=== PATIENT | male | born 1995 | race Caucasian/White ===

== ENCOUNTER 2018-02-26 12:46 | Emergency (ER) | payer OTHER, MEDICAID, SELFPAY ==
[2018-02-26 12:47] VITALS: BP 118/77; PULSE 64; RESP 17; TEMP 36.5; O2SAT 98; BMI 17.6
[2018-02-26] MEDS: LORazepam 2 MG/ML Syringe 0.5 MG IV (13:19)
[2018-02-26] MEDS: Ondansetron 4 MG/2 ML Vial IV (13:19)
[2018-02-26] MEDS: 0.9% Normal Saline 1,000 ML 1000 ML IV (13:19)
--- NOTE | 2018-02-26 13:23 | ED.RN ---
Lights out, pt with pillow and blanket, resting with eyes closed when rn entered room. No vomit in emesis bag. FM asleep in chair.
[2018-02-26 13:33] LABS: Absolute Neutrophil Count 7.9 X10^3/uL (2.0-7.7); Basophil# 0.02 X10^3/uL; Basophil% 0.2 % (0-1); Eosinophil# 0.02 X10^3/uL; Eosinophils% 0.2 % (0-5); Hematocrit 46.3 % (40-54); Hemoglobin 16.6 g/dl (13.0-16.5); Lymphocyte % 12.3 % (19-41); Mean Corp Hgb Conc 35.9 g/gl (32-36); Mean Corpuscular Hgb 32.5 pg (27.0-32.0); Mean Corpuscular Volume 90.8 fL (80-94); Mean Platelet Vol. 11.5 fl (6.2-12.0); Monocyte# 0.58 X10^3/uL; Neutrophil # 7.89 X10^3/uL (2.7-7.7); Neutrophil % 81.1 % (47-70); POSITIVE COUNT NO; POSITIVE DIFFERENTIAL NO; POSITIVE MORPHOLOGY NO; Platelet Count 285 K/mm3 (150-450); RBC Distribution Width CV 11.7 % (11.6-14.6); RBC Distribution Width SD 39.3 fl (35.1-43.9); White Blood Count 9.7 K/mm3 (4.4-11.0)
[2018-02-26 13:39] LABS: Anion Gap 14 (5-15); BUN 11 mg/dL (7-18); Calcium,Total 9.3 mg/dL (8.5-10.1); Chloride 108 mmol/L (98-107); Creatinine, Serum 1.22 mg/dL (0.70-1.30); EST Glomerular Filtration Rate 80 mL/min (>60); Est Glom Filt Rate - Afr Amer 97 mL/min (>60); Estimated Creatinine Clearance 80.56 ml/min; Glucose 122 mg/dL (74-106); Potassium 3.3 mmol/L (3.5-5.1); Sodium Level 142 mmol/L (136-145)
[2018-02-26] MEDS: 0.9% Normal Saline 1,000 ML 150 ML IV (14:33)
[2018-02-26] MEDS: proMETHazine 25 MG/ML Syringe 12.5 MG IV (14:34)
[2018-02-26] MEDS: Ziprasidone IM 20 MG/ML VIAL 10 MG IM (15:39)
[2018-02-26 15:42] VITALS: BP 104/67; PULSE 83; RESP 16; O2SAT 100
--- NOTE | 2018-02-26 16:53 | ED.VISSUMM ---
- ER Visit Summary Date of Service: 02/26/18 Chief Complaint: Nausea and vomiting History of Present Illness: The patient is a 22 M reports nausea and vomiting that started last evening. Complains of pain to the left mid abdomen. He denies fever. Review of records patient has had prior visits for recurrent vomiting. He has had multiple admissions [facility] with extensive workups in no known cause of his vomiting. He does not have any antiemetics at home currently. Physical Examination: Vital signs are unremarkable. Patient is lying in bed. He is nontoxic appearing. Heart is regular rate and rhythm. Lung sounds are clear. Abdomen is soft with mild diffuse tenderness to palpation. Hypoactive bowel sounds are noted. Test Results: CBC reveals hemoglobin concentrated at 16.6. White count is normal. Chemistry studies reveal glucose of 122 bicarb of 20. Emergency Department Course and Treatment: Patient is given IV fluids along with Zofran and Ativan. On repeat evaluation is resting comfortably. He states his symptoms are somewhat improved but he still feels quite nauseated. He is given IV Phenergan. I was notified by nursing that he was having some dry heaves after Phenergan. They have not seen him actually vomit up any fluid. On review of most recent ER visit for same, patient was given IM Geodon due to concern for cyclic vomiting. Patient was given 10 mg of IM Geodon with no reported improvement. Nursing staff advises me they have not seen him vomit at all while here. When I go to reevaluate the patient he states that he has vomited. At this time patient has had extensive workup for the same. I see no sign of acute infection or need for imaging. He will be discharged with Zofran, Phenergan, Bentyl. He will be referred to GI for follow-up. Treatment Plan: [] Disposition: Discharge Impression: Recurrent vomiting This note was generated with [employer] dictation software. It may contain incorrect words, spelling, and punctuation that were not noted in review of the chart prior to signing ED Disposition - Plan for ED Patient: Chief Complaint: Nausea/Vomiting Referrals: Binu Jose MD [Primary Care Provider] -
--- NOTE | 2018-02-26 16:56 | ED.DCSUM_ITS ---
- ER Visit Summary Date of Service: 02/26/18 Chief Complaint: Nausea and vomiting History of Present Illness: The patient is a 22 M reports nausea and vomiting that started last evening. Complains of pain to the left mid abdomen. He denies fever. Review of records patient has had prior visits for recurrent vomiting. He has had multiple admissions at [facility] with extensive workups in no known cause of his vomiting. He does not have any antiemetics at home currently. Physical Examination: Vital signs are unremarkable. Patient is lying in bed. He is nontoxic appearing. Heart is regular rate and rhythm. Lung sounds are clear. Abdomen is soft with mild diffuse tenderness to palpation. Hypoactive bowel sounds are noted. Test Results: CBC reveals hemoglobin concentrated at 16.6. White count is normal. Chemistry studies reveal glucose of 122 bicarb of 20. Emergency Department Course and Treatment: Patient is given IV fluids along with Zofran and Ativan. On repeat evaluation is resting comfortably. He states his symptoms are somewhat improved but he still feels quite nauseated. He is given IV Phenergan. I was notified by nursing that he was having some dry heaves after Phenergan. They have not seen him actually vomit up any fluid. On review of most recent ER visit for same, patient was given IM Geodon due to concern for cyclic vomiting. Patient was given 10 mg of IM Geodon with no reported improvement. Nursing staff advises me they have not seen him vomit at all while here. When I go to reevaluate the patient he states that he has vomited. At this time patient has had extensive workup for the same. I see no sign of acute infection or need for imaging. He will be discharged with Zofran , Phenergan, Bentyl. He will be referred to GI for follow-up. Treatment Plan: [] Disposition: Discharge Impression: Recurrent vomiting This note was generated with [employer] dictation software. It may contain incorrect words, spelling, and punctuation that were not noted in review of the chart prior to signing ED Disposition - Plan for ED Patient: Chief Complaint: Nausea/Vomiting Referrals: Binu Jose MD [Primary Care Provider] -
--- NOTE | 2018-02-26 16:56 | ED.DEP ---
ED Disposition - Plan for ED Patient: Disposition: Home or Assisted Living Chief Complaint: Nausea/Vomiting Instructions: ED Nausea Vomiting Prescriptions: proMETHazine tablet [Phenergan] 25 mg PO Q6H PRN PRN #10 tablet PRN Reason: Nausea Ondansetron [Zofran Odt] 4 mg PO Q8H PRN PRN #20 tablet PRN Reason: Nausea Dicyclomine HCl [Bentyl] 20 mg PO TIDAC #20 capsule Referrals: Timothy Whitten MD [STAFF PHYSICIAN] - As Needed Binu Jose MD [Primary Care Provider] - 1 Week
[2018-02-26 17:40] VITALS: BP 109/82; PULSE 100; RESP 16; O2SAT 98
== END 2018-02-26 17:41 | disposition home or self-care (01) ==
PROVIDERS: Emergency Provider Emergency Medicine; Family Provider Family Medicine; PCP Family Medicine
DX: R11.2 Nausea with vomiting, unspecified (principal); R10.84 Generalized abdominal pain; Z72.0 Tobacco use
CPT/HCPCS: 80048; 85025; 96361; 96372; 96374; 96375; 99283; J2405; J3486

== ENCOUNTER 2018-05-13 17:53 | Emergency (ER) | payer OTHER, MEDICAID, SELFPAY ==
[2018-05-13 17:55] VITALS: BP 121/81; PULSE 103; RESP 20; TEMP 35.7; O2SAT 98; BMI 16.9
[2018-05-13] MEDS: Ondansetron 4 MG/2 ML Vial IV (18:19)
[2018-05-13] MEDS: LORazepam 2 MG/ML Syringe 0.5 MG IV (18:19)
[2018-05-13] MEDS: 0.9% Normal Saline 1,000 ML 999 ML IV (18:19)
[2018-05-13 19:51] VITALS: BP 111/58; PULSE 80; RESP 16; O2SAT 98
--- NOTE | 2018-05-13 20:19 | ED.VISSUMM ---
- ER Visit Summary Date of Service: 05/13/18 Chief Complaint: Cyclic vomiting History of Present Illness: The patient is a 22 M presenting for evaluation secondary to cyclic vomiting. Patient states it drank alcohol last night, approximately 6 shots of liquor, and today woke up and was having an exacerbation of cyclic vomiting. He states that he has had a multitude of episodes of nonbloody nonbilious emesis. Patient reports that he has some epigastric abdominal pain. Denies any fevers denies any diarrhea. Review of systems otherwise negative. Physical Examination: Vital signs are within normal limits except for mild tachycardia, patient is afebrile. General: Patient is well-nourished well-developed and in no acute distress. Head: Normocephalic, atraumatic Eyes: Pupils equal round and reactive bilaterally, extra occular motion intact bialterally ENT: Moist mucous membranes Neck: Supple, no lymphadenopathy, no JVD, no meningismus CVS: Heart regular with tachycardia, no murmurs, rubs or gallops, radial pulses 2+ bilaterally Resp: Respirations nondistressed, lung sounds clear bilaterally Abdomen: Soft, under the epigastrium no guarding or rebound, nondistended, no palpable masses, normal bowel sounds Back: Nontender Extremities: Nontender, atraumatic, active full range of motion, no peripheral edema Skin: warm, no rashes, no petechia Neuro: Alert and oriented x 4, CN 2-12 intact, no lateralizing neurological defecits Psyc: Normal affect Test Results: None indicated Emergency Department Course and Treatment: Patient presented secondary to an exacerbation of cyclic vomiting syndrome. IV was established patient was given 2 L normal saline. He was treated with Ativan, Zofran initially. Patient did not have improvement so he was treated with Thorazine and Benadryl. Repeat evaluation at 2029 showed the patient's to be tolerating ice chips. I believe he can safely be discharged. He has Phenergan at home he was instructed to use it. Disposition: Discharge Impression: 1. Cyclic vomiting This note was generated with [employer] dictation software. It may contain incorrect words, spelling, and punctuation that were not noted in review of the chart prior to signing ED Disposition - Plan for ED Patient: Disposition: Home or Assisted Living Chief Complaint: Nausea/Vomiting Diagnosis: Cyclical vomiting Instructions: When Your Child Has Cyclic Vomiting Syndrome ([facility]) Referrals: Binu Jose MD [Primary Care Provider] - 1-2 Days if not improving
[2018-05-13 20:32] VITALS: BP 110/54; PULSE 112; RESP 14; O2SAT 98
--- NOTE | 2018-05-13 20:33 | ED.RN ---
pt given written and verbal discharge instructions and verbalizes understanding. pt denies any further questions. calls dad for a ride home and is awaiting rides arrival. iv d/c and covered with 2x2 gauze dressing and paper tape. minimal bleeding noted.
== END 2018-05-13 20:47 | disposition home or self-care (01) ==
PROVIDERS: Emergency Provider Emergency Medicine; Family Provider Family Medicine; PCP Family Medicine
DX: G43.A0 Cyclical vomiting, in migraine, not intractable (principal)
CPT/HCPCS: 96365; 96367; 96375; 99283; J7030; A4216; J2405; J3490

== ENCOUNTER 2018-05-15 10:08 | Inpatient (IN) | payer OTHER, MEDICAID, SELFPAY ==
[2018-05-15 10:10] VITALS: BP 126/98; PULSE 72; PULSE 79; RESP 18; TEMP 36.6; O2SAT 100; O2SAT 98; BMI 16.9
[2018-05-15 10:42] LABS: Absolute Lymphocyte Count 1.54 X10^3/ul (0.83-4.51); Absolute Neutrophil Count 4.2 X10^3/uL (2.0-7.7); Basophil# 0.03 X10^3/uL; Basophil% 0.5 % (0-1); Eosinophil# 0.02 X10^3/uL; Eosinophils% 0.3 % (0-5); Hematocrit 44.4 % (40-54); Hemoglobin 15.3 g/dl (13.0-16.5); Lymphocyte # 1.54 X10^3/ul (4.0); Lymphocyte % 23.8 % (19-41); Mean Corp Hgb Conc 34.5 g/gl (32-36); Mean Corpuscular Hgb 32.2 pg (27.0-32.0); Mean Corpuscular Volume 93.5 fL (80-94); Mean Platelet Vol. 10.9 fl (6.2-12.0); Monocyte# 0.66 X10^3/uL; Monocyte% 10.2 % (0-10); Platelet Count 278 K/mm3 (150-450); RBC Distribution Width CV 12.5 % (11.6-14.6); RBC Distribution Width SD 42.8 fl (35.1-43.9); Red Blood Count 4.75 M/mm3 (4.6-6.2); White Blood Count 6.5 K/mm3 (4.4-11.0)
--- NOTE | 2018-05-15 10:45 | ED.DCSUM_ITS ---
- ER Visit Summary Date of Service: 05/15/18 Chief Complaint: Nausea, vomiting History of Present Illness: The patient is a 22 M presents to the emergency department with nausea and vomiting. Patient has a history of cyclic vomiting syndrome. He was actually seen here 2 days ago for the same. The patient states that he vomits when he gets stressed. Mother in the room gives most of the history. The patient has no history of abdominal surgery. He has had endoscopy which was normal. He has been vomiting for the past 2 days. He was able to eat yesterday, but then the symptoms returned. He denies any fevers or chills. He has had some abdominal cramping. He denies any diarrhea. Physical Examination: Vital signs reviewed General: Well-nourished, well-developed Head: Normocephalic, atraumatic Eyes: Pupils equal and reactive, extraocular muscles intact Neck, supple, no lymphadenopathy Heart: Regular rate and rhythm Respiratory: No distress, clear bilaterally Abdomen: Soft, nontender, nondistended, no peritoneal signs Back: Nontender Extremities: Nontender, no edema, no cords Skin: Normal color no rash Neuro: Alert and oriented, no focal or lateralizing deficits Test Results: [] Emergency Department Course and Treatment: The patient presents with cyclic vomiting syndrome. IV was established. The patient was initially given fluids , Ativan, and Zofran. He had persistent emesis. He was then given Benadryl and Thorazine. Screening labs are obtained. Labs are unremarkable. Tox is positive for cannabis which I feel is likely the cause of his symptoms. Patient continued to have protracted dry heaves with vomiting. He was given Phenergan and more Benadryl. His symptoms did not jyothi. At this time given his persistent symptoms he will be admitted to observation for continued symptom control. Treatment Plan: [] Disposition: [place] Impression: 1. Intractable vomiting This note was generated with [email or web address] dictation software. It may contain incorrect words, spelling, and punctuation that were not noted in review of the chart prior to signing ED Disposition - Plan for ED Patient: Chief Complaint: Nausea/Vomiting Referrals: Binu Jose MD [Primary Care Provider] -
[2018-05-15 10:53] LABS: POSITIVE COUNT NO; POSITIVE DIFFERENTIAL NO; POSITIVE MORPHOLOGY NO
[2018-05-15] MEDS: Lactated Ringers 1,000 ML 999 ML IV (10:53)
[2018-05-15] MEDS: LORazepam 2 MG/ML Syringe 0.5 MG IV (10:54)
[2018-05-15 10:55] LABS: Anion Gap 5 (5-15); BUN 11 mg/dL (7-18); BUN/Creat Ratio 10.9 RATIO (10-20); Calcium,Total 9.4 mg/dL (8.5-10.1); Chloride 105 mmol/L (98-107); Creatinine, Serum 1.01 mg/dL (0.70-1.30); EST Glomerular Filtration Rate 99 mL/min (>60); Est Glom Filt Rate - Afr Amer 120 mL/min (>60); Estimated Creatinine Clearance 93.56 ml/min; Glucose 114 mg/dL (74-106); Potassium 3.5 mmol/L (3.5-5.1); Sodium Level 138 mmol/L (136-145)
[2018-05-15] MEDS: Ondansetron 4 MG/2 ML Vial IV ×3 (10:55→21:52)
[2018-05-15 12:10] VITALS: BP 112/51; PULSE 99; RESP 16; O2SAT 98
[2018-05-15] MEDS: DiphenhydrAMINE 50 MG/ML Syringe 25 MG IV (12:12)
[2018-05-15] MEDS: proMETHazine 25 MG/ML Syringe 12.5 MG IV (12:12)
[2018-05-15 12:51] LABS: Amphetamine Urine VISTA NEGATIVE (<1000 ng/mL); Barbiturate Urine VISTA NEGATIVE (< 200 ng/mL); Benzodiazepine Urine VISTA NEGATIVE (< 200 ng/mL); Cocaine Urine VISTA NEGATIVE (< 300 ng/mL); Ecstacy Urine VISTA NEGATIVE (< 500 ng/mL); Methadone Urine VISTA NEGATIVE (< 300 ng/mL); PCP Urine VISTA NEGATIVE (< 25 ng/mL); THC Urine VISTA POSITIVE (< 50 ng/mL); Vista UDS pH Range 8
--- NOTE | 2018-05-15 13:36 | HP.PCM_ITS ---
Problem List (1) Intractable vomiting with nausea Status: Acute (2) Marijuana use, continuous Status: Chronic History of Present Illness Date of Admission: 05/15/18 Chief Complaint: Intractable vomiting and abdominal cramps The patient is a 22 year old M with history of chronic marijuana use came to ER with intractable nausea and vomiting for past 2 days. Patient has also complained of abdominal cramps, twisting and piercing, predominantly on the left side of her abdomen. Patient was in ER on last Tuesday and came back because of vomiting. As per ER note he had EGD which was normal. Denies subjective fever but has chills. No change in bowel movement. In the ED, he got Benadryl and Thorazine. Labs are unremarkable except U tox positive off cannabinoids. Previous CT abdomen and pelvis in September 2017 shows punctate calcification in the calyces of both kidneys but no hydronephrosis bilaterally. Past Medical History Past Medical History (Chronic Problems): Chronic Problems Marijuana use, continuous (Chronic) Allergies risperidone [From Risperdal] Adverse Reaction (Verified 05/15/18 10:10) Other RAPID HEARTBEAT Home Medications: Ambulatory Orders Medication Instructions Recorded NK [NK] 05/13/18 Smoking Status: Former smoker - *Family History Paternal History Items: No pertinent history Review of Systems Constitutional: Reports: Chills, Malaise, Weakness, Fatigue. Denies: Fever, Weight Change HEENT: Denies: Head Aches, Sinus Congestion, Sinus Drainage Cardiovascular: Denies: Chest Pain, Palpitations Respiratory: Denies: Cough, Shortness of breath at rest, Sputum production Gastrointestinal: Reports: Abdominal Pain, Nausea, Vomiting - Bilious in nature Genitourinary: Denies: Dysuria Musculoskeletal: Denies: Joint Pain, Joint Tenderness Skin: Denies: Rash, Wounds Neurological: Denies: Numbness, Tingling, Focal weakness Psychiatric: Denies: Anxiety, Depression, Homicidal Ideations, Suicidal Ideations Hematologic/ Lymphatic: Denies: Easy Bruising, Easy Bleeding VTE Information - Inpt Only VTE Present on Admission: No VTE Mechan Device Prophylaxis: None Reason prophylaxis not ordered:: Procedure Not Indicated Patient Problems: Active and Suspected Problems Intractable vomiting with nausea (Acute) - Physical Exam General: Oriented x3, Cooperative, Lethargic HEENT: Atraumatic, PERRLA, EOMI, Normocephalic Oral: Dry Mucosa Neck: Supple, No JVD, Negative Carotid Bruits Lungs: Clear to auscultation, Normal air movement Cardiovascular: Regular rate, Normal S1, Normal S2, No murmurs Abdomen: Bowel Sounds Present, Soft, Non-Distended, No Hepato-splenomegaly, Tender - Mild tenderness on left upper quadrant Extremities: No edema, Capillary Refill Less than 3 Seconds Skin: No rashes, No breakdown Musculoskeletal: No Tenderness to Palpation of Joints or Extremities Neurological: Cranial nerves II-XII grossly intact Psych/Mental Status: Normal Affect, Appropriate Vital Signs Temp Pulse Resp BP Pulse Ox 97.8 F 99 16 112/51 L 98 05/15/18 10:10 05/15/18 12:10 05/15/18 12:10 05/15/18 12:10 05/15/18 12:10 Oxygen Delivery Method Room Air Weight: 125 lb Body Mass Index (BMI) 16.9 Laboratory Tests Past 24 Hrs 05/15/18 05/15/18 05/15/18 10:30 10:30 12:30 WBC 6.5 RBC 4.75 Hgb 15.3 Hct 44.4 MCV 93.5 MCH 32.2 H MCHC 34.5 RDW 12.5 RDW Differential 42.8 Plt Count 278 MPV 10.9 Immature Gran % (Auto) 0.200 Neut % (Auto) 65.0 Lymph % (Auto) 23.8 [place] % (Auto) 10.2 H Eos % (Auto) 0.3 Baso % (Auto) 0.5 Absolute Neuts (auto) 4.2 Absolute Lymphs (auto) 1.54 Total Counted Not Reportable Sodium 138 Potassium 3.5 Chloride 105 Carbon Dioxide 28.0 Anion Gap 5 BUN 11 Creatinine 1.01 Estim Creat Clear Calc 93.56 Est GFR (MDRD) Af Amer 120 Est GFR (MDRD) Non-Af 99 BUN/Creatinine Ratio 10.9 Glucose 114 H Calcium 9.4 Urine Opiates Screen NEGATIVE Urine Methadone Screen NEGATIVE Ur Barbiturates Screen NEGATIVE Ur Phencyclidine Scrn NEGATIVE Ur Amphetamines Screen NEGATIVE U Methamphetamin-MDMA NEGATIVE U Benzodiazepines Scrn NEGATIVE Urine Cocaine Screen NEGATIVE U Cannabinoids Screen POSITIVE H Ur Drug Screen Comment Assessment/Plan All Active Problems Intractable vomiting with nausea (Acute) The patient is a 22 year old M with history of chronic marijuana use came to ER with intractable nausea and vomiting for past 2 days. Patient has also complained of abdominal cramps, twisting and piercing, predominantly on the left side of her abdomen. Vomiting is mainly bilious in nature. Patient was in ER on last Tuesday and came back because of vomiting. As per ER note he had EGD which was normal. Denies subjective fever but has chills. No change in bowel movement. In the ED, he got Benadryl and Thorazine. Labs are unremarkable except U tox positive off cannabinoids. Previous CT abdomen and pelvis in September 2017 shows punctate calcification in the calyces of both kidneys but no hydronephrosis bilaterally. 1. Intractable nausea and vomiting along with abdominal cramps most probably from marijuana use: In view of history of bilateral punctate calcifications the calyces of both kidneys as mentioned above, acute abdomen series ordered. Symptomatic management for nausea vomiting and pain. IV fluid normal saline at 120 5L per hour. 2. Chronic marijuana use: Counseling done to quit marijuana. Laboratory Results 05/15/18 10:30: WBC 6.5, RBC 4.75, Hgb 15.3, Hct 44.4, MCV 93.5, MCH 32.2 H, MCHC 34.5, RDW 12.5, RDW Differential 42.8, Plt Count 278, MPV 10.9, Immature Gran % (Auto) 0.200, Neut % (Auto) 65.0, Lymph % (Auto) 23.8, [place] % (Auto) 10.2 H, Eos % (Auto) 0.3, Baso % (Auto) 0.5, Absolute Neuts (auto) 4.2, Absolute Lymphs (auto) 1.54, Total Counted Not Reportable 05/15/18 10:30: Sodium 138, Potassium 3.5, Chloride 105, Carbon Dioxide 28.0, Anion Gap 5, BUN 11, Creatinine 1.01, Estim Creat Clear Calc 93.56, Est GFR ( MDRD) Af Amer 120, Est GFR (MDRD) Non-Af 99, BUN/Creatinine Ratio 10.9, Glucose 114 H, Calcium 9.4 05/15/18 12:30: Urine Opiates Screen NEGATIVE, Urine Methadone Screen NEGATIVE, Ur Barbiturates Screen NEGATIVE, Ur Phencyclidine Scrn NEGATIVE, Ur Amphetamines Screen NEGATIVE, U Methamphetamin-MDMA NEGATIVE, U Benzodiazepines Scrn NEGATIVE, Urine Cocaine Screen NEGATIVE, U Cannabinoids Screen POSITIVE H, Ur Drug Screen Comment * Code Visit Inpatient E&M: 60820 Init Hosp L2
[2018-05-15 13:38] VITALS: BP 110/50; PULSE 96; RESP 18; O2SAT 97
[2018-05-15 14:46] VITALS: BMI 17.5; BMI 17.6
[2018-05-15 14:54] VITALS: BP 122/75; PULSE 80; RESP 16; TEMP 37.3; O2SAT 100
--- NOTE | 2018-05-15 15:40 | RAD_ITS ---
STUDY: X-RAY - ACUTE ABDOMINAL SERIES REASON FOR EXAM: Male, 22 years old. Nausea vomiting left-sided abdominal pain TECHNIQUE: Single view of the chest. Supine, and erect view(s) of the abdomen were obtained. COMPARISON: Previous study of 11/12/2017 FINDINGS: The lungs are clear and expanded. Normal size heart. Normal mediastinum and sandra. Normal visualized pulmonary arteries. Normal visualized aortic arch and descending thoracic aorta. There is a non-specific bowel gas pattern. The soft tissue structures of the abdomen and pelvis are unremarkable. Normal visualized osseous structures. RAD/Acute Abdomen Inc Chest IMPRESSION: Normal x-ray examination of the chest, abdomen, and pelvis. Electronically Signed: Ash Berg MD at 20:17 EDT , Service support ,
[2018-05-15] MEDS: 0.9% NaCl Peripheral Flush Adult/Peds IV (16:41)
[2018-05-15] MEDS: 0.9% Normal Saline 1,000 ML 125 ML IV (17:46)
[2018-05-15 21:00] VITALS: BP 137/73; PULSE 75; RESP 18; TEMP 37.1; O2SAT 100
[2018-05-15] MEDS: Famotidine 20 MG Tablet PO (21:52)
[2018-05-16] MEDS: 0.9% Normal Saline 1,000 ML 125 ML IV ×3 (02:12→18:09)
[2018-05-16 02:13] VITALS: BP 111/53; PULSE 77; RESP 16; TEMP 37.3; O2SAT 98
[2018-05-16] MEDS: proMETHazine 25 MG/ML Syringe 12.5 MG IV ×3 (02:19→18:10)
[2018-05-16] MEDS: Ketorolac 15 MG/ML Vial IV ×3 (03:59→18:11)
--- NOTE | 2018-05-16 07:35 | PCM.PN.HOSP ---
Patient Problems: Active and Suspected Problems Intractable vomiting with nausea (Acute) Subjective: Patient notes that his abdominal discomfort has lessened but he still does have intermittent sharp cramping pain as well as nausea but no further emesis since admission secondary to frequent dosing of antiemetics. Discussed at length cannabis association with cyclic vomiting and patient denied any usage however his urine drug screen is positive and despite this discussion states that this is not the reason. He denied any associated diarrhea. Patient denies fevers, chills, chest pain or dyspnea. Objective: Physical Examination: General: awake, alert, oriented x 3 and cooperative, seated upright in bed in no apparent distress. Skin: normal color, turgor, no icterus, cyanosis. HEENT: AT/NC, EOMI, PERRLA, MMM. Lungs: CTA bilaterally, moderate effort, mild decrease BL bases, no rales, ronchi or wheezing. Heart: Regular rate and rhythm; no gallop, rub audible. Abdomen: soft, very thin habitus, no market tenderness with palpation, nondistended, mildly hypoactive bowel sounds. Neurological: patient awake, alert, oriented x 3; cognitive function intact; pupils equally reactive to light and accomodation; cranial nerves II-XII grossly normal, moving all 4 extremities, no focal deficits, strength mildly globally decreased secondary to acute presentation. Psychiatric: affect appears normal, no acute evidence of depressive or anxiety feelings. Vitals/I&O's: Vital Signs Temp Pulse Resp BP Pulse Ox 99.2 F H 77 16 111/53 L 98 05/16/18 02:13 05/16/18 02:13 05/16/18 02:13 05/16/18 02:13 05/16/18 02:13 Oxygen Delivery Method Room Air Weight: 129 lb 10.109 oz Body Mass Index (BMI) 17.5 Intake and Output for Last 24 Hours 05/14/18 05/15/18 05/16/18 23:59 23:59 23:59 Intake Total 117 / 117 1609 / 1609 Output Total 705 / 705 Balance 117 / 117 904 / 904 Current Medications Al Hydroxide/Mg Hydroxide (Mylanta Ii) 30 ml PO Q6H PRN PRN PRN Reason: Gastric burning Famotidine (Pepcid) 20 mg PO BID [place] Last Admin: 05/15/18 21:52 Dose: 20 mg Diphenhydramine HCl 25 mg/Chlorpromazine HCl 25 mg/Sodium Chloride 51.5 mls @ 202 mls/hr IV X1 PRN PRN Reason: IF UNRESOLVED AFTER STEP #1 Last Admin: 05/15/18 10:55 Dose: 202 mls/hr Sodium Chloride () 1,000 mls @ 125 mls/hr IV .Q8H [place] Last Admin: 05/16/18 02:12 Dose: 125 mls/hr Ketorolac Tromethamine (Toradol) 15 mg IV Q6H PRN PRN PRN Reason: PAIN Stop: 05/21/18 03:29 Last Admin: 05/16/18 03:59 Dose: 15 mg Magnesium Hydroxide (Milk Of Magnesia) 30 ml PO DAILY PRN PRN PRN Reason: Constipation Nutritional Formula (Lactose Free) (Ensure Clear) 120 ml PO 4X/DAY [place] Last Admin: 05/15/18 21:52 Dose: 120 ml Ondansetron HCl (Zofran) 4 mg IV Q4H PRN PRN PRN Reason: NAUSEA Last Admin: 05/15/18 21:52 Dose: 4 mg Promethazine HCl (Phenergan) 12.5 mg IV Q6H PRN PRN PRN Reason: NAUSEA/VOMITING Last Admin: 05/16/18 02:19 Dose: 12.5 mg Simethicone (Mylicon) 80 mg PO TIDPC [facility] Sodium Chloride () 5 - 30 ml IV UD PRN PRN Reason: SALINE FLUSH Last Admin: 05/15/18 16:41 Dose: 10 ml Medical Necessity - Tobacco Use Smoking Status: Former smoker Assessment/Plan All Active Problems Intractable vomiting with nausea (Acute) The patient is a 22 y/o M w/ PMHx: Chronic Cannabis Usage with history of intractable nausea and emesis with prior normal EGD who presents to the [facility] ED on 05/15[facility]18 with ongoing cramping abdominal pain, nausea and emesis x 2 days. (1) Cramping Abdominal Pain, N/V, Suspected secondary to Possible Viral Gastroenteritis versus Cyclic Vomiting Syndrome secondary to Cannabis usage: Admitted to [place], will continue aggressive hydration, add bentyl and simethicone, anti-emetics, pain regimen PRN, famotidine, transition to diet once assure tolerating clears. Hepatic profile pending. (2) Cannabis usage: Chronic usage, notes has not recently used despite + UDS, became mildly defensive and noted this was not the reason for his presentation or prior issues. (3) GERD: PPI. (4) DVT Prophylaxis: Low risk, ambulation. Code Visit OBSV E&M: 42903 Subsequent observation care L2
--- NOTE | 2018-05-16 07:43 | PN_ITS ---
Patient Problems: Active and Suspected Problems Intractable vomiting with nausea (Acute) Subjective: Patient notes that his abdominal discomfort has lessened but he still does have intermittent sharp cramping pain as well as nausea but no further emesis since admission secondary to frequent dosing of antiemetics. Discussed at length cannabis association with cyclic vomiting and patient denied any usage however his urine drug screen is positive and despite this discussion states that this is not the reason. He denied any associated diarrhea. Patient denies fevers, chills, chest pain or dyspnea. Objective: Physical Examination: General: awake, alert, oriented x 3 and cooperative, seated upright in bed in no apparent distress. Skin: normal color, turgor, no icterus, cyanosis. HEENT: AT/NC, EOMI, PERRLA, MMM. Lungs: CTA bilaterally, moderate effort, mild decrease BL bases, no rales, ronchi or wheezing. Heart: Regular rate and rhythm; no gallop, rub audible. Abdomen: soft, very thin habitus, no market tenderness with palpation, nondistended, mildly hypoactive bowel sounds. Neurological: patient awake, alert, oriented x 3; cognitive function intact; pupils equally reactive to light and accomodation; cranial nerves II-XII grossly normal, moving all 4 extremities, no focal deficits, strength mildly globally decreased secondary to acute presentation. Psychiatric: affect appears normal, no acute evidence of depressive or anxiety feelings. Vitals/I&O's: Vital Signs Temp Pulse Resp BP Pulse Ox 99.2 F H 77 16 111/53 L 98 05/16/18 02:13 05/16/18 02:13 05/16/18 02:13 05/16/18 02:13 05/16/18 02:13 Oxygen Delivery Method Room Air Weight: 129 lb 10.109 oz Body Mass Index (BMI) 17.5 Intake and Output for Last 24 Hours 05/14/18 05/15/18 05/16/18 23:59 23:59 23:59 Intake Total 117 / 117 1609 / 1609 Output Total 705 / 705 Balance 117 / 117 904 / 904 Current Medications Al Hydroxide/Mg Hydroxide (Mylanta Ii) 30 ml PO Q6H PRN PRN PRN Reason: Gastric burning Famotidine (Pepcid) 20 mg PO BID [place] Last Admin: 05/15/18 21:52 Dose: 20 mg Diphenhydramine HCl 25 mg/Chlorpromazine HCl 25 mg/Sodium Chloride 51.5 mls @ 202 mls/hr IV X1 PRN PRN Reason: IF UNRESOLVED AFTER STEP #1 Last Admin: 05/15/18 10:55 Dose: 202 mls/hr Sodium Chloride () 1,000 mls @ 125 mls/hr IV .Q8H [place] Last Admin: 05/16/18 02:12 Dose: 125 mls/hr Ketorolac Tromethamine (Toradol) 15 mg IV Q6H PRN PRN PRN Reason: PAIN Stop: 05/21/18 03:29 Last Admin: 05/16/18 03:59 Dose: 15 mg Magnesium Hydroxide (Milk Of Magnesia) 30 ml PO DAILY PRN PRN PRN Reason: Constipation Nutritional Formula (Lactose Free) (Ensure Clear) 120 ml PO 4X/DAY [facility] Last Admin: 05/15/18 21:52 Dose: 120 ml Ondansetron HCl (Zofran) 4 mg IV Q4H PRN PRN PRN Reason: NAUSEA Last Admin: 05/15/18 21:52 Dose: 4 mg Promethazine HCl (Phenergan) 12.5 mg IV Q6H PRN PRN PRN Reason: NAUSEA/VOMITING Last Admin: 05/16/18 02:19 Dose: 12.5 mg Simethicone (Mylicon) 80 mg PO TIDPC [facility] Sodium Chloride () 5 - 30 ml IV UD PRN PRN Reason: SALINE FLUSH Last Admin: 05/15/18 16:41 Dose: 10 ml Medical Necessity - Tobacco Use Smoking Status: Former smoker Assessment/Plan All Active Problems Intractable vomiting with nausea (Acute) The patient is a 22 y/o M w/ PMHx: Chronic Cannabis Usage with history of intractable nausea and emesis with prior normal EGD who presents to the [facility] ED on 05/15/18 with ongoing cramping abdominal pain, nausea and emesis x 2 days. (1) Cramping Abdominal Pain, N/V, Suspected secondary to Possible Viral Gastroenteritis versus Cyclic Vomiting Syndrome secondary to Cannabis usage: Admitted to [place], will continue aggressive hydration, add bentyl and simethicone, anti-emetics, pain regimen PRN, famotidine, transition to diet once assure tolerating clears. Hepatic profile pending. (2) Cannabis usage: Chronic usage, notes has not recently used despite + UDS, became mildly defensive and noted this was not the reason for his presentation or prior issues. (3) GERD: PPI. (4) DVT Prophylaxis: Low risk, ambulation. Code Visit OBSV E&M: 12489 Subsequent observation care L2
[2018-05-16 08:22] VITALS: BP 105/49; PULSE 77; RESP 16; TEMP 36.8; O2SAT 99
[2018-05-16] MEDS: Famotidine 20 MG Tablet PO ×2 (08:35→21:33)
[2018-05-16] MEDS: Ondansetron 4 MG/2 ML Vial IV ×3 (08:38→21:33)
[2018-05-16 08:41] LABS: AST(SGOT) 9 U/L (15-37); Alanine Aminotransfer ALT/SGPT 12 U/L (16-61); Albumin, Serum 3.9 g/dL (3.2-5.0); Alkaline Phosphatase 48 U/L (45-117); Globulin 2.8 g/dL (2.2-4.2); Protein, Total 6.7 g/dL (6.4-8.2)
[2018-05-16 08:42] LABS: Bilirubin, Direct 0.27 mg/dL (0.00-0.30); Magnesium 1.9 mg/dL (1.6-2.6)
[2018-05-16] MEDS: Dicyclomine 10 MG Capsule 20 MG PO ×3 (09:44→21:33)
--- NOTE | 2018-05-16 10:45 | CASEMGMT ---
Social Work Note Referral Date: 05/16/2018 Date of Assessment: 05/16/2018 Reason for consult: Marijuana use Informant: IRENE Personal Status: SW met with pt as pt is active marijuana user. SW introduced self and role at [facility]. Pt is alert and orientated x4. Pt states that he lives with his whole family and independent with ADLs. Pt states that his family try to be good support for him. SW asked pt what he meant by saying his family try to be good support. Pt states that his mom and dad work a lot so he is often home by himself. Pt states that he has one good friend and says that his girlfriend are also support for him. Pt states that his girlfriend doesn't act like a girlfriend. SW asked pt what he meant by this. Pt states that he texted his girlfriend yesterday to let her know that he was in the hospital and his girlfriend hasn't responded to his messages or visited him in the hospital. SW asked pt if his girlfriend works as she could be busy and pt states that his girlfriend doesn't currently work. SW offered support to pt. Pt confirms that he has insurance. Pt states that he is currently on his dad's insurance and that he had previously filled out Medicaid Application and he is in the process of receiving Medicaid. Substance Abuse Hx: Pt confirms that he smokes pot everyday. Pt states that he started smoking marijuana around the age of 14. Pt states that he doesn't plan on quitting anytime soon. Pt states that everyone keeps telling him that the marijuana is making him sick. Pt states that he proved this wrong. Pt states that he will smoke marijuana seven months at a time and that he just now got sick from it. SW encouraged pt that quitting marijuana could have health benefits to it. Pt still denied quitting marijuana. Mental Health Hx: Pt states that at one time he was told he had Bipolar. SW explained Bipolar symptoms and pt denied symptoms. Pt states I just feel sad all the time. SW explained depression symptoms. Pt denied any feelings of hopelessness, worthlessness, or uselessness. Pt denied current suicidal/homicidal thoughts/plans/ideations. Pt states that when he was younger he saw a counselor but couldn't remember the agency where he received counseling services from. Pt states that he and his counselor at the time got into an argument and got into a fight and he never went back to see that counselor again. Pt denied receiving current counseling services. SW educated pt on counseling services around area. Pt denied counseling referral/references. Pt denied additional needs or concerns. Plan: Pt to return home living with his family Yoli Cannon [employer], [employer]CH[employer]IAN
[2018-05-16 14:16] VITALS: BP 110/46; PULSE 80; RESP 16; TEMP 36.8; O2SAT 97
[2018-05-16] MEDS: 0.9% NaCl Peripheral Flush Adult/Peds IV (18:11)
[2018-05-16 21:14] VITALS: BP 122/71; PULSE 69; RESP 18; TEMP 37; O2SAT 100
--- NOTE | 2018-05-16 21:32 | NURSING ---
Talking with patient about his home life and he states he has nothing to be happy about and that he leads a sad life. States he doesn't think it's the marijuana that made him this sick, believes it is stress. Emotional support provided.
[2018-05-17] MEDS: proMETHazine 25 MG/ML Syringe 12.5 MG IV (00:30)
[2018-05-17] MEDS: 0.9% Normal Saline 1,000 ML 125 ML IV ×3 (01:50→17:40)
[2018-05-17 03:02] VITALS: BP 128/66; PULSE 68; RESP 16; TEMP 36.6; O2SAT 100
[2018-05-17] MEDS: Dicyclomine 10 MG Capsule 20 MG PO (07:21)
[2018-05-17 08:05] VITALS: BP 130/84; PULSE 75; RESP 18; TEMP 36.6; O2SAT 100
[2018-05-17] MEDS: Ketorolac 15 MG/ML Vial IV ×3 (08:20→20:32)
--- NOTE | 2018-05-17 08:33 | CT_ITS ---
STUDY: CT ABDOMEN AND PELVIS WITH CONTRAST REASON FOR EXAM: Male, 22 years old. Left abdominal pain RADIATION DOSAGE (If Supplied By Facility): CTDIvol = ( 8.03 ) mGy, DLP = ( 319.56 ) mGycm TECHNIQUE: Transaxial images were obtained from the dome of the diaphragm to the symphysis pubis without oral contrast. 100CC ml of Isovue 300 contrast was administered. Sagittal and coronal images were reconstructed. Individualized dose optimization techniques were used for this CT. COMPARISON: October 19, 2017 FINDINGS: The visualized lung bases are unremarkable. The visualized portions of the heart are within normal limits. Normal liver. Normal gallbladder and extrahepatic biliary system. Normal spleen. Normal pancreas. Normal bilateral adrenal glands. Multiple stones are noted of the kidneys bilaterally, less than 2 mm. No hydronephrosis. Normal visualized stomach. Normal small intestine. Normal colon. The appendix is visualized and appears normal. Normal abdominal aorta. Normal inferior vena cava. Normal retroperitoneum. Normal urinary bladder. Mild pelvic fluid. Normal abdominal wall. Normal osseous structures. CT/Abdomen/Pelvis WITH Contrast IMPRESSION: Nonobstructing renal calculi bilaterally. Mild pelvic free fluid, of questionable etiology. Electronically Signed: Jose Ellison DO at 18:55 EDT Tel [phone], Service support ,
[2018-05-17] MEDS: 0.9% NaCl Peripheral Flush Adult/Peds IV ×8 (08:55→21:49)
[2018-05-17] MEDS: Ondansetron 4 MG/2 ML Vial IV ×2 (08:55→21:49)
--- NOTE | 2018-05-17 09:19 | PCM.PN.HOSP ---
Patient Problems: Active and Suspected Problems Intractable vomiting with nausea (Acute) Subjective: Patient overnight with occasional usage of IV antiemetics but per nursing staff did not have any retching and tolerated some clear liquids with encouragement. This morning attempts to transition patient off of IV antiemetics and advance diet unsuccessful with onset retching, nausea, recurrent abdominal discomfort. Discussed with patient and pending CT scan of the abdomen as well as general surgery input. Patient denies fevers, chills, chest pain or dyspnea. Objective: Physical Examination: General: awake, alert, oriented x 3 and cooperative, laying in the bed, ongoing described intractable abdominal discomfort and nausea with current dry heaving. Skin: normal color, turgor, no icterus, cyanosis. HEENT: AT/NC, EOMI, PERRLA, dry MM. Lungs: CTA bilaterally, moderate effort, mild decrease BL bases, no rales, ronchi or wheezing. Heart: Regular rate and rhythm; no gallop, rub audible. Abdomen: soft, thin habitus, notes diffuse discomfort w/ palpation, ND, normal BS despite currently presentation. Extremities: no cyanosis, clubbing, or edema. Neurological: patient awake, alert, oriented x 3; cognitive function intact; pupils equally reactive to light and accomodation; cranial nerves II-XII grossly normal, moving all 4 extremities, no focal deficits, strength severely globally decreased secondary to acute presentation. Psychiatric: affect appears teak, strains, does admit to ongoing events in his life and suspect underlying depression, no SI. Vitals/I&O's: Vital Signs Temp Pulse Resp BP Pulse Ox 97.9 F 75 18 130/84 H 100 05/17/18 08:05 05/17/18 08:05 05/17/18 08:05 05/17/18 08:05 05/17/18 08:05 Oxygen Delivery Method Room Air Weight: 129 lb 10.109 oz Body Mass Index (BMI) 17.5 Intake and Output for Last 24 Hours 05/15/18 05/16/18 05/17/18 23:59 23:59 23:59 Intake Total 117 / 117 3658 / 3658 1627 / 1627 Output Total 955 / 955 975 / 975 Balance 117 / 117 2703 / 2703 652 / 652 Current Medications Al Hydroxide/Mg Hydroxide (Mylanta Ii) 30 ml PO Q6H PRN PRN PRN Reason: Gastric burning Dicyclomine HCl (Bentyl) 20 mg PO ACHS [facility] Last Admin: 05/17/18 07:21 Dose: 20 mg Famotidine (Pepcid) 20 mg PO BID [facility] Last Admin: 05/16/18 21:33 Dose: 20 mg Sodium Chloride () 1,000 mls @ 125 mls/hr IV .Q8H [facility] Last Admin: 05/17/18 01:50 Dose: 125 mls/hr Ketorolac Tromethamine (Toradol) 15 mg IV Q6H PRN PRN PRN Reason: PAIN Stop: 05/21/18 03:29 Last Admin: 05/17/18 08:20 Dose: 15 mg Magnesium Hydroxide (Milk Of Magnesia) 30 ml PO DAILY PRN PRN PRN Reason: Constipation Nutritional Formula (Lactose Free) (Ensure Clear) 120 ml PO 4X/DAY [facility] Last Admin: 05/16/18 21:33 Dose: Not Given Ondansetron HCl (Zofran) 4 mg IV Q6H PRN PRN PRN Reason: nausea, emesis Last Admin: 05/17/18 08:55 Dose: 4 mg Promethazine HCl (Phenergan) 6.25 mg IV Q6H PRN PRN PRN Reason: NAUSEA/VOMITING Simethicone (Mylicon) 80 mg PO TIDPC [facility] Last Admin: 05/16/18 18:08 Dose: 80 mg Sodium Chloride () 5 - 30 ml IV UD PRN PRN Reason: SALINE FLUSH Last Admin: 05/17/18 08:55 Dose: 10 ml Medical Necessity - Tobacco Use Smoking Status: Former smoker Assessment/Plan All Active Problems Intractable vomiting with nausea (Acute) The patient is a 22 y/o M w/ PMHx: Chronic Cannabis Usage with history of intractable nausea and emesis with prior normal EGD who presents to the [facility] ED on 05/15/18 with ongoing cramping abdominal pain, nausea and emesis x 2 days. (1) Cramping Abdominal Pain, N/V, Suspected secondary to Possible Viral Gastroenteritis versus Cyclic Vomiting Syndrome secondary to Cannabis usage: Admitted to [place], continued aggressive hydration, added bentyl and simethicone, anti-emetics, pain regimen PRN, famotidine, attempted to transition diet given 05/16-05/17 improvement; however, worsened status, will obtain CT A/P and will consult Dr. Gtz, General Surgery. From reports did have prior EGD recently that was unremarkable but at OSH. (2) Cannabis usage: Chronic usage, notes has not recently used despite + UDS, became mildly defensive and noted this was not the reason for his presentation or prior issues. (3) GERD: PPI. (4) Former Tobacco use: Encourage continued cessation. (5) DVT Prophylaxis: Low risk, ambulation. Code Visit Inpatient E&M: 64854 Subs Hosp L2
--- NOTE | 2018-05-17 09:25 | PN_ITS ---
Patient Problems: Active and Suspected Problems Intractable vomiting with nausea (Acute) Subjective: Patient overnight with occasional usage of IV antiemetics but per nursing staff did not have any retching and tolerated some clear liquids with encouragement. This morning attempts to transition patient off of IV antiemetics and advance diet unsuccessful with onset retching, nausea, recurrent abdominal discomfort. Discussed with patient and pending CT scan of the abdomen as well as general surgery input. Patient denies fevers, chills, chest pain or dyspnea. Objective: Physical Examination: General: awake, alert, oriented x 3 and cooperative, laying in the bed, ongoing described intractable abdominal discomfort and nausea with current dry heaving. Skin: normal color, turgor, no icterus, cyanosis. HEENT: AT/NC, EOMI, PERRLA, dry MM. Lungs: CTA bilaterally, moderate effort, mild decrease BL bases, no rales, ronchi or wheezing. Heart: Regular rate and rhythm; no gallop, rub audible. Abdomen: soft, thin habitus, notes diffuse discomfort w/ palpation, ND, normal BS despite currently presentation. Extremities: no cyanosis, clubbing, or edema. Neurological: patient awake, alert, oriented x 3; cognitive function intact; pupils equally reactive to light and accomodation; cranial nerves II-XII grossly normal, moving all 4 extremities, no focal deficits, strength severely globally decreased secondary to acute presentation. Psychiatric: affect appears teak, strains, does admit to ongoing events in his life and suspect underlying depression, no SI. Vitals/I&O's: Vital Signs Temp Pulse Resp BP Pulse Ox 97.9 F 75 18 130/84 H 100 05/17/18 08:05 05/17/18 08:05 05/17/18 08:05 05/17/18 08:05 05/17/18 08:05 Oxygen Delivery Method Room Air Weight: 129 lb 10.109 oz Body Mass Index (BMI) 17.5 Intake and Output for Last 24 Hours 05/15/18 05/16/18 05/17/18 23:59 23:59 23:59 Intake Total 117 / 117 3658 / 3658 1627 / 1627 Output Total 955 / 955 975 / 975 Balance 117 / 117 2703 / 2703 652 / 652 Current Medications Al Hydroxide/Mg Hydroxide (Mylanta Ii) 30 ml PO Q6H PRN PRN PRN Reason: Gastric burning Dicyclomine HCl (Bentyl) 20 mg PO ACHS [facility] Last Admin: 05/17/18 07:21 Dose: 20 mg Famotidine (Pepcid) 20 mg PO BID [facility] Last Admin: 05/16/18 21:33 Dose: 20 mg Sodium Chloride () 1,000 mls @ 125 mls/hr IV .Q8H [facility] Last Admin: 05/17/18 01:50 Dose: 125 mls/hr Ketorolac Tromethamine (Toradol) 15 mg IV Q6H PRN PRN PRN Reason: PAIN Stop: 05/21/18 03:29 Last Admin: 05/17/18 08:20 Dose: 15 mg Magnesium Hydroxide (Milk Of Magnesia) 30 ml PO DAILY PRN PRN PRN Reason: Constipation Nutritional Formula (Lactose Free) (Ensure Clear) 120 ml PO 4X/DAY [facility] Last Admin: 05/16/18 21:33 Dose: Not Given Ondansetron HCl (Zofran) 4 mg IV Q6H PRN PRN PRN Reason: nausea, emesis Last Admin: 05/17/18 08:55 Dose: 4 mg Promethazine HCl (Phenergan) 6.25 mg IV Q6H PRN PRN PRN Reason: NAUSEA/VOMITING Simethicone (Mylicon) 80 mg PO TIDPC [facility] Last Admin: 05/16/18 18:08 Dose: 80 mg Sodium Chloride () 5 - 30 ml IV UD PRN PRN Reason: SALINE FLUSH Last Admin: 05/17/18 08:55 Dose: 10 ml Medical Necessity - Tobacco Use Smoking Status: Former smoker Assessment/Plan All Active Problems Intractable vomiting with nausea (Acute) The patient is a 22 y/o M w/ PMHx: Chronic Cannabis Usage with history of intractable nausea and emesis with prior normal EGD who presents to the [facility] ED on 05/15/18 with ongoing cramping abdominal pain, nausea and emesis x 2 days. (1) Cramping Abdominal Pain, N/V, Suspected secondary to Possible Viral Gastroenteritis versus Cyclic Vomiting Syndrome secondary to Cannabis usage: Admitted to [place], continued aggressive hydration, added bentyl and simethicone, anti-emetics, pain regimen PRN, famotidine, attempted to transition diet given -05/17 improvement; however, worsened status, will obtain CT A/P and will consult Dr. Gtz, General Surgery. From reports did have prior EGD recently that was unremarkable but at OSH. (2) Cannabis usage: Chronic usage, notes has not recently used despite + UDS, became mildly defensive and noted this was not the reason for his presentation or prior issues. (3) GERD: PPI. (4) Former Tobacco use: Encourage continued cessation. (5) DVT Prophylaxis: Low risk, ambulation. Code Visit Inpatient E&M: 79802 Subs Hosp L2
[2018-05-17] MEDS: proMETHazine 25 MG/ML Syringe 6.25 MG IV (10:20)
[2018-05-17] MEDS: Morphine 2 MG/ML Syringe IV (10:47)
[2018-05-17 11:03] LABS: Absolute Lymphocyte Count 0.73 X10^3/ul (0.83-4.51); Absolute Neutrophil Count 5.9 X10^3/uL (2.0-7.7); Basophil# 0.02 X10^3/uL; Basophil% 0.3 % (0-1); Hematocrit 43.8 % (40-54); Hemoglobin 15.9 g/dl (13.0-16.5); Lymphocyte # 0.73 X10^3/ul (4.0); Lymphocyte % 10.3 % (19-41); Mean Corp Hgb Conc 36.3 g/gl (32-36); Mean Corpuscular Hgb 32.9 pg (27.0-32.0); Mean Corpuscular Volume 90.7 fL (80-94); Mean Platelet Vol. 10.9 fl (6.2-12.0); Monocyte# 0.44 X10^3/uL; Monocyte% 6.2 % (0-10); Neutrophil # 5.87 X10^3/uL (2.7-7.7); Neutrophil % 83.2 % (47-70); Platelet Count 264 K/mm3 (150-450); RBC Distribution Width SD 39.6 fl (35.1-43.9); Red Blood Count 4.83 M/mm3 (4.6-6.2); White Blood Count 7.1 K/mm3 (4.4-11.0)
[2018-05-17 11:04] LABS: POSITIVE COUNT NO; POSITIVE DIFFERENTIAL NO; POSITIVE MORPHOLOGY NO
[2018-05-17 11:18] LABS: ALB/GLOB Ratio 1.4 RATIO (0.9-2.4); AST(SGOT) 12 U/L (15-37); Alanine Aminotransfer ALT/SGPT 14 U/L (16-61); Albumin, Serum 4.7 g/dL (3.2-5.0); Alkaline Phosphatase 57 U/L (45-117); Anion Gap 14 (5-15); BUN 7 mg/dL (7-18); BUN/Creat Ratio 7.9 RATIO (10-20); Calcium,Total 8.9 mg/dL (8.5-10.1); Chloride 102 mmol/L (98-107); Creatinine, Serum 0.88 mg/dL (0.70-1.30); EST Glomerular Filtration Rate 116 mL/min (>60); Est Glom Filt Rate - Afr Amer 140 mL/min (>60); Estimated Creatinine Clearance 111.36 ml/min; Globulin 3.3 g/dL (2.2-4.2); Glucose 85 mg/dL (74-106); Lipase 45 U/L (73-393); Potassium 3.3 mmol/L (3.5-5.1); Sodium Level 136 mmol/L (136-145)
[2018-05-17] MEDS: proCHLORPERazine 10 MG/2 ML Vial 5 MG IV ×2 (12:30→18:21)
--- NOTE | 2018-05-17 14:13 | PCM.CONS.GEN ---
Reason for Consult Date of Consultation: 05/17/18 History of Present Illness: The patient is a 22 year old M with hyperemesis syndrome. the patient returns with a complaint of intractable nausea and vomiting for the past 2 days. He feels that this episode was sent off after drinking alcohol. The patient also notes complaining of left upper quadrant abdominal cramping. This seems to be relatively persistent throughout his episodes.the patient initially presented to the emergency department. Apparently last Tuesday with similar complaints. He was discharged, but now returns with again nausea and vomiting for the past 2 days. The patient has had episodes of intermittent nausea and vomiting. He describes for at least the past 8 months. These episodes of hyperemesis will occur anywhere from 2 days to 2 weeks and usually occurs approximately every month. He states it is not usually set off by food. He will occasionally wake up in the morning with hyperemesis. He notes just vomiting, food stuff and bile. He does not feel food generally sets off the vomiting episodes, or that specific foods seem to make this worse. He denies hematemesis. He notes significant marijuana use. interestingly, he does note that warm showers will often improve the hyperemesis complaints the patient has relatively unremarkable. Laboratory studies on admission. He has a toxicology screen was positive for marijuana. No other substances. He is an abdominal multiview demonstrates no abnormalities. the patient has 12 ER visits in the last 10 months for the same problem. he has been admitted both to [facility] and [facility] for these complaints. He has undergone extensive workup. He has had multiple CT scans and felt to demonstrate any specific abnormalities other than bilateral small nephrolithiasis. he has office-based notes from his primary care physician [facility], noting abdominal pain, nausea and vomiting dating from December 2016. He is on outpatient studies including a right upper quadrant ultrasound which was interpreted as a scant amount of sludge. He is had a normal hiatus scan with ejection fraction. A gastric emptying study was ordered, but this was not able to be completed. he had upper endoscopy performed on July 11, 2017 which demonstrated normal-appearing esophagus with a small erosion at the antral region and otherwise a normal duodenum. Biopsies were apparently unremarkable. Patient states that multiple antiemetic medications including Zofran, Reglan, Phenergan. He notes significant of these medications seemed to work. When specifically asked about stress and anxiety in his life, he states he does have both stress and significant anxiety. When asked if he feels these episodes of stress initiate his hyperemesis episodes, his response was his mother believes so. When I asked if he believes so, he was not certain. he does note that he seen a psychologist in the past but is frustrated that he felt the same 10 questions were asked and a different format and that he had no real help with his anxieties and stressors. Past Medical History Past Medical History (Chronic Problems): Chronic Problems Marijuana use, continuous (Chronic) Allergies risperidone [From Risperdal] Adverse Reaction (Verified 05/15/18 10:10) Other RAPID HEARTBEAT Home Medications: Ambulatory Orders Medication Instructions Recorded Famotidine [Pepcid] 20 mg PO BID #60 tab 05/18/18 proMETHazine tablet [Phenergan 25 mg PO Q4H PRN PRN #20 tab 05/18/18 tablet] Surgical History: - - a knee procedure, no previous abdominal surgery Smoking Status: Former smoker Drugs: Marijuana - *Family History Paternal History Items: No pertinent history Review of Systems Constitutional: Reports: Anorexia, Weight Change HEENT: Denies: Head Aches, Sinus Congestion, Sinus Drainage Cardiovascular: Denies: Chest Pain, Palpitations Respiratory: Denies: Cough, Shortness of breath at rest, Sputum production Gastrointestinal: Reports: Abdominal Pain, Nausea, Vomiting Genitourinary: Denies: Dysuria Musculoskeletal: Denies: Joint Pain, Joint Tenderness Skin: Denies: Rash, Wounds Neurological: Denies: Numbness, Tingling, Focal weakness Psychiatric: Denies: Anxiety, Depression, Homicidal Ideations, Suicidal Ideations Hematologic/ Lymphatic: Denies: Easy Bruising, Easy Bleeding - Physical Exam General: Alert, Oriented x3 Lungs: Clear to auscultation, Normal air movement Cardiovascular: Regular rate, No murmurs Abdomen: Bowel Sounds Present, Soft, Tender - in the left upper quadrant. Vital Signs Temp Pulse Resp BP Pulse Ox 97.9 F 75 18 130/84 H 100 05/17/18 08:05 05/17/18 08:05 05/17/18 08:05 05/17/18 08:05 05/17/18 08:05 Intake and Output for Last 24 Hours 05/15/18 05/16/18 05/17/18 23:59 23:59 23:59 Intake Total 957 / 2584 Output Total 900 / 1875 Balance 57 / 709 Laboratory Tests Past 24 Hrs 05/17/18 05/17/18 10:55 10:55 WBC 7.1 RBC 4.83 Hgb 15.9 Hct 43.8 MCV 90.7 MCH 32.9 H MCHC 36.3 H RDW 12.0 RDW Differential 39.6 Plt Count 264 MPV 10.9 Immature Gran % (Auto) 0.000 Neut % (Auto) 83.2 H Lymph % (Auto) 10.3 L [place] % (Auto) 6.2 Eos % (Auto) 0.0 Baso % (Auto) 0.3 Absolute Neuts (auto) 5.9 Absolute Lymphs (auto) 0.73 L Total Counted Not Reportable Sodium 136 Potassium 3.3 L Chloride 102 Carbon Dioxide 20.0 L Anion Gap 14 BUN 7 Creatinine 0.88 Estim Creat Clear Calc 111.36 Est GFR (MDRD) Af Amer 140 Est GFR (MDRD) Non-Af 116 BUN/Creatinine Ratio 7.9 L Glucose 85 Calcium 8.9 Total Bilirubin 1.80 H AST 12 L ALT 14 L Alkaline Phosphatase 57 Total Protein 8.0 Albumin 4.7 Globulin 3.3 Albumin/Globulin Ratio 1.4 Lipase 45 L Assessment/Plan All Active Problems Intractable vomiting with nausea (Acute) Hyperemesis, unknown etiology-marijuana use. the patient has had an extensive workup at multiple different tertiary care centers for hyperemesis area in talking to him further, he does note that warm showers tend to make his symptoms better. He also states that he smokes marijuana daily. When I asked how many cigarettes a day. He smokes. He basically talked about smoking nearly continuously. His laboratory studies are currently unremarkable, although he does say he has lost some weight. He states he is a very limited success with the current antiemetics he has tried. I recommend trying Haldol as this was listed as one of the possible adhesions, which may have beneficial effects in the phase of hyperemesis due to marijuana use. The patient states the symptoms lasted for 8 hours for 2 weeks. My understanding is this usually last only about 24 to 48 hours. a secondary consideration is psychogenic vomiting. the patient does have anxiety and life stressors. He has not been fully evaluated by psychology/psychiatry, it seems. Dr. Luna Starkey, PhD, is GI psychology at [facility] who may be able to help this patient. If we feel this is more psychiatric/psychogenic vomiting versus hyperemesis of excessive marijuana use. The other option locally would be Dr. shaw at [facility]-addiction medicine specialist. I will review the CT scan and see if the above medications help his symptomatology.
[2018-05-17 14:14] VITALS: BP 155/91; PULSE 72; RESP 18; TEMP 37.2; O2SAT 100
--- NOTE | 2018-05-17 14:25 | CON.PCM_ITS ---
Reason for Consult Date of Consultation: 05/17/18 History of Present Illness: The patient is a 22 year old M with hyperemesis syndrome. the patient returns with a complaint of intractable nausea and vomiting for the past 2 days. He feels that this episode was sent off after drinking alcohol. The patient also notes complaining of left upper quadrant abdominal cramping. This seems to be relatively persistent throughout his episodes.the patient initially presented to the emergency department. Apparently last Tuesday with similar complaints. He was discharged, but now returns with again nausea and vomiting for the past 2 days. The patient has had episodes of intermittent nausea and vomiting. He describes for at least the past 8 months. These episodes of hyperemesis will occur anywhere from 2 days to 2 weeks and usually occurs approximately every month. He states it is not usually set off by food. He will occasionally wake up in the morning with hyperemesis. He notes just vomiting, food stuff and bile. He does not feel food generally sets off the vomiting episodes, or that specific foods seem to make this worse. He denies hematemesis. He notes significant marijuana use. interestingly, he does note that warm showers will often improve the hyperemesis complaints the patient has relatively unremarkable. Laboratory studies on admission. He has a toxicology screen was positive for marijuana. No other substances. He is an abdominal multiview demonstrates no abnormalities. the patient has 12 ER visits in the last 10 months for the same problem. he has been admitted both to [facility] and [facility] for these complaints. He has undergone extensive workup. He has had multiple CT scans and felt to demonstrate any specific abnormalities other than bilateral small nephrolithiasis. he has office-based notes from his primary care physician [facility], noting abdominal pain, nausea and vomiting dating from December 2016. He is on outpatient studies including a right upper quadrant ultrasound which was interpreted as a scant amount of sludge. He is had a normal hiatus scan with ejection fraction. A gastric emptying study was ordered, but this was not able to be completed. he had upper endoscopy performed on July 11, 2017 which demonstrated normal- appearing esophagus with a small erosion at the antral region and otherwise a normal duodenum. Biopsies were apparently unremarkable. Patient states that multiple antiemetic medications including Zofran, Reglan, Phenergan. He notes significant of these medications seemed to work. When specifically asked about stress and anxiety in his life, he states he does have both stress and significant anxiety. When asked if he feels these episodes of stress initiate his hyperemesis episodes, his response was his mother believes so. When I asked if he believes so, he was not certain. he does note that he seen a psychologist in the past but is frustrated that he felt the same 10 questions were asked and a different format and that he had no real help with his anxieties and stressors. Past Medical History Past Medical History (Chronic Problems): Chronic Problems Marijuana use, continuous (Chronic) Allergies risperidone [From Risperdal] Adverse Reaction (Verified 05/15/18 10:10) Other RAPID HEARTBEAT Home Medications: Ambulatory Orders Medication Instructions Recorded Famotidine [Pepcid] 20 mg PO BID #60 tab 05/18/18 proMETHazine tablet [Phenergan 25 mg PO Q4H PRN PRN #20 tab 05/18/18 tablet] Surgical History: - - a knee procedure, no previous abdominal surgery Smoking Status: Former smoker Drugs: Marijuana - *Family History Paternal History Items: No pertinent history Review of Systems Constitutional: Reports: Anorexia, Weight Change HEENT: Denies: Head Aches, Sinus Congestion, Sinus Drainage Cardiovascular: Denies: Chest Pain, Palpitations Respiratory: Denies: Cough, Shortness of breath at rest, Sputum production Gastrointestinal: Reports: Abdominal Pain, Nausea, Vomiting Genitourinary: Denies: Dysuria Musculoskeletal: Denies: Joint Pain, Joint Tenderness Skin: Denies: Rash, Wounds Neurological: Denies: Numbness, Tingling, Focal weakness Psychiatric: Denies: Anxiety, Depression, Homicidal Ideations, Suicidal Ideations Hematologic/ Lymphatic: Denies: Easy Bruising, Easy Bleeding - Physical Exam General: Alert, Oriented x3 Lungs: Clear to auscultation, Normal air movement Cardiovascular: Regular rate, No murmurs Abdomen: Bowel Sounds Present, Soft, Tender - in the left upper quadrant. Vital Signs Temp Pulse Resp BP Pulse Ox 97.9 F 75 18 130/84 H 100 05/17/18 08:05 05/17/18 08:05 05/17/18 08:05 05/17/18 08:05 05/17/18 08:05 Intake and Output for Last 24 Hours 05/15/18 05/16/18 05/17/18 23:59 23:59 23:59 Intake Total 957 / 2584 Output Total 900 / 1875 Balance 57 / 709 Laboratory Tests Past 24 Hrs 05/17/18 05/17/18 10:55 10:55 WBC 7.1 RBC 4.83 Hgb 15.9 Hct 43.8 MCV 90.7 MCH 32.9 H MCHC 36.3 H RDW 12.0 RDW Differential 39.6 Plt Count 264 MPV 10.9 Immature Gran % (Auto) 0.000 Neut % (Auto) 83.2 H Lymph % (Auto) 10.3 L [place] % (Auto) 6.2 Eos % (Auto) 0.0 Baso % (Auto) 0.3 Absolute Neuts (auto) 5.9 Absolute Lymphs (auto) 0.73 L Total Counted Not Reportable Sodium 136 Potassium 3.3 L Chloride 102 Carbon Dioxide 20.0 L Anion Gap 14 BUN 7 Creatinine 0.88 Estim Creat Clear Calc 111.36 Est GFR (MDRD) Af Amer 140 Est GFR (MDRD) Non-Af 116 BUN/Creatinine Ratio 7.9 L Glucose 85 Calcium 8.9 Total Bilirubin 1.80 H AST 12 L ALT 14 L Alkaline Phosphatase 57 Total Protein 8.0 Albumin 4.7 Globulin 3.3 Albumin/Globulin Ratio 1.4 Lipase 45 L Assessment/Plan All Active Problems Intractable vomiting with nausea (Acute) Hyperemesis, unknown etiology-marijuana use. the patient has had an extensive workup at multiple different tertiary care centers for hyperemesis area in talking to him further, he does note that warm showers tend to make his symptoms better. He also states that he smokes marijuana daily. When I asked how many cigarettes a day. He smokes. He basically talked about smoking nearly continuously. His laboratory studies are currently unremarkable, although he does say he has lost some weight. He states he is a very limited success with the current antiemetics he has tried. I recommend trying Haldol as this was listed as one of the possible adhesions, which may have beneficial effects in the phase of hyperemesis due to marijuana use. The patient states the symptoms lasted for 8 hours for 2 weeks. My understanding is this usually last only about 24 to 48 hours. a secondary consideration is psychogenic vomiting. the patient does have anxiety and life stressors. He has not been fully evaluated by psychology/ psychiatry, it seems. Dr. Luna Starkey, PhD, is GI psychology at [facility] who may be able to help this patient. If we feel this is more psychiatric/psychogenic vomiting versus hyperemesis of excessive marijuana use. The other option locally would be Dr. shaw at [facility]-addiction medicine specialist. I will review the CT scan and see if the above medications help his symptomatology.
[2018-05-17] MEDS: 0.9% Normal Saline 1,000 ML 999 ML IV (15:52)
[2018-05-17] MEDS: Haloperidol Lactate 5 MG/ML Vial 1 MG IM (15:53)
[2018-05-17] MEDS: proMETHazine 25 MG Suppos. RECTAL (15:56)
[2018-05-17 20:39] VITALS: BP 122/69; PULSE 84; RESP 18; TEMP 37.2; O2SAT 100
[2018-05-18 03:05] VITALS: BP 113/63; PULSE 75; RESP 18; TEMP 36.6; O2SAT 98
[2018-05-18] MEDS: 0.9% NaCl Peripheral Flush Adult/Peds IV ×2 (03:12→05:14)
[2018-05-18] MEDS: proCHLORPERazine 10 MG/2 ML Vial 5 MG IV (03:12)
[2018-05-18] MEDS: 0.9% Normal Saline 1,000 ML 125 ML IV ×2 (03:13→09:01)
[2018-05-18] MEDS: Ondansetron 4 MG/2 ML Vial IV (05:14)
--- NOTE | 2018-05-18 06:12 | PN.SURG_ITS ---
Subjective: still vomiting/wretching - IM haldol did not help. - Physical Exam General: Alert, Oriented x3, Cooperative Lungs: Clear to auscultation, Normal air movement Cardiovascular: Regular rate, No murmurs Vital Signs Temp Pulse Resp BP Pulse Ox 97.9 F 75 18 113/63 98 05/18/18 03:05 05/18/18 03:05 05/18/18 03:05 05/18/18 03:05 05/18/18 03:05 Oxygen Delivery Method Room Air Intake and Output for Last 24 Hours 05/16/18 05/17/18 05/18/18 23:59 23:59 23:59 Intake Total 2754 / 4381 747 / 747 Output Total 1151 / 2126 Balance 1603 / 2255 747 / 747 Laboratory Tests Past 24 Hrs 05/17/18 05/17/18 10:55 10:55 WBC 7.1 RBC 4.83 Hgb 15.9 Hct 43.8 MCV 90.7 MCH 32.9 H MCHC 36.3 H RDW 12.0 RDW Differential 39.6 Plt Count 264 MPV 10.9 Immature Gran % (Auto) 0.000 Neut % (Auto) 83.2 H Lymph % (Auto) 10.3 L [place] % (Auto) 6.2 Eos % (Auto) 0.0 Baso % (Auto) 0.3 Absolute Neuts (auto) 5.9 Absolute Lymphs (auto) 0.73 L Total Counted Not Reportable Sodium 136 Potassium 3.3 L Chloride 102 Carbon Dioxide 20.0 L Anion Gap 14 BUN 7 Creatinine 0.88 Estim Creat Clear Calc 111.36 Est GFR (MDRD) Af Amer 140 Est GFR (MDRD) Non-Af 116 BUN/Creatinine Ratio 7.9 L Glucose 85 Calcium 8.9 Total Bilirubin 1.80 H AST 12 L ALT 14 L Alkaline Phosphatase 57 Total Protein 8.0 Albumin 4.7 Globulin 3.3 Albumin/Globulin Ratio 1.4 Lipase 45 L Medical Necessity - Tobacco Use Smoking Status: Former smoker Assessment/Plan All Active Problems Intractable vomiting with nausea (Acute) Hyperemesis, unknown etiology-marijuana use. the patient has had an extensive workup at multiple different tertiary care centers for hyperemesis area in talking to him further, he does note that warm showers tend to make his symptoms better. He also states that he smokes marijuana daily. When I asked how many cigarettes a day. He smokes. He basically talked about smoking nearly continuously. His laboratory studies are currently unremarkable, although he does say he has lost some weight. He states he is a very limited success with the current antiemetics he has tried. I recommend trying Haldol as this was listed as one of the possible adhesions, which may have beneficial effects in the phase of hyperemesis due to marijuana use. The patient states the symptoms lasted for 8 hours for 2 weeks. My understanding is this usually last only about 24 to 48 hours. a secondary consideration is psychogenic vomiting. the patient does have anxiety and life stressors. He has not been fully evaluated by psychology/ psychiatry, it seems. Dr. Luna Starkey, PhD, is GI psychology at [facility] who may be able to help this patient. If we feel this is more psychiatric/psychogenic vomiting versus hyperemesis of excessive marijuana use. The other option locally would be Dr. shaw at [facility]-addiction medicine specialist. CT scan was unremarkable, again. IM Haldol did not help his symptomatology. I would recommend Dr. shaw locally for his next step.
[2018-05-18 09:05] VITALS: BP 127/61; PULSE 104; RESP 18; TEMP 36.7; O2SAT 100
[2018-05-18 09:11] VITALS: PULSE 108
--- NOTE | 2018-05-18 10:21 | NURSING ---
dr briggs gave v.o. to nurse that pt may have dry cereal and milk-pt given honey nut cheerios and milk-pt instructed to eat them slowly and to stop if nausea occurs-pt also aware to inform nurse w/ any nausea and he is agreeable
--- NOTE | 2018-05-18 11:00 | PCM.PN.HOSP ---
Patient Problems: Active and Suspected Problems Intractable vomiting with nausea (Acute) Subjective: Patient notes this morning feeling much improved and denies any current nausea or emesis and eager for diet transition. He did tolerate some clears this morning and eager for transition to allowance of cereal. Denies any current nausea, abdominal discomfort. Did discuss ongoing workup outpatient which may include follow-up with Dr. Lorenz, general surgery with consideration for gastric emptying study and colonoscopy, both of which have not been performed per discussion with surgery. Patient denies fevers, chills, chest pain or dyspnea. Objective: Physical Examination: General: awake, alert, oriented x 3 and cooperative, seated upright in bed in no apparent distress. Skin: normal color, turgor, no icterus, cyanosis. HEENT: AT/NC, EOMI, PERRLA, MMM. Lungs: CTA bilaterally, moderate effort, mild decrease BL bases, no rales, ronchi or wheezing. Heart: Regular rate and rhythm; no gallop, rub audible. Abdomen: soft, thin habitus, currently improved, no marked TTP, no distention, mildly hyperactive BS. Extremities: no cyanosis, clubbing, or edema. Neurological: patient awake, alert, oriented x 3; cognitive function intact; pupils equally reactive to light and accomodation; cranial nerves II-XII grossly normal, moving all 4 extremities, no focal deficits, strength improved, mildly globally decreased. Psychiatric: affect appears improved, denies any current discomfort or nausea and more cheerful, no acute evidence of depressive or anxiety feelings. Vitals/I&O's: Vital Signs Temp Pulse Resp BP Pulse Ox 98.0 F 108 H 18 127/61 H 100 05/18/18 09:05 05/18/18 09:11 05/18/18 09:05 05/18/18 09:05 05/18/18 09:05 Oxygen Delivery Method Room Air Intake and Output for Last 24 Hours 05/16/18 05/17/18 05/18/18 23:59 23:59 23:59 Intake Total 2754 / 4381 747 / 747 Output Total 1151 / 2126 Balance 1603 / 2255 747 / 747 Laboratory Results 05/17/18 10:55: Sodium 136, Potassium 3.3 L, Chloride 102, Carbon Dioxide 20.0 L, Anion Gap 14, BUN 7, Creatinine 0.88, Estim Creat Clear Calc 111.36, Est GFR (MDRD) Af Amer 140, Est GFR (MDRD) Non-Af 116, BUN/Creatinine Ratio 7.9 L, Glucose 85, Calcium 8.9, Total Bilirubin 1.80 H, AST 12 L, ALT 14 L, Alkaline Phosphatase 57, Total Protein 8.0, Albumin 4.7, Globulin 3.3, Albumin/Globulin Ratio 1.4, Lipase 45 L 05/17/18 10:55: WBC 7.1, RBC 4.83, Hgb 15.9, Hct 43.8, MCV 90.7, MCH 32.9 H, MCHC 36.3 H, RDW 12.0, RDW Differential 39.6, Plt Count 264, MPV 10.9, Immature Gran % (Auto) 0.000, Neut % (Auto) 83.2 H, Lymph % (Auto) 10.3 L, [place] % (Auto) 6.2, Eos % (Auto) 0.0, Baso % (Auto) 0.3, Absolute Neuts (auto) 5.9, Absolute Lymphs (auto) 0.73 L, Total Counted Not Reportable Current Medications Al Hydroxide/Mg Hydroxide (Mylanta Ii) 30 ml PO Q6H PRN PRN PRN Reason: Gastric burning Sodium Chloride () 1,000 mls @ 125 mls/hr IV .Q8H [facility] Last Admin: 05/18/18 09:01 Dose: 125 mls/hr Famotidine (Pepcid 20mg) 20 mg in 50 mls @ 150 mls/hr IV Q12 [facility] Last Admin: 05/18/18 09:02 Dose: 150 mls/hr Ketorolac Tromethamine (Toradol) 15 mg IV Q6H PRN PRN PRN Reason: PAIN Stop: 05/21/18 03:29 Last Admin: 05/17/18 20:32 Dose: 15 mg Magnesium Hydroxide (Milk Of Magnesia) 30 ml PO DAILY PRN PRN PRN Reason: Constipation Morphine Sulfate () 1 - 2 mg IV Q4H PRN PRN PRN Reason: PAIN Last Admin: 05/17/18 10:47 Dose: 2 mg Nutritional Formula (Lactose Free) (Ensure Clear) 120 ml PO 4X/DAY [facility] Last Admin: 05/18/18 09:01 Dose: Not Given Ondansetron HCl (Zofran) 4 mg IV Q6H PRN PRN PRN Reason: nausea, emesis Last Admin: 05/18/18 05:14 Dose: 4 mg Oxycodone HCl (Oxyir) 5 mg PO Q4H PRN PRN PRN Reason: SEVERE PAIN (6-10/10) Prochlorperazine Edisylate (Compazine Iv) 5 mg IV Q4H PRN PRN PRN Reason: NAUSEA/VOMITING Last Admin: 05/18/18 03:12 Dose: 5 mg Promethazine HCl (Phenergan Suppository) 25 mg RECTAL Q4H PRN PRN PRN Reason: NAUSEA/VOMITING Last Admin: 05/17/18 15:56 Dose: 25 mg Sodium Chloride () 5 - 30 ml IV UD PRN PRN Reason: SALINE FLUSH Last Admin: 05/18/18 05:14 Dose: 5 ml Medical Necessity - Tobacco Use Smoking Status: Former smoker Assessment/Plan All Active Problems Intractable vomiting with nausea (Acute) The patient is a 22 y/o M w/ PMHx: Chronic Cannabis Usage with history of intractable nausea and emesis with prior normal EGD who presents to the [facility] ED on 05/15/18 with ongoing cramping abdominal pain, nausea and emesis x 2 days. (1) Cramping Abdominal Pain, N/V, Suspected secondary to Possible Viral Gastroenteritis versus Cyclic Vomiting Syndrome secondary to Cannabis usage: Admitted to [facility], continued hydration, added bentyl and simethicone but minimal improvement thus discontinued, anti-emetics, pain regimen PRN, famotidine, attempted to transition diet given 05/16-05/17 improvement; however, worsened status, obtained CT A/P which was unremarkable and Dr. Lorenz, general surgery consulted. Patient fortunately now improving, will allow clears as noted and transition diet as able. If able to tolerate diet and no further intractable nausea or vomiting with plan discharge to home with follow-up with Dr. Lorenz in the office with possible consideration for future gastric emptying study and colonoscopy as these have not been performed prior per Dr. Lorenz review of [facility] records. (2) Cannabis usage: Chronic usage, notes has not recently used despite + UDS, became mildly defensive and noted this was not the reason for his presentation or prior issues. Encourage avoidance of cannabis. (3) GERD: PPI. (4) Former Tobacco use: Encourage continued cessation. (5) DVT Prophylaxis: Low risk, ambulation. Code Visit Inpatient E&M: 21375 Subs Hosp L2
--- NOTE | 2018-05-18 11:04 | PN_ITS ---
Patient Problems: Active and Suspected Problems Intractable vomiting with nausea (Acute) Subjective: Patient notes this morning feeling much improved and denies any current nausea or emesis and eager for diet transition. He did tolerate some clears this morning and eager for transition to allowance of cereal. Denies any current nausea, abdominal discomfort. Did discuss ongoing workup outpatient which may include follow-up with Dr. Lorenz, general surgery with consideration for gastric emptying study and colonoscopy, both of which have not been performed per discussion with surgery. Patient denies fevers, chills, chest pain or dyspnea. Objective: Physical Examination: General: awake, alert, oriented x 3 and cooperative, seated upright in bed in no apparent distress. Skin: normal color, turgor, no icterus, cyanosis. HEENT: AT/NC, EOMI, PERRLA, MMM. Lungs: CTA bilaterally, moderate effort, mild decrease BL bases, no rales, ronchi or wheezing. Heart: Regular rate and rhythm; no gallop, rub audible. Abdomen: soft, thin habitus, currently improved, no marked TTP, no distention, mildly hyperactive BS. Extremities: no cyanosis, clubbing, or edema. Neurological: patient awake, alert, oriented x 3; cognitive function intact; pupils equally reactive to light and accomodation; cranial nerves II-XII grossly normal, moving all 4 extremities, no focal deficits, strength improved, mildly globally decreased. Psychiatric: affect appears improved, denies any current discomfort or nausea and more cheerful, no acute evidence of depressive or anxiety feelings. Vitals/I&O's: Vital Signs Temp Pulse Resp BP Pulse Ox 98.0 F 108 H 18 127/61 H 100 05/18/18 09:05 05/18/18 09:11 05/18/18 09:05 05/18/18 09:05 05/18/18 09:05 Oxygen Delivery Method Room Air Intake and Output for Last 24 Hours 05/16/18 05/17/18 05/18/18 23:59 23:59 23:59 Intake Total 2754 / 4381 747 / 747 Output Total 1151 / 2126 Balance 1603 / 2255 747 / 747 Laboratory Results 05/17/18 10:55: Sodium 136, Potassium 3.3 L, Chloride 102, Carbon Dioxide 20.0 L , Anion Gap 14, BUN 7, Creatinine 0.88, Estim Creat Clear Calc 111.36, Est GFR ( MDRD) Af Amer 140, Est GFR (MDRD) Non-Af 116, BUN/Creatinine Ratio 7.9 L, Glucose 85, Calcium 8.9, Total Bilirubin 1.80 H, AST 12 L, ALT 14 L, Alkaline Phosphatase 57, Total Protein 8.0, Albumin 4.7, Globulin 3.3, Albumin/Globulin Ratio 1.4, Lipase 45 L 05/17/18 10:55: WBC 7.1, RBC 4.83, Hgb 15.9, Hct 43.8, MCV 90.7, MCH 32.9 H, MCHC 36.3 H, RDW 12.0, RDW Differential 39.6, Plt Count 264, MPV 10.9, Immature Gran % (Auto) 0.000, Neut % (Auto) 83.2 H, Lymph % (Auto) 10.3 L, [place] % (Auto) 6.2, Eos % (Auto) 0.0, Baso % (Auto) 0.3, Absolute Neuts (auto) 5.9, Absolute Lymphs (auto) 0.73 L, Total Counted Not Reportable Current Medications Al Hydroxide/Mg Hydroxide (Mylanta Ii) 30 ml PO Q6H PRN PRN PRN Reason: Gastric burning Sodium Chloride () 1,000 mls @ 125 mls/hr IV .Q8H [facility] Last Admin: 05/18/18 09:01 Dose: 125 mls/hr Famotidine (Pepcid 20mg) 20 mg in 50 mls @ 150 mls/hr IV Q12 [facility] Last Admin: 05/18/18 09:02 Dose: 150 mls/hr Ketorolac Tromethamine (Toradol) 15 mg IV Q6H PRN PRN PRN Reason: PAIN Stop: 05/21/18 03:29 Last Admin: 05/17/18 20:32 Dose: 15 mg Magnesium Hydroxide (Milk Of Magnesia) 30 ml PO DAILY PRN PRN PRN Reason: Constipation Morphine Sulfate () 1 - 2 mg IV Q4H PRN PRN PRN Reason: PAIN Last Admin: 05/17/18 10:47 Dose: 2 mg Nutritional Formula (Lactose Free) (Ensure Clear) 120 ml PO 4X/DAY [facility] Last Admin: 05/18/18 09:01 Dose: Not Given Ondansetron HCl (Zofran) 4 mg IV Q6H PRN PRN PRN Reason: nausea, emesis Last Admin: 05/18/18 05:14 Dose: 4 mg Oxycodone HCl (Oxyir) 5 mg PO Q4H PRN PRN PRN Reason: SEVERE PAIN (6-10/10) Prochlorperazine Edisylate (Compazine Iv) 5 mg IV Q4H PRN PRN PRN Reason: NAUSEA/VOMITING Last Admin: 05/18/18 03:12 Dose: 5 mg Promethazine HCl (Phenergan Suppository) 25 mg RECTAL Q4H PRN PRN PRN Reason: NAUSEA/VOMITING Last Admin: 05/17/18 15:56 Dose: 25 mg Sodium Chloride () 5 - 30 ml IV UD PRN PRN Reason: SALINE FLUSH Last Admin: 05/18/18 05:14 Dose: 5 ml Medical Necessity - Tobacco Use Smoking Status: Former smoker Assessment/Plan All Active Problems Intractable vomiting with nausea (Acute) The patient is a 22 y/o M w/ PMHx: Chronic Cannabis Usage with history of intractable nausea and emesis with prior normal EGD who presents to the [facility] ED on 05/15/18 with ongoing cramping abdominal pain, nausea and emesis x 2 days. (1) Cramping Abdominal Pain, N/V, Suspected secondary to Possible Viral Gastroenteritis versus Cyclic Vomiting Syndrome secondary to Cannabis usage: Admitted to [place], continued hydration, added bentyl and simethicone but minimal improvement thus discontinued, anti-emetics, pain regimen PRN, famotidine, attempted to transition diet given 05/16-05/17 improvement; however, worsened status, obtained CT A/P which was unremarkable and Dr. Lorenz, general surgery consulted. Patient fortunately now improving, will allow clears as noted and transition diet as able. If able to tolerate diet and no further intractable nausea or vomiting with plan discharge to home with follow-up with Dr. Lorenz in the office with possible consideration for future gastric emptying study and colonoscopy as these have not been performed prior per Dr. Lorenz review of [facility] records. (2) Cannabis usage: Chronic usage, notes has not recently used despite + UDS, became mildly defensive and noted this was not the reason for his presentation or prior issues. Encourage avoidance of cannabis. (3) GERD: PPI. (4) Former Tobacco use: Encourage continued cessation. (5) DVT Prophylaxis: Low risk, ambulation. Code Visit Inpatient E&M: 91030 Subs Hosp L2
--- NOTE | 2018-05-18 11:31 | NURSING ---
pt tolerates cheerios and milk without any n/v-verbalizes that he wishes to go home -dr briggs updated
--- NOTE | 2018-05-18 11:33 | PCM.DC ---
- Discharge Diagnoses Current Active Problems: Current Active and Chronic Problems (1) Cramping Abdominal Pain, N/V, Suspected secondary to Possible Viral Gastroenteritis versus Cyclic Vomiting Syndrome (2) Cannabis usage, Chronic (3) GERD (4) Former Tobacco use You will use the following diet at home:: Other - Slowly advance your diet over the next 2-3 days, avoid fatty meals, eat small portions. If there are any diet questions please contact Dr. Gtz office. Your food should be the consistency of: Regular Your liquids should be the consistency of: Regular/Thin Discharge Activity: - - Avoid aggressive activity until re-evaluation per your primary care physician. Do not drive if you are taking any sedative medications, i.e. phenergan. May resume sexual activity in: 10-14 days Weight Bearing Status: Weight bearing as tolerated Call your doctor if you observe: Fever of 101 or Higher, Inability to urinate, Inability to have a bowel movement, Shortness of breath, Dizziness, Fainting spells, Chest pain, Uncontrolled pain Instructions: ED Gastroenteritis Viral, ED Nausea Vomiting, Understanding Marijuana Abuse, What Is GERD?, Lifestyle Changes for Controlling GERD, Medications for GERD, Tips to Control Acid Reflux Allergies/Adverse Reactions: Allergies risperidone [From Risperdal] Adverse Reaction (Verified 05/15/18 10:10) Other RAPID HEARTBEAT Medications to take at Discharge Famotidine [Pepcid] 20 mg PO BID #60 tab 05/18/18 proMETHazine tablet [Phenergan tablet] 25 mg PO Q4H PRN PRN #20 tab 05/18/18 The following prescriptions were given: proMETHazine tablet [Phenergan tablet] 25 mg PO Q4H PRN PRN #20 tab PRN Reason: nausea, emesis Famotidine [Pepcid] 20 mg PO BID #60 tab Primary Care Physician: Binu Jose MD [Primary Care Provider] - Please follow up with your Primary Care Physician in: Follow-up within 3-5 days to review admission. Please Follow Up With: Jayjay Gtz MD When: Please follow-up within 1-2 weeks, may see QA DEVELOPER/PA. Proposed Discharge Date: 05/18/18
--- NOTE | 2018-05-18 11:36 | DCINST_ITS ---
- Discharge Diagnoses Current Active Problems: Current Active and Chronic Problems (1) Cramping Abdominal Pain, N/V, Suspected secondary to Possible Viral Gastroenteritis versus Cyclic Vomiting Syndrome (2) Cannabis usage, Chronic (3) GERD (4) Former Tobacco use You will use the following diet at home:: Other - Slowly advance your diet over the next 2-3 days, avoid fatty meals, eat small portions. If there are any diet questions please contact Dr. Gtz office. Your food should be the consistency of: Regular Your liquids should be the consistency of: Regular/Thin Discharge Activity: - - Avoid aggressive activity until re-evaluation per your primary care physician. Do not drive if you are taking any sedative medications , i.e. phenergan. May resume sexual activity in: 10-14 days Weight Bearing Status: Weight bearing as tolerated Call your doctor if you observe: Fever of 101 or Higher, Inability to urinate, Inability to have a bowel movement, Shortness of breath, Dizziness, Fainting spells, Chest pain, Uncontrolled pain Instructions: ED Gastroenteritis Viral, ED Nausea Vomiting, Understanding Marijuana Abuse, What Is GERD?, Lifestyle Changes for Controlling GERD, Medications for GERD, Tips to Control Acid Reflux Allergies/Adverse Reactions: Allergies risperidone [From Risperdal] Adverse Reaction (Verified 05/15/18 10:10) Other RAPID HEARTBEAT Medications to take at Discharge Famotidine [Pepcid] 20 mg PO BID #60 tab 05/18/18 proMETHazine tablet [Phenergan tablet] 25 mg PO Q4H PRN PRN #20 tab 05/18/18 The following prescriptions were given: proMETHazine tablet [Phenergan tablet] 25 mg PO Q4H PRN PRN #20 tab PRN Reason: nausea, emesis Famotidine [Pepcid] 20 mg PO BID #60 tab Primary Care Physician: Binu Jose MD [Primary Care Provider] - Please follow up with your Primary Care Physician in: Follow-up within 3-5 days to review admission. Please Follow Up With: Jayjay Gtz MD When: Please follow-up within 1-2 weeks, may see BAND SINGER/PA. Proposed Discharge Date: 05/18/18
--- NOTE | 2018-05-18 11:37 | PCM.DC.SUM ---
Discharge Date and Diagnosis - Problem List Patient Problems: Active and Suspected Problems Intractable vomiting with nausea (Acute) Date of Admission: 05/15/18 Date of Discharge: 05/18/18 - Primary Discharge Diagnosis Active and Suspected Problems (1) Cramping Abdominal Pain, N/V, Suspected secondary to Possible Viral Gastroenteritis versus Cyclic Vomiting Syndrome (2) Cannabis usage, Chronic (3) GERD (4) Former Tobacco use - Secondary Discharge Diagnosis Chronic Problems Marijuana use, continuous (Chronic) Hospital Course and Treatment Dr. Gtz Surgery Operations: None Procedures: None Summary of Care Provided: The patient is a 22 y/o M w/ PMHx: Chronic Cannabis Usage with history of intractable nausea and emesis with prior normal EGD who presented to the [facility] ED on 05/15/18 with ongoing cramping abdominal pain, nausea and emesis x 2 days. Admitted to [place], continued hydration, added bentyl and simethicone but minimal improvement thus discontinued, anti-emetics, pain regimen PRN, famotidine, attempted to transition diet given 05/16-05/17 improvement; however, worsened status, obtained CT A/P which was unremarkable and Dr. Lorenz, general surgery consulted. Patient fortunately improved overnight 05/17-05/18/18, allowed clears and transitioned diet as tolerated successfully with patient noted eagerness for discharge given improvement. Encouraged continued avoidance of cannabis. Patient dischargeed to home with follow-up with his PCP and Dr. Lorenz with possible consideration for future gastric emptying study and colonoscopy as these have not been performed prior per Dr. Lorenz review of [facility] records. Patient discharged w/ famotidine and low amount of phenergan in case recurrent nausea w/ strong recommendation for slow diet advancement. Discharge Activity: - - Avoid aggressive activity until re-evaluation per your primary care physician. Do not drive if you are taking any sedative medications, i.e. phenergan. May resume sexual activity in: 10-14 days Weight Bearing Status: Weight bearing as tolerated Call your doctor if you observe: Fever of 101 or Higher, Inability to urinate, Inability to have a bowel movement, Shortness of breath, Dizziness, Fainting spells, Chest pain, Uncontrolled pain Home Medications: Medications to take at Discharge Famotidine [Pepcid] 20 mg PO BID #60 tab 05/18/18 proMETHazine tablet [Phenergan tablet] 25 mg PO Q4H PRN PRN #20 tab 05/18/18 Following Prescrptions Were Given to Patient: proMETHazine tablet [Phenergan tablet] 25 mg PO Q4H PRN PRN #20 tab PRN Reason: nausea, emesis Famotidine [Pepcid] 20 mg PO BID #60 tab Primary Care Physician: Binu Jose MD [Primary Care Provider] - Please follow up with your Primary Care Physician in: Follow-up within 3-5 days to review admission. Please Follow Up With: Jayjay Gtz MD When: Please follow-up within 1-2 weeks, may see FIRER PORTABLE BOILER/PA. Patient Instructions: What Is GERD?, Lifestyle Changes for Controlling GERD, Medications for GERD, Tips to Control Acid Reflux, Understanding Marijuana Abuse, ED Gastroenteritis Viral, ED Nausea Vomiting Disposition: Home Minutes spent on discharge:: 35 Patient Condition:: Fair Medical Necessity - Tobacco Use Smoking Status: Former smoker Meaningful Use Info Meaningful Use Diagnoses (Choose all that apply): None applicable Code Visit Inpatient E&M: 87528 Disch Hosp
--- NOTE | 2018-05-18 11:40 | DS.PCM_ITS ---
Discharge Date and Diagnosis - Problem List Patient Problems: Active and Suspected Problems Intractable vomiting with nausea (Acute) Date of Admission: 05/15/18 Date of Discharge: 05/18/18 - Primary Discharge Diagnosis Active and Suspected Problems (1) Cramping Abdominal Pain, N/V, Suspected secondary to Possible Viral Gastroenteritis versus Cyclic Vomiting Syndrome (2) Cannabis usage, Chronic (3) GERD (4) Former Tobacco use - Secondary Discharge Diagnosis Chronic Problems Marijuana use, continuous (Chronic) Hospital Course and Treatment Dr. Gtz Surgery Operations: None Procedures: None Summary of Care Provided: The patient is a 22 y/o M w/ PMHx: Chronic Cannabis Usage with history of intractable nausea and emesis with prior normal EGD who presented to the [facility] ED on 05/15/18 with ongoing cramping abdominal pain, nausea and emesis x 2 days. Admitted to [place], continued hydration, added bentyl and simethicone but minimal improvement thus discontinued, anti-emetics, pain regimen PRN, famotidine, attempted to transition diet given 05/16-05/17 improvement; however, worsened status, obtained CT A/P which was unremarkable and Dr. Lorenz, general surgery consulted. Patient fortunately improved overnight 05/17-05/18/18, allowed clears and transitioned diet as tolerated successfully with patient noted eagerness for discharge given improvement. Encouraged continued avoidance of cannabis. Patient dischargeed to home with follow-up with his PCP and Dr. Lorenz with possible consideration for future gastric emptying study and colonoscopy as these have not been performed prior per Dr. Lorenz review of [facility] records. Patient discharged w/ famotidine and low amount of phenergan in case recurrent nausea w/ strong recommendation for slow diet advancement. Discharge Activity: - - Avoid aggressive activity until re-evaluation per your primary care physician. Do not drive if you are taking any sedative medications , i.e. phenergan. May resume sexual activity in: 10-14 days Weight Bearing Status: Weight bearing as tolerated Call your doctor if you observe: Fever of 101 or Higher, Inability to urinate, Inability to have a bowel movement, Shortness of breath, Dizziness, Fainting spells, Chest pain, Uncontrolled pain Home Medications: Medications to take at Discharge Famotidine [Pepcid] 20 mg PO BID #60 tab 05/18/18 proMETHazine tablet [Phenergan tablet] 25 mg PO Q4H PRN PRN #20 tab 05/18/18 Following Prescrptions Were Given to Patient: proMETHazine tablet [Phenergan tablet] 25 mg PO Q4H PRN PRN #20 tab PRN Reason: nausea, emesis Famotidine [Pepcid] 20 mg PO BID #60 tab Primary Care Physician: Binu Jose MD [Primary Care Provider] - Please follow up with your Primary Care Physician in: Follow-up within 3-5 days to review admission. Please Follow Up With: Jayjay Gtz MD When: Please follow-up within 1-2 weeks, may see CORE INSERTER/PA. Patient Instructions: What Is GERD?, Lifestyle Changes for Controlling GERD, Medications for GERD, Tips to Control Acid Reflux, Understanding Marijuana Abuse , ED Gastroenteritis Viral, ED Nausea Vomiting Disposition: Home Minutes spent on discharge:: 35 Patient Condition:: Fair Medical Necessity - Tobacco Use Smoking Status: Former smoker Meaningful Use Info Meaningful Use Diagnoses (Choose all that apply): None applicable Code Visit Inpatient E&M: 38813 Disch Hosp
== END 2018-05-18 12:00 | disposition home or self-care (01) | DRG 392 ==
LOC: ED 10:42 → MS3 13:48
PROVIDERS: Admitting Provider Internal Medicine; Emergency Provider Emergency Medicine; Family Provider Family Medicine; PCP Family Medicine; Visit Provider Family Medicine
DX: A08.4 Viral intestinal infection, unspecified (principal); G43.A1 Cyclical vomiting, in migraine, intractable; Z87.891 Personal history of nicotine dependence; F12.90 Cannabis use, unspecified, uncomplicated; K21.9 Gastro-esophageal reflux disease without esophagitis
CPT/HCPCS: 74022; 74177; 80048; 80053; 80076; 80307; 83690; 83735; 85025; 97802; 99281; J7030; J7040; J7120; Q9967; A4216; J2405; J3490

== ENCOUNTER 2018-05-21 09:53 | Emergency (ER) | payer OTHER, MEDICAID, SELFPAY ==
[2018-05-21 09:54] VITALS: BP 85/55; PULSE 90; RESP 16; TEMP 37.4; O2SAT 100; BMI 13.5
--- NOTE | 2018-05-21 10:12 | ED.VISSUMM ---
- ER Visit Summary Date of Service: 05/21/18 Chief Complaint: [] Cylicylic vomiting syndrome exacerbation History of Present Illness: The patient is a 22 M [] long history of cyclic vomiting syndrome, he has had prior extensive evaluation with ultrasounds CAT scans and MRIs of the abdomen EGDs other studies that were all unremarkable he is diagnosed cyclic vomiting syndrome per the patient and the family he has chronic exacerbations where he is in the emergency department every week he was last admitted a few days ago [facility] mother reports he was discharged and then he basically almost immediately began vomiting again they are unable to see the physician she is referred to because of the refractory nature of her symptoms mother believes he requires a protracted hospital stay of 3 days or more, she also feels that he would benefit from home Ativan but none of the physicians will prescribe that The typical exacerbation and there is been no exposures no fever no cough his bowel habits are are loose minimal no blood no fever no cough nothing staying down now he has a prior history per mother of hypokalemia related to all of the above Physical Examination: [] His vital signs are within normal range temperature is 99 he is a very thin gentleman his HEENT is unremarkable mucous emergency very moist neck is supple the lungs are clear the heart tones unremarkable abdomen soft there is no tenderness rebound guarding organomegaly any area upper lower extremities are generally unremarkable skin is unremarkable neurologic exam he is awake alert moving all 4 Long conversation with the mother she expressed quite a bit of frustration over the fact he continues to have to come back and forth to the emergency department requires admission etc. that he could not be well enough to follow-up with the outpatient physicians, I explained her I understood her frustration we will provide IV fluids morphine Ativan and Zofran which at least help when he is in the emergency department and proceed from there, with regards to admitting him for 3 days home Ativan therapy I have explained her that is beyond the scope of the care from the emergency department she would need to discuss that with his primary care physicians his hospitalist physicians and other providers he has for this condition Studies are all generally unremarkable potassium 3.4, he was given IV potassium 20 mg in supplement he is feeling better I have explained to the patient given the test results given his improvement given the negative laboratory evaluation his prior history there is no signs at this time requiring admission he understands we will keep all of his appointments and all his meds and return for change in symptoms Test Results: [] Emergency Department Course and Treatment: [] Treatment Plan: [] Disposition: [] Home stable Impression: [] History of cyclic vomiting syndrome improved This note was generated with [employer] dictation software. It may contain incorrect words, spelling, and punctuation that were not noted in review of the chart prior to signing ED Disposition - Plan for ED Patient: Chief Complaint: Nausea/Vomiting Referrals: Binu Jose MD [Primary Care Provider] -
--- NOTE | 2018-05-21 10:15 | ED.DCSUM_ITS ---
- ER Visit Summary Date of Service: 05/21/18 Chief Complaint: [] Cylicylic vomiting syndrome exacerbation History of Present Illness: The patient is a 22 M [] long history of cyclic vomiting syndrome, he has had prior extensive evaluation with ultrasounds CAT scans and MRIs of the abdomen EGDs other studies that were all unremarkable he is diagnosed cyclic vomiting syndrome per the patient and the family he has chronic exacerbations where he is in the emergency department every week he was last admitted a few days ago [facility] mother reports he was discharged and then he basically almost immediately began vomiting again they are unable to see the physician she is referred to because of the refractory nature of her symptoms mother believes he requires a protracted hospital stay of 3 days or more, she also feels that he would benefit from home Ativan but none of the physicians will prescribe that The typical exacerbation and there is been no exposures no fever no cough his bowel habits are are loose minimal no blood no fever no cough nothing staying down now he has a prior history per mother of hypokalemia related to all of the above Physical Examination: [] His vital signs are within normal range temperature is 99 he is a very thin gentleman his HEENT is unremarkable mucous emergency very moist neck is supple the lungs are clear the heart tones unremarkable abdomen soft there is no tenderness rebound guarding organomegaly any area upper lower extremities are generally unremarkable skin is unremarkable neurologic exam he is awake alert moving all 4 Long conversation with the mother she expressed quite a bit of frustration over the fact he continues to have to come back and forth to the emergency department requires admission etc. that he could not be well enough to follow- up with the outpatient physicians, I explained her I understood her frustration we will provide IV fluids morphine Ativan and Zofran which at least help when he is in the emergency department and proceed from there, with regards to admitting him for 3 days home Ativan therapy I have explained her that is beyond the scope of the care from the emergency department she would need to discuss that with his primary care physicians his hospitalist physicians and other providers he has for this condition Studies are all generally unremarkable potassium 3.4, he was given IV potassium 20 mg in supplement he is feeling better I have explained to the patient given the test results given his improvement given the negative laboratory evaluation his prior history there is no signs at this time requiring admission he understands we will keep all of his appointments and all his meds and return for change in symptoms Test Results: [] Emergency Department Course and Treatment: [] Treatment Plan: [] Disposition: [] Home stable Impression: [] History of cyclic vomiting syndrome improved This note was generated with [employer] dictation software. It may contain incorrect words, spelling, and punctuation that were not noted in review of the chart prior to signing ED Disposition - Plan for ED Patient: Chief Complaint: Nausea/Vomiting Referrals: Binu Jose MD [Primary Care Provider] -
[2018-05-21] MEDS: 0.9% Normal Saline 1,000 ML 1000 ML IV (10:41)
[2018-05-21] MEDS: LORazepam 2 MG/ML Syringe 1 MG IV (10:41)
[2018-05-21] MEDS: morphine 8 MG/ML Syringe IV (10:42)
[2018-05-21] MEDS: Ondansetron 4 MG/2 ML Vial IV (10:42)
[2018-05-21 10:46] VITALS: BP 149/88; PULSE 70; RESP 16; O2SAT 100
[2018-05-21 11:02] LABS: AST(SGOT) 11 U/L (15-37); Alanine Aminotransfer ALT/SGPT 16 U/L (16-61); Albumin, Serum 5.1 g/dL (3.2-5.0); Alkaline Phosphatase 61 U/L (45-117); Anion Gap 7 (5-15); BUN 11 mg/dL (7-18); Bilirubin, Direct 0.22 mg/dL (0.00-0.30); Calcium,Total 9.9 mg/dL (8.5-10.1); Chloride 101 mmol/L (98-107); EST Glomerular Filtration Rate 101 mL/min (>60); Est Glom Filt Rate - Afr Amer 122 mL/min (>60); Globulin 3.5 g/dL (2.2-4.2); Glucose 97 mg/dL (74-106); Lipase 54 U/L (73-393); Potassium 3.4 mmol/L (3.5-5.1); Protein, Total 8.6 g/dL (6.4-8.2); Sodium Level 138 mmol/L (136-145)
[2018-05-21 11:04] LABS: Absolute Lymphocyte Count 1.11 X10^3/ul (0.83-4.51); Basophil# 0.01 X10^3/uL; Basophil% 0.2 % (0-1); Eosinophil# 0.03 X10^3/uL; Eosinophils% 0.5 % (0-5); Hematocrit 46.3 % (40-54); Hemoglobin 16.7 g/dl (13.0-16.5); Lymphocyte # 1.11 X10^3/ul (4.0); Lymphocyte % 19.7 % (19-41); Mean Corp Hgb Conc 36.1 g/gl (32-36); Mean Corpuscular Hgb 32.9 pg (27.0-32.0); Mean Corpuscular Volume 91.3 fL (80-94); Mean Platelet Vol. 11.3 fl (6.2-12.0); Monocyte% 8.9 % (0-10); Neutrophil # 3.97 X10^3/uL (2.7-7.7); Neutrophil % 70.5 % (47-70); Platelet Count 293 K/mm3 (150-450); RBC Distribution Width CV 12.4 % (11.6-14.6); RBC Distribution Width SD 41.1 fl (35.1-43.9); Red Blood Count 5.07 M/mm3 (4.6-6.2); White Blood Count 5.6 K/mm3 (4.4-11.0)
[2018-05-21 11:06] LABS: POSITIVE COUNT NO; POSITIVE DIFFERENTIAL NO; POSITIVE MORPHOLOGY NO
[2018-05-21 12:12] VITALS: BP 116/48; PULSE 75; O2SAT 96
--- NOTE | 2018-05-21 12:59 | ED.DEP ---
ED Disposition - Plan for ED Patient: Chief Complaint: Nausea/Vomiting Instructions: ED Diet Vomiting Diarrhea Prescriptions: Ondansetron [Zofran Odt] 4 mg PO Q8H PRN PRN #10 tab PRN Reason: Nausea Referrals: Binu Jose MD [Primary Care Provider] -
[2018-05-21 13:29] VITALS: BP 139/84; PULSE 85; RESP 16; O2SAT 100
--- NOTE | 2018-05-21 14:24 | ED.RN ---
PT STATES HE IS NO LONGER FEELING WELL. DR HOUSE IN TO SEE PT, EXPLAINED TO PT REASON HE IS NOT GETTING ADMITTED OR MORE MEDICATION. PT VERBALIZED UNDERSTANDING. MOTHER HAD PREVIOUSLY VOICED CONCERN THAT PT WAS NOT GETTING ADMITTED. ATTEMPTED TO TALK TO MOTHER WITH DR HOUSE AND SHE HAD LEFT THE ROOM.
[2018-05-21 14:58] VITALS: BP 118/66; PULSE 92; RESP 18; O2SAT 98
== END 2018-05-21 14:59 | disposition home or self-care (01) ==
PROVIDERS: Emergency Provider Emergency Medicine; Family Provider Family Medicine; PCP Family Medicine
DX: G43.A0 Cyclical vomiting, in migraine, not intractable (principal); Z79.899 Other long term (current) drug therapy
CPT/HCPCS: 80048; 80076; 83690; 85025; 96361; 96365; 96366; 96375; 99284; J7030; A4216; J2405

== ENCOUNTER 2018-05-23 08:35 | Inpatient (IN) | payer OTHER, MEDICAID, SELFPAY ==
[2018-05-23] VITALS (10 sets, daily range): BP systolic 112–149; BP diastolic 59–90; PULSE 74–115; RESP 12–24; TEMP 36.5–37.2; O2SAT 97–100; BMI 16.2
--- NOTE | 2018-05-23 09:23 | ED.VISSUMM ---
- ER Visit Summary Date of Service: 05/23/18 Chief Complaint: Vomiting History of Present Illness: The patient is a 22 M with a history of cyclic vomiting and chronic cannabis use. Patient reports vomiting over the past 4 or 5 days. He was admitted here to the hospital the to the and was back in the ER the . He presents today with continued vomiting and upper abdominal pain. Physical Examination: Blood pressure is 149/90, temperature 98, heart rate 115, respiratory rate 24, pulse ox 100% on room air. Patient's lying in bed no acute distress. Head neck examination does reveal dry mucous membranes. Heart is tachycardic and regular. Lung sounds are clear. Abdomen is soft with no focal tenderness on exam. Hypoactive bowel sounds are noted throughout. Test Results: CBC is normal. Chemistry studies are significant for potassium of 2.7. When compared to prior labs, this is the lowest his potassium has been. Emergency Department Course and Treatment: Patient is given IV fluids, Zofran, Ativan, and Pepcid. 40 mEq of potassium is ordered to the IV. On repeat evaluation is complaining of continued abdominal pain. Abdomen is soft with hypoactive bowel sounds throughout. There is no guarding or rebound. He is ordered Bentyl and Phenergan. I will speak with hospitalist regarding admission. Treatment Plan: [] Disposition: Admit Impression: 1. Cyclic vomiting 2. Hypokalemia This note was generated with [employer] dictation software. It may contain incorrect words, spelling, and punctuation that were not noted in review of the chart prior to signing ED Disposition - Plan for ED Patient: Chief Complaint: Nausea/Vomiting Referrals: Binu Jose MD [Primary Care Provider] -
[2018-05-23 09:27] LABS: Absolute Lymphocyte Count 1.22 X10^3/ul (0.83-4.51); Absolute Neutrophil Count 4.8 X10^3/uL (2.0-7.7); Basophil# 0.01 X10^3/uL; Basophil% 0.1 % (0-1); Eosinophil# 0.01 X10^3/uL; Eosinophils% 0.1 % (0-5); Hematocrit 45.1 % (40-54); Hemoglobin 16.3 g/dl (13.0-16.5); Lymphocyte # 1.22 X10^3/ul (4.0); Lymphocyte % 18.3 % (19-41); Mean Corp Hgb Conc 36.1 g/gl (32-36); Mean Corpuscular Hgb 32.6 pg (27.0-32.0); Mean Corpuscular Volume 90.2 fL (80-94); Monocyte# 0.64 X10^3/uL; Monocyte% 9.6 % (0-10); Neutrophil # 4.78 X10^3/uL (2.7-7.7); Neutrophil % 71.8 % (47-70); Platelet Count 324 K/mm3 (150-450); RBC Distribution Width CV 12.3 % (11.6-14.6); RBC Distribution Width SD 39.8 fl (35.1-43.9); White Blood Count 6.7 K/mm3 (4.4-11.0)
[2018-05-23 09:30] LABS: POSITIVE COUNT NO; POSITIVE DIFFERENTIAL NO; POSITIVE MORPHOLOGY NO
[2018-05-23 09:43] LABS: Anion Gap 15 (5-15); BUN 7 mg/dL (7-18); BUN/Creat Ratio 7.7 RATIO (10-20); Calcium,Total 9.9 mg/dL (8.5-10.1); Chloride 100 mmol/L (98-107); Creatinine, Serum 0.91 mg/dL (0.70-1.30); EST Glomerular Filtration Rate 112 mL/min (>60); Est Glom Filt Rate - Afr Amer 136 mL/min (>60); Estimated Creatinine Clearance 99.69 ml/min; Glucose 104 mg/dL (74-106); Potassium 2.7 mmol/L (3.5-5.1); Sodium Level 138 mmol/L (136-145)
[2018-05-23] MEDS: LORazepam 2 MG/ML Syringe 0.5 MG IV (09:51)
[2018-05-23] MEDS: 0.9% Normal Saline 1,000 ML 1000 ML IV (09:51)
[2018-05-23] MEDS: Ondansetron 4 MG/2 ML Vial IV ×2 (09:51→15:57)
[2018-05-23] MEDS: 0.9% Normal Saline 1,000 ML 150 ML IV (10:55)
[2018-05-23] MEDS: proMETHazine 25 MG/ML Syringe 12.5 MG IV (11:07)
[2018-05-23] MEDS: Dicyclomine 20 MG/2 ML Vial IM (11:08)
--- NOTE | 2018-05-23 11:17 | EKG12_ITS ---
Test Reason : N/V Blood Pressure : / mmHG Vent. Rate : 081 BPM Atrial Rate : 081 BPM P-R Int : 110 ms QRS Dur : 090 ms QT Int : 390 ms P-R-T Axes : 046 088 078 degrees QTc Int : 453 ms Sinus rhythm with sinus arrhythmia with short LA Otherwise normal ECG Confirmed by KARLA DOMINGO, SURAJ ([id number]), medical transcription editor HERLINDA OROZCO ([id number]) on 05/26/2018 8:42:28 AM Referred By: SHENA Confirmed By:SURAJ ACOSTA MD
--- NOTE | 2018-05-23 13:02 | HP.PCM_ITS ---
Problem List (1) Intractable vomiting with nausea Status: Acute (2) Marijuana use, continuous Status: Chronic History of Present Illness Date of Admission: 05/23/18 Chief Complaint: Intractable nausea and vomiting. The patient is a 22 year old M with past medical history of chronic cannabinoids use and recurrent cyclic vomiting presented to the emergency room because of intractable nausea and vomiting. This patient was discharged from the hospital 5 days ago and he was admitted for the same reason with intractable nausea and vomiting secondary to chronic cannabinoids use. He mentioned that when he was discharged, he felt slightly better but still complained of nausea and vomiting. This nausea and vomiting has been persistent , at least 15-20 times daily, not able to keep any food or liquids down to his stomach, associated with muscle cramps and discomfort upon throwing up and without aggravating or relieving factors. He stated that he did not use marijuana/cannabinoids since he was discharged. He denied use of other recreational drugs. He denied fever or chills. Denied constipation or diarrhea. Denied chest pain or shortness of breath. In the ER, his vital signs were stable. His routine blood work was remarkable for potassium of 2.7, otherwise normal. He received IV fluids, IV Zofran x2, IV Phenergan x2, IV Ativan x1, Bentyl, IV Pepcid in the ER and he reported no significant improvement. His EKG revealed normal sinus rhythm, normal PA interval, normal QRS, QTC is 453 ms, no acute ischemic changes. He is being admitted for severe hypokalemia and intractable nausea and vomiting in context of history of cyclic vomiting due to chronic cannabinoids use. Past Medical History Past Medical History (Chronic Problems): Chronic Problems Marijuana use, continuous (Chronic) Allergies risperidone [From Risperdal] Adverse Reaction (Verified 05/23/18 08:36) Other RAPID HEARTBEAT Home Medications: Ambulatory Orders Medication Instructions Recorded proMETHazine tablet [Phenergan 25 mg PO Q4H PRN PRN #20 tab 05/18/18 tablet] Ondansetron [Zofran Odt] 4 mg PO Q8H PRN PRN #10 tab 05/21/18 Sertraline HCl [Zoloft] See Protocol PO DAILY 05/23/18 hydrOXYzine pamoate capsule 25 mg PO TID 05/23/18 [Vistaril pamoate capsule] Surgical History: no surgical history, - Psychiatric History: No pertinent psych hx Lives: With Family Smoking Status: Never smoker Alcohol: None Drugs: Marijuana - *Family History Paternal History Items: No pertinent history Maternal History Items: No pertinent history Review of Systems Constitutional: Reports: Anorexia. Denies: Chills, Fever, Weakness Eyes: Denies: Blurred vision, Double vision, Drainage, Redness HEENT: Denies: Difficulty Hearing, Ear Pain, Eye Pain, Nasal Congestion, Sore Throat Cardiovascular: Denies: Chest Pain, Chest Pressure, Edema, Heaviness, Light Headedness, Orthopnea, Syncope Respiratory: Denies: Cough, Pleuritic Pain, Shortness of Breath, Sputum production, Wheezing Gastrointestinal: Reports: Abdominal Pain, Nausea, Vomiting. Denies: Constipation, Diarrhea, Hematochezia, Melena Genitourinary: Denies: Dysuria, Frequency, Hematuria Musculoskeletal: Denies: Arm Pain, Back Pain, Foot Pain Skin: Denies: Dryness, Rash Neurological: Denies: Balance problems, Double vision, Change in Speech, Slurred speech, Confusion, Headaches, Incoordination, Numbness Psychiatric: Denies: Anxiety, Depression Endocrine: Denies: Change in Body Habitus, Polydipsia VTE Information - Inpt Only VTE Present on Admission: No VTE Mechan Device Prophylaxis: None VTE Pharm Prophylaxis ordered?: No - Physical Exam General: Alert, Oriented x3, Cooperative, No apparent distress HEENT: Atraumatic, PERRLA, EOMI, Normocephalic Oral: Moist Mucosa, No Gingival or Mucosal Lesions/ Ulcerations Neck: Supple, No JVD, Negative Carotid Bruits, Trachea Midline, Thyroid Normal Size and Texture Lungs: Clear to auscultation, No rhonchi, No wheeze, No rales, Diminished Cardiovascular: Regular rate, Regular Rhythm, Normal S1, Normal S2, No murmurs Abdomen: Bowel Sounds Present, Soft, Non Tender, Non-Distended, No Hepato- splenomegaly Extremities: No clubbing, No cyanosis, No edema Skin: No rashes, No breakdown Lymphatic: No Cervical, Supraclavicular, or Inguinal Adenopathy Neurological: Cranial nerves II-XII grossly intact, Motor Exam 5/5 strength throughout Psych/Mental Status: Normal Affect, Appropriate, Alert and oriented to time, place, person, mood and affect Vital Signs Temp Pulse Resp BP Pulse Ox 98.9 F 86 19 H 112/59 L 99 05/23/18 11:51 05/23/18 11:51 05/23/18 11:51 05/23/18 11:51 05/23/18 11:51 Laboratory Tests 3 05/23/18 05/23/18 Range/Units 09:20 09:20 WBC 6.7 (4.4-11.0) K/mm3 RBC 5.00 (4.6-6.2) M/mm3 Hgb 16.3 (13.0-16.5) g/dl Hct 45.1 (40-54) % MCV 90.2 (80-94) fL MCH 32.6 H (27.0-32.0) pg MCHC 36.1 H (32-36) g/gl RDW 12.3 (11.6-14.6) % RDW Differential 39.8 (35.1-43.9) fl Plt Count 324 (150-450) K/mm3 MPV 11.0 (6.2-12.0) fl Immature Gran % (Auto) 0.100 (0.0-0.9) % Neut % (Auto) 71.8 H (47-70) % Lymph % (Auto) 18.3 L (19-41) % [place] % (Auto) 9.6 (0-10) % Eos % (Auto) 0.1 (0-5) % Baso % (Auto) 0.1 (0-1) % Absolute Neuts (auto) 4.8 (2.0-7.7) X10^3/uL Absolute Lymphs (auto) 1.22 (0.83-4.51) X10^3/ul Total Counted Not Reportable Sodium 138 (136-145) mmol/L Potassium 2.7 L* (3.5-5.1) mmol/L Chloride 100 (98-107) mmol/L Carbon Dioxide 23.0 (21.0-32.0) mmol/L Anion Gap 15 (5-15) BUN 7 (7-18) mg/dL Creatinine 0.91 (0.70-1.30) mg/dL Estim Creat Clear Calc 99.69 ml/min Est GFR (MDRD) Af Amer 136 (>60) mL/min Est GFR (MDRD) Non-Af 112 (>60) mL/min BUN/Creatinine Ratio 7.7 L (10-20) RATIO Glucose 104 (74-106) mg/dL Calcium 9.9 (8.5-10.1) mg/dL Assessment/Plan All Active Problems Intractable vomiting with nausea (Acute) This is a 22 years old male patient presented to the emergency department because of intractable nausea and vomiting in context of history of chronic cannabinoids use and recent admission for intractable nausea and vomiting for the same reason and he was found to have potassium of 2.7 and he is being admitted for severe hypokalemia and intractable nausea and vomiting. #1 severe hypokalemia: Without EKG changes. This is likely because of persistent nausea and vomiting. Potassium is 2.7. Plan: Admit to PCU, cardiac monitoring, aggressive replacement of serum potassium, check serum magnesium, IV fluids, IV antiemetics, repeat CBC and BMP tomorrow morning. #2 intractable nausea and vomiting: Secondary to cyclic vomiting due to chronic cannabinoids use. He was discharged from the hospital 5 days ago. During that admission, he had CT scan abdomen that showed small bilateral kidney stones without obstruction, otherwise CT scan abdomen was unremarkable. He was evaluated by general surgery at that time, no surgical issues were identified. Plan: IV fluids, IV Phenergan and IV Zofran as needed, IV Pepcid, IV fluids, repeat BMP tomorrow morning. #3 chronic cannabinoids use: Patient stated that he quit using marijuana since last admission. Will do urine drug screen. #4 DVT prophylaxis: Low risk patient, no prophylaxis indicated. This note was generated with [employer] dictation software. It may contain incorrect words, spelling, and punctuation that were not noted in checking the note before signing. Code Visit Inpatient E&M: 76356 Init Hosp L3
[2018-05-23] MEDS: proMETHazine 25 MG/ML Syringe 6.25 MG IV ×2 (13:30→19:30)
[2018-05-23 13:33] LABS: Magnesium 2.3 mg/dL (1.6-2.6)
[2018-05-23] MEDS: 0.9% Normal Saline 1,000 ML 100 ML IV (14:52)
[2018-05-23 15:18] LABS: Amphetamine Urine VISTA NEGATIVE (<1000 ng/mL); Barbiturate Urine VISTA NEGATIVE (< 200 ng/mL); Benzodiazepine Urine VISTA POSITIVE (< 200 ng/mL); Cocaine Urine VISTA NEGATIVE (< 300 ng/mL); Ecstacy Urine VISTA NEGATIVE (< 500 ng/mL); Methadone Urine VISTA NEGATIVE (< 300 ng/mL); PCP Urine VISTA NEGATIVE (< 25 ng/mL); THC Urine VISTA POSITIVE (< 50 ng/mL); Vista UDS pH Range 6
[2018-05-23] MEDS: 0.9% NaCl Peripheral Flush Adult/Peds IV (19:33)
[2018-05-24] VITALS (10 sets, daily range): BP systolic 116–142; BP diastolic 60–88; PULSE 68–92; RESP 17–18; TEMP 36.4–37.3; O2SAT 98–100
[2018-05-24] MEDS: 0.9% Normal Saline 1,000 ML 100 ML IV ×2 (02:56→15:38)
[2018-05-24] MEDS: proMETHazine 25 MG/ML Syringe 6.25 MG IV ×3 (02:57→20:34)
[2018-05-24] MEDS: 0.9% NaCl Peripheral Flush Adult/Peds IV ×5 (02:58→21:32)
[2018-05-24 06:03] LABS: Absolute Lymphocyte Count 1.89 X10^3/ul (0.83-4.51); Absolute Neutrophil Count 3.4 X10^3/uL (2.0-7.7); Basophil# 0.02 X10^3/uL; Basophil% 0.3 % (0-1); Eosinophil# 0.03 X10^3/uL; Eosinophils% 0.5 % (0-5); Hematocrit 41.6 % (40-54); Hemoglobin 14.7 g/dl (13.0-16.5); Lymphocyte # 1.89 X10^3/ul (4.0); Mean Corp Hgb Conc 35.3 g/gl (32-36); Mean Corpuscular Hgb 32.5 pg (27.0-32.0); Mean Platelet Vol. 10.8 fl (6.2-12.0); Monocyte# 0.72 X10^3/uL; Monocyte% 11.8 % (0-10); Neutrophil # 3.43 X10^3/uL (2.7-7.7); Neutrophil % 56.2 % (47-70); Platelet Count 281 K/mm3 (150-450); RBC Distribution Width CV 12.3 % (11.6-14.6); RBC Distribution Width SD 41.4 fl (35.1-43.9); Red Blood Count 4.52 M/mm3 (4.6-6.2); White Blood Count 6.1 K/mm3 (4.4-11.0)
[2018-05-24 06:09] LABS: POSITIVE COUNT NO; POSITIVE DIFFERENTIAL NO; POSITIVE MORPHOLOGY NO
[2018-05-24 06:29] LABS: Anion Gap 11 (5-15); BUN 5 mg/dL (7-18); BUN/Creat Ratio 7.1 RATIO (10-20); Calcium,Total 8.8 mg/dL (8.5-10.1); Chloride 106 mmol/L (98-107); EST Glomerular Filtration Rate 152 mL/min (>60); Est Glom Filt Rate - Afr Amer 184 mL/min (>60); Estimated Creatinine Clearance 129.52 ml/min; Glucose 86 mg/dL (74-106); Potassium 3.3 mmol/L (3.5-5.1); Sodium Level 140 mmol/L (136-145)
--- NOTE | 2018-05-24 08:01 | PN_ITS ---
Subjective: Chief complaint: Follow-up after admission for intractable nausea and vomiting with past history of cyclic vomiting due to chronic cannabinoids use. Patient seen and examined. No acute events overnight. He is still symptomatic complaining of intractable nausea and vomiting. He mentioned that current medication is not working. He complains of abdominal pain upon throwing up. His vital signs are stable. - Physical Exam General: Alert, Oriented x3, Cooperative, No apparent distress HEENT: Atraumatic, PERRLA, EOMI, Normocephalic Oral: Moist Mucosa, No Gingival or Mucosal Lesions/ Ulcerations Neck: Supple, No JVD, Negative Carotid Bruits, Trachea Midline, Thyroid Normal Size and Texture Lungs: Clear to auscultation, No rhonchi, No wheeze, No rales, Diminished Cardiovascular: Regular rate, Regular Rhythm, Normal S1, Normal S2, No murmurs Abdomen: Bowel Sounds Present, Soft, Non-Distended, No Hepato-splenomegaly, Tender Extremities: No clubbing, No cyanosis, No edema Skin: No rashes, No breakdown Lymphatic: No Cervical, Supraclavicular, or Inguinal Adenopathy Neurological: Cranial nerves II-XII grossly intact, Motor Exam 5/5 strength throughout Psych/Mental Status: Normal Affect, Appropriate, Alert and oriented to time, place, person, mood and affect Vital Signs Temp Pulse Resp BP Pulse Ox 99.1 F 76 18 116/60 98 05/24/18 02:15 05/24/18 07:21 05/24/18 02:15 05/24/18 02:15 05/24/18 02:15 Oxygen Delivery Method Room Air Weight: 119 lb 14.903 oz Body Mass Index (BMI) 16.2 Intake and Output for Last 24 Hours 05/22/18 05/23/18 05/24/18 23:59 23:59 23:59 Intake Total 657 / 657 1064 / 1064 Output Total 250 / 250 Balance 657 / 657 814 / 814 Laboratory Tests Past 24 Hrs 05/23/18 05/24/18 05/24/18 14:45 05:40 05:40 WBC 6.1 RBC 4.52 L Hgb 14.7 Hct 41.6 MCV 92.0 MCH 32.5 H MCHC 35.3 RDW 12.3 RDW Differential 41.4 Plt Count 281 MPV 10.8 Immature Gran % (Auto) 0.200 Neut % (Auto) 56.2 Lymph % (Auto) 31.0 [place] % (Auto) 11.8 H Eos % (Auto) 0.5 Baso % (Auto) 0.3 Absolute Neuts (auto) 3.4 Absolute Lymphs (auto) 1.89 Total Counted Not Reportable Sodium 140 Potassium 3.3 L Chloride 106 Carbon Dioxide 23.0 Anion Gap 11 BUN 5 L Creatinine 0.70 Estim Creat Clear Calc 129.52 Est GFR (MDRD) Af Amer 184 Est GFR (MDRD) Non-Af 152 BUN/Creatinine Ratio 7.1 L Glucose 86 Calcium 8.8 Urine Opiates Screen POSITIVE H Urine Methadone Screen NEGATIVE Ur Barbiturates Screen NEGATIVE Ur Phencyclidine Scrn NEGATIVE Ur Amphetamines Screen NEGATIVE U Methamphetamin-MDMA NEGATIVE U Benzodiazepines Scrn POSITIVE H Urine Cocaine Screen NEGATIVE U Cannabinoids Screen POSITIVE H Ur Drug Screen Comment Medical Necessity - Tobacco Use Smoking Status: Never smoker Assessment/Plan All Active Problems Intractable vomiting with nausea (Acute) This is a 22 years old male patient presented to the emergency department because of intractable nausea and vomiting in context of history of chronic cannabinoids use and recent admission for intractable nausea and vomiting for the same reason and he was found to have potassium of 2.7 and he is being admitted for severe hypokalemia and intractable nausea and vomiting. #1 severe hypokalemia: Without EKG changes. He has been on aggressive potassium replacement. Today's potassium is 3.3, improved. Serum magnesium is normal. Plan to continue potassium replacement, repeat BMP tomorrow morning. #2 intractable nausea and vomiting: Secondary to cyclic vomiting due to chronic cannabinoids use. Still symptomatic, improvement. He is on IV Zofran and Phenergan as well as IV Pepcid twice daily. During the recent admission, he had CT scan abdomen that showed small bilateral kidney stones without obstruction, otherwise CT scan abdomen was unremarkable. He was evaluated by general surgery at that time, no surgical issues were identified. Plan: Start IV Compazine, IM Bentyl ?1. #3 chronic cannabinoids use: Patient stated that he quit using marijuana since last admission. Urine drug screen is positive for opioids, benzodiazepines and cannabinoids. #4 DVT prophylaxis: Low risk patient, no prophylaxis indicated. This note was generated with [employer] software. It may contain incorrect words, spelling, and punctuation that were not noted in checking the note before signing. Code Visit Inpatient E&M: 25882 Subs Hosp L2
[2018-05-24] MEDS: Dicyclomine 20 MG/2 ML Vial IM (08:41)
[2018-05-24] MEDS: proCHLORPERazine 10 MG/2 ML Vial 5 MG IV ×2 (08:54→17:32)
--- NOTE | 2018-05-24 10:34 | CASEMGMT ---
Readmission chart review-Pt readmitted with cyclic vomiting due to chronic cannabis use which has caused hypokalemia. See SW assessment from 05/16/18 when pt was admitted 05/15-05-18 for same. Pt also visited ED x1 between this visit and previous visit for same. CM to follow for any further discharge planning/needs. Pt does live at home with his parents currently and is currently unemployed. Macario MACKAY CM
[2018-05-24] MEDS: Ondansetron 4 MG/2 ML Vial IV ×2 (14:46→21:33)
[2018-05-25] VITALS (9 sets, daily range): BP systolic 123–138; BP diastolic 69–86; PULSE 84–103; RESP 16–18; TEMP 36.4–37.6; O2SAT 95–98
[2018-05-25] MEDS: proCHLORPERazine 10 MG/2 ML Vial 5 MG IV ×4 (00:24→23:30)
[2018-05-25] MEDS: 0.9% Normal Saline 1,000 ML 100 ML IV (02:12)
[2018-05-25] MEDS: proMETHazine 25 MG/ML Syringe 6.25 MG IV ×3 (02:57→18:05)
[2018-05-25] MEDS: 0.9% NaCl Peripheral Flush Adult/Peds IV ×7 (02:58→21:24)
[2018-05-25] MEDS: Ondansetron 4 MG/2 ML Vial IV ×3 (06:19→21:29)
[2018-05-25 06:58] LABS: Anion Gap 13 (5-15); BUN 7 mg/dL (7-18); Calcium,Total 8.7 mg/dL (8.5-10.1); Chloride 104 mmol/L (98-107); EST Glomerular Filtration Rate 151 mL/min (>60); Est Glom Filt Rate - Afr Amer 183 mL/min (>60); Estimated Creatinine Clearance 129.52 ml/min; Glucose 75 mg/dL (74-106); Potassium 3.3 mmol/L (3.5-5.1); Sodium Level 139 mmol/L (136-145)
--- NOTE | 2018-05-25 08:05 | PN_ITS ---
Subjective: Chief complaint: Follow-up after admission for intractable nausea and vomiting due to cyclic vomiting due to chronic cannabinoids use. Patient seen and examined. No acute events overnight. He is still complaining of nausea and vomiting, no improvement. Mother was at the bedside and she requested neurology consult. Patient is frustrated because he is not improving although he mentioned that IV Compazine is not helping. His vital signs are stable. - Physical Exam General: Alert, Oriented x3, Cooperative, No apparent distress HEENT: Atraumatic, PERRLA, EOMI Oral: Moist Mucosa, No Gingival or Mucosal Lesions/ Ulcerations Neck: Supple, No JVD, Negative Carotid Bruits, Trachea Midline, Thyroid Normal Size and Texture Lungs: Clear to auscultation, Normal air movement, No rhonchi, No wheeze, No rales Cardiovascular: Regular rate, Regular Rhythm, Normal S1, Normal S2, No murmurs Abdomen: Bowel Sounds Present, Soft, Non Tender, Non-Distended, No Hepato- splenomegaly Extremities: No clubbing, No cyanosis, No edema Skin: No rashes, No breakdown Lymphatic: No Cervical, Supraclavicular, or Inguinal Adenopathy Neurological: Cranial nerves II-XII grossly intact, Neuro grossly intact Psych/Mental Status: Flat Affect, Alert and oriented to time, place, person, mood and affect Vital Signs Temp Pulse Resp BP Pulse Ox 97.6 F L 84 18 124/86 H 97 05/25/18 03:00 05/25/18 03:00 05/25/18 03:00 05/25/18 03:00 05/25/18 03:00 Oxygen Flow Rate (L/min) 4 Oxygen Delivery Method Nasal Cannula Weight: 119 lb 14.903 oz Body Mass Index (BMI) 16.2 Intake and Output for Last 24 Hours 05/23/18 05/24/18 05/25/18 23:59 23:59 23:59 Intake Total 657 / 657 4087 / 4087 619 / 619 Output Total 700 / 700 Balance 657 / 657 3387 / 3387 619 / 619 Laboratory Tests Past 24 Hrs 05/25/18 05:45 Sodium 139 Potassium 3.3 L Chloride 104 Carbon Dioxide 22.0 Anion Gap 13 BUN 7 Creatinine 0.70 Estim Creat Clear Calc 129.52 Est GFR (MDRD) Af Amer 183 Est GFR (MDRD) Non-Af 151 BUN/Creatinine Ratio 10.0 Glucose 75 Calcium 8.7 Medical Necessity - Tobacco Use Smoking Status: Never smoker Assessment/Plan All Active Problems Intractable vomiting with nausea (Acute) This is a 22 years old male patient presented to the emergency department because of intractable nausea and vomiting in context of history of chronic cannabinoids use and recent admission for intractable nausea and vomiting for the same reason and he was found to have potassium of 2.7 and he is being admitted for severe hypokalemia and intractable nausea and vomiting. #1 severe hypokalemia: Without EKG changes. He has been on aggressive potassium replacement. Today's potassium remained at 3.3, improved. Serum magnesium is normal. Plan to continue potassium replacement, repeat serum potassium tomorrow morning. #2 intractable nausea and vomiting: Secondary to cyclic vomiting due to chronic cannabinoids use. Still symptomatic, no improvement. He is on IV Zofran and Phenergan as well as IV Pepcid twice daily, started on IV Compazine yesterday. During the recent admission, he had CT scan abdomen that showed small bilateral kidney stones without obstruction, otherwise CT scan abdomen was unremarkable. He was evaluated by general surgery at that time, no surgical issues were identified. Mother was at the bedside and she thinks that he should have neurology, psychiatry and GI consult. I informed the mother that I am not sure what neurology can offer the patient overdue for him but she is adamant and requesting the consult. Plan: Neurology consult. #3 chronic cannabinoids use: Patient stated that he quit using marijuana since last admission. Urine drug screen is positive for opioids, benzodiazepines and cannabinoids. #4 DVT prophylaxis: Low risk patient, no prophylaxis indicated. This note was generated with [employer] dictation software. It may contain incorrect words, spelling, and punctuation that were not noted in checking the note before signing. Code Visit Inpatient E&M: 86544 Subs Hosp L2
--- NOTE | 2018-05-25 10:32 | CON.PCM_ITS ---
Reason for Consult Date of Consultation: 05/25/18 Reason for Consultation: cyclic vomiting History of Present Illness: The patient is a 22 year old right handed white male presents admitted again for severe nausea and vomiting attributed to chronic cannabis use, but hasnt used for 2 weeks. no other substance use. reports cyclic vomiting for over one year. saw GI at [facility], negative scope, diagnosed cyclic vomiting. reports spells last one month, followed by 3-4 days of relative decreased nausea but never completely normal. phenergan and zofran incomplete benefit. ativan iv helps. no family history of cyclic vomiting. reports stopped smoking for one month which helped. reports benefit of nonsmoking helped for 4 months. reports severe stress. saw a physician who recommended an anti stress medicine which he hasnt started yet.reports mild depression but no suicidal ideation. reports two dogs dying, sister going into army, parents fight, s.o. is heroin addict. discussed with mom by phone, who believes this is cyclic vomiting. reports he has anxiety and history of migraines and panic attacks and hi stress environment. mom agrees ativan helps.pt agrees to dc cannabis per admit h&p:The patient is a 22 year old M with past medical history of chronic cannabinoids use and recurrent cyclic vomiting presented to the emergency room because of intractable nausea and vomiting. This patient was discharged from the hospital 5 days ago and he was admitted for the same reason with intractable nausea and vomiting secondary to chronic cannabinoids use. He mentioned that when he was discharged, he felt slightly better but still complained of nausea and vomiting. This nausea and vomiting has been persistent , at least 15-20 times daily, not able to keep any food or liquids down to his stomach, associated with muscle cramps and discomfort upon throwing up and without aggravating or relieving factors. He stated that he did not use marijuana/cannabinoids since he was discharged. He denied use of other recreational drugs. He denied fever or chills. Denied constipation or diarrhea. Denied chest pain or shortness of breath. In the ER, his vital signs were stable. His routine blood work was remarkable for potassium of 2.7, otherwise normal. He received IV fluids, IV Zofran x2, IV Phenergan x2, IV Ativan x1, Bentyl, IV Pepcid in the ER and he reported no significant improvement. His EKG revealed normal sinus rhythm, normal OH interval, normal QRS, QTC is 453 ms, no acute ischemic changes. He is being admitted for severe hypokalemia and intractable nausea and vomiting in context of history of cyclic vomiting due to chronic cannabinoids use. Past Medical History Past Medical History (Chronic Problems): Chronic Problems Marijuana use, continuous (Chronic) Allergies risperidone [From Risperdal] Adverse Reaction (Verified 05/23/18 08:36) Other RAPID HEARTBEAT Home Medications: Ambulatory Orders Medication Instructions Recorded proMETHazine tablet [Phenergan 25 mg PO Q4H PRN PRN #20 tab 05/18/18 tablet] Ondansetron [Zofran Odt] 4 mg PO Q8H PRN PRN #10 tab 05/21/18 Sertraline HCl [Zoloft] See Protocol PO DAILY 05/23/18 hydrOXYzine pamoate capsule 25 mg PO TID 05/23/18 [Vistaril pamoate capsule] Surgical History: no surgical history, - Psychiatric History: No pertinent psych hx Lives: With Family Smoking Status: Never smoker Alcohol: None Drugs: Marijuana - *Family History Paternal History Items: No pertinent history Maternal History Items: No pertinent history Review of Systems Constitutional: Reports: Anorexia. Denies: Chills, Fever, Weight Change HEENT: Denies: Head Aches, Sinus Congestion, Sinus Drainage Cardiovascular: Denies: Chest Pain, Palpitations Respiratory: Denies: Cough, Shortness of breath at rest, Sputum production Gastrointestinal: Reports: Abdominal Pain, Nausea, Vomiting Genitourinary: Denies: Dysuria Musculoskeletal: Reports: Back Pain. Denies: Joint Pain, Joint Tenderness Skin: Denies: Rash, Wounds Neurological: Reports: Headaches. Denies: Focal weakness, Numbness, Tingling Psychiatric: Denies: Anxiety, Depression, Homicidal Ideations, Suicidal Ideations Hematologic/ Lymphatic: Denies: Easy Bruising, Easy Bleeding - Physical Exam General: Alert, Oriented x3, Cooperative HEENT: Atraumatic, PERRLA, EOMI, Normocephalic Neck: Supple, No JVD, Negative Carotid Bruits Lungs: Clear to auscultation, Normal air movement Cardiovascular: Regular rate, No murmurs Abdomen: Bowel Sounds Present, Soft, Non Tender Extremities: No edema, Capillary Refill Less than 3 Seconds Skin: No rashes, No breakdown Musculoskeletal: No Tenderness to Palpation of Joints or Extremities Neurological: Cranial nerves II-XII grossly intact Psych/Mental Status: Normal Affect, Appropriate Vital Signs Temp Pulse Resp BP Pulse Ox 37.6 C H 93 17 123/70 H 97 05/25/18 09:07 05/25/18 09:07 05/25/18 09:07 05/25/18 09:07 05/25/18 09:07 Oxygen Flow Rate (L/min) 4 Oxygen Delivery Method Room Air Weight: 54.4 kg Body Mass Index (BMI) 16.2 Intake and Output for Last 24 Hours 05/23/18 05/24/18 05/25/18 23:59 23:59 23:59 Intake Total 657 / 657 4087 / 4087 619 / 619 Output Total 700 / 700 Balance 657 / 657 3387 / 3387 619 / 619 Laboratory Tests Past 24 Hrs 05/25/18 05:45 Sodium 139 Potassium 3.3 L Chloride 104 Carbon Dioxide 22.0 Anion Gap 13 BUN 7 Creatinine 0.70 Estim Creat Clear Calc 129.52 Est GFR (MDRD) Af Amer 183 Est GFR (MDRD) Non-Af 151 BUN/Creatinine Ratio 10.0 Glucose 75 Calcium 8.7 Current Home Med List Medication Instructions Recorded Confirmed Type proMETHazine tablet [Phenergan 25 mg PO Q4H PRN PRN #20 tab 05/18/18 05/23/18 Rx tablet] Ondansetron [Zofran Odt] 4 mg PO Q8H PRN PRN #10 tab 05/21/18 05/23/18 Rx Sertraline HCl [Zoloft] See Protocol PO DAILY 05/23/18 05/23/18 History hydrOXYzine pamoate capsule 25 mg PO TID 05/23/18 05/23/18 History [Vistaril pamoate capsule] hasnt taken vistaril or zoloft yet at home Current Medications Generic Name Dose Route Start Last Admin Trade Name Freq PRN Reason Stop Dose Admin Famotidine 20 mg/ Sodium 10 mls @ 300 mls/hr 05/23/18 22:00 05/25/18 08:42 Chloride IV 300 mls/hr Q12 [place] Administration Potassium Chloride/Sodium Chloride 1,000 mls @ 75 mls/hr 05/25/18 08:05 06/28 /18 08:46 IV 75 mls/hr .[id number] [place] Administration Magnesium Hydroxide 30 ml 05/23/18 12:49 Milk Of Magnesia PO DAILY PRN Constipation Nutritional Formula (Lactose Free) 120 ml 05/24/18 18:00 05/25/18 10:23 Ensure Clear PO Not Given 4X/DAY [place] Ondansetron HCl 4 mg 05/23/18 12:49 05/25/18 06:19 Zofran IV 4 mg Q6H PRN PRN Administration NAUSEA/VOMITING Prochlorperazine Edisylate 5 mg 05/24/18 07:56 05/25/18 08:36 Compazine Iv IV 5 mg Q6H PRN PRN Administration NAUSEA/VOMITING Promethazine HCl 6.25 mg 05/23/18 12:49 05/25/18 02:57 Phenergan IV 6.25 mg Q6H PRN PRN Administration NAUSEA/VOMITING Sodium Chloride 5 - 30 ml 05/23/18 16:47 05/25/18 08:42 IV 20 ml UD PRN Administration SALINE FLUSH Assessment/Plan All Active Problems Intractable vomiting with nausea (Acute) vomiting, hx of migraine, cannabis use, severe anxiety/stress zoloft when able to take po short term use iv ativan iv depakote needs outpatient psych followup dc cannabis 50min face-face counselling, discussion with pt and family
[2018-05-25] MEDS: LORazepam 2 MG/ML Syringe 0.5 MG IV (12:49)
--- NOTE | 2018-05-25 16:20 | CASEMGMT ---
Social Work: Met with patient and mother in patient's room. Introduced self and the role of the social research assistant. Patient admitted with cyclical vomiting which patient states he has been dealing with for months. Patient lives with parents and a sister and a brother. Patient states that he is currently unemployed due to always being sick. Patient states he has a very limited support system specifically I only have one friend. Patient indicates that this friend tries to be supportive. Patient states that he also has a girlfriend who he is currently taking a break from because she causes me more stress and she has drug problems. Patients admits to using marijuana since he was 14 years old. Patient states that he uses marijuana to help him eat, sleep, deal with pain and to cope with life in general. Patient states that he has not used marijuana in over 2 weeks. Patient states I stopped using to prove to everyone that marijuana is not what is causing my cyclical vomiting. Patient admits to feeling anxious, angry and depressed. Patient has not had any counseling in the past nor has he ever been on an antidepressant according to patient. Patient denies suicidal ideations/ thoughts or plan. This SW discussed [facility] with patient and patient is open to talking with GERRY Nance from the behavioral health department. Patient's mother also states that patient has an appointment with Dr. Luna who is a neuro/psychiatrist specializing in cyclical vomiting syndrome in [place] on June 07. Emotional support and active listening provided. Will continue to follow as needed for support and D/C planning. PLAN: Patient to be seen by Matthieu Ty in [facility]. EVGENY Roche
[2018-05-26] VITALS (10 sets, daily range): BP systolic 101–161; BP diastolic 67–96; PULSE 85–117; RESP 14–16; TEMP 36.7–37.1; O2SAT 96–100
[2018-05-26] MEDS: proMETHazine 25 MG/ML Syringe 6.25 MG IV ×2 (00:29→19:06)
[2018-05-26] MEDS: Ondansetron 4 MG/2 ML Vial IV ×2 (03:50→15:20)
[2018-05-26] MEDS: 0.9% NaCl Peripheral Flush Adult/Peds IV ×3 (04:23→15:20)
[2018-05-26 06:25] LABS: Potassium 3.4 mmol/L (3.5-5.1)
[2018-05-26] MEDS: proCHLORPERazine 10 MG/2 ML Vial 5 MG IV ×3 (06:37→21:34)
[2018-05-26] MEDS: LORazepam 2 MG/ML Syringe 0.5 MG IV ×2 (06:37→13:11)
--- NOTE | 2018-05-26 08:04 | PCM.PROGNOTE ---
Subjective: Chief complaint: Follow-up after admission for hypokalemia, intractable nausea and vomiting due to cyclic vomiting in context of history of chronic cannabinoids she was. Patient seen and examined. No acute events overnight. Again, he is symptomatic with nausea and vomiting but he mentioned that things are slightly improved after started on IV Ativan and valproic acid. His vital signs are stable. - Physical Exam General: Alert, Oriented x3, Cooperative, No apparent distress HEENT: Atraumatic, PERRLA, EOMI, Normocephalic Oral: Moist Mucosa, No Gingival or Mucosal Lesions/ Ulcerations Neck: Supple, No JVD, Negative Carotid Bruits, Trachea Midline, Thyroid Normal Size and Texture Lungs: Clear to auscultation, No rhonchi, No wheeze, No rales, Diminished Cardiovascular: Regular rate, Regular Rhythm, Normal S1, Normal S2, PMI Normal Abdomen: Bowel Sounds Present, Soft, Non Tender, Non-Distended, No Hepato-splenomegaly Extremities: No clubbing, No cyanosis, No edema Skin: No rashes, No breakdown Lymphatic: No Cervical, Supraclavicular, or Inguinal Adenopathy Neurological: Cranial nerves II-XII grossly intact, Motor Exam 5/5 strength throughout Psych/Mental Status: Flat Affect Vital Signs Temp Pulse Resp BP Pulse Ox 98.3 F 94 16 161/96 H 100 05/26/18 03:45 05/26/18 07:00 05/26/18 03:45 05/26/18 03:45 05/26/18 03:45 Oxygen Flow Rate (L/min) 4 Oxygen Delivery Method Room Air Weight: 119 lb 14.903 oz Body Mass Index (BMI) 16.2 Intake and Output for Last 24 Hours 05/24/18 05/25/18 05/26/18 23:59 23:59 23:59 Intake Total 4087 / 4087 1695 / 1695 697 / 697 Output Total 700 / 700 600 / 600 Balance 3387 / 3387 1095 / 1095 697 / 697 Laboratory Tests Past 24 Hrs 05/26/18 05:05 Potassium 3.4 L Medical Necessity - Tobacco Use Smoking Status: Never smoker Assessment/Plan All Active Problems Intractable vomiting with nausea (Acute) This is a 22 years old male patient presented to the emergency department because of intractable nausea and vomiting in context of history of chronic cannabinoids use and recent admission for intractable nausea and vomiting for the same reason and he was found to have potassium of 2.7 and he is being admitted for severe hypokalemia and intractable nausea and vomiting. #1 severe hypokalemia: Without EKG changes. He has been on aggressive potassium replacement. Today's potassium remained at 3.4. Serum magnesium is normal. Plan to continue potassium replacement, repeat serum potassium tomorrow morning. #2 intractable nausea and vomiting: Secondary to cyclic vomiting due to chronic cannabinoids use. Still symptomatic, no improvement. He is on IV Zofran, IV Phenergan, IV Compazine, IV Pepcid, IV Ativan and IV valproic acid. Neurology consulted and started him on Ativan and valproic acid. During the recent admission, he had CT scan abdomen that showed small bilateral kidney stones without obstruction, otherwise CT scan abdomen was unremarkable. He was evaluated by general surgery at that time, no surgical issues were identified. Plan to continue same treatment. #3 chronic cannabinoids use: Patient stated that he quit using marijuana since last admission. Urine drug screen is positive for opioids, benzodiazepines and cannabinoids. #4 DVT prophylaxis: Low risk patient, no prophylaxis indicated. This note was generated with [employer] dictation software. It may contain incorrect words, spelling, and punctuation that were not noted in checking the note before signing. Code Visit Inpatient E&M: 25440 Subs Hosp L2
--- NOTE | 2018-05-26 15:33 | BH.NOTE ---
: Inpatient Note - Notes Behavioral Health Inpatient Note: 05/26/18 15:33 Referral to [facility] due to depression and anxiety possibly exacerbating medical issues. Met with pt in his room. Parents were present and pt was agreeable with parents being in the room. Pt minimally cooperative with the assessment. Denies any suicidal ideations, plan, or intent. Reports anxiety, anger, and depression on a daily basis mainly related to medical symptoms (vomiting/nausea).Pt has poor insight into mental health symptoms or ways to cope. Mother answered majority of questions at pt's request. Currently pt has appointment with psychiatrist Dr. Prieto in [place] next week. Per mother this psychiatrist is familiar with Cyclic Vomiting Syndrome and ways to treat. Pt is not currently linked with counseling. He does not wish to enter into [facility] due to group counseling. He was able to admit that anxiety and stress exacerbate medical symptoms. Please refer to notes for further information. Attempted to give list of MH resources in the area, however mother reports that she is familiar and does not require list. Gave information on [facility].
[2018-05-27 03:19] VITALS: PULSE 78
[2018-05-27 03:24] VITALS: BP 145/76; PULSE 90; RESP 16; TEMP 37; O2SAT 97
[2018-05-27] MEDS: Ondansetron 4 MG/2 ML Vial IV (03:40)
[2018-05-27] MEDS: proCHLORPERazine 10 MG/2 ML Vial 5 MG IV (06:19)
[2018-05-27 06:45] LABS: Potassium 3.4 mmol/L (3.5-5.1)
[2018-05-27 06:57] VITALS: PULSE 103
[2018-05-27 09:15] VITALS: BP 116/59; PULSE 97; RESP 16; TEMP 36.5; O2SAT 95
[2018-05-27] MEDS: 0.9% NaCl Peripheral Flush Adult/Peds IV (09:17)
[2018-05-27] MEDS: proMETHazine 25 MG/ML Syringe 6.25 MG IV (09:19)
--- NOTE | 2018-05-27 10:26 | PCM.DC ---
You will use the following diet at home:: Regular Your food should be the consistency of: Regular Discharge Activity: Return to Normal Activity Weight Bearing Status: Full weight bearing Call your doctor if you observe: Fever of 101 or Higher, Shortness of breath, Dizziness, Fainting spells, Chest pain, Increased palpitations (irregular heartbeat), Uncontrolled pain Allergies/Adverse Reactions: Allergies risperidone [From Risperdal] Adverse Reaction (Verified 05/23/18 08:36) Other RAPID HEARTBEAT Medications to take at Discharge Sertraline HCl [Zoloft] See Protocol PO DAILY 05/23/18 Famotidine [Pepcid] 20 mg PO BID #30 tab 05/27/18 Potassium Chloride [K-Dur] 20 meq PO DAILY #7 tab 05/27/18 proCHLORPERazine tablet [Compazine tablet] 5 mg PO TID PRN PRN #20 tab 05/27/18 proMETHazine tablet [Phenergan tablet] 25 mg PO Q6H PRN PRN #20 tab 05/27/18 The following prescriptions were given: proMETHazine tablet [Phenergan tablet] 25 mg PO Q6H PRN PRN #20 tab PRN Reason: nausea, emesis Potassium Chloride [K-Dur] 20 meq PO DAILY #7 tab proCHLORPERazine tablet [Compazine tablet] 5 mg PO TID PRN PRN #20 tab PRN Reason: Nausea/Vomiting Famotidine [Pepcid] 20 mg PO BID #30 tab Primary Care Physician: Binu Jose MD [Primary Care Provider] - Please follow up with your Primary Care Physician in: 1 week.
--- NOTE | 2018-05-27 16:10 | DS.PCM_ITS ---
Discharge Date and Diagnosis Date of Admission: 05/23/18 Date of Discharge: 05/27/18 - Primary Discharge Diagnosis #1 severe hypokalemia. #2 intractable nausea and vomiting. #3 Chronic cannabinoids use. - Secondary Discharge Diagnosis Chronic Problems Marijuana use, continuous (Chronic) Hospital Course and Treatment Operations: None Procedures: None Summary of Care Provided: Patient seen and examined on the day of discharge and appeared to be stable to be discharged home. Reported improvement of his nausea and vomiting and he was able to tolerate light diet. His vital signs are stable. - Physical Exam General: Alert, Oriented x3, Cooperative, No apparent distress. HEENT: Atraumatic, PERRLA, EOMI. Neck: Supple, No JVD, Negative Carotid Bruits, Trachea Midline, Thyroid Normal. Lungs: Clear to auscultation, Normal air movement, No rhonchi, No wheeze, No rales. Cardiovascular: Regular rate, Regular Rhythm, Normal S1, Normal S2, PMI Normal. Abdomen: Bowel Sounds Present, Soft, Non Tender, Non-Distended, No Hepato- splenomegaly. Extremities: No clubbing, No cyanosis, No edema Skin: No rashes, No breakdown Neurological: Neuro grossly intact Vital Signs are stable. Hospital course: The patient is a 22 year old M admitted because of intractable nausea and vomiting with history of recent admission for the same problem and this is attributed to cyclic vomiting due to chronic cannabinoids use. He was found to have severe hypokalemia and his potassium on admission was 2.7 mmol/L. His other routine blood work was unremarkable. His urine drug screen was positive for opioids, benzodiazepines and cannabinoids. He was treated with IV fluids, IV Zofran, IV Phenergan and IV Pepcid and he reported no improvement in the first 3 days of admission. IV Compazine was added and that closed minimal improvement. Neurology consulted and patient was started on IV valproic acid and IV Ativan as needed. His potassium was aggressively replaced and went up to 3.4 mmol/L. His EKG revealed no acute changes related to hyperkalemia. Patient stated that IV Compazine is working and helping his nausea. After he was started on IV valproic acid and IV Ativan by neurology, his symptoms started to improve. Today, patient was able to tolerate light diet and he has normal symptoms. Patient discharged home in a stable medical condition, discharged on Phenergan as needed, IV Compazine as needed, continued on Zoloft, discharged on potassium supplement and Pepcid, recommended follow-up with PCP in 1 week, counseled and highly recommended to quit using marijuana. Discharge Activity: Return to Normal Activity Weight Bearing Status: Full weight bearing Call your doctor if you observe: Fever of 101 or Higher, Shortness of breath, Dizziness, Fainting spells, Chest pain, Increased palpitations (irregular heartbeat), Uncontrolled pain Home Medications: Medications to take at Discharge Sertraline HCl [Zoloft] See Protocol PO DAILY 05/23/18 Famotidine [Pepcid] 20 mg PO BID #30 tab 05/27/18 Potassium Chloride [K-Dur] 20 meq PO DAILY #7 tab 05/27/18 proCHLORPERazine tablet [Compazine tablet] 5 mg PO TID PRN PRN #20 tab 05/27/18 proMETHazine tablet [Phenergan tablet] 25 mg PO Q6H PRN PRN #20 tab 05/27/18 Following Prescrptions Were Given to Patient: proMETHazine tablet [Phenergan tablet] 25 mg PO Q6H PRN PRN #20 tab PRN Reason: nausea, emesis Potassium Chloride [K-Dur] 20 meq PO DAILY #7 tab proCHLORPERazine tablet [Compazine tablet] 5 mg PO TID PRN PRN #20 tab PRN Reason: Nausea/Vomiting Famotidine [Pepcid] 20 mg PO BID #30 tab Primary Care Physician: Binu Jose MD [Primary Care Provider] - Please follow up with your Primary Care Physician in: 1 week. Please Follow Up With: Binu Jose MD Disposition: Home Minutes spent on discharge:: 31 Patient Condition:: Stable Medical Necessity - Tobacco Use Smoking Status: Never smoker Meaningful Use Info Meaningful Use Diagnoses (Choose all that apply): None applicable Code Visit Inpatient E&M: 61223 Disch Hosp
== END 2018-05-27 10:49 | disposition home or self-care (01) | DRG 392 ==
LOC: ED 09:22 → PCU 12:17
PROVIDERS: Admitting Provider Hospitalist; Emergency Provider Emergency Medicine; Family Provider Family Medicine; PCP Family Medicine; Visit Provider Hospitalist
DX: R11.2 Nausea with vomiting, unspecified (principal); F12.90 Cannabis use, unspecified, uncomplicated; E87.6 Hypokalemia
CPT/HCPCS: 36415; 80048; 80307; 83735; 84132; 85025; 93005; 99285; J7030; A4216; J2405; J3490

== ENCOUNTER 2018-05-29 05:54 | Observation (INO) | payer OTHER, MEDICAID, SELFPAY ==
[2018-05-29] VITALS (12 sets, daily range): BP systolic 122–146; BP diastolic 68–96; PULSE 70–139; RESP 16–20; TEMP 36.8–37.3; O2SAT 98–100; BMI 15.7; BMI 16.0
--- NOTE | 2018-05-29 06:13 | ED.VISSUMM ---
- ER Visit Summary Date of Service: 05/29/18 Chief Complaint: Nausea and vomiting History of Present Illness: The patient is a 22 M history of cyclic vomiting. Was just hospitalized and discharged about 3 days ago. He is on nausea medication at home but has been consistently vomiting the last 3 days. Denies fever or dysuria. No hematemesis or melena. Physical Examination: Vital signs are stable afebrile. H EENT exam unremarkable. Neck nontender no lymphadenopathy. Lungs clear to auscultation bilaterally. Heart regular rhythm no murmur rate about 80. Abdomen is soft. Scaphoid. Nondistended. Normal bowel sounds. No peritoneal signs. No hernias or masses. No signs of obstruction. Moving all 4 extremities. He is a thin male. Back exam nontender. Neurologically is awake alert with no focal motor deficits. Test Results: BMP shows a potassium of 2.8. Normal BUN and creatinine 12 and 1. Glucose of 166. Emergency Department Course and Treatment: Patient treated with IV fluids, IV Phenergan and Ativan. Treatment Plan: Patient currently receiving IV fluids and IV Phenergan and Ativan. He will receive IV potassium. And turned over to the morning physician. Mom is insistent that the patient will need admitted. Disposition: Admission Impression: Acute nausea and vomiting with a history of cyclic vomiting syndrome Mild dehydration Hypokalemia This note was generated with [employer] dictation software. It may contain incorrect words, spelling, and punctuation that were not noted in review of the chart prior to signing ED Disposition - Plan for ED Patient: Chief Complaint: Nausea/Vomiting Referrals: Binu Jose MD [Primary Care Provider] -
[2018-05-29] MEDS: proMETHazine 25 MG/ML Syringe 12.5 MG IV ×3 (06:22→20:40)
[2018-05-29] MEDS: 0.9% Normal Saline 1,000 ML 1000 ML IV (06:22)
[2018-05-29] MEDS: LORazepam 2 MG/ML Syringe 1 MG IV (06:22)
[2018-05-29 06:31] LABS: Anion Gap 15 (5-15); BUN 12 mg/dL (7-18); BUN/Creat Ratio 11.8 RATIO (10-20); Calcium,Total 10.6 mg/dL (8.5-10.1); Chloride 91 mmol/L (98-107); Creatinine, Serum 1.02 mg/dL (0.70-1.30); EST Glomerular Filtration Rate 98 mL/min (>60); Est Glom Filt Rate - Afr Amer 119 mL/min (>60); Estimated Creatinine Clearance 85.95 ml/min; Glucose 166 mg/dL (74-106); Potassium 2.8 mmol/L (3.5-5.1); Sodium Level 136 mmol/L (136-145)
--- NOTE | 2018-05-29 07:45 | ED.VISSUMM ---
- ER Visit Summary Date of Service: 05/29/18 Chief Complaint: [Vomiting] History of Present Illness: The patient is a 22 M [who presented with vomiting over the course of the last 3 weeks. Patient had recent admission for same. Care of patient turned over to me awaiting repeat evaluation after treatment with meds by Dr. Binu Gudino. Patient continues to feel nauseated after initial treatment I did order 10 mg of Reglan IV. Patient was found to be hypokalemic with a potassium of 2.8. Patient came in with a heart rate of 140. Mother is concerned about taking patient home given frequent episodes like this apparently typically does not do well when sent home early and ends up returning to the emergency department. Patient has a scheduled appointment on the of the month with a neuropsychiatrist. Patient does have diagnosis of cyclic vomiting syndrome.] Physical Examination: [] Test Results: [] Emergency Department Course and Treatment: [] Treatment Plan: [Patient case discussed with hospitalist Dr. Raymon Britt who will evaluate patient for admission.] Disposition: [Admit] Impression: [Intractable nausea vomiting Hypokalemia Tachycardia Cyclic vomiting syndrome] This note was generated with [employer] dictation software. It may contain incorrect words, spelling, and punctuation that were not noted in review of the chart prior to signing ED Disposition - Plan for ED Patient: Chief Complaint: Nausea/Vomiting Referrals: Binu Jose MD [Primary Care Provider] -
[2018-05-29] MEDS: 0.9% Normal Saline 1,000 ML 999 ML IV (08:16)
[2018-05-29] MEDS: Metoclopramide 10 MG/2 ML Vial IV (08:16)
--- NOTE | 2018-05-29 08:20 | PCM.HP.STD ---
Problem List (1) Hypokalemia Status: Acute (2) Intractable vomiting with nausea Status: Acute History of Present Illness Date of Admission: 05/29/18 Chief Complaint: intractable nausea and vomiting. The patient is a 22 year old M who has been diagnosed with cyclic vomiting syndrome. Patient was discharged on for that. Tom also associated with hypokalemia. Patient was doing well when he was discharged but since being discharged, however, patient has continued to just have persistent nausea and vomiting. Previously, had been attributed to his marijuana use but the patient's mother states that she has been with him 20/06 and states that he is not consuming marijuana at this time. There was stated that he was not using his admission on the but his urine drug screen did come back positive for cannabinoids. Patient is listless does not wish to engage in verbal basis with me so much of the history is obtained through the emergency room physician as well as the patient's mother at bedside. Patient's mother states that he is going to be following up with a neuropsychologist who specializes cyclic vomiting syndrome in [place], [place] on the of this month. When asked if there are certain foods that seem to bring this on patient's mother states that he occasionally has some cravings for schedules but really does not consume many of those. [] Past Medical History Past Medical History (Chronic Problems): Chronic Problems Marijuana use, continuous (Chronic) Medical History: Medical History (Last Updated 05/29/18 @ 08:22 by Raymon Britt DO) Cyclic vomiting syndrome G43.A0 Allergies risperidone [From Risperdal] Adverse Reaction (Verified 05/29/18 05:58) Other RAPID HEARTBEAT Home Medications: Ambulatory Orders Medication Instructions Recorded Sertraline HCl [Zoloft] See Protocol PO DAILY 05/23/18 Famotidine [Pepcid] 20 mg PO BID #30 tab 05/27/18 Potassium Chloride [K-Dur] 20 meq PO DAILY #7 tab 05/27/18 proCHLORPERazine tablet [Compazine 5 mg PO TID PRN PRN #20 tab 05/27/18 tablet] proMETHazine tablet [Phenergan 25 mg PO Q6H PRN PRN #20 tab 05/27/18 tablet] Surgical History: no surgical history, - Psychiatric History: No pertinent psych hx Smoking Status: Never smoker Drugs: Marijuana - Denies current use - *Family History Paternal History Items: No pertinent history Maternal History Items: - - Migraines Review of Systems Gastrointestinal: Reports: Nausea, Vomiting Comment: Patient does not wish to engage me on a verbal basis at this time. VTE Information - Inpt Only VTE Present on Admission: No VTE Mechan Device Prophylaxis: None Reason prophylaxis not ordered:: Procedure Not Indicated Patient Problems: Active and Suspected Problems Hypokalemia (Acute) - Physical Exam General: - - Listless. Lying on his right side in a position in bed. Afebrile. HEENT: Atraumatic, Normocephalic Neck: No Nodes, Thyroid Normal Size and Texture Lungs: Clear to auscultation, Normal air movement, No rhonchi, No wheeze Cardiovascular: Regular rate, Regular Rhythm, Normal S1, Normal S2, No murmurs Abdomen: Bowel Sounds Present, Soft, Non Tender, Non-Distended, No Hepato-splenomegaly Extremities: No edema, No Calf Tenderness Skin: No rashes, No breakdown Musculoskeletal: No Tenderness to Palpation of Joints or Extremities, No Muscle Wasting Vital Signs Temp Pulse Resp BP Pulse Ox 36.8 C 98 16 146/96 H 98 05/29/18 05:55 05/29/18 07:46 05/29/18 07:46 05/29/18 07:46 05/29/18 07:46 Oxygen Delivery Method Room Air Weight: 52.6 kg Body Mass Index (BMI) 15.7 Laboratory Tests Past 24 Hrs 05/29/18 06:00 Sodium 136 Potassium 2.8 L Chloride 91 L Carbon Dioxide 30.0 Anion Gap 15 BUN 12 Creatinine 1.02 Estim Creat Clear Calc 85.95 Est GFR (MDRD) Af Amer 119 Est GFR (MDRD) Non-Af 98 BUN/Creatinine Ratio 11.8 Glucose 166 H Calcium 10.6 H Assessment/Plan All Active Problems Intractable vomiting with nausea (Acute) Hypokalemia (Acute) 1. Hypokalemia Is likely due to his intractable nausea and vomiting Was only 3.4 when he was discharged on the His magnesium at that time was normal at 2.3 on the Patient received only 20 milligrams once a potassium and diet. Plan is for my standpoint, the put him on half-normal saline with potassium plus give him another 40 IV of potassium Check magnesium level as well 2. Cyclic vomiting syndrome Previously attributed to his marijuana use. Mother states that he cannot be using marijuana she is solid no evidence she is with him 20/06 We will check another urine drug screen as it was positive on the Patient will be on scheduled Phenergan as well as Zofran with alternating times Plan, as I discussed with patient's mother, is to ensure that the patient is no longer vomiting and able to keep food and drink down, and then correction of his electrolytes before discharge. I did discuss with her about potential food intolerance including high fructose corn syrup. I advised keeping a food diarrhea but also perhaps avoiding certain foods to see if those seem to be bringing on. Patient does not really consume much milk but perhaps that could be avoided as well as high fructose corn syrup. Encouraged patient continue to follow-up with the neuropsychiatrist on the psychiatric issues can facilitate the symptoms. Code Visit Inpatient E&M: 91052 Init Hosp L2
--- NOTE | 2018-05-29 08:28 | HP.PCM_ITS ---
Problem List (1) Hypokalemia Status: Acute (2) Intractable vomiting with nausea Status: Acute History of Present Illness Date of Admission: 05/29/18 Chief Complaint: intractable nausea and vomiting. The patient is a 22 year old M who has been diagnosed with cyclic vomiting syndrome. Patient was discharged on for that. Tom also associated with hypokalemia. Patient was doing well when he was discharged but since being discharged, however, patient has continued to just have persistent nausea and vomiting. Previously, had been attributed to his marijuana use but the patient' s mother states that she has been with him 20/06 and states that he is not consuming marijuana at this time. There was stated that he was not using his admission on the but his urine drug screen did come back positive for cannabinoids. Patient is listless does not wish to engage in verbal basis with me so much of the history is obtained through the emergency room physician as well as the patient's mother at bedside. Patient's mother states that he is going to be following up with a neuropsychologist who specializes cyclic vomiting syndrome in [place], [place] on the of this month. When asked if there are certain foods that seem to bring this on patient's mother states that he occasionally has some cravings for schedules but really does not consume many of those. [] Past Medical History Past Medical History (Chronic Problems): Chronic Problems Marijuana use, continuous (Chronic) Medical History: Medical History (Last Updated 05/29/18 @ 08:22 by Raymon Britt DO) Cyclic vomiting syndrome G43.A0 Allergies risperidone [From Risperdal] Adverse Reaction (Verified 05/29/18 05:58) Other RAPID HEARTBEAT Home Medications: Ambulatory Orders Medication Instructions Recorded Sertraline HCl [Zoloft] See Protocol PO DAILY 05/23/18 Famotidine [Pepcid] 20 mg PO BID #30 tab 05/27/18 Potassium Chloride [K-Dur] 20 meq PO DAILY #7 tab 05/27/18 proCHLORPERazine tablet [Compazine 5 mg PO TID PRN PRN #20 tab 05/27/18 tablet] proMETHazine tablet [Phenergan 25 mg PO Q6H PRN PRN #20 tab 05/27/18 tablet] Surgical History: no surgical history, - Psychiatric History: No pertinent psych hx Smoking Status: Never smoker Drugs: Marijuana - Denies current use - *Family History Paternal History Items: No pertinent history Maternal History Items: - - Migraines Review of Systems Gastrointestinal: Reports: Nausea, Vomiting Comment: Patient does not wish to engage me on a verbal basis at this time. VTE Information - Inpt Only VTE Present on Admission: No VTE Mechan Device Prophylaxis: None Reason prophylaxis not ordered:: Procedure Not Indicated Patient Problems: Active and Suspected Problems Hypokalemia (Acute) - Physical Exam General: - - Listless. Lying on his right side in a position in bed. Afebrile. HEENT: Atraumatic, Normocephalic Neck: No Nodes, Thyroid Normal Size and Texture Lungs: Clear to auscultation, Normal air movement, No rhonchi, No wheeze Cardiovascular: Regular rate, Regular Rhythm, Normal S1, Normal S2, No murmurs Abdomen: Bowel Sounds Present, Soft, Non Tender, Non-Distended, No Hepato- splenomegaly Extremities: No edema, No Calf Tenderness Skin: No rashes, No breakdown Musculoskeletal: No Tenderness to Palpation of Joints or Extremities, No Muscle Wasting Vital Signs Temp Pulse Resp BP Pulse Ox 36.8 C 98 16 146/96 H 98 05/29/18 05:55 05/29/18 07:46 05/29/18 07:46 05/29/18 07:46 05/29/18 07:46 Oxygen Delivery Method Room Air Weight: 52.6 kg Body Mass Index (BMI) 15.7 Laboratory Tests Past 24 Hrs 05/29/18 06:00 Sodium 136 Potassium 2.8 L Chloride 91 L Carbon Dioxide 30.0 Anion Gap 15 BUN 12 Creatinine 1.02 Estim Creat Clear Calc 85.95 Est GFR (MDRD) Af Amer 119 Est GFR (MDRD) Non-Af 98 BUN/Creatinine Ratio 11.8 Glucose 166 H Calcium 10.6 H Assessment/Plan All Active Problems Intractable vomiting with nausea (Acute) Hypokalemia (Acute) 1. Hypokalemia * Is likely due to his intractable nausea and vomiting * Was only 3.4 when he was discharged on the * His magnesium at that time was normal at 2.3 on the * Patient received only 20 milligrams once a potassium and diet. Plan is for my standpoint, the put him on half-normal saline with potassium plus give him another 40 IV of potassium * Check magnesium level as well 2. Cyclic vomiting syndrome * Previously attributed to his marijuana use. * Mother states that he cannot be using marijuana she is solid no evidence she is with him 20/06 * We will check another urine drug screen as it was positive on the * Patient will be on scheduled Phenergan as well as Zofran with alternating times * Plan, as I discussed with patient's mother, is to ensure that the patient is no longer vomiting and able to keep food and drink down, and then correction of his electrolytes before discharge. * I did discuss with her about potential food intolerance including high fructose corn syrup. I advised keeping a food diarrhea but also perhaps avoiding certain foods to see if those seem to be bringing on. Patient does not really consume much milk but perhaps that could be avoided as well as high fructose corn syrup. * Encouraged patient continue to follow-up with the neuropsychiatrist on the psychiatric issues can facilitate the symptoms. Code Visit Inpatient E&M: 29600 Init Hosp L2
[2018-05-29 09:26] LABS: Magnesium 2.2 mg/dL (1.6-2.6)
[2018-05-29 09:37] LABS: AST(SGOT) 16 U/L (15-37); Alanine Aminotransfer ALT/SGPT 22 U/L (16-61); Albumin, Serum 5.4 g/dL (3.2-5.0); Alkaline Phosphatase 60 U/L (45-117); Globulin 3.8 g/dL (2.2-4.2); Protein, Total 9.2 g/dL (6.4-8.2)
[2018-05-29] MEDS: 0.9% NaCl Peripheral Flush Adult/Peds IV ×6 (12:01→23:28)
[2018-05-29] MEDS: Ondansetron 4 MG/2 ML Vial IV ×2 (12:01→18:06)
[2018-05-29] MEDS: Sertraline 50 MG Tablet 25 MG PO (12:01)
[2018-05-29 19:23] LABS: Amphetamine Urine VISTA NEGATIVE (<1000 ng/mL); Barbiturate Urine VISTA NEGATIVE (< 200 ng/mL); Benzodiazepine Urine VISTA NEGATIVE (< 200 ng/mL); Cocaine Urine VISTA NEGATIVE (< 300 ng/mL); Ecstacy Urine VISTA NEGATIVE (< 500 ng/mL); Methadone Urine VISTA NEGATIVE (< 300 ng/mL); PCP Urine VISTA NEGATIVE (< 25 ng/mL); THC Urine VISTA POSITIVE (< 50 ng/mL); Vista UDS pH Range 6
[2018-05-29] MEDS: proCHLORPERazine 10 MG/2 ML Vial IV (23:28)
[2018-05-30] MEDS: 0.9% NaCl Peripheral Flush Adult/Peds IV ×2 (02:29→06:08)
[2018-05-30] MEDS: proMETHazine 25 MG/ML Syringe 12.5 MG IV (02:29)
[2018-05-30 02:34] VITALS: BP 151/87; PULSE 81; RESP 16; TEMP 37.1; O2SAT 100
[2018-05-30 03:55] VITALS: PULSE 87
[2018-05-30] MEDS: proCHLORPERazine 10 MG/2 ML Vial IV (06:08)
[2018-05-30 06:59] LABS: ALB/GLOB Ratio 1.4 RATIO (0.9-2.4); AST(SGOT) 15 U/L (15-37); Alanine Aminotransfer ALT/SGPT 19 U/L (16-61); Albumin, Serum 3.9 g/dL (3.2-5.0); Alkaline Phosphatase 43 U/L (45-117); Anion Gap 8 (5-15); BUN 5 mg/dL (7-18); BUN/Creat Ratio 7.3 RATIO (10-20); Calcium,Total 8.7 mg/dL (8.5-10.1); Chloride 106 mmol/L (98-107); Creatinine, Serum 0.68 mg/dL (0.70-1.30); EST Glomerular Filtration Rate 156 mL/min (>60); Est Glom Filt Rate - Afr Amer 189 mL/min (>60); Estimated Creatinine Clearance 131.13 ml/min; Globulin 2.8 g/dL (2.2-4.2); Glucose 85 mg/dL (74-106); Magnesium 2.3 mg/dL (1.6-2.6); Potassium 3.8 mmol/L (3.5-5.1); Protein, Total 6.7 g/dL (6.4-8.2); Sodium Level 140 mmol/L (136-145)
[2018-05-30 07:15] VITALS: PULSE 92
[2018-05-30 07:32] VITALS: BP 144/103; PULSE 96; RESP 18; TEMP 36.9; O2SAT 100
--- NOTE | 2018-05-30 09:00 | NURSING ---
This nurse into room to speak to patient and parents. Parents were requesting to speak to MD, however MD was pulled away to another floor and is unable to see them at this time. Mother states they cannot wait, as they have somewhere to be at 0945. Parents voiced concerns about treatment, aware of am labs and that MD is going to continue current plan of care at this time. Patient stated that he wants to leave hospital. Mother encouraged patient to stay, but patient states he is going to leave. Mother informed pt that they could not give him a ride, pt states I'll call my grandma or a taxi. Pt aware that he is an adult and that he may leave AMA if he wishes. AMA form signed, IV removed and pt amb to exit. Pt states that he was an appointment with A neuro- something in [place] on the . Pt encouraged to go to this appt.
--- NOTE | 2018-05-30 09:47 | PCM.PN.HOSP ---
Patient Problems: Active and Suspected Problems (Last Updated 05/29/18 @ 08:22 by Raymon Britt DO) Intractable vomiting with nausea (Acute) Hypokalemia (Acute) Subjective: still with nausea and vomiting up some (though not noted by staff). States that he has some stressful issues at home with his dog dying and his sister going into the . Denies any threat of harm to himself. Vitals/I&O's: Vital Signs Temp Pulse Resp BP Pulse Ox 36.9 C 96 18 144/103 H 100 05/30/18 07:32 05/30/18 07:32 05/30/18 07:32 05/30/18 07:32 05/30/18 07:32 Oxygen Delivery Method Room Air Weight: 53.5 kg Body Mass Index (BMI) 16.0 Intake and Output for Last 24 Hours 05/28/18 05/29/18 05/30/18 23:59 23:59 23:59 Intake Total 2483 / 2483 724 / 724 Balance 2483 / 2483 724 / 724 General: - - in position on left. flat affect. initially was minimally conversant, but then started to speak more. established some eye-contact. HEENT: Atraumatic, Normocephalic Oral: Moist Mucosa Neck: No Nodes, Thyroid Normal Size and Texture Lungs: Clear to auscultation, Normal air movement, No rhonchi, No wheeze Cardiovascular: Regular rate, Regular Rhythm, Normal S1, Normal S2, No murmurs Abdomen: Bowel Sounds Present, Soft, Non Tender, Non-Distended, No Hepato-splenomegaly Extremities: No edema, No Calf Tenderness Psych/Mental Status: Flat Affect Laboratory Results 05/29/18 18:59: Urine Opiates Screen NEGATIVE, Urine Methadone Screen NEGATIVE, Ur Barbiturates Screen NEGATIVE, Ur Phencyclidine Scrn NEGATIVE, Ur Amphetamines Screen NEGATIVE, U Methamphetamin-MDMA NEGATIVE, U Benzodiazepines Scrn NEGATIVE, Urine Cocaine Screen NEGATIVE, U Cannabinoids Screen POSITIVE H, Ur Drug Screen Comment 05/30/18 05:40: Sodium 140, Potassium 3.8, Chloride 106, Carbon Dioxide 26.0, Anion Gap 8, BUN 5 L, Creatinine 0.68 L, Estim Creat Clear Calc 131.13, Est GFR (MDRD) Af Amer 189, Est GFR (MDRD) Non-Af 156, BUN/Creatinine Ratio 7.3 L, Glucose 85, Calcium 8.7, Magnesium 2.3, Total Bilirubin 1.20 H, AST 15, ALT 19, Alkaline Phosphatase 43 L, Total Protein 6.7, Albumin 3.9, Globulin 2.8, Albumin/Globulin Ratio 1.4 Medical Necessity - Tobacco Use Smoking Status: Former smoker Tobacco Use: - Assessment/Plan All Active Problems (Last Updated 05/29/18 @ 08:22 by Raymon Britt DO) Intractable vomiting with nausea (Acute) Hypokalemia (Acute) 1. Hypokalemia Resolved, now 3.8 Is likely due to his intractable nausea and vomiting Was only 3.4 when he was discharged on the 2. Cyclic vomiting syndrome Previously attributed to his marijuana use. States last use was 05/15. UDS still +, however. Mother states that he cannot be using marijuana she is solid no evidence she is with him 20/06 Patient will be on scheduled Phenergan as well as Zofran with alternating times Self-reported vomiting, not witnessed by staff. I saw emesis bag in trash and did not see any emesis After I saw the patient, the patient's parents arrived and patient left AMA.
--- NOTE | 2018-05-30 09:53 | PN_ITS ---
Patient Problems: Active and Suspected Problems (Last Updated 05/29/18 @ 08:22 by Raymon Britt DO ) Intractable vomiting with nausea (Acute) Hypokalemia (Acute) Subjective: still with nausea and vomiting up some (though not noted by staff). States that he has some stressful issues at home with his dog dying and his sister going into the . Denies any threat of harm to himself. Vitals/I&O's: Vital Signs Temp Pulse Resp BP Pulse Ox 36.9 C 96 18 144/103 H 100 05/30/18 07:32 05/30/18 07:32 05/30/18 07:32 05/30/18 07:32 05/30/18 07:32 Oxygen Delivery Method Room Air Weight: 53.5 kg Body Mass Index (BMI) 16.0 Intake and Output for Last 24 Hours 05/28/18 05/29/18 05/30/18 23:59 23:59 23:59 Intake Total 2483 / 2483 724 / 724 Balance 2483 / 2483 724 / 724 General: - - in position on left. flat affect. initially was minimally conversant, but then started to speak more. established some eye-contact. HEENT: Atraumatic, Normocephalic Oral: Moist Mucosa Neck: No Nodes, Thyroid Normal Size and Texture Lungs: Clear to auscultation, Normal air movement, No rhonchi, No wheeze Cardiovascular: Regular rate, Regular Rhythm, Normal S1, Normal S2, No murmurs Abdomen: Bowel Sounds Present, Soft, Non Tender, Non-Distended, No Hepato- splenomegaly Extremities: No edema, No Calf Tenderness Psych/Mental Status: Flat Affect Laboratory Results 05/29/18 18:59: Urine Opiates Screen NEGATIVE, Urine Methadone Screen NEGATIVE, Ur Barbiturates Screen NEGATIVE, Ur Phencyclidine Scrn NEGATIVE, Ur Amphetamines Screen NEGATIVE, U Methamphetamin-MDMA NEGATIVE, U Benzodiazepines Scrn NEGATIVE, Urine Cocaine Screen NEGATIVE, U Cannabinoids Screen POSITIVE H, Ur Drug Screen Comment 05/30/18 05:40: Sodium 140, Potassium 3.8, Chloride 106, Carbon Dioxide 26.0, Anion Gap 8, BUN 5 L, Creatinine 0.68 L, Estim Creat Clear Calc 131.13, Est GFR (MDRD) Af Amer 189, Est GFR (MDRD) Non-Af 156, BUN/Creatinine Ratio 7.3 L, Glucose 85, Calcium 8.7, Magnesium 2.3, Total Bilirubin 1.20 H, AST 15, ALT 19, Alkaline Phosphatase 43 L, Total Protein 6.7, Albumin 3.9, Globulin 2.8, Albumin /Globulin Ratio 1.4 Medical Necessity - Tobacco Use Smoking Status: Former smoker Tobacco Use: - Assessment/Plan All Active Problems (Last Updated 05/29/18 @ 08:22 by Raymon Britt DO) Intractable vomiting with nausea (Acute) Hypokalemia (Acute) 1. Hypokalemia * Resolved, now 3.8 * Is likely due to his intractable nausea and vomiting * Was only 3.4 when he was discharged on the 2. Cyclic vomiting syndrome * Previously attributed to his marijuana use. States last use was 05/15. UDS still +, however. * Mother states that he cannot be using marijuana she is solid no evidence she is with him 20/06 * Patient will be on scheduled Phenergan as well as Zofran with alternating times * Self-reported vomiting, not witnessed by staff. I saw emesis bag in trash and did not see any emesis After I saw the patient, the patient's parents arrived and patient left AMA.
--- NOTE | 2018-05-30 09:56 | DS.PCM_ITS ---
Discharge Date and Diagnosis - Problem List Patient Problems: Active and Suspected Problems (Last Updated 05/29/18 @ 08:22 by Raymon Britt DO ) Intractable vomiting with nausea (Acute) Hypokalemia (Acute) Date of Admission: 05/29/18 Date of Discharge: 05/30/18 - Primary Discharge Diagnosis Active and Suspected Problems (Last Updated 05/29/18 @ 08:22 by Raymon Britt DO ) Intractable vomiting with nausea (Acute) Hypokalemia (Acute) - Secondary Discharge Diagnosis Chronic Problems (Last Updated 05/29/18 @ 08:22 by Raymon Britt DO) Marijuana use, continuous (Chronic) Hospital Course and Treatment Operations: None Procedures: None Summary of Care Provided: The patient is a 22 year old M presents with intractable nausea and vomiting. Recently the patient had been diagnosed with cyclic vomiting syndrome and was initially attributable to use. Patient denies any marijuana use of April. Urine drug screen, however, is still positive. Patient earlier was hospitalized from 23 May to the with similar symptoms. Patient was sent home as he is tolerating diet but since being home patient was just having intractable nausea and vomiting in again presented to the emergency room with potassium of 2.8. Patient received potassium supplementation as well as IV fluids. He was started on scheduled Phenergan and Zofran that were staggered. Patient continued to complain of intractable vomiting though not witnessed by staff. Patient's parents came in today and patient left AGAINST MEDICAL ADVICE. Patient was to follow-up with a neuropsychologist in [facility] who specializes cyclic vomiting syndrome. Unclear if there can be following up with him or not directly after this hospitalization. [] Home Medications: Medications to take at Discharge Sertraline HCl [Zoloft] 25 mg PO DAILY 05/23/18 Famotidine [Pepcid] 20 mg PO BID #30 tab 05/27/18 Potassium Chloride [K-Dur] 20 meq PO DAILY #7 tab 05/27/18 proCHLORPERazine tablet [Compazine tablet] 5 mg PO TID PRN PRN #20 tab 05/27/18 proMETHazine tablet [Phenergan tablet] 25 mg PO Q6H PRN PRN #20 tab 05/27/18 Primary Care Physician: Binu Jose MD [Primary Care Provider] - Minutes spent on discharge:: 28 Medical Necessity - Tobacco Use Smoking Status: Former smoker Tobacco Use: - Meaningful Use Info Meaningful Use Diagnoses (Choose all that apply): None applicable Code Visit Inpatient E&M: 50303 Disch Hosp
== END 2018-05-30 09:01 | disposition left against medical advice (07) ==
LOC: ED 06:30 → MS3 08:47
PROVIDERS: Emergency Provider Emergency Medicine; Family Provider Family Medicine; PCP Family Medicine
DX: G43.A1 Cyclical vomiting, in migraine, intractable (principal); E87.6 Hypokalemia; E86.0 Dehydration; Z79.899 Other long term (current) drug therapy
CPT/HCPCS: 36415; 80048; 80053; 80076; 80307; 83735; 96361; 96374; 96375; 96376; 97802; 99218; 99283; J7030; A4216; G0378; J2405; J3490

== ENCOUNTER 2019-01-27 05:55 | Observation (INO) | payer OTHER, MEDICAID, SELFPAY ==
[2019-01-27] VITALS (7 sets, daily range): BP systolic 115–126; BP diastolic 50–90; PULSE 96–103; RESP 16–18; TEMP 36.7–37.3; O2SAT 93–99; BMI 18.0; BMI 17.6
--- NOTE | 2019-01-27 06:00 | ED.RN ---
information for medical contacts mother kiki [phone] and father [phone]
--- NOTE | 2019-01-27 06:25 | ED.VISSUMM ---
- ER Visit Summary Date of Service: 01/27/19 Chief Complaint: Nausea and vomiting History of Present Illness: The patient is a 23 M who presents with nausea and vomiting. He does have a history of cyclic vomiting syndrome. He does continue to smoke marijuana. He states symptoms began yesterday. He complains of diffuse abdominal cramping. He reports severe nausea and vomiting. No diarrhea. He otherwise denies recent illness. No fever chest pain shortness of breath. He does also have a history of intussusception and underwent laparoscopic surgery for this. He notes that his pain with that however was much more severe than his current symptoms. His symptoms began yesterday after eating lunch. He ate a cheeseburger. Physical Examination: Afebrile vitals normal Patient actively retching/vomiting well is in the room Heart is regular rate and rhythm Lungs are clear to auscultation The abdomen soft nontender nondistended Alert Test Results: Labs notable for potassium of 2.6. EKG shows normal sinus rhythm at a rate of 94 with normal intervals. Emergency Department Course and Treatment: Patient was treated here with IV fluids Zofran and Ativan. He has had no further vomiting and is sleeping on reevaluation. I have ordered IV potassium chloride. Given the severity of his hypokalemia I do feel he will need observation/admission. Discussed with hospitalist and admitted. Treatment Plan: [] Disposition: Admit Impression: Cyclic vomiting syndrome Hypokalemia This note was generated with [employer] dictation software. It may contain incorrect words, spelling, and punctuation that were not noted in review of the chart prior to signing ED Disposition - Plan for ED Patient: Referrals: Binu Jose MD [NON-STAFF] -
[2019-01-27] MEDS: 0.9% Normal Saline 1,000 ML 999 ML IV (06:31)
[2019-01-27] MEDS: Ondansetron 4 MG/2 ML Vial IV ×2 (06:31→21:37)
[2019-01-27] MEDS: LORazepam 2 MG/ML Syringe 1 MG IV (06:31)
--- NOTE | 2019-01-27 06:32 | ED.RN ---
[facility] – [place]: #[phone] kerline: [phone]
[2019-01-27 06:35] LABS: Absolute Lymphocyte Count 0.77 X10^3/ul (0.83-4.51); Absolute Neutrophil Count 8.6 X10^3/uL (2.0-7.7); Basophil# 0.01 X10^3/uL; Basophil% 0.1 % (0-1); Hematocrit 47.4 % (40-54); Hemoglobin 16.4 g/dl (13.0-16.5); Lymphocyte # 0.77 X10^3/ul (4.0); Lymphocyte % 7.6 % (19-41); Mean Corp Hgb Conc 34.6 g/gl (32-36); Mean Corpuscular Hgb 31.4 pg (27.0-32.0); Mean Corpuscular Volume 90.8 fL (80-94); Mean Platelet Vol. 10.7 fl (6.2-12.0); Monocyte# 0.69 X10^3/uL; Monocyte% 6.8 % (0-10); Neutrophil % 85.4 % (47-70); Platelet Count 430 K/mm3 (150-450); RBC Distribution Width CV 12.5 % (11.6-14.6); RBC Distribution Width SD 41.2 fl (35.1-43.9); Red Blood Count 5.22 M/mm3 (4.6-6.2); White Blood Count 10.1 K/mm3 (4.4-11.0)
[2019-01-27 06:44] LABS: POSITIVE COUNT NO; POSITIVE DIFFERENTIAL NO; POSITIVE MORPHOLOGY NO
[2019-01-27 06:58] LABS: ALB/GLOB Ratio 1.4 RATIO (0.9-2.4); AST(SGOT) 13 U/L (15-37); Alanine Aminotransfer ALT/SGPT 20 U/L (16-61); Albumin, Serum 5.4 g/dL (3.2-5.0); Alkaline Phosphatase 79 U/L (45-117); Anion Gap 15 (5-15); BUN 17 mg/dL (7-18); BUN/Creat Ratio 13.9 RATIO (10-20); Chloride 94 mmol/L (98-107); Creatinine, Serum 1.22 mg/dL (0.70-1.30); EST Glomerular Filtration Rate 79 mL/min (>60); Est Glom Filt Rate - Afr Amer 96 mL/min (>60); Estimated Creatinine Clearance 81.83 ml/min; Globulin 3.9 g/dL (2.2-4.2); Glucose 181 mg/dL (74-106); Lipase 44 U/L (73-393); Potassium 2.6 mmol/L (3.5-5.1); Protein, Total 9.3 g/dL (6.4-8.2); Sodium Level 140 mmol/L (136-145)
--- NOTE | 2019-01-27 06:58 | ED.RN ---
DR AMEZQUITA MADE AWARE THAT K+ 2.6.
--- NOTE | 2019-01-27 07:05 | EKG12_ITS ---
Test Reason : HYPOKALEMIA Blood Pressure : / mmHG Vent. Rate : 094 BPM Atrial Rate : 094 BPM P-R Int : 118 ms QRS Dur : 086 ms QT Int : 372 ms P-R-T Axes : 060 087 068 degrees QTc Int : 465 ms Normal sinus rhythm with sinus arrhythmia Normal ECG Confirmed by KARLA DOMINGO, SURAJ ([id number]), editor at large CLOTILDE CASTILLO ([id number] on 01/29/2019 2:10:04 PM Referred By: ARIELLE Confirmed By:SURAJ ACOSTA MD
--- NOTE | 2019-01-27 07:27 | HP.PCM_ITS ---
Problem List (1) Intractable vomiting with nausea Status: Acute (2) Marijuana use, continuous Status: Chronic (3) Hypokalemia Status: Acute History of Present Illness Date of Admission: 01/27/19 Chief Complaint: Intractable nausea and vomiting The patient is a 23 year old M past medical history significant for intussusception for which he underwent bowel resection 7-month ago, history of marijuana use who presents with intractable nausea and vomiting. Patient's symptoms started a day prior to his admission. In view of worsening symptoms he elected to present to the emergency department. Patient was found to be severely hypokalemic on admission correction initiated and patient admitted to regular nursing floor for further management Past Medical History Past Medical History (Chronic Problems): Chronic Problems (Last Reviewed 01/27/19 @ 07:26 by Nj Daily MD) Marijuana use, continuous (Chronic) Medical History: Medical History (Last Reviewed 01/27/19 @ 07:26 by Nj Daily MD) Cyclic vomiting syndrome G43.A0 Allergies risperidone [From Risperdal] Adverse Reaction (Verified 05/29/18 05:58) Other RAPID HEARTBEAT Home Medications: Ambulatory Orders Medication Instructions Recorded proMETHazine tablet [Phenergan 25 mg PO Q6H PRN PRN #20 tab 05/27/18 tablet] Surgical History: no surgical history, - Psychiatric History: No pertinent psych hx Smoking Status: Never smoker - *Family History Paternal History Items: No pertinent history Maternal History Items: - - Migraines Review of Systems Constitutional: Denies: Anorexia, Chills, Fever, Night Sweats, Weight Change HEENT: Denies: Head Aches, Sinus Congestion, Sinus Drainage Cardiovascular: Denies: Chest Pain, Orthopnea, Palpitations, Paroxysmal Noc. Dyspnea Respiratory: Denies: Cough, Shortness of breath at rest, Shortness of breath upon exertion, Sputum production Gastrointestinal: Reports: Abdominal Pain, Nausea, Vomiting. Denies: Hematemesis, Hematochezia Genitourinary: Denies: Dysuria, Frequency, Hematuria, Urgency Musculoskeletal: Denies: Joint Pain, Joint Tenderness Skin: Denies: Rash Neurological: Denies: Focal weakness, Numbness, Tingling Psychiatric: Denies: Homicidal Ideations, Suicidal Ideations Hematologic/ Lymphatic: Denies: Easy Bruising, Easy Bleeding VTE Information - Inpt Only VTE Present on Admission: No VTE Mechan Device Prophylaxis: None VTE Pharm Prophylaxis ordered?: Yes Reason prophylaxis not ordered:: Treatment Not Indicated Objective: GENERAL: cooperative HEENT: Atraumatic; moist oral mucosa EYES; Anicteric, Normal Conjunctiva NECK; supple, normal thyroid, no distended JVD. RESPIRATORY: Diminished to auscultation bilaterally, CARDIOVASCULAR: Regular S1 S2, no audible murmurs GI: soft, non-tender, normoactive bowel sounds, : No Renal angle tenderness; EXTREMITIES: No edema, no clubbing, no cyanosis. MUSCULOSKELETAL: No Joint Tenderness; no muscle waisting NEURO: Awake; no lateralizing signs. SKIN: No Rash PSYCH; flat affect - Physical Exam Vital Signs Temp Pulse Resp BP Pulse Ox 98.1 F 96 16 126/90 H 99 01/27/19 05:56 01/27/19 05:56 01/27/19 05:56 01/27/19 05:56 01/27/19 05:56 Oxygen Delivery Method Room Air Weight: 60.4 kg Body Mass Index (BMI) 18.0 Laboratory Tests Past 24 Hrs 01/27/19 01/27/19 06:25 06:25 WBC 10.1 RBC 5.22 Hgb 16.4 Hct 47.4 MCV 90.8 MCH 31.4 MCHC 34.6 RDW 12.5 RDW Differential 41.2 Plt Count 430 MPV 10.7 Immature Gran % (Auto) 0.100 Neut % (Auto) 85.4 H Lymph % (Auto) 7.6 L [place] % (Auto) 6.8 Eos % (Auto) 0.0 Baso % (Auto) 0.1 Absolute Neuts (auto) 8.6 H Absolute Lymphs (auto) 0.77 L Total Counted Not Reportable Sodium 140 Potassium 2.6 L* Chloride 94 L Carbon Dioxide 31.0 Anion Gap 15 BUN 17 Creatinine 1.22 Estim Creat Clear Calc 81.83 Est GFR (MDRD) Af Amer 96 Est GFR (MDRD) Non-Af 79 BUN/Creatinine Ratio 13.9 Glucose 181 H Calcium 10.0 Total Bilirubin 1.10 H AST 13 L ALT 20 Alkaline Phosphatase 79 Total Protein 9.3 H Albumin 5.4 H Globulin 3.9 Albumin/Globulin Ratio 1.4 Lipase 44 L Assessment/Plan All Active Problems (Last Reviewed 01/27/19 @ 07:26 by Nj Daily MD) Intractable vomiting with nausea (Acute) Hypokalemia (Acute) 23-year-old male with history of marijuana use presented with intractable nausea and vomiting 1. Intractable nausea vomiting suspected to be sick secondary to cannabinoid induced hyperemesis: Patient has been admitted to regular nursing floor for symptomatic management. Given patient history of previous intussusception and bowel surgery CT of the abdomen was ordered to rule out other etiologies 2. History of intussusception patient underwent bowel resection April 2018 3. Severe hypokalemia secondary to patient intractable nausea vomiting admitted to a monitored bed repletion initiated 4. Marijuana use counseled on cessation 5. DVT prophylaxis low risk did encourage early ambulation Code Visit OBSV E&M: 99978 Initial observation care L3
[2019-01-27] MEDS: Potassium Chloride 10mEq/100mL 10 MEQ/100 ML IV.SOLN. 100 MEQ IV BOLUS ×4 (07:40→12:13)
--- NOTE | 2019-01-27 08:55 | CT_ITS ---
STUDY: CT ABDOMEN AND PELVIS WITH CONTRAST REASON FOR EXAM: Male, 23 years old. Intractable vomiting, bowel resection several months ago for intussusception. RADIATION DOSAGE (If Supplied By Facility): CTDIvol = ( 9.41 ) mGy, DLP = ( 478.54 ) mGycm TECHNIQUE: Transaxial images were obtained from the dome of the diaphragm to the symphysis pubis with oral contrast. 100 mL Isovue 300 was administered. Sagittal and coronal images were reconstructed. Individualized dose optimization techniques were used for this CT. COMPARISON: 05/17/2018 FINDINGS: The visualized lung bases are unremarkable. The visualized portions of the heart are within normal limits. Normal liver. Normal gallbladder and extrahepatic biliary system. Normal spleen. Normal pancreas. Normal bilateral adrenal glands. Nonobstructing calculi in the right kidney measure up to 4 mm. Small calculi of the inferior left kidney are also stable. Normal visualized stomach. Small bowel surgical anastomosis in the left abdomen demonstrated. The bowel adjacent to/proximal to the anastomosis is mildly dilated measuring up to 3.2 cm but there is passage of oral contrast beyond the anastomosis. No additional bowel dilation. No bowel wall thickening is demonstrated. Normal colon. There is non-visualization of the appendix. Normal abdominal aorta. Normal inferior vena cava. Normal retroperitoneum. Normal urinary bladder. Normal abdominal wall. Normal osseous structures. CT/Abdomen/Pelvis WITH Contrast IMPRESSION: 1. Interval small bowel resection. Mild/partial small bowel obstruction versus ileus. 2. Nonobstructing bilateral nephrolithiasis. Electronically Signed: Aron Phillips MD at 11:48 EST , Service support ,
[2019-01-27 09:43] LABS: Magnesium 2.1 mg/dL (1.6-2.6)
[2019-01-27 12:00] LABS: Anion Gap 11 (5-15); BUN 12 mg/dL (7-18); BUN/Creat Ratio 11.8 RATIO (10-20); Calcium,Total 8.6 mg/dL (8.5-10.1); Chloride 101 mmol/L (98-107); Creatinine, Serum 1.02 mg/dL (0.70-1.30); EST Glomerular Filtration Rate 98 mL/min (>60); Est Glom Filt Rate - Afr Amer 118 mL/min (>60); Estimated Creatinine Clearance 95.55 ml/min; Glucose 118 mg/dL (74-106); Potassium 3.2 mmol/L (3.5-5.1); Sodium Level 140 mmol/L (136-145)
[2019-01-27 15:54] LABS: Amphetamine Urine VISTA NEGATIVE (<1000 ng/mL); Barbiturate Urine VISTA NEGATIVE (< 200 ng/mL); Benzodiazepine Urine VISTA POSITIVE (< 200 ng/mL); Cocaine Urine VISTA NEGATIVE (< 300 ng/mL); Ecstacy Urine VISTA NEGATIVE (< 500 ng/mL); Methadone Urine VISTA NEGATIVE (< 300 ng/mL); PCP Urine VISTA NEGATIVE (< 25 ng/mL); THC Urine VISTA POSITIVE (< 50 ng/mL); Vista UDS pH Range 7
[2019-01-28] VITALS (7 sets, daily range): BP systolic 125–149; BP diastolic 69–88; PULSE 86–96; RESP 16–18; TEMP 36.8–37.8; O2SAT 100
[2019-01-28] MEDS: proMETHazine 25 MG Tablet PO (03:52)
--- NOTE | 2019-01-28 06:28 | RAD_ITS ---
STUDY: X-RAY - ABDOMEN/PELVIS REASON FOR EXAM: Male, 23 years old. Pain small bowel obstruction TECHNIQUE: AP supine and upright views of the abdomen and pelvis. COMPARISON: January 27, 2019 FINDINGS: Normal visualized lung bases. Contrast appears to be flowing through to the large bowel. There are a few minimally distended loops of small bowel in the left midline abdomen. There is no demonstrated free abdominal air. There are punctate calcifications in the right upper quadrant consistent with known renal stones. The left kidney is not well-visualized on this study.. Normal soft tissue structures. Normal visualized osseous structures. RAD/Abd Decub and/or Erect(Portabl IMPRESSION: Resolving ileus. Electronically Signed: Kindra Cobb MD at 10:38 EST Tel , Service support ,
[2019-01-28 06:35] LABS: Absolute Neutrophil Count 4.1 X10^3/uL (2.0-7.7); Basophil# 0.01 X10^3/uL; Basophil% 0.2 % (0-1); Hematocrit 38.1 % (40-54); Hemoglobin 12.9 g/dl (13.0-16.5); Lymphocyte % 22.4 % (19-41); Mean Corp Hgb Conc 33.9 g/gl (32-36); Mean Corpuscular Hgb 31.9 pg (27.0-32.0); Mean Corpuscular Volume 94.3 fL (80-94); Mean Platelet Vol. 10.5 fl (6.2-12.0); Monocyte# 0.69 X10^3/uL; Neutrophil # 4.14 X10^3/uL (2.7-7.7); Neutrophil % 66.2 % (47-70); Platelet Count 315 K/mm3 (150-450); RBC Distribution Width CV 12.6 % (11.6-14.6); RBC Distribution Width SD 43.6 fl (35.1-43.9); Red Blood Count 4.04 M/mm3 (4.6-6.2); White Blood Count 6.3 K/mm3 (4.4-11.0)
[2019-01-28 06:36] LABS: POSITIVE COUNT NO; POSITIVE DIFFERENTIAL NO; POSITIVE MORPHOLOGY NO
[2019-01-28 06:52] LABS: Anion Gap 11 (5-15); BUN 9 mg/dL (7-18); BUN/Creat Ratio 13.6 RATIO (10-20); Calcium,Total 8.4 mg/dL (8.5-10.1); Chloride 112 mmol/L (98-107); Creatinine, Serum 0.66 mg/dL (0.70-1.30); EST Glomerular Filtration Rate 161 mL/min (>60); Est Glom Filt Rate - Afr Amer 195 mL/min (>60); Estimated Creatinine Clearance 147.67 ml/min; Glucose 93 mg/dL (74-106); Magnesium 2.1 mg/dL (1.6-2.6); Potassium 3.6 mmol/L (3.5-5.1); Sodium Level 144 mmol/L (136-145)
[2019-01-28] MEDS: Morphine 2 MG/ML Syringe 1 MG IV ×4 (06:56→21:04)
[2019-01-28] MEDS: Ondansetron 4 MG/2 ML Vial IV ×2 (11:59→18:43)
[2019-01-28] MEDS: 0.9% NaCl Peripheral Flush Adult/Peds IV ×2 (11:59→18:43)
[2019-01-28] MEDS: Metoclopramide 10 MG/2 ML Vial 5 MG IV ×2 (15:26→23:42)
--- NOTE | 2019-01-28 16:46 | PN_ITS ---
Subjective: Patient was seen and examined today, he apparently trying to vomit in the room, he states he does not bring anything up. I decided to place patient on IV Reglan today, potassium was normal today - Physical Exam General: Alert, Oriented x3, Cooperative, No apparent distress, Well developed, Well nourished HEENT: Atraumatic, PERRLA, EOMI, Normocephalic Oral: Moist Mucosa Neck: Supple, No Nuchal Rigidity, Trachea Midline, Thyroid Normal Size and Texture Lungs: Clear to auscultation, Normal air movement, No rhonchi, No wheeze, No rales Cardiovascular: Regular rate, Regular Rhythm, Normal S1, Normal S2, No murmurs, No Ectopic Activity Abdomen: Bowel Sounds Present, Soft, Non Tender, Non-Distended, No hernias noted Extremities: No clubbing, No cyanosis, No edema, Capillary Refill Less than 3 Seconds Skin: No rashes, No breakdown Musculoskeletal: No Tenderness to Palpation of Joints or Extremities Neurological: Cranial nerves II-XII grossly intact, Neuro grossly intact, Sensory exam intact to light touch and pain, Coordination normal Psych/Mental Status: Normal Affect, Appropriate, Alert and oriented to time, place, person, mood and affect Vital Signs Temp Pulse Resp BP Pulse Ox 100.0 F H 90 16 146/88 H 100 01/28/19 15:20 01/28/19 15:20 01/28/19 15:20 01/28/19 15:20 01/28/19 15:20 Oxygen Delivery Method Room Air Weight: 58.967 kg Body Mass Index (BMI) 17.6 Intake and Output for Last 24 Hours 01/26/19 01/27/19 01/28/19 23:59 23:59 23:59 Intake Total 1394 / 1394 2005 Output Total 1400 / 1400 Balance 1394 / 1394 606 / 606 Laboratory Tests Past 24 Hrs 01/28/19 01/28/19 06:00 06:00 WBC 6.3 RBC 4.04 L Hgb 12.9 L Hct 38.1 L MCV 94.3 H MCH 31.9 MCHC 33.9 RDW 12.6 RDW Differential 43.6 Plt Count 315 MPV 10.5 Immature Gran % (Auto) 0.200 Neut % (Auto) 66.2 Lymph % (Auto) 22.4 [place] % (Auto) 11.0 H Eos % (Auto) 0.0 Baso % (Auto) 0.2 Absolute Neuts (auto) 4.1 Absolute Lymphs (auto) 1.40 Total Counted Not Reportable Sodium 144 Potassium 3.6 Chloride 112 H Carbon Dioxide 21.0 Anion Gap 11 BUN 9 Creatinine 0.66 L Estim Creat Clear Calc 147.67 Est GFR (MDRD) Af Amer 195 Est GFR (MDRD) Non-Af 161 BUN/Creatinine Ratio 13.6 Glucose 93 Calcium 8.4 L Magnesium 2.1 Medical Necessity - Tobacco Use Smoking Status: Never smoker Assessment/Plan All Active Problems (Last Reviewed 01/27/19 @ 07:26 by Nj Daily MD) Intractable vomiting with nausea (Acute) Hypokalemia (Acute) #1 hypokalemia-corrected at this time #2 intractable cyclic vomiting -again I placed the patient on Reglan today, continue IV fluids Code Visit OBSV E&M: 62634 Subsequent observation care L2
[2019-01-28] MEDS: 0.9% Normal Saline 1,000 ML 150 ML IV (18:31)
[2019-01-28] MEDS: Zolpidem Tartrate 5 MG Tablet PO (23:47)
[2019-01-29] MEDS: 0.9% Normal Saline 1,000 ML 150 ML IV ×2 (01:20→08:47)
[2019-01-29 03:12] VITALS: BP 119/69; PULSE 72; RESP 16; TEMP 36.8; O2SAT 99
[2019-01-29] MEDS: Morphine 2 MG/ML Syringe 1 MG IV (03:28)
[2019-01-29 10:28] VITALS: BP 129/74; PULSE 86; RESP 16; TEMP 37.2; O2SAT 100
--- NOTE | 2019-01-29 11:49 | DCINST_ITS ---
You will use the following diet at home:: No restrictions Your food should be the consistency of: Regular Your liquids should be the consistency of: Regular/Thin Discharge Activity: Return to Normal Activity Weight Bearing Status: Full weight bearing Allergies/Adverse Reactions: Allergies risperidone [From Risperdal] Adverse Reaction (Verified 05/29/18 05:58) Other RAPID HEARTBEAT Medications to take at Discharge proMETHazine tablet [Phenergan tablet] 25 mg PO Q6H PRN PRN #20 tab 05/27/18 Metoclopramide HCl [Reglan] 5 mg PO 4X/DAY PRN #20 tablet 01/29/19 The following prescriptions were given: Metoclopramide HCl [Reglan] 5 mg PO 4X/DAY PRN #20 tablet PRN Reason: Nausea/Vomiting Primary Care Physician: Binu Jose MD [NON-STAFF] - Please follow up with your Primary Care Physician in: in 1-2 weeks Test Results: Test results from this visit will be discussed in further detail at your follow- up appointment, if applicable.
[2019-01-29 13:16] VITALS: BP 141/74; PULSE 92; RESP 16; TEMP 37.2; O2SAT 100
--- NOTE | 2019-01-29 19:00 | PCM.DC.SUM ---
Discharge Date and Diagnosis Date of Admission: 01/27/19 Date of Discharge: 01/29/19 - Primary Discharge Diagnosis 1 hypokalemia-secondary to cyclic vomiting #2 intractable cyclic vomiting syndrome - Secondary Discharge Diagnosis Chronic Problems (Last Reviewed 01/27/19 @ 07:26 by Nj Daily MD) Marijuana use, continuous (Chronic) Hospital Course and Treatment Operations: None Procedures: None Summary of Care Provided: The patient is a 23 year old M was seen in the emergency room at [facility] with chief complaint of nausea and vomiting, patient had a history of cyclic vomiting syndrome and had been evaluated in [facility] for same. Labs obtained on the patient in the ER revealed a potassium of 2.6, EKG was unremarkable. Patient was given IV fluids Zofran and Ativan in the emergency room, he was placed into observation status on MedSurg 3 and he continued the next day to have episodes of dry heaving. Patient was placed on IV Reglan which seemed to help. On 01/29/19, patient was seen and examined: On examination he appeared in good health and spirits. Vital signs as documented. Skin warm and dry and without overt rashes. Neck without JVD. Lungs clear. Heart exam notable for regular rhythm, normal sounds and absence of murmurs, rubs or gallops. Abdomen unremarkable and without evidence of organomegaly, masses, or abdominal aortic enlargement. Extremities nonedematous. Neuro: Cranial nerves II through XII are grossly intact, no focal motor deficits were noted, sensation to light touch and pinprick intact. Psych: Patient is alert and oriented x3, he does not appear anxious or depressed On 01/29/19, patient was seen and examined felt to be in stable condition for discharge home, he was cautioned against using any marijuana as it might trigger his cyclic vomiting syndrome. - Physical Exam Vital Signs Temp Pulse Resp BP Pulse Ox 99.0 F 92 16 141/74 H 100 01/29/19 13:16 01/29/19 13:16 01/29/19 13:16 01/29/19 13:16 01/29/19 13:16 Oxygen Delivery Method Room Air Weight: 58.967 kg Body Mass Index (BMI) 17.6 Intake and Output for Last 24 Hours 01/27/19 01/28/19 01/29/19 23:59 23:59 23:59 Intake Total 1394 / 1394 2106 / 2106 1850 / 1850 Output Total 1400 / 1400 600 / 600 Balance 1394 / 1394 706 / 706 1250 / 1250 Discharge Activity: Return to Normal Activity Weight Bearing Status: Full weight bearing Home Medications: Medications to take at Discharge proMETHazine tablet [Phenergan tablet] 25 mg PO Q6H PRN PRN #20 tab 05/27/18 Metoclopramide HCl [Reglan] 5 mg PO 4X/DAY PRN #20 tablet 01/29/19 Following Prescrptions Were Given to Patient: Metoclopramide HCl [Reglan] 5 mg PO 4X/DAY PRN #20 tablet PRN Reason: Nausea/Vomiting Primary Care Physician: Binu Jose MD [NON-STAFF] - Please follow up with your Primary Care Physician in: in 1-2 weeks Disposition: Home Minutes spent on discharge:: 32 Patient Condition:: Stable Medical Necessity - Tobacco Use Smoking Status: Never smoker Meaningful Use Info Meaningful Use Diagnoses (Choose all that apply): None applicable Code Visit OBSV E&M: 93137 Observation care discharge
== END 2019-01-29 13:05 | disposition home or self-care (01) ==
LOC: ED 06:39 → MS3 08:12
PROVIDERS: Admitting Provider Internal Medicine; Emergency Provider Emergency Medicine; Visit Provider Internal Medicine
DX: G43.A0 Cyclical vomiting, in migraine, not intractable (principal); E87.6 Hypokalemia
CPT/HCPCS: 36415; 74019; 74177; 80048; 80053; 80307; 83690; 83735; 85025; 93005; 96361; 96365; 96366; 96375; 96376; 97802; 99218; 99284; J7030; Q9967; A4216; G0378; J2405

== ENCOUNTER 2019-02-02 05:12 | Inpatient (IN) | payer OTHER, MEDICAID, SELFPAY ==
[2019-01-27 09:09] VITALS: BMI 17.6
[2019-02-02] VITALS (13 sets, daily range): BP systolic 112–155; BP diastolic 55–98; PULSE 72–112; RESP 12–16; TEMP 36.8–37.2; O2SAT 94–100; BMI 15.0; BMI 16.7; BMI 16.8
[2019-02-02] MEDS: Ondansetron 4 MG/2 ML Vial IV ×3 (05:34→17:30)
[2019-02-02] MEDS: 0.9% Normal Saline 1,000 ML 1000 ML IV (05:35)
[2019-02-02] MEDS: LORazepam 2 MG/ML Syringe 0.5 MG IV (05:35)
[2019-02-02 05:51] LABS: BUN 12 mg/dL (7-18); Creatinine, Serum 0.99 mg/dL (0.70-1.30); Estimated Creatinine Clearance 83.68 ml/min; Glucose 118 mg/dL (74-106)
[2019-02-02 05:52] LABS: Anion Gap 12 (5-15); BUN/Creat Ratio 12.2 RATIO (10-20); Calcium,Total 9.3 mg/dL (8.5-10.1); Chloride 98 mmol/L (98-107); EST Glomerular Filtration Rate 101 mL/min (>60); Est Glom Filt Rate - Afr Amer 123 mL/min (>60); Potassium 2.8 mmol/L (3.5-5.1); Sodium Level 138 mmol/L (136-145)
[2019-02-02 06:10] LABS: Absolute Lymphocyte Count 2.53 X10^3/ul (0.83-4.51); Absolute Neutrophil Count 6.1 X10^3/uL (2.0-7.7); Basophil# 0.03 X10^3/uL; Basophil% 0.3 % (0-1); Eosinophil# 0.02 X10^3/uL; Eosinophils% 0.2 % (0-5); Hematocrit 47.1 % (40-54); Hemoglobin 17.2 g/dl (13.0-16.5); Lymphocyte # 2.53 X10^3/ul (4.0); Lymphocyte % 26.9 % (19-41); Mean Corp Hgb Conc 36.5 g/gl (32-36); Mean Corpuscular Hgb 32.6 pg (27.0-32.0); Mean Corpuscular Volume 89.2 fL (80-94); Mean Platelet Vol. 10.9 fl (6.2-12.0); Monocyte# 0.76 X10^3/uL; Monocyte% 8.1 % (0-10); Neutrophil # 6.06 X10^3/uL (2.7-7.7); Neutrophil % 64.3 % (47-70); Platelet Count 475 K/mm3 (150-450); RBC Distribution Width CV 12.8 % (11.6-14.6); RBC Distribution Width SD 40.7 fl (35.1-43.9); Red Blood Count 5.28 M/mm3 (4.6-6.2); White Blood Count 9.4 K/mm3 (4.4-11.0)
[2019-02-02 06:11] LABS: POSITIVE COUNT NO; POSITIVE DIFFERENTIAL NO; POSITIVE MORPHOLOGY NO
--- NOTE | 2019-02-02 06:27 | ED.DCSUM_ITS ---
- ER Visit Summary Date of Service: 02/02/19 Chief Complaint: Nausea and vomiting History of Present Illness: The patient is a 23 M with nausea and vomiting over the past week. He was discharged from the hospital earlier this week for the same symptoms. He was found to be hypokalemic and required hospitalization. He was discharged with a potassium of 3.6. He has been taking his nausea meds at home but has not been taking Ativan as prescribed because of vomiting. He cannot keep anything down. He denies any other associated symptoms or complaints. He does smoke marijuana daily. This helps with his symptoms. He also reports that hot showers help with his symptoms. Physical Examination: Tachycardic but otherwise vitals unremarkable. Afebrile. Patient appears uncomfortable. Actively retching. Abdomen soft and nontender. Heart tachycardic but regular. Lungs clear. Skin appears unremarkable. Mucous membranes dry. Test Results: Hemoglobin 17 and platelets 475. Potassium 2.8. Emergency Department Course and Treatment: Patient received fluids, Ativan, and Zofran. His symptoms improved. I was concerned about his potassium. I ordered replacement. Contacted the hospitalist for further care for his hypokalemia and symptom control. I advised the patient multiple times that he will have continued symptoms if he continues to smoke marijuana. Patient voiced understanding. Treatment Plan: As above Disposition: Admission Impression: 1. Nausea and vomiting 2. Hypokalemia This note was generated with [employer] software. It may contain incorrect words, spelling, and punctuation that were not noted in review of the chart prior to signing ED Disposition - Plan for ED Patient: Referrals: Care Physician,No Primary [Primary Care Provider] -
[2019-02-02] MEDS: Potassium Chloride 10mEq/100mL 10 MEQ/100 ML IV.SOLN. 100 MEQ IV BOLUS ×4 (06:40→10:23)
--- NOTE | 2019-02-02 07:05 | HP.PCM_ITS ---
Problem List (1) Intractable vomiting with nausea Status: Acute (2) Marijuana use, continuous Status: Chronic (3) Hypokalemia Status: Acute History of Present Illness Date of Admission: 02/02/19 Chief Complaint: nausea and vomiting The patient is a 23 year old M with a significant history of marijuana use and marijuana hyperemesis syndrome who was recently admitted on 01/27/2019 and discharged on 01/29/2019 presenting with continuous nausea and vomiting. Patient reports that he is unable to keep anything down. He reported that his vomiting improves after he takes a hot shower. He reported that his last marijuana use was a day before his presentation. He reported that he smokes marijuana 1-2 times every day. At the emergency department his potassium was found to be 2.8 and 4 runs of 10 mEq of IV potassium was ordered at the ED. Past Medical History Past Medical History (Chronic Problems): Chronic Problems (Last Reviewed 01/27/19 @ 07:26 by Nj Daily MD) Marijuana use, continuous (Chronic) Medical History: Medical History (Last Reviewed 01/27/19 @ 07:26 by Nj Daily MD) Cyclic vomiting syndrome G43.A0 Allergies risperidone [From Risperdal] Adverse Reaction (Verified 02/02/19 05:17) Other RAPID HEARTBEAT Home Medications: Ambulatory Orders Medication Instructions Recorded Metoclopramide HCl [Reglan] 5 mg PO 4X/DAY PRN #20 tablet 01/29/19 Surgical History: - - Patient reports stomach valve surgery; and left knee reconstruction surgery. Psychiatric History: No pertinent psych hx Lives: With Family Smoking Status: Never smoker Drugs: Marijuana - *Family History Paternal History Items: - - Patient does not know his paternal medical history. Maternal History Items: - - Migraines Review of Systems Constitutional: Denies: Chills, Fever, Weight Change HEENT: Denies: Head Aches, Sinus Congestion, Sinus Drainage Cardiovascular: Denies: Chest Pain, Palpitations Respiratory: Denies: Cough, Shortness of breath at rest, Sputum production Gastrointestinal: Reports: Nausea, Vomiting Genitourinary: Denies: Dysuria Musculoskeletal: Denies: Joint Pain, Joint Tenderness Skin: Denies: Rash, Wounds Neurological: Denies: Numbness, Tingling, Focal weakness Psychiatric: Reports: Depression. Denies: Anxiety, Homicidal Ideations, Suicidal Ideations Hematologic/ Lymphatic: Denies: Easy Bruising, Easy Bleeding VTE Information - Inpt Only VTE Present on Admission: No VTE Mechan Device Prophylaxis: None VTE Pharm Prophylaxis ordered?: No Reason prophylaxis not ordered:: Treatment Not Indicated - Low risk. Ambulate. - Physical Exam General: Alert, Oriented x3, Cooperative HEENT: Atraumatic, PERRLA, EOMI, Normocephalic Neck: Supple, No JVD, Negative Carotid Bruits Lungs: Clear to auscultation, Normal air movement Cardiovascular: Regular rate, No murmurs Abdomen: Bowel Sounds Present, Soft, Non Tender Extremities: No edema, Capillary Refill Less than 3 Seconds Skin: No rashes, No breakdown Musculoskeletal: No Tenderness to Palpation of Joints or Extremities Neurological: Neuro grossly intact Psych/Mental Status: Normal Affect, Appropriate Vital Signs Temp Pulse Resp BP Pulse Ox 98.4 F 73 16 123/75 H 100 02/02/19 06:40 02/02/19 06:40 02/02/19 06:40 02/02/19 06:40 02/02/19 06:40 Oxygen Delivery Method Room Air Weight: 50.126 kg Body Mass Index (BMI) 15.0 Laboratory Tests Past 24 Hrs 02/02/19 02/02/19 05:30 05:30 WBC 9.4 RBC 5.28 Hgb 17.2 H Hct 47.1 MCV 89.2 MCH 32.6 H MCHC 36.5 H RDW 12.8 RDW Differential 40.7 Plt Count 475 H MPV 10.9 Immature Gran % (Auto) 0.200 Neut % (Auto) 64.3 Lymph % (Auto) 26.9 [place] % (Auto) 8.1 Eos % (Auto) 0.2 Baso % (Auto) 0.3 Absolute Neuts (auto) 6.1 Absolute Lymphs (auto) 2.53 Total Counted Not Reportable Sodium 138 Potassium 2.8 L Chloride 98 Carbon Dioxide 28.0 Anion Gap 12 BUN 12 Creatinine 0.99 Estim Creat Clear Calc 83.68 Est GFR (MDRD) Af Amer 123 Est GFR (MDRD) Non-Af 101 BUN/Creatinine Ratio 12.2 Glucose 118 H Calcium 9.3 Assessment/Plan All Active Problems (Last Reviewed 01/27/19 @ 07:26 by Nj Daily MD) Intractable vomiting with nausea (Acute) Hypokalemia (Acute) The patient is a 23 year old M with a significant history of marijuana use and marijuana hyperemesis syndrome who was recently admitted on 01/27/2019 and discharged on 01/29/2019 presenting with continuous nausea and vomiting and found to have a potassium of 2.8. Hypokalemia Likely due to vomiting from marijuana hyperemesis syndrome Potassium 40 mEq IV was ordered at emergency department; continue. We will start patient on lactated Ringer's with 40 of potassium. Patient reported that he is unable to tolerate p.o. We will try 40 mEq of p.o. potassium twice daily. BMP at 1300 Magnesium level ordered. Marijuana hyperemesis syndrome Management as above Counseled Clear liquid diet Advance to regular as tolerated Phenergan and Zofran ordered. Home p.o. Reglan held because he reported he is unable to tolerate p.o. DVT prophylaxis Low risk Ambulate Code Visit Inpatient E&M: 35810 Init Hosp L3
[2019-02-02 08:23] LABS: Magnesium 2.4 mg/dL (1.6-2.6)
[2019-02-02] MEDS: proMETHazine 25 MG/ML Syringe 6.25 MG IV (14:01)
[2019-02-02] MEDS: 0.9% NaCl Peripheral Flush Adult/Peds IV ×2 (14:02→17:30)
[2019-02-02 14:28] LABS: Anion Gap 11 (5-15); BUN 9 mg/dL (7-18); Calcium,Total 8.6 mg/dL (8.5-10.1); Chloride 102 mmol/L (98-107); Creatinine, Serum 0.82 mg/dL (0.70-1.30); EST Glomerular Filtration Rate 126 mL/min (>60); Est Glom Filt Rate - Afr Amer 153 mL/min (>60); Estimated Creatinine Clearance 113.07 ml/min; Glucose 97 mg/dL (74-106); Potassium 3.4 mmol/L (3.5-5.1); Sodium Level 139 mmol/L (136-145)
--- NOTE | 2019-02-02 18:57 | PCM.HOSP.N ---
Hospitalist Note Patient was seen and examined today, his potassium this afternoon was 3.4. I talked at length with his mother by phone, she states that she is frustrated that he continues to have this cyclic vomiting type of activity, she states he has smoked marijuana since he was 17 and only for the past 3 years as he had the cyclic vomiting so she does not feel that the cyclic vomiting is caused by the marijuana smoking. I told her it was not helping the situation however. Patient's mother states that they have been to many specialists and they have not gotten any answers for his cyclic vomiting. I asked her if she was against me trying Elavil on the patient and she stated no, I have placed the patient on Elavil 50 mg nightly starting tonight, hopefully this will help.
--- NOTE | 2019-02-02 23:36 | NURSING ---
PT REFUSED ELAVIL TONIGHT. EXPLAINED THE PURPOSE OF IT- TO HELP WITH HIS NAUSEA. PT DENIED AT THIS TIME.
[2019-02-03] VITALS (12 sets, daily range): BP systolic 116–156; BP diastolic 59–90; PULSE 75–120; RESP 15–18; TEMP 36.4–37.3; O2SAT 99–100
[2019-02-03] MEDS: 0.9% NaCl Peripheral Flush Adult/Peds IV ×4 (00:47→20:41)
[2019-02-03] MEDS: Ondansetron 4 MG/2 ML Vial IV ×3 (00:47→17:04)
[2019-02-03] MEDS: proMETHazine 25 MG/ML Syringe 6.25 MG IV ×4 (04:45→20:30)
[2019-02-03 07:53] LABS: Anion Gap 10 (5-15); BUN 10 mg/dL (7-18); BUN/Creat Ratio 12.3 RATIO (10-20); Calcium,Total 8.7 mg/dL (8.5-10.1); Chloride 102 mmol/L (98-107); Creatinine, Serum 0.81 mg/dL (0.70-1.30); EST Glomerular Filtration Rate 127 mL/min (>60); Est Glom Filt Rate - Afr Amer 154 mL/min (>60); Estimated Creatinine Clearance 114.47 ml/min; Glucose 90 mg/dL (74-106); Potassium 3.3 mmol/L (3.5-5.1); Sodium Level 136 mmol/L (136-145)
--- NOTE | 2019-02-03 14:11 | PCM.PN.HOSP ---
Subjective: Patient seen and examined. He still complains of nausea and vomiting. Denies any fever chills, palpitations or dizziness or diarrhea. Review of systems is otherwise negative. Labs and vitals reviewed. Vitals/I&O's: Vital Signs Temp Pulse Resp BP Pulse Ox 97.6 F L 80 18 146/88 H 100 02/03/19 08:44 02/03/19 11:03 02/03/19 08:44 02/03/19 08:44 02/03/19 08:44 Oxygen Delivery Method Room Air Weight: 123 lb 10.869 oz Body Mass Index (BMI) 16.7 Intake and Output for Last 24 Hours 02/01/19 02/02/19 02/03/19 23:59 23:59 23:59 Intake Total 2116 / 2116 975 / 975 Output Total 225 / 225 300 / 300 Balance 1891 / 1891 675 / 675 General: Alert, Oriented x3, Cooperative, Non-Cooperative - looks uncomfortable HEENT: Atraumatic, PERRLA, EOMI, Normocephalic Oral: Dry Mucosa Neck: Supple, No JVD, Negative Carotid Bruits Lungs: Clear to auscultation, Normal air movement, No rhonchi, No wheeze, No rales Cardiovascular: Regular rate, Regular Rhythm, Normal S1, Normal S2, No murmurs Abdomen: Bowel Sounds Present, Soft, Non Tender, Non-Distended, No Hepato-splenomegaly Extremities: No clubbing, No cyanosis, No edema, Capillary Refill Less than 3 Seconds Skin: No rashes, No breakdown Musculoskeletal: No Tenderness to Palpation of Joints or Extremities Lymphatic: No Cervical, Supraclavicular, or Inguinal Adenopathy Neurological: Cranial nerves II-XII grossly intact, Neuro grossly intact, Motor Exam 5/5 strength throughout Psych/Mental Status: Normal Affect, Appropriate, Alert and oriented to time, place, person, mood and affect Laboratory Results 02/02/19 14:00: Sodium 139, Potassium 3.4 L, Chloride 102, Carbon Dioxide 26.0, Anion Gap 11, BUN 9, Creatinine 0.82, Estim Creat Clear Calc 113.07, Est GFR (MDRD) Af Amer 153, Est GFR (MDRD) Non-Af 126, BUN/Creatinine Ratio 11.0, Glucose 97, Calcium 8.6 02/03/19 07:15: Sodium 136, Potassium 3.3 L, Chloride 102, Carbon Dioxide 24.0, Anion Gap 10, BUN 10, Creatinine 0.81, Estim Creat Clear Calc 114.47, Est GFR (MDRD) Af Amer 154, Est GFR (MDRD) Non-Af 127, BUN/Creatinine Ratio 12.3, Glucose 90, Calcium 8.7 Current Medications Amitriptyline HCl (Elavil) 50 mg PO QHS [facility] Last Admin: 02/02/19 23:36 Dose: Not Given Bisacodyl (Dulcolax) 5 mg PO DAILY PRN PRN PRN Reason: Constipation Magnesium Hydroxide (Milk Of Magnesia) 30 ml PO DAILY PRN PRN Reason: Constipation Ondansetron HCl (Zofran) 4 mg IV Q6H PRN PRN PRN Reason: NAUSEA/VOMITING Last Admin: 02/03/19 11:02 Dose: 4 mg [facility] Last Admin: 02/03/19 13:29 Dose: 40 meq Promethazine HCl (Phenergan) 6.25 mg IV Q4H PRN PRN PRN Reason: NAUSEA/VOMITING Last Admin: 02/03/19 12:46 Dose: 6.25 mg Sodium Chloride () 5 - 15 ml IV UD PRN PRN Reason: SALINE FLUSH Last Admin: 02/03/19 04:45 Dose: 10 ml Medical Necessity - Tobacco Use Smoking Status: Never smoker Assessment/Plan All Active Problems (Last Reviewed 01/27/19 @ 07:26 by Nj Daily MD) Intractable vomiting with nausea (Acute) Hypokalemia (Acute) 1. Hypokalemia, likely due to cyclical vomiting from marijuana K is 3.3 today. was 2.8 on admission patient still keeps on vomiting. IV zofran and phenergan for nausea and vomiting Patient counseled that he would have to stop using marijuana so vomiting doesnt recur replace potassium magnesium was WNL 2. 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 DVT prophylaxis; encourage ambulation Code Visit Inpatient E&M: 31611 Subs Hosp L3
--- NOTE | 2019-02-03 14:16 | PN_ITS ---
Subjective: Patient seen and examined. He still complains of nausea and vomiting. Denies any fever chills, palpitations or dizziness or diarrhea. Review of systems is otherwise negative. Labs and vitals reviewed. Vitals/I&O's: Vital Signs Temp Pulse Resp BP Pulse Ox 97.6 F L 80 18 146/88 H 100 02/03/19 08:44 02/03/19 11:03 02/03/19 08:44 02/03/19 08:44 02/03/19 08:44 Oxygen Delivery Method Room Air Weight: 123 lb 10.869 oz Body Mass Index (BMI) 16.7 Intake and Output for Last 24 Hours 02/01/19 02/02/19 02/03/19 23:59 23:59 23:59 Intake Total 2116 / 2116 975 / 975 Output Total 225 / 225 300 / 300 Balance 1891 / 1891 675 / 675 General: Alert, Oriented x3, Cooperative, Non-Cooperative - looks uncomfortable HEENT: Atraumatic, PERRLA, EOMI, Normocephalic Oral: Dry Mucosa Neck: Supple, No JVD, Negative Carotid Bruits Lungs: Clear to auscultation, Normal air movement, No rhonchi, No wheeze, No rales Cardiovascular: Regular rate, Regular Rhythm, Normal S1, Normal S2, No murmurs Abdomen: Bowel Sounds Present, Soft, Non Tender, Non-Distended, No Hepato- splenomegaly Extremities: No clubbing, No cyanosis, No edema, Capillary Refill Less than 3 Seconds Skin: No rashes, No breakdown Musculoskeletal: No Tenderness to Palpation of Joints or Extremities Lymphatic: No Cervical, Supraclavicular, or Inguinal Adenopathy Neurological: Cranial nerves II-XII grossly intact, Neuro grossly intact, Motor Exam 5/5 strength throughout Psych/Mental Status: Normal Affect, Appropriate, Alert and oriented to time, place, person, mood and affect Laboratory Results 02/02/19 14:00: Sodium 139, Potassium 3.4 L, Chloride 102, Carbon Dioxide 26.0, Anion Gap 11, BUN 9, Creatinine 0.82, Estim Creat Clear Calc 113.07, Est GFR (MDRD) Af Amer 153, Est GFR (MDRD) Non-Af 126, BUN/Creatinine Ratio 11.0, Glucose 97, Calcium 8.6 02/03/19 07:15: Sodium 136, Potassium 3.3 L, Chloride 102, Carbon Dioxide 24.0, Anion Gap 10, BUN 10, Creatinine 0.81, Estim Creat Clear Calc 114.47, Est GFR (MDRD) Af Amer 154, Est GFR (MDRD) Non-Af 127, BUN/Creatinine Ratio 12.3, Glucose 90, Calcium 8.7 Current Medications Amitriptyline HCl (Elavil) 50 mg PO QHS [facility] Last Admin: 02/02/19 23:36 Dose: Not Given Bisacodyl (Dulcolax) 5 mg PO DAILY PRN PRN PRN Reason: Constipation Magnesium Hydroxide (Milk Of Magnesia) 30 ml PO DAILY PRN PRN Reason: Constipation Ondansetron HCl (Zofran) 4 mg IV Q6H PRN PRN PRN Reason: NAUSEA/VOMITING Last Admin: 02/03/19 11:02 Dose: 4 mg [facility] Last Admin: 02/03/19 13:29 Dose: 40 meq Promethazine HCl (Phenergan) 6.25 mg IV Q4H PRN PRN PRN Reason: NAUSEA/VOMITING Last Admin: 02/03/19 12:46 Dose: 6.25 mg Sodium Chloride () 5 - 15 ml IV UD PRN PRN Reason: SALINE FLUSH Last Admin: 02/03/19 04:45 Dose: 10 ml Medical Necessity - Tobacco Use Smoking Status: Never smoker Assessment/Plan All Active Problems (Last Reviewed 01/27/19 @ 07:26 by Nj Daily MD) Intractable vomiting with nausea (Acute) Hypokalemia (Acute) 1. Hypokalemia, likely due to cyclical vomiting from marijuana * K is 3.3 today. was 2.8 on admission * patient still keeps on vomiting. * IV zofran and phenergan for nausea and vomiting * Patient counseled that he would have to stop using marijuana so vomiting doesnt recur * replace potassium * magnesium was WNL * 2. 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 DVT prophylaxis; encourage ambulation Code Visit Inpatient E&M: 60571 Subs Hosp L3
--- NOTE | 2019-02-03 16:11 | CM.UR ---
Addendum entered by Ling Greer 02/03/19 16:12: Met IP according to Interqual criteria. Maddy Greer RN, CCM. Original Note: Reviewed chart. Patient met for IP at time of admission d/t level of K+. Made iP as of 02/02/19 at 7:02 and alerted Admitting. Maddy Greer RN, CCM.
[2019-02-04] MEDS: 0.9% NaCl Peripheral Flush Adult/Peds IV ×3 (00:17→10:21)
[2019-02-04] MEDS: Ondansetron 4 MG/2 ML Vial IV ×2 (00:17→08:54)
[2019-02-04 03:00] VITALS: PULSE 86
[2019-02-04 03:30] VITALS: BP 138/67; PULSE 93; RESP 18; TEMP 37.1; O2SAT 100
[2019-02-04] MEDS: proMETHazine 25 MG/ML Syringe 6.25 MG IV ×2 (03:45→10:20)
[2019-02-04 07:13] VITALS: PULSE 89
[2019-02-04 08:53] VITALS: BP 136/74; PULSE 93; RESP 16; TEMP 37.1; O2SAT 98
[2019-02-04 09:07] LABS: Anion Gap 12 (5-15); BUN 13 mg/dL (7-18); BUN/Creat Ratio 14.4 RATIO (10-20); Calcium,Total 9.1 mg/dL (8.5-10.1); Chloride 98 mmol/L (98-107); EST Glomerular Filtration Rate 112 mL/min (>60); Est Glom Filt Rate - Afr Amer 136 mL/min (>60); Estimated Creatinine Clearance 103.02 ml/min; Glucose 89 mg/dL (74-106); Magnesium 2.5 mg/dL (1.6-2.6); Potassium 3.4 mmol/L (3.5-5.1); Sodium Level 136 mmol/L (136-145)
--- NOTE | 2019-02-04 10:52 | DCINST_ITS ---
You will use the following diet at home:: No restrictions Your food should be the consistency of: Regular Your liquids should be the consistency of: Regular/Thin Discharge Activity: Return to Normal Activity Weight Bearing Status: Weight bearing as tolerated Call your doctor if you observe: - - persistent vomiting Instructions: Discharge Instructions for Hypokalemia, Understanding Marijuana Abuse Additional Instructions: follow up with your PCP for a BMP to check potassium level in 2 days Allergies/Adverse Reactions: Allergies risperidone [From Risperdal] Adverse Reaction (Verified 02/02/19 05:17) Other RAPID HEARTBEAT Medications to take at Discharge Metoclopramide HCl [Reglan] 5 mg PO 4X/DAY PRN #20 tablet 01/29/19 Potassium Chloride [K-Dur] 20 meq PO BIDCM #20 tablet 02/04/19 The following prescriptions were given: Potassium Chloride [K-Dur] 20 meq PO BIDCM #20 tablet Primary Care Physician: Care Physician,No Primary [Primary Care Provider] - Please follow up with your Primary Care Physician in: one week Test Results: Test results from this visit will be discussed in further detail at your follow- up appointment, if applicable. Please Follow Up With: Laura Gutierrez MD When: one week to establish PCP relationship Proposed Discharge Date: 02/04/19
--- NOTE | 2019-02-04 10:52 | DS.PCM_ITS ---
Discharge Date and Diagnosis Date of Admission: 02/02/19 Date of Discharge: 02/04/19 - Primary Discharge Diagnosis hypokalemia cyclical vomiting due to marijuana - Secondary Discharge Diagnosis Chronic Problems (Last Reviewed 01/27/19 @ 07:26 by Nj Daily MD) Marijuana use, continuous (Chronic) Hospital Course and Treatment Operations: None Procedures: None Summary of Care Provided: The patient is a 23 year old M with a past medical history of marijuana dependence and marijuana hyperemesis syndrome. He was admitted with a complaint of persistent nausea and vomiting. The admit admitted on 01/27/2019 and discharged on 01/29/2019 with exact same symptoms and subsequently presented again. His last use of marijuana was a day before presentation. On admission, potassium was 2.8. He was admitted and managed for hypokalemia and persistent vomiting due to cyclical vomiting from marijuana. Potassium was placed and he was given IV Zofran and Phenergan to help with nausea and vomiting. Nausea and vomiting gradually improved. On 02/04/2019 patient was able to tolerate an oral diet was agreeable to being discharged. He was discharged home on 02/04/2019 and counseled strongly to refrain from using marijuana. He was discharged with a prescription for p.o. potassium supplements and is to follow-up with his primary care doctor in 3 days for repeat BMP to assess his potassium level. Patient seen and examined prior to discharge. He had vomited a couple of times overnight. He denied any nausea, any fever or chills, any abdominal pain, any diarrhea vomiting. Review of systems otherwise negative. Labs and vitals reviewed. Home Medications reviewed and reconciled On examination Vital Signs Height 6 ft Weight: 123 lb 10.869 oz Weight in Pounds 123.7 lbs Pulse Ox 98 Temperature 98.8 F Pulse Rate 103 Respiratory Rate 16 Blood Pressure 136/74 Blood Pressure Position Semi-Fowlers [] General: Alert, Oriented x3, Cooperative, HEENT: Atraumatic, PERRLA, EOMI, Normocephalic Oral: Dry Mucosa Neck: Supple, No JVD, Negative Carotid Bruits Lungs: Clear to auscultation, Normal air movement, No rhonchi, No wheeze, No rales Cardiovascular: Regular rate, Regular Rhythm, Normal S1, Normal S2, No murmurs Abdomen: Bowel Sounds Present, Soft, Non Tender, Non-Distended, No Hepato- splenomegaly Extremities: No clubbing, No cyanosis, No edema, Capillary Refill Less than 3 Seconds Skin: No rashes, No breakdown Musculoskeletal: No Tenderness to Palpation of Joints or Extremities Lymphatic: No Cervical, Supraclavicular, or Inguinal Adenopathy Neurological: Cranial nerves II-XII grossly intact, Neuro grossly intact, Motor Exam 5/5 strength throughout Psych/Mental Status: Normal Affect, Appropriate, Alert and oriented to time, place, person, mood and affect Plan as detailed above. - Physical Exam Vital Signs Temp Pulse Resp BP Pulse Ox 98.8 F 93 16 136/74 H 98 02/04/19 08:53 02/04/19 08:53 02/04/19 08:53 02/04/19 08:53 02/04/19 08:53 Oxygen Delivery Method Room Air Weight: 123 lb 10.869 oz Body Mass Index (BMI) 16.7 Intake and Output for Last 24 Hours 02/02/19 02/03/19 02/05/19 23:59 23:59 00:59 Intake Total 2116 / 2116 2135 / 2135 400 / 400 Output Total 225 / 225 800 / 800 Balance 1891 / 1891 1335 / 1335 400 / 400 Laboratory Tests Past 24 Hrs 02/04/19 08:10 Sodium 136 Potassium 3.4 L Chloride 98 Carbon Dioxide 26.0 Anion Gap 12 BUN 13 Creatinine 0.90 Estim Creat Clear Calc 103.02 Est GFR (MDRD) Af Amer 136 Est GFR (MDRD) Non-Af 112 BUN/Creatinine Ratio 14.4 Glucose 89 Calcium 9.1 Magnesium 2.5 Discharge Diet: No Restrictions Discharge Activity: Return to Normal Activity Weight Bearing Status: Weight bearing as tolerated Call your doctor if you observe: - - persistent vomiting Home Medications: Medications to take at Discharge Metoclopramide HCl [Reglan] 5 mg PO 4X/DAY PRN #20 tablet 01/29/19 Potassium Chloride [K-Dur] 20 meq PO BIDCM #20 tablet 02/04/19 Following Prescrptions Were Given to Patient: Potassium Chloride [K-Dur] 20 meq PO BIDCM #20 tablet Primary Care Physician: Care Physician,No Primary [Primary Care Provider] - Please follow up with your Primary Care Physician in: one week Please Follow Up With: Laura Gutierrez MD When: one week to establish PCP relationship Patient Instructions: Understanding Marijuana Abuse, Discharge Instructions for Hypokalemia Disposition: Home Minutes spent on discharge:: 40 Patient Condition:: Stable Medical Necessity - Tobacco Use Smoking Status: Never smoker Meaningful Use Info Meaningful Use Diagnoses (Choose all that apply): None applicable Code Visit Inpatient E&M: 49078 Disch Hosp
[2019-02-04 11:00] VITALS: O2SAT 98
[2019-02-04 11:03] VITALS: PULSE 103
== END 2019-02-04 11:54 | disposition home or self-care (01) | DRG 641 ==
LOC: ED 05:40 → PCU 08:09
PROVIDERS: Internal Medicine; Admitting Provider Hospitalist; Emergency Provider Emergency Medicine; Visit Provider Student in an Organized Health Care Education/Training Program
DX: E87.6 Hypokalemia (principal); R11.2 Nausea with vomiting, unspecified; F12.20 Cannabis dependence, uncomplicated
CPT/HCPCS: 36415; 80048; 83735; 85025; 99283; J7030; J7040; J7120; A4216; J2405

== ENCOUNTER 2019-04-19 04:59 | Emergency (ER) | payer OTHER, SELFPAY ==
[2019-02-02 07:42] VITALS: BMI 16.7
[2019-04-19 05:00] VITALS: BP 136/79; PULSE 121; RESP 18; TEMP 37.2; O2SAT 98; BMI 17.5
[2019-04-19] MEDS: 0.9% Normal Saline 1,000 ML 999 ML IV ×2 (05:23→06:50)
[2019-04-19] MEDS: Ondansetron 4 MG/2 ML Vial IV (05:23)
[2019-04-19] MEDS: LORazepam 2 MG/ML Syringe 0.5 MG IV (05:23)
[2019-04-19 05:26] LABS: Absolute Neutrophil Count 10.6 X10^3/uL (2.0-7.7); Basophil# 0.01 X10^3/uL; Basophil% 0.1 % (0-1); Hematocrit 49.1 % (40-54); Hemoglobin 17.2 g/dl (13.0-16.5); Lymphocyte % 6.8 % (19-41); Mean Corpuscular Hgb 30.8 pg (27.0-32.0); Mean Platelet Vol. 11.1 fl (6.2-12.0); Monocyte# 0.33 X10^3/uL; Monocyte% 2.8 % (0-10); Neutrophil # 10.57 X10^3/uL (2.7-7.7); Neutrophil % 90.1 % (47-70); POSITIVE COUNT NO; POSITIVE DIFFERENTIAL NO; POSITIVE MORPHOLOGY NO; Platelet Count 391 K/mm3 (150-450); RBC Distribution Width CV 12.5 % (11.6-14.6); RBC Distribution Width SD 40.1 fl (35.1-43.9); Red Blood Count 5.58 M/mm3 (4.6-6.2); White Blood Count 11.7 K/mm3 (4.4-11.0)
[2019-04-19 05:42] LABS: ALB/GLOB Ratio 1.2 RATIO (0.9-2.4); AST(SGOT) 13 U/L (15-37); Alanine Aminotransfer ALT/SGPT 19 U/L (16-61); Albumin, Serum 5.1 g/dL (3.2-5.0); Alkaline Phosphatase 76 U/L (45-117); Anion Gap 11 (5-15); BUN 20 mg/dL (7-18); BUN/Creat Ratio 16.9 RATIO (10-20); Calcium,Total 10.2 mg/dL (8.5-10.1); Chloride 105 mmol/L (98-107); Creatinine, Serum 1.18 mg/dL (0.70-1.30); EST Glomerular Filtration Rate 82 mL/min (>60); Est Glom Filt Rate - Afr Amer 100 mL/min (>60); Estimated Creatinine Clearance 82.22 ml/min; Globulin 4.3 g/dL (2.2-4.2); Glucose 191 mg/dL (74-106); Lipase 143 U/L (73-393); Potassium 3.6 mmol/L (3.5-5.1); Protein, Total 9.4 g/dL (6.4-8.2); Sodium Level 140 mmol/L (136-145)
--- NOTE | 2019-04-19 06:16 | RAD_ITS ---
STUDY: X-RAY - ABDOMEN/PELVIS REASON FOR EXAM: Male, 23 years old. Vomiting TECHNIQUE: AP supine and upright views of the abdomen and pelvis. COMPARISON: None. FINDINGS: Normal visualized lung bases. There is an unremarkable bowel gas pattern. There is no demonstrated free abdominal air. The visualized liver, spleen and kidneys are grossly normal in size and morphology. Normal soft tissue structures. Normal visualized osseous structures. RAD/Abd Inc Decub and/or Erect IMPRESSION: Normal x-ray examination of the abdomen and pelvis. Electronically Signed: Amy Keenan, at 7:17 EDT Tel , Service support ,
--- NOTE | 2019-04-19 06:46 | ED.DCSUM_ITS ---
- ER Visit Summary Date of Service: 04/19/19 Chief Complaint: Abdominal pain, nausea, vomiting History of Present Illness: The patient is a 23 M who presents with 3 days of nausea and vomiting. He reports this as severe. No diarrhea. He also complains of left-sided abdominal pain. He does have a history of prior similar symptoms and has a history of cyclic vomiting syndrome or cannabis hyperemesis syndrome. He continues to smoke marijuana. He denies any fevers chest pain shortness of breath. He does complain of some leg cramps as well. Physical Examination: Initial heart rate 121 vitals otherwise normal Patient dry heaving in the examination room Moist mucous membranes Heart regular tachycardia Lungs are clear The abdomen is soft nondistended he does have diffuse nonfocal abdominal tenderness without guarding without rebound Alert Test Results: CBC CMP lipase unremarkable. Abdominal series is normal. Emergency Department Course and Treatment: Patient was treated with IV fluids, Zofran, Ativan, Thorazine and Benadryl. He has had no further vomiting on reevaluation. Work-up as above is unremarkable. Patient was treated with 2 L of IV fluids and is sleeping on reevaluation after x-ray. Patient will be discharged. Treatment Plan: [] Disposition: Discharge Impression: Cyclic vomiting syndrome This note was generated with [employer] dictation software. It may contain incorrect words, spelling, and punctuation that were not noted in review of the chart prior to signing ED Disposition - Plan for ED Patient: Referrals: Care Physician,No Primary [Primary Care Provider] -
--- NOTE | 2019-04-19 07:22 | ED.DEP ---
ED Disposition - Plan for ED Patient: Instructions: ED Diet Vomiting Diarrhea Referrals: Care Physician,No Primary [Primary Care Provider] - Additional Instructions: I recommend you stop smoking marijuana as it is likely contributing to your symptoms.
[2019-04-19 07:29] VITALS: BP 113/74; PULSE 62; RESP 15; O2SAT 99
== END 2019-04-19 07:30 | disposition home or self-care (01) ==
PROVIDERS: Emergency Provider Emergency Medicine
DX: G43.A0 Cyclical vomiting, in migraine, not intractable (principal)
CPT/HCPCS: 74019; 80053; 83690; 85025; 96361; 96365; 96375; 99284; J7030; A4216; J2405; J3490

== ENCOUNTER 2019-04-20 15:11 | Emergency (ER) | payer OTHER, SELFPAY ==
[2019-04-19 05:00] VITALS: BMI 17.5
[2019-04-20 15:11] VITALS: BP 137/54; PULSE 123; RESP 16; TEMP 36.9; O2SAT 97; BMI 19.0
--- NOTE | 2019-04-20 15:27 | ED.VIS.GI ---
History of Present Illness Chief Complaint: Abd Pain Informant: Patient - Abdominal Pain/Flank Pain Onset: Yesterday - PM Context: Gradual Onset Timing: Continuous Quality: Aching Location: LUQ, LLQ Current Severity: Severe Maximum Severity: Severe Worsened by: Food Relieved by: Nothing - Nausea/Vomiting/Emesis GI Symptom: Nausea, Vomiting Onset: Yesterday Quality: Nonbilious. Negative for: Blood streaks, Coffee ground, Hematemesis Severity: Severe - Diarrhea/Melena/Hematochezia GI Symptom: - - having normal BMs. Negative for: Diarrhea, Melena, Hematochezia Associated Symptoms: Negative for: Dysuria, Frequency, Hematuria, Urgency Narrative: Seen here about 36 hours ago for the same thing, he felt better after being medicated and had a decent rest of the day but last night all symptoms started back up again including left-sided abdominal pain, nausea, vomiting. He has not been able to stop vomiting all day. Trouble keeping any fluids down. Denies any diarrhea yesterday or today, states he has been having normal bowel movements. States these are the typical symptoms he gets during cyclic vomiting flareups, no known trigger. No fevers. No recent travel. No suspicious ingestions. Has also been diagnosed w/ cannabis hyperemesis syndrome. No THC use since last ED visit. Prior similar symptoms: Yes - w/ cyclic vomiting syndrome - Past Medical History (1) Cyclic vomiting syndrome Status: Chronic (2) Marijuana use, continuous Status: Chronic Past Medical History - Allergies and Home Meds Allergies/Adverse Reactions: Allergies risperidone [From Risperdal] Adverse Reaction (Verified 04/20/19 15:14) TACHYCARDIA RAPID HEARTBEAT Primary Care Physician: Care Physician,No Primary [Primary Care Provider] - Surgical History: - - Patient reports stomach valve surgery; and left knee reconstruction surgery. Smoking Status: Never smoker Drugs: Marijuana - Family History Paternal Family History: Reports: - - Patient does not know his paternal medical history. Maternal Family History: Reports: - - Migraines Review of Systems General: Reports: Malaise. Denies: Chills, Fever Eyes: Denies: Visual changes - bilaterally, Diplopia ENT: Denies: Rhinorrhea, Sore throat Cardiovascular: Denies: Chest pain, Palpitations Respiratory: Denies: Dyspnea, Cough, Dyspnea on exertion Gastrointestinal: Reports: Abdominal pain, Nausea, Vomiting. Denies: Diarrhea, Constipation, Melena, Hematochezia Genitourinary: Denies: Dysuria, Hematuria, Frequency Musculoskeletal: Denies: Neck pain, Back pain, Extremity Pain Skin: Denies: Rash, Wounds Neurological: Denies: Headache, Weakness, Numbness Physical Exam Vital Signs/Narrative: Vital Signs Temp Pulse Resp BP Pulse Ox 04/20/19 15:11 98.5 F 123 H 16 137/54 H 97 Inital Vital Signs reviewed: Yes General: Well nourished, Well developed, No Acute Distress Head: Normocephalic, Atraumatic Eyes: Perrl, EOMI ENT: Moist mucous membranes, No rhinorrhea Neck: Supple, Nontender Cardiovascular: Regular rate, Regular rhythm, No murmurs Respiratory: No distress, CTA bilaterally, Chest nontender Abdomen: Soft, Nondistended, Normal bowel sounds, Tender - throughout left side abd. Negative for: Guarding, Rebound tenderness, Pulsatile mass Back: Nontender, Normal Inspection. Negative for: CVA tenderness Extremities: Nontender, No edema Skin: Normal color, No rash, No Trauma Neurological: Alert, Oriented x3, Cranial nerves II-XII grossly intact, Normal Strength, Normal Sensation Psychological: Normal affect, Normal Mood Diagnostic/Tx/Re-eval Laboratory Tests 04/20/19 04/20/19 Range/Units 15:45 15:45 WBC 7.6 (4.4-11.0) K/mm3 RBC 4.95 (4.6-6.2) M/mm3 Hgb 15.8 (13.0-16.5) g/dl Hct 45.1 (40-54) % MCV 91.1 (80-94) fL MCH 31.9 (27.0-32.0) pg MCHC 35.0 (32-36) g/gl RDW 12.4 (11.6-14.6) % RDW Differential 41.0 (35.1-43.9) fl Plt Count 269 (150-450) K/mm3 MPV 10.8 (6.2-12.0) fl Immature Gran % (Auto) 0.100 (0.0-0.9) % Neut % (Auto) 73.5 H (47-70) % Lymph % (Auto) 21.4 (19-41) % [place] % (Auto) 4.9 (0-10) % Eos % (Auto) 0.0 (0-5) % Baso % (Auto) 0.1 (0-1) % Absolute Neuts (auto) 5.6 (2.0-7.7) X10^3/uL Absolute Lymphs (auto) 1.62 (0.83-4.51) X10^3/ul Total Counted Not Reportable Sodium 136 (136-145) mmol/L Potassium 4.1 (3.5-5.1) mmol/L Chloride 105 (98-107) mmol/L Carbon Dioxide 24.0 (21.0-32.0) mmol/L Anion Gap 7 (5-15) BUN 12 (7-18) mg/dL Creatinine 0.97 (0.70-1.30) mg/dL Estim Creat Clear Calc 108.20 ml/min Est GFR (MDRD) Af Amer 125 (>60) mL/min Est GFR (MDRD) Non-Af 103 (>60) mL/min BUN/Creatinine Ratio 12.4 (10-20) RATIO Glucose 112 H (74-106) mg/dL Calcium 9.5 (8.5-10.1) mg/dL - Medical Decision Making After IV fluids, Thorazine, Toradol, patient is feeling much better. He still has some residual pain and nausea. I offered him further medication including Zofran, although he does appear well. He states his ride is coming and he prefers to be discharged and accepts and offer for a prescription for Zofran. He is discharged in stable improved condition. ED Disposition - Plan for ED Patient: Disposition: Home or Assisted Living Diagnosis: Cyclic vomiting syndrome, Nausea & vomiting, Left sided abdominal pain Instructions: ED Nausea Vomiting Prescriptions: Ondansetron HCl [Zofran] 8 mg PO Q8 PRN #15 tablet PRN Reason: Nausea Referrals: Margy Jean [NON-STAFF] - 3-5 Days if not improving
[2019-04-20] MEDS: Ketorolac 30 MG/ML Syringe IV (15:52)
[2019-04-20] MEDS: 0.9% Normal Saline 1,000 ML 999 ML IV (15:52)
[2019-04-20] MEDS: ChlorproMAZINE 50 MG/2 ML Ampul 25 MG IV (15:52)
[2019-04-20 16:17] LABS: Absolute Lymphocyte Count 1.62 X10^3/ul (0.83-4.51); Absolute Neutrophil Count 5.6 X10^3/uL (2.0-7.7); Basophil# 0.01 X10^3/uL; Basophil% 0.1 % (0-1); Hematocrit 45.1 % (40-54); Hemoglobin 15.8 g/dl (13.0-16.5); Lymphocyte # 1.62 X10^3/ul (4.0); Lymphocyte % 21.4 % (19-41); Mean Corpuscular Hgb 31.9 pg (27.0-32.0); Mean Corpuscular Volume 91.1 fL (80-94); Mean Platelet Vol. 10.8 fl (6.2-12.0); Monocyte# 0.37 X10^3/uL; Monocyte% 4.9 % (0-10); Neutrophil # 5.57 X10^3/uL (2.7-7.7); Neutrophil % 73.5 % (47-70); POSITIVE COUNT NO; POSITIVE DIFFERENTIAL NO; POSITIVE MORPHOLOGY NO; Platelet Count 269 K/mm3 (150-450); RBC Distribution Width CV 12.4 % (11.6-14.6); Red Blood Count 4.95 M/mm3 (4.6-6.2); White Blood Count 7.6 K/mm3 (4.4-11.0)
[2019-04-20 16:19] LABS: Anion Gap 7 (5-15); BUN 12 mg/dL (7-18); BUN/Creat Ratio 12.4 RATIO (10-20); Calcium,Total 9.5 mg/dL (8.5-10.1); Chloride 105 mmol/L (98-107); Creatinine, Serum 0.97 mg/dL (0.70-1.30); EST Glomerular Filtration Rate 103 mL/min (>60); Est Glom Filt Rate - Afr Amer 125 mL/min (>60); Glucose 112 mg/dL (74-106); Potassium 4.1 mmol/L (3.5-5.1); Sodium Level 136 mmol/L (136-145)
[2019-04-20 17:15] VITALS: BP 128/61; PULSE 69; RESP 18; O2SAT 99
[2019-04-20 19:13] VITALS: BP 126/70; PULSE 69; RESP 19; O2SAT 99
== END 2019-04-20 19:15 | disposition home or self-care (01) ==
PROVIDERS: Emergency Provider Emergency Medicine
DX: G43.A0 Cyclical vomiting, in migraine, not intractable (principal); R10.9 Unspecified abdominal pain
CPT/HCPCS: 80048; 85025; 96374; 96375; 99283; J7030; A4216

== ENCOUNTER 2019-04-25 05:29 | Emergency (ER) | payer OTHER, SELFPAY ==
[2019-04-25] VITALS (7 sets, daily range): BP systolic 109–125; BP diastolic 72–104; PULSE 91–165; RESP 14–23; TEMP 36.7–36.8; O2SAT 95–99; BMI 17.2
--- NOTE | 2019-04-25 05:50 | ED.VISSUMM ---
- ER Visit Summary Date of Service: 04/25/19 Chief Complaint: Vomiting History of Present Illness: The patient is a 23 M presenting with vomiting. Patient states this has been ongoing for the past week. He states this is his third visit to the ED in the past week. He has had frequent vomiting. He is unable to keep anything down. He denies blood in his emesis. Denies diarrhea. He has tried Zofran at home. He has a history of cyclic vomiting syndrome and cannabis hyperemesis syndrome. He states he has not used marijuana in the past week. He denies fever. Denies other complaints. Physical Examination: Vitals are stable. Patient is afebrile. Alert no acute distress. HEENT exam dry mucous membranes Neck is supple. Lungs are clear and equal bilaterally. Heart is regular rate and tachycardic Abdomen is soft nontender nondistended. No guarding or rebound Extremities are unremarkable. Skin is warm and dry. Remainder of exam is unremarkable. Emergency Department Course and Treatment: Patient was given IV fluids, Ativan, Zofran. CBC, chemistries are unremarkable. He continues to have nausea and was ordered Benadryl and Thorazine IV. He will be checked out to the oncoming physician for reevaluation. Disposition: Pending Impression: Cyclic vomiting syndrome This note was generated with [employer] dictation software. It may contain incorrect words, spelling, and punctuation that were not noted in review of the chart prior to signing ED Disposition - Plan for ED Patient: Instructions: ED Nausea Vomiting Referrals: Care Physician,No Primary [Primary Care Provider] -
[2019-04-25] MEDS: Ondansetron 4 MG/2 ML Vial IV (05:59)
[2019-04-25] MEDS: LORazepam 2 MG/ML Syringe 0.5 MG IV (05:59)
[2019-04-25 06:03] LABS: Anion Gap 13 (5-15); BUN 14 mg/dL (7-18); BUN/Creat Ratio 12.8 RATIO (10-20); Chloride 98 mmol/L (98-107); Creatinine, Serum 1.09 mg/dL (0.70-1.30); EST Glomerular Filtration Rate 90 mL/min (>60); Est Glom Filt Rate - Afr Amer 109 mL/min (>60); Estimated Creatinine Clearance 87.49 ml/min; Glucose 121 mg/dL (74-106); Potassium 3.5 mmol/L (3.5-5.1); Sodium Level 138 mmol/L (136-145)
[2019-04-25 06:05] LABS: Absolute Lymphocyte Count 2.52 X10^3/ul (0.83-4.51); Absolute Neutrophil Count 5.7 X10^3/uL (2.0-7.7); Basophil# 0.01 X10^3/uL; Basophil% 0.1 % (0-1); Eosinophil# 0.02 X10^3/uL; Eosinophils% 0.2 % (0-5); Lymphocyte # 2.52 X10^3/ul (4.0); Lymphocyte % 28.2 % (19-41); Monocyte# 0.67 X10^3/uL; Monocyte% 7.5 % (0-10); Neutrophil % 63.9 % (47-70)
[2019-04-25 06:07] LABS: Hematocrit 49.3 % (40-54); Hemoglobin 17.9 g/dl (13.0-16.5); Mean Corp Hgb Conc 36.3 g/gl (32-36); Mean Corpuscular Hgb 31.9 pg (27.0-32.0); Mean Corpuscular Volume 87.7 fL (80-94); Mean Platelet Vol. 10.9 fl (6.2-12.0); POSITIVE COUNT NO; POSITIVE DIFFERENTIAL NO; POSITIVE MORPHOLOGY NO; Platelet Count 330 K/mm3 (150-450); RBC Distribution Width CV 12.3 % (11.6-14.6); RBC Distribution Width SD 38.9 fl (35.1-43.9); Red Blood Count 5.62 M/mm3 (4.6-6.2); White Blood Count 8.7 K/mm3 (4.4-11.0)
--- NOTE | 2019-04-25 06:28 | ED.DEP ---
ED Disposition - Plan for ED Patient: Instructions: ED Nausea Vomiting Referrals: Care Physician,No Primary [Primary Care Provider] -
[2019-04-25] MEDS: 0.9% Normal Saline 1,000 ML 1000 ML IV ×2 (08:17→09:36)
--- NOTE | 2019-04-25 10:20 | ED.RN ---
DR SRINIVASAN NOTIFIED HR=91 AT REST. HR INCREASES TO 126 BUT SLOWER THAN PREV. PT REPORTS FEELING BETTER.
== END 2019-04-25 10:32 | disposition home or self-care (01) ==
PROVIDERS: Emergency Provider Emergency Medicine
DX: G43.A0 Cyclical vomiting, in migraine, not intractable (principal)
CPT/HCPCS: 80048; 85025; 96361; 96374; 96375; 99283; J7030; J7050; A4216; J2405; J3490

== ENCOUNTER 2019-06-01 12:28 | Emergency (ER) | payer OTHER, SELFPAY ==
[2019-04-25 05:30] VITALS: BMI 17.2
[2019-06-01 12:29] VITALS: PULSE 109; RESP 16; TEMP 36.2; O2SAT 99; BMI 19.0
--- NOTE | 2019-06-01 12:49 | ED.DCSUM_ITS ---
History of Present Illness Chief Complaint: Nausea/Vomiting Informant: Patient Onset: Yesterday Context: Gradual Onset Timing: Continuous Current Severity: Moderate Maximum Severity: Severe Narrative: Patient has a history of cyclic vomiting syndrome. He states that his symptoms began yesterday. He states that he is vomited greater than 20 times. He is been taking antiemetics with little improvement. He does describe some cramping pain. He has had similar symptoms like this in the past multiple times. He has required hospitalization in the past. He denies any fevers or chills. He has no history of abdominal surgery. Prior similar symptoms: Yes Recent Illness/Hospitalization: Yes Past Medical History - Allergies and Home Meds Allergies/Adverse Reactions: Allergies risperidone [From Risperdal] Adverse Reaction (Verified 06/01/19 12:29) TACHYCARDIA RAPID HEARTBEAT Primary Care Physician: Care Physician,No Primary [Primary Care Provider] - Prior records reviewed: Yes Surgical History: - - Patient reports stomach valve surgery; and left knee reconstruction surgery. Lives: With Family Smoking Status: Current some day smoker Drugs: Marijuana - Family History Paternal Family History: Reports: - - Patient does not know his paternal medical history. Maternal Family History: Reports: - - Migraines Review of Systems General: Denies: Chills, Fever, Sweats Eyes: Denies: Visual changes - bilaterally, Diplopia ENT: Denies: Rhinorrhea, Sore throat Cardiovascular: Denies: Chest pain, Palpitations Respiratory: Denies: Dyspnea, Cough, Dyspnea on exertion Gastrointestinal: Reports: Abdominal pain, Nausea, Vomiting Genitourinary: Denies: Dysuria, Hematuria, Frequency Musculoskeletal: Denies: Back pain, Extremity Pain Skin: Denies: Rash, Wounds Neurological: Denies: Headache, Weakness, Numbness Psych: Denies: Anxiety Endocrine: Denies: Polyuria Hematologic: Denies: Easy bruising Physical Exam Vital Signs/Narrative: Vital Signs Temp Pulse Resp Pulse Ox 06/01/19 12:29 97.2 F L 109 H 16 99 General: Well nourished, Well developed, No Acute Distress Head: Normocephalic, Atraumatic Eyes: Perrl, EOMI ENT: Moist mucous membranes, No rhinorrhea Neck: Supple, Nontender Cardiovascular: Regular rate, Regular rhythm, No murmurs Respiratory: No distress, CTA bilaterally, Chest nontender Abdomen: Soft, Nontender, Nondistended, Normal bowel sounds Back: Nontender, Normal Inspection Extremities: Nontender, No edema Skin: Normal color, No rash Neurological: Alert, Oriented x3, Cranial nerves II-XII grossly intact, Normal Strength, Normal Sensation Psychological: Normal affect, Normal Mood Diagnostic/Tx/Re-eval Abnormal Lab Results 06/01/19 06/01/19 13:00 13:00 WBC 11.0 RBC 5.48 Hgb 18.0 H* Hct 49.8 MCV 90.9 MCH 32.8 H MCHC 36.1 H RDW 12.5 RDW Differential 41.7 Plt Count 405 MPV 11.2 Immature Gran % (Auto) 0.300 Neut % (Auto) 75.1 H Lymph % (Auto) 17.7 L [place] % (Auto) 6.2 Eos % (Auto) 0.5 Baso % (Auto) 0.2 Absolute Neuts (auto) 8.3 H Absolute Lymphs (auto) 1.95 Total Counted Not Reportable Sodium 142 Potassium 3.4 L Chloride 105 Carbon Dioxide 23.0 Anion Gap 14 BUN 15 Creatinine 1.16 Estim Creat Clear Calc 90.48 Est GFR (MDRD) Af Amer 102 Est GFR (MDRD) Non-Af 84 BUN/Creatinine Ratio 12.9 Glucose 136 H Calcium 10.8 H Total Bilirubin 1.10 H AST 13 L ALT 15 L Alkaline Phosphatase 78 Total Protein 9.1 H Albumin 5.3 H Globulin 3.8 Albumin/Globulin Ratio 1.4 - Medical Decision Making The patient presents with nausea, vomiting, abdominal pain. This is consistent with his history of cyclic vomiting syndrome. His abdomen is soft and nontender. IV was established. The patient was given fluids and antiemetics. His vomiting has stopped. On reevaluation, he is resting comfortably. Plan will be to observe him and make sure that he is able to tolerate p.o. As long as he is, the patient will likely be discharged home. ED Disposition - Plan for ED Patient: Disposition: Home or Assisted Living Diagnosis: Cyclic vomiting syndrome, Nausea & vomiting Instructions: VOMITING (8y-Adult) Prescriptions: Ondansetron [Zofran Odt] 4 mg PO Q8H PRN PRN #10 tab PRN Reason: Nausea Prescription Printed Referrals: Care Physician,No Primary [Primary Care Provider] -
[2019-06-01] MEDS: LORazepam 2 MG/ML Syringe 0.5 MG IV (12:54)
[2019-06-01] MEDS: 0.9% Normal Saline 1,000 ML 1000 ML IV ×2 (12:54→14:54)
[2019-06-01] MEDS: Ondansetron 4 MG/2 ML Vial IV (12:54)
[2019-06-01 13:20] LABS: Absolute Lymphocyte Count 1.95 X10^3/ul (0.83-4.51); Absolute Neutrophil Count 8.3 X10^3/uL (2.0-7.7); Basophil# 0.02 X10^3/uL; Basophil% 0.2 % (0-1); Eosinophil# 0.05 X10^3/uL; Eosinophils% 0.5 % (0-5); Hematocrit 49.8 % (40-54); Lymphocyte # 1.95 X10^3/ul (4.0); Lymphocyte % 17.7 % (19-41); Mean Corp Hgb Conc 36.1 g/gl (32-36); Mean Corpuscular Hgb 32.8 pg (27.0-32.0); Mean Corpuscular Volume 90.9 fL (80-94); Mean Platelet Vol. 11.2 fl (6.2-12.0); Monocyte# 0.68 X10^3/uL; Monocyte% 6.2 % (0-10); Neutrophil % 75.1 % (47-70); Platelet Count 405 K/mm3 (150-450); RBC Distribution Width CV 12.5 % (11.6-14.6); RBC Distribution Width SD 41.7 fl (35.1-43.9); Red Blood Count 5.48 M/mm3 (4.6-6.2)
[2019-06-01 13:21] LABS: POSITIVE COUNT NO; POSITIVE DIFFERENTIAL NO; POSITIVE MORPHOLOGY NO
--- NOTE | 2019-06-01 13:23 | ED.RN ---
LAB CALLS WITH CRITICAL RESULT, HEMOGLOBIN 18.0, DR. BREWER MADE AWARE.
[2019-06-01 13:30] LABS: ALB/GLOB Ratio 1.4 RATIO (0.9-2.4); AST(SGOT) 13 U/L (15-37); Alanine Aminotransfer ALT/SGPT 15 U/L (16-61); Albumin, Serum 5.3 g/dL (3.2-5.0); Alkaline Phosphatase 78 U/L (45-117); Anion Gap 14 (5-15); BUN 15 mg/dL (7-18); BUN/Creat Ratio 12.9 RATIO (10-20); Calcium,Total 10.8 mg/dL (8.5-10.1); Chloride 105 mmol/L (98-107); Creatinine, Serum 1.16 mg/dL (0.70-1.30); EST Glomerular Filtration Rate 84 mL/min (>60); Est Glom Filt Rate - Afr Amer 102 mL/min (>60); Estimated Creatinine Clearance 90.48 ml/min; Globulin 3.8 g/dL (2.2-4.2); Glucose 136 mg/dL (74-106); Potassium 3.4 mmol/L (3.5-5.1); Protein, Total 9.1 g/dL (6.4-8.2); Sodium Level 142 mmol/L (136-145)
[2019-06-01 15:47] VITALS: BP 115/80; PULSE 100; RESP 17; O2SAT 97
--- NOTE | 2019-06-01 15:48 | ED.RN ---
IV DC'ED, CATHETER INTACT, SMALL GAUZE DRESSING PLACED. PT DENIES QUESTIONS OR CONCERNS. PT AMBULATES OUT OF ROOM WITHOUT DIFFICULTY.
== END 2019-06-01 15:49 | disposition home or self-care (01) ==
PROVIDERS: Emergency Provider Emergency Medicine
DX: G43.A0 Cyclical vomiting, in migraine, not intractable (principal); F17.200 Nicotine dependence, unspecified, uncomplicated
CPT/HCPCS: 80053; 85025; 96361; 96365; 96375; 99283; J7030; A4216; J2405; J3490

== ENCOUNTER 2019-07-04 05:36 | Emergency (ER) | payer OTHER, SELFPAY ==
[2019-07-04 05:37] VITALS: BP 136/80; PULSE 94; RESP 19; TEMP 36.1; O2SAT 95; BMI 18.4
[2019-07-04 05:47] VITALS: BP 136/80; PULSE 94; RESP 19; TEMP 36.1; O2SAT 95
--- NOTE | 2019-07-04 06:43 | ED.VISSUMM ---
- ER Visit Summary Date of Service: 07/04/19 Chief Complaint: Vomiting History of Present Illness: The patient is a 23 M presenting with vomiting x2 days. Patient has a history of cyclic vomiting syndrome. He has complaints of abdominal pain. He denies diarrhea. He states he ran out of his Zofran and Ativan which occasionally helps his symptoms. He denies any known triggers to his cyclic vomiting but does admit to marijuana use. Denies fever or other complaints. Physical Examination: Vitals are stable. Patient is afebrile. Alert no acute distress. HEENT exam is unremarkable. Neck is supple. Lungs are clear and equal bilaterally. Heart is regular rate and rhythm. Abdomen is soft left lower quadrant tenderness with no rebound or guarding Extremities are unremarkable. Skin is warm and dry. No focal neurologic deficit. Remainder of exam is unremarkable. Emergency Department Course and Treatment: Patient was given IV fluids, Zofran, Ativan. CBC shows white count of 13.1, chemistries unremarkable. Patient will be observed in the ED. He will be checked out to the oncoming physician. He will be discharged with Zofran if he is able to tolerate p.o. fluids. He is given Dr. Hammonds regional transportation manager for no doctor for follow-up. Disposition: Discharge home Impression: Cyclic vomiting syndrome This note was generated with [employer] dictation software. It may contain incorrect words, spelling, and punctuation that were not noted in review of the chart prior to signing ED Disposition - Plan for ED Patient: Instructions: VOMITING AND DIARRHEA, Nonspecific (Adult) Prescriptions: Ondansetron [Zofran Odt] 4 mg PO Q8H PRN PRN #10 tab PRN Reason: Nausea Prescription Printed Referrals: Robin Hammonds MD [NON-STAFF] -
[2019-07-04] MEDS: Ondansetron 4 MG/2 ML Vial IV (07:03)
[2019-07-04] MEDS: 0.9% Normal Saline 1,000 ML 999 ML IV ×2 (07:03→11:25)
[2019-07-04] MEDS: LORazepam 2 MG/ML Syringe 0.5 MG IV (07:03)
[2019-07-04 07:13] LABS: Absolute Lymphocyte Count 1.15 X10^3/uL (0.83-4.51); Basophil# 0.05 X10^3/uL; Basophil% 0.4 % (0-1); Eosinophil# 0.02 X10^3/uL; Eosinophils% 0.2 % (0-5); Hematocrit 45.5 % (40-54); Hemoglobin 16.1 g/dL (13.0-16.5); Lymphocyte # 1.15 X10^3/ul (4.0); Lymphocyte % 8.8 % (19-41); Mean Corp Hgb Conc 35.4 g/dL (32-36); Mean Corpuscular Hgb 32.2 pg (27.0-32.0); Mean Platelet Vol. 10.8 fl (6.2-12.0); Monocyte# 0.85 X10^3/uL; Monocyte% 6.5 % (0-10); NRBC Flagged by Analyzer 0 % (0-5); Neutrophil % 83.8 % (47-70); Platelet Count 407 K/mm3 (150-450); RBC Distribution Width SD 40.3 fl (35.1-43.9); White Blood Count 13.1 K/mm3 (4.4-11.0)
[2019-07-04 07:28] LABS: Anion Gap 8 (5-15); BUN 15 mg/dL (7-18); BUN/Creat Ratio 13.9 RATIO (10-20); Calcium,Total 10.1 mg/dL (8.5-10.1); Chloride 106 mmol/L (98-107); Creatinine, Serum 1.08 mg/dL (0.70-1.30); EST Glomerular Filtration Rate 91 mL/min (>60); Est Glom Filt Rate - Afr Amer 110 mL/min (>60); Estimated Creatinine Clearance 91.82 ml/min; Glucose 128 mg/dL (74-106); Potassium 3.8 mmol/L (3.5-5.1); Sodium Level 141 mmol/L (136-145)
--- NOTE | 2019-07-04 07:38 | ED.DEP ---
ED Disposition - Plan for ED Patient: Instructions: VOMITING AND DIARRHEA, Nonspecific (Adult) Prescriptions: Ondansetron [Zofran Odt] 4 mg PO Q8H PRN PRN #10 tablet PRN Reason: Nausea Referrals: Robin Hammonds MD [NON-STAFF] -
[2019-07-04 07:41] VITALS: BP 141/86; PULSE 78; RESP 16; TEMP 37.2; O2SAT 98
[2019-07-04] MEDS: proMETHazine 25 MG/ML Syringe 12.5 MG IV ×3 (08:25→11:05)
[2019-07-04] MEDS: LORazepam 2 MG/ML Syringe 1 MG IV (09:41)
[2019-07-04 10:00] VITALS: BP 121/68; PULSE 77; RESP 16; TEMP 37.6; O2SAT 98
[2019-07-04] MEDS: DiphenhydrAMINE 50 MG/ML Syringe 25 MG IV ×2 (11:05→12:50)
[2019-07-04 12:00] VITALS: BP 128/69; PULSE 92; RESP 16; TEMP 37.6; O2SAT 99
[2019-07-04] MEDS: Haloperidol Lactate 5 MG/ML Vial 2 MG IV (12:50)
[2019-07-04 14:04] VITALS: BP 120/84; PULSE 87; RESP 16; O2SAT 95
== END 2019-07-04 14:05 | disposition home or self-care (01) ==
LOC: ED 06:54
PROVIDERS: Emergency Provider Emergency Medicine
DX: G43.A1 Cyclical vomiting, in migraine, intractable (principal); F12.90 Cannabis use, unspecified, uncomplicated
CPT/HCPCS: 80048; 85025; 96361; 96374; 96375; 96376; 99285; J7030; A4216; J2405

== ENCOUNTER 2019-08-08 17:35 | Emergency (ER) | payer OTHER, SELFPAY ==
[2019-08-08 17:36] VITALS: BP 139/90; PULSE 105; RESP 16; TEMP 36.7; O2SAT 95; BMI 17.6
[2019-08-08] MEDS: predniSONE 20 MG Tablet 60 MG PO (18:06)
[2019-08-08] MEDS: DiphenhydrAMINE 25 MG Capsule PO (18:07)
[2019-08-08 18:08] VITALS: PULSE 87; O2SAT 98
--- NOTE | 2019-08-08 18:17 | CT_ITS ---
STUDY: CT SOFT TISSUE NECK WITH CONTRAST REASON FOR EXAM: Male, 23 years old. Tongue swelling after eating at half cc. RADIATION DOSAGE (If Supplied By Facility): CTDIvol = ( 11.44 ) mGy, DLP = ( 379.95 ) mGycm TECHNIQUE: The patient was scanned in a multi-detector CT scanner. High resolution transaxial imaging was performed following intravenous administration of 100 IV Isovue 300. Sagittal and coronal images were reconstructed. Individualized dose optimization techniques were used for this CT. COMPARISON: None. FINDINGS: Normal bilateral parotid glands. Normal bilateral tow motor operator spaces. Normal bilateral parapharyngeal spaces. Normal bilateral carotid spaces. Normal bilateral sublingual and submandibular glands and spaces. Normal visualized nasopharynx. Normal retropharyngeal space. Normal perivertebral space. Normal visualized bilateral faucial tonsils. The visualized tongue, tongue base and oropharynx are normal. The visualized cervical lymph nodes (levels I-) are within normal size limits, and maintain normal morphology. There is no demonstrated solid or cystic mass lesion. There is no abnormal contrast enhancement. Normal epiglottis, bilateral vallecula and hypopharynx. The pre-epiglottic and paraglottic adipose spaces are normal. Normal visualized bilateral piriform sinuses, aryepiglottic folds, vocal cords, and arytenoid-cricoid articulations. Normal subglottic trachea. Normal bilateral lobes of the thyroid gland. Normal visualized pulmonary apices. Normal visualized paranasal sinuses. Normal visualized cervical spine. CT/Soft Tissue Neck WITH Contrast IMPRESSION: Normal enhanced CT examination of the soft tissues of the neck. Electronically Signed: Keon Quintero DO at 19:34 EDT Tel [phone], Service support ,
[2019-08-08 18:43] VITALS: PULSE 88; RESP 16; O2SAT 98
[2019-08-08] MEDS: Ketorolac 30 MG/ML Syringe IV (18:55)
[2019-08-08 18:59] LABS: Anion Gap 7 (5-15); BUN 10 mg/dL (7-18); BUN/Creat Ratio 10.5 RATIO (10-20); Calcium,Total 9.4 mg/dL (8.5-10.1); Chloride 101 mmol/L (98-107); Creatinine, Serum 0.96 mg/dL (0.70-1.30); EST Glomerular Filtration Rate 105 mL/min (>60); Est Glom Filt Rate - Afr Amer 127 mL/min (>60); Estimated Creatinine Clearance 101.52 ml/min; Glucose 115 mg/dL (74-106); Sodium Level 137 mmol/L (136-145)
[2019-08-08 19:03] LABS: Absolute Lymphocyte Count 2.03 X10^3/uL (0.83-4.51); Absolute Neutrophil Count 6.7 X10^3/uL (2.0-7.7); Basophil# 0.06 X10^3/uL; Basophil% 0.6 % (0-1); Eosinophil# 0.04 X10^3/uL; Eosinophils% 0.4 % (0-5); Hematocrit 44.2 % (40-54); Hemoglobin 15.3 g/dL (13.0-16.5); Lymphocyte # 2.03 X10^3/ul (4.0); Lymphocyte % 20.8 % (19-41); Mean Corp Hgb Conc 34.6 g/dL (32-36); Mean Corpuscular Hgb 31.5 pg (27.0-32.0); Mean Corpuscular Volume 90.9 fL (80-94); Mean Platelet Vol. 10.6 fl (6.2-12.0); Monocyte# 0.87 X10^3/uL; Monocyte% 8.9 % (0-10); NRBC Flagged by Analyzer 0 % (0-5); Neutrophil # 6.72 X10^3/uL (2.7-7.7); Platelet Count 353 K/mm3 (150-450); RBC Distribution Width CV 12.5 % (11.6-14.6); RBC Distribution Width SD 41.3 fl (35.1-43.9); Red Blood Count 4.86 M/mm3 (4.6-6.2); White Blood Count 9.8 K/mm3 (4.4-11.0)
--- NOTE | 2019-08-08 20:12 | NURSING ---
PAGED NEUROLOGY AT 2011
--- NOTE | 2019-08-08 20:45 | ED.VISSUMM ---
- ER Visit Summary Date of Service: 08/08/19 Chief Complaint: Tongue swelling History of Present Illness: The patient is a 23 M with left-sided tongue swelling. This has happened intermittently throughout the day today. He thinks he might of been exposed to allergen at [employer]. He is also on antibiotics for a dental infection. He initially told me it was amoxicillin or penicillin and then that it was possibly clindamycin. He has been taking these antibiotics for 2 weeks. He also smokes marijuana and has a history of cyclic vomiting syndrome. Physical Examination: Initial exam was completely unremarkable. Vitals were normal. Test Results: See below Emergency Department Course and Treatment: On initial presentation, his exam was normal. Tongue was normal. No swelling noted. Normal voice. Normal airway. Skin normal. He was treated with Benadryl and prednisone for possible allergic reaction. I was notified by nursing that he was complaining of tongue swelling. I went to reevaluate him. He said he felt like his tongue was swelling and he was slurring his words. I examined his tongue and it was unremarkable. He had abnormal speech and it sounded like a lisp or mild dysarthria. He had no other abnormal neurologic findings. Nothing focal. Airway normal. At this point, I ordered blood work. He had hypokalemia. He was sent for CT. This was normal. On further reevaluation, his symptoms have resolved. I was speaking with him and then they recurred. I spoke with neurology. Dr. Isabel advised that this could be some type of atypical seizure. He also advised that with his marijuana use, he could have vasculitis or even a brainstem stroke affecting his 12 cranial nerve. He advised admission for EEG and MRIs. Patient did not want admission. He would like to go home. He will return tomorrow if he has continued symptoms. Patient signed out AGAINST MEDICAL ADVICE. Treatment Plan: As above Disposition: AGAINST MEDICAL ADVICE Impression: 1. Tongue swelling This note was generated with [employer] dictation software. It may contain incorrect words, spelling, and punctuation that were not noted in review of the chart prior to signing ED Disposition - Plan for ED Patient: Disposition: Against Medical Advice Instructions: Blank Diagnosis Form Referrals: Margy Jean [NON-STAFF] -
[2019-08-08 20:55] VITALS: BP 128/80; PULSE 80; O2SAT 90
== END 2019-08-08 20:55 | disposition left against medical advice (07) ==
LOC: ED 18:22
PROVIDERS: Emergency Provider Emergency Medicine
DX: R22.0 Localized swelling, mass and lump, head (principal); E87.6 Hypokalemia; K04.7 Periapical abscess without sinus; Z79.2 Long term (current) use of antibiotics
CPT/HCPCS: 70491; 80048; 85025; 96374; 99284; Q9967; A4216

== ENCOUNTER 2020-01-26 22:51 | Emergency (ER) | payer MEDICAID, SELFPAY ==
[2020-01-26 22:51] VITALS: BP 142/80; PULSE 115; RESP 18; TEMP 37.4; O2SAT 99; BMI 18.3
--- NOTE | 2020-01-26 23:43 | EKG12_ITS ---
Test Reason : HEADACHE Blood Pressure : / mmHG Vent. Rate : 118 BPM Atrial Rate : 118 BPM P-R Int : 120 ms QRS Dur : 080 ms QT Int : 350 ms P-R-T Axes : 078 090 080 degrees QTc Int : 490 ms Sinus tachycardia Rightward axis Borderline ECG Confirmed by KARLA DOMINGO, SURAJ ([id number]), newspaper editor managing TORI DOTSON ([id number]) on 01/28/2020 10:16:55 AM Referred By: ORA Confirmed By:SURAJ ACOSTA MD
--- NOTE | 2020-01-26 23:59 | RAD_ITS ---
STUDY: X-RAY CHEST REASON FOR EXAM: Male, 24 years old. CHEST PAIN TECHNIQUE: Single AP portable view of the chest. COMPARISON: 10/15/14. FINDINGS: The lungs are clear and expanded. There is no demonstrated pleural abnormality. Normal size heart. Normal mediastinum and sandra. Normal visualized pulmonary arteries. Normal visualized aortic arch and descending thoracic aorta. Normal visualized thoracic spine. Normal visualized ribs, clavicles, and shoulders. There is no demonstrated abnormality of the visualized soft tissue structures of the upper abdomen. RAD/Chest 1 View (Portable) IMPRESSION: Normal x-ray examination of the chest. Electronically Signed: Steffanie Jensen MD at 0:55 EST , Service support ,
[2020-01-27] MEDS: LORazepam 2 MG/ML Syringe 0.5 MG IV (00:18)
[2020-01-27] MEDS: Ondansetron 4 MG/2 ML Vial IV (00:19)
[2020-01-27] MEDS: Famotidine 200 MG/20 ML MDV 20 MG in 0.9% Normal Saline (Pres. free 8 ML 300 MG IV (00:19)
[2020-01-27 00:24] LABS: Absolute Lymphocyte Count 1.19 X10^3/uL (0.83-4.51); Absolute Neutrophil Count 14.9 X10^3/uL (2.0-7.7); Basophil# 0.02 X10^3/uL; Basophil% 0.1 % (0-1); Hematocrit 46.6 % (40-54); Hemoglobin 16.3 g/dL (13.0-16.5); Lymphocyte # 1.19 X10^3/ul (4.0); Lymphocyte % 6.9 % (19-41); Mean Corpuscular Volume 88.6 fL (80-94); Mean Platelet Vol. 10.3 fl (6.2-12.0); Monocyte# 0.94 X10^3/uL; Monocyte% 5.5 % (0-10); NRBC Flagged by Analyzer 0 % (0-5); Neutrophil # 14.92 X10^3/uL (2.7-7.7); Platelet Count 475 K/mm3 (150-450); RBC Distribution Width CV 11.9 % (11.6-14.6); RBC Distribution Width SD 38.6 fl (35.1-43.9); Red Blood Count 5.26 M/mm3 (4.6-6.2); White Blood Count 17.2 K/mm3 (4.4-11.0)
[2020-01-27 00:51] VITALS: BP 158/75; PULSE 100; RESP 18; O2SAT 100
[2020-01-27 01:24] LABS: ALB/GLOB Ratio 1.3 RATIO (0.9-2.4); AST(SGOT) 14 U/L (15-37); Alanine Aminotransfer ALT/SGPT 21 U/L (16-61); Alkaline Phosphatase 85 U/L (45-117); Anion Gap 11 (5-15); BUN 19 mg/dL (7-18); BUN/Creat Ratio 13.3 RATIO (10-20); Calcium,Total 10.5 mg/dL (8.5-10.1); Chloride 98 mmol/L (98-107); Creatinine, Serum 1.43 mg/dL (0.70-1.30); EST Glomerular Filtration Rate 66 mL/min (>60); Est Glom Filt Rate - Afr Amer 79 mL/min (>60); Estimated Creatinine Clearance 70.18 ml/min; Globulin 3.8 g/dL (2.2-4.2); Glucose 140 mg/dL (74-106); Lipase 63 U/L (73-393); Potassium 3.5 mmol/L (3.5-5.1); Protein, Total 8.8 g/dL (6.4-8.2); Sodium Level 139 mmol/L (136-145)
--- NOTE | 2020-01-27 01:58 | ED.DCSUM_ITS ---
History of Present Illness Chief Complaint: Nausea/Vomiting Informant: Patient - Abdominal Pain/Flank Pain Onset: Days Context: Gradual Onset Timing: Continuous Quality: Aching Location: Diffuse Worsened by: Nothing Relieved by: Nothing - Nausea/Vomiting/Emesis GI Symptom: Nausea, Vomiting Onset: Days - 3 - Diarrhea/Melena/Hematochezia GI Symptom: Negative for: Diarrhea, Melena, Hematochezia Associated Symptoms: Negative for: Dysuria, Frequency, Hematuria, Urgency Narrative: Patient is a 24-year-old male presenting with 3 days of nausea and vomiting. He has associated hernan pain. He states it feels like his cyclic vomiting. He states he is vomited 20 times to count. He states his vomit is yellow. He has had normal bowel movements and denies any diarrhea. He does elicit some chest pain secondary to his throwing up. Patient does continue to smoke marijuana. He states his GI doctor and can has told him his symptoms are not from smoking marijuana. Patient denies any other complaints at this time. Prior similar symptoms: Yes - Cyclic vomiting syndrome Past Medical History - Allergies and Home Meds Allergies/Adverse Reactions: Allergies risperidone [From Risperdal] Adverse Reaction (Verified 01/26/20 22:54) TACHYCARDIA RAPID HEARTBEAT Primary Care Physician: Binu Jose MD [Primary Care Provider] - Past Medical History: - - Cyclic vomiting syndrome Surgical History: - - Patient reports stomach valve surgery; and left knee reconstruction surgery. Smoking Status: Current every day smoker - Family History Paternal Family History: Reports: - - Patient does not know his paternal medical history. Maternal Family History: Reports: - - Migraines Review of Systems General: Denies: Chills, Fever, Sweats Eyes: Denies: Visual changes - bilaterally, Diplopia ENT: Denies: Rhinorrhea, Sore throat Cardiovascular: Reports: Chest pain. Denies: Palpitations Respiratory: Denies: Dyspnea, Cough, Dyspnea on exertion Gastrointestinal: Reports: Abdominal pain, Nausea, Vomiting. Denies: Diarrhea, Constipation, Melena, Hematochezia Genitourinary: Denies: Dysuria, Hematuria, Frequency Musculoskeletal: Denies: Back pain, Extremity Pain Skin: Denies: Rash, Wounds Neurological: Denies: Headache, Weakness, Numbness Physical Exam Vital Signs/Narrative: Vital Signs Temp Pulse Resp BP Pulse Ox 01/27/20 00:51 100 18 158/75 H 100 01/26/20 22:51 99.4 F H 115 H 18 142/80 H 99 Inital Vital Signs reviewed: Yes General: Well nourished, Well developed, No Acute Distress Head: Normocephalic, Atraumatic Eyes: Perrl, EOMI ENT: No rhinorrhea, Dry mucous membranes Neck: Supple, Nontender Cardiovascular: Regular rhythm, No murmurs, Tachycardia Respiratory: No distress, CTA bilaterally, Chest nontender Abdomen: Soft, Nondistended, Normal bowel sounds, Tender - Diffuse. Negative for: Guarding, Rebound tenderness Back: Nontender, Normal Inspection Extremities: Nontender, No edema Skin: Normal color, No rash Neurological: Alert, Oriented x3, Cranial nerves II-XII grossly intact, Normal Strength, Normal Sensation Psychological: Normal affect, Normal Mood Diagnostic/Tx/Re-eval Chest X-Ray - ED: 1 View, Read by ED Physician, Read by Radiologist, No Acute Disease Clinical Impression(s) from Imaging Studies Chest X-Ray 01/26/20 23:59 IMPRESSION: Normal x-ray examination of the chest. Electronically Signed: Steffanie Jensen MD at 0:55 EST , Service support , Abdomen/Pelvis CT 01/27/20 03:49 IMPRESSION: No acute abdominopelvic abnormality. Nonobstructing right renal calculi. Individualized dose optimization techniques were used for this CT. at 0442 Reported and signed by: Aga Bowling MD Electronically Signed: Aga Bowling MD at 4:42 EST Tel , Service support , Laboratory Data 01/27/20 01/27/20 00:13 00:56 WBC 17.2 H RBC 5.26 Hgb 16.3 Hct 46.6 MCV 88.6 MCH 31.0 MCHC 35.0 RDW Std Deviation 38.6 RDW Coeff of Niki 11.9 Plt Count 475 H MPV 10.3 Immature Gran % (Auto) 0.500 Neut % (Auto) 87.0 H Lymph % (Auto) 6.9 L [place] % (Auto) 5.5 Eos % (Auto) 0.0 Baso % (Auto) 0.1 Absolute Neuts (auto) 14.9 H Absolute Lymphs (auto) 1.19 Nucleated RBC % 0 Sodium 139 Potassium 3.5 Chloride 98 Carbon Dioxide 30.0 Anion Gap 11 BUN 19 H Creatinine 1.43 H Estim Creat Clear Calc 70.18 Est GFR (MDRD) Af Amer 79 Est GFR (MDRD) Non-Af 66 BUN/Creatinine Ratio 13.3 Glucose 140 H Calcium 10.5 H Total Bilirubin 0.50 AST 14 L ALT 21 Alkaline Phosphatase 85 Total Protein 8.8 H Albumin 5.0 Globulin 3.8 Albumin/Globulin Ratio 1.3 Lipase 63 L - Rhythm Strip Rhythm Strip: Sinus Tach Rate: 118 Ectopy: None - EKG Initial EKG Interpretation: Sinus Tachycardia, - - Tachycardia at a rate of 118 Normal intervals Normal axis Normal ST segments - Medical Decision Making Patient evaluated for 3 days of nausea and vomiting as well as abdominal pain. This is consistent with a cyclic vomiting syndrome. Patient is given medication per cyclic vomiting protocol. He started with a liter of IV fluids. Patient do es have a significant leukocytosis but no IV source of infection. I suspect this is reactive from his vomiting and his dehydration. In addition he does have an elevation of his creatinine. Patient is given a second liter of IV fluids. On reevaluation patient states he is not feeling any better however we had to wake him up to ask him how he was feeling. Patient is then given 2 mg of IV Haldol. Patient continues to sleep in the emergency room. He does not have any witnessed retching or vomiting while he is in the emergency room. Because of his leukocytosis and need for re-dosing of medications I did add on a CT of the abdomen pelvis. This does not show any acute pathology to explain his presentation. On final reevaluation patient states he is feeling better and is ready to go home. He will be discharged home with a course of Zofran. He is counseled that he did have signs of dehydration with his creatinine and needs to follow-up with his PCP this week for repeat check of his kidney function. Patient is counseled on signs and symptoms requiring return to the emergency room. Patient verbalizes agreement and understand this plan. Patient discharged home in stable and improved condition. ED Disposition - Plan for ED Patient: Disposition: Home or Assisted Living Diagnosis: Cyclic vomiting syndrome, Dehydration Instructions: VOMITING (8y-Adult) Prescriptions: Ondansetron [Zofran Odt] 4 mg PO Q8H PRN PRN #10 tab PRN Reason: Nausea Prescription Printed Referrals: Binu Jose MD [Primary Care Provider] - Additional Instructions: You did have findings of dehydration. Please follow-up with your primary care doctor to have your kidney function rechecked this week. He did receive 2 L of IV fluid while you are here. Please return the emergency room if you have any worsening symptoms.
--- NOTE | 2020-01-27 03:49 | CT_ITS ---
HISTORY: N/V X 3 DAYS, CYCLIC VOMITING SYNDROME, ELEVATED WBC, HX BOWEL RESECTION DUE TO INSUSSUSCEPTION ADDITIONAL HISTORY: None provided. TECHNIQUE: CT images were obtained of the abdomen and pelvis with 100mL Isovue-370 IV contrast. Enteric contrast was not given. A radiation dose optimization technique was used for this scan. Number of images including paperwork: [id number] COMPARISON: 01/27/2019 FINDINGS: LOWER THORAX: No consolidation or pleural effusion. LIVER: No concerning focal lesion. GALLBLADDER: No radiopaque calculi. BILE DUCTS: No significant biliary dilatation. SPLEEN: Unremarkable. PANCREAS: Unremarkable. ADRENAL GLANDS: Unremarkable. KIDNEYS/URETERS: 3 mm nonobstructing right upper pole renal calculus and punctate nonobstructing right lower pole renal calculus. BOWEL: No bowel obstruction. No significant bowel wall thickening. No localized inflammation. Postoperative changes in the left upper quadrant. APPENDIX: No evidence of appendicitis. FREE FLUID: No significant free fluid. FREE AIR: None. LYMPH NODES: No pathologic appearing adenopathy. PERITONEUM, RETROPERITONEUM AND MESENTERY: Otherwise unremarkable. VASCULATURE: Unremarkable as imaged. PELVIS: Unremarkable bladder. ABDOMINAL WALL: Unremarkable. OSSEOUS AND SOFT TISSUE STRUCTURES: No acute skeletal findings. CT/Abdomen/Pelvis W IV Cont ONLY IMPRESSION: No acute abdominopelvic abnormality. Nonobstructing right renal calculi. Individualized dose optimization techniques were used for this CT. at 0442 Reported and signed by: Aga Bowling MD Electronically Signed: Aga Bowling MD at 4:42 EST Tel , Service support ,
[2020-01-27] MEDS: Haloperidol Lactate 5 MG/ML Vial 2 MG IV (03:54)
[2020-01-27] MEDS: 0.9% Normal Saline 1,000 ML 999 ML IV ×2 (03:54→05:58)
[2020-01-27 03:58] VITALS: BP 120/47; PULSE 122; RESP 16; O2SAT 98
[2020-01-27 06:11] VITALS: BP 127/40; PULSE 96; RESP 14; O2SAT 97
[2020-01-27 07:33] VITALS: BP 143/56; PULSE 102; RESP 16; O2SAT 97
== END 2020-01-27 07:54 | disposition home or self-care (01) ==
PROVIDERS: Emergency Provider Emergency Medicine; PCP Family Medicine
DX: R11.15 Cyclical vomiting syndrome unrelated to migraine (principal); E86.0 Dehydration; Z72.0 Tobacco use
CPT/HCPCS: 36415; 71045; 74177; 80053; 83690; 85025; 93005; 96361; 96365; 96375; 99285; J7030; Q9967; A4216; J2405; J3490

== ENCOUNTER 2020-01-29 12:48 | Emergency (ER) | payer MEDICAID, SELFPAY ==
[2020-01-29 12:49] VITALS: BP 139/73; PULSE 88; RESP 18; TEMP 36.6; O2SAT 98; BMI 19.5
== END 2020-01-29 15:08 | disposition left against medical advice (07) ==
LOC: ED 14:05
PROVIDERS: Emergency Provider Emergency Medicine; PCP Family Medicine
DX: Z53.21 Procedure and treatment not carried out due to patient leaving prior to being seen by health care provider (principal)

== ENCOUNTER 2020-06-26 00:17 | Emergency (ER) | payer MEDICAID, SELFPAY ==
[2020-06-26 00:18] VITALS: BP 142/99; PULSE 109; RESP 18; TEMP 36.4; O2SAT 95; BMI 19.0
--- NOTE | 2020-06-26 00:38 | ED.VIS.GI ---
History of Present Illness Chief Complaint: Nausea/Vomiting Informant: Patient - Abdominal Pain/Flank Pain Onset: Days - 2 Context: Gradual Onset Timing: Continuous Quality: Aching Location: - - left side of abdomen Current Severity: Severe - vomiting Maximum Severity: Severe Worsened by: Food Relieved by: Nothing - Nausea/Vomiting/Emesis GI Symptom: Nausea, Vomiting Onset: Days - 2 Quality: Nonbilious. Negative for: Blood streaks, Coffee ground, Hematemesis Severity: Severe - more than 10 x/day; countless - Diarrhea/Melena/Hematochezia GI Symptom: Negative for: Diarrhea, Melena, Hematochezia Associated Symptoms: - - pt states he is urinating. Negative for: Dysuria, Frequency, Hematuria, Urgency Narrative: History of cyclic vomiting syndrome, states this feels similar to prior episodes, the vomiting started before the pain, he thinks that the trigger was eating red sauce. No syncope. No thoracic symptoms. No fevers or chills or other recent illnesses. No suspicious food ingestions otherwise, such as uncooked or undercooked meats. No known sick contacts with similar symptoms. No diarrhea. No blood in his stool or melena. - Past Medical History (1) Cyclic vomiting syndrome Status: Chronic Past Medical History - Allergies and Home Meds Allergies/Adverse Reactions: Allergies risperidone [From Risperdal] Adverse Reaction (Verified 06/26/20 00:20) TACHYCARDIA RAPID HEARTBEAT Primary Care Physician: Binu Jose MD [Primary Care Provider] - 1-2 Days if not improving Surgical History: - - resection of part of small intestine due to intussusception at 20 years of age; and left knee reconstruction surgery. Smoking Status: Never smoker - Family History Paternal Family History: Reports: - - Patient does not know his paternal medical history. Maternal Family History: Reports: - - Migraines Review of Systems General: Reports: Malaise. Denies: Chills, Fever, Sweats Eyes: Denies: Visual changes - bilaterally, Diplopia ENT: Denies: Rhinorrhea, Sore throat Cardiovascular: Denies: Chest pain, Palpitations Respiratory: Denies: Dyspnea, Cough, Dyspnea on exertion Gastrointestinal: Reports: Abdominal pain, Nausea, Vomiting. Denies: Diarrhea, Melena, Hematochezia Genitourinary: Denies: Dysuria, Hematuria, Frequency Musculoskeletal: Denies: Back pain, Extremity Pain Skin: Denies: Rash, Wounds Neurological: Denies: Headache, Weakness, Numbness Physical Exam Vital Signs/Narrative: Vital Signs Temp Pulse Resp BP Pulse Ox 06/26/20 00:18 97.6 F L 109 H 18 142/99 H 95 Inital Vital Signs reviewed: Yes General: Well nourished, Well developed, No Acute Distress Head: Normocephalic, Atraumatic Eyes: Perrl, EOMI ENT: Moist mucous membranes - w/ dry lips, No rhinorrhea Neck: Supple, Nontender Cardiovascular: Regular rate, Regular rhythm, No murmurs Respiratory: No distress, CTA bilaterally, Chest nontender Abdomen: Soft, Nondistended, Normal bowel sounds, Tender - throughout left side abd; makes pt vomit w/ exam. Negative for: Guarding, Rebound tenderness Back: Nontender, Normal Inspection Extremities: Nontender, No edema, Calf Tenderness Skin: Normal color, No rash Neurological: Alert, Oriented x3, Cranial nerves II-XII grossly intact, Normal Strength, Normal Sensation, Normal Gait Psychological: Normal affect, Normal Mood Diagnostic/Tx/Re-eval Laboratory Tests 06/26/20 Range/Units 00:58 Sodium 140 (136-145) mmol/L Potassium 3.8 (3.5-5.1) mmol/L Chloride 106 (98-107) mmol/L Carbon Dioxide 27.0 (21.0-32.0) mmol/L Anion Gap 7 (5-15) BUN 13 (7-18) mg/dL Creatinine 1.03 (0.70-1.30) mg/dL Estim Creat Clear Calc 101.04 ml/min Est GFR (MDRD) Af Amer 115 (>60) mL/min Est GFR (MDRD) Non-Af 95 (>60) mL/min BUN/Creatinine Ratio 12.6 (10-20) RATIO Glucose 145 H (74-106) mg/dL Calcium 9.7 (8.5-10.1) mg/dL - Medical Decision Making Initially ordered 2 L of fluid for this patient, because of how much he said he was vomiting. I sent off his electrolytes, they are all normal as is his renal function and BUN. For that reason, we stopped after 1 L. He was initially given Thorazine since Haldol seemed to work last time, in addition to Toradol. He said it did not help at all although he stopped vomiting, which she was actively doing when he got here. I then gave him Zofran and Ativan. He is wanting something for pain, I do not think giving him narcotics is going to be helpful for him, I will offer him a GI cocktail and Bentyl, which I suspect should help, and he will be discharged with a prescription for Zofran. ED Disposition - Plan for ED Patient: Disposition: Home or Assisted Living Diagnosis: Cyclic vomiting syndrome, Vomiting, Left sided abdominal pain Instructions: ED Vomiting and Diarrhea Nonspecific Adult Prescriptions: Ondansetron [Zofran Odt] 8 mg PO Q8H PRN PRN #12 tab PRN Reason: Nausea Prescription Printed Referrals: Binu Jose MD [Primary Care Provider] - 1-2 Days if not improving
[2020-06-26 01:16] LABS: Anion Gap 7 (5-15); BUN 13 mg/dL (7-18); BUN/Creat Ratio 12.6 RATIO (10-20); Calcium,Total 9.7 mg/dL (8.5-10.1); Chloride 106 mmol/L (98-107); Creatinine, Serum 1.03 mg/dL (0.70-1.30); EST Glomerular Filtration Rate 95 mL/min (>60); Est Glom Filt Rate - Afr Amer 115 mL/min (>60); Estimated Creatinine Clearance 101.04 ml/min; Glucose 145 mg/dL (74-106); Potassium 3.8 mmol/L (3.5-5.1); Sodium Level 140 mmol/L (136-145)
[2020-06-26] MEDS: 0.9% Normal Saline 1,000 ML 999 ML IV ×2 (01:16→02:46)
[2020-06-26] MEDS: Ketorolac 30 MG/ML Syringe IV (01:17)
[2020-06-26] MEDS: LORazepam 2 MG/ML Syringe 1 MG IV (02:50)
[2020-06-26] MEDS: Ondansetron 4 MG/2 ML Vial IV (02:50)
[2020-06-26 03:50] VITALS: BP 107/71; PULSE 90; RESP 18; O2SAT 97
== END 2020-06-26 03:54 | disposition home or self-care (01) ==
PROVIDERS: Emergency Provider Emergency Medicine; PCP Family Medicine
DX: R11.15 Cyclical vomiting syndrome unrelated to migraine (principal); R11.10 Vomiting, unspecified; R10.9 Unspecified abdominal pain
CPT/HCPCS: 80048; 96365; 96375; 99282; J7030; A4216; J2405; J3490

== ENCOUNTER 2020-06-29 16:58 | Emergency (ER) | payer MEDICAID, SELFPAY ==
[2020-06-29 16:59] VITALS: BP 151/97; PULSE 71; RESP 22; TEMP 36.3; BMI 17.9
--- NOTE | 2020-06-29 17:13 | ED.DCSUM_ITS ---
History of Present Illness Chief Complaint: Nausea/Vomiting Informant: Patient - Abdominal Pain/Flank Pain Onset: Days - 5 Context: Gradual Onset Timing: Continuous Quality: Aching Location: LUQ Current Severity: Severe Maximum Severity: Severe Worsened by: Food Relieved by: Nothing - Nausea/Vomiting/Emesis GI Symptom: Nausea, Vomiting Onset: Days - 5 Quality: Nonbilious. Negative for: Blood streaks, Coffee ground, Hematemesis Severity: Severe - Diarrhea/Melena/Hematochezia GI Symptom: Negative for: Diarrhea, Melena, Hematochezia Associated Symptoms: Negative for: Dysuria, Frequency, Hematuria Narrative: Patient returns, he has a history of cyclic vomiting syndrome and was seen here 3 days ago for the same symptoms. He states the vomiting and pain have not resolved, he refused to take some of the medications we offered/gave him before leaving last time as well. He states the pain is more of an issue today than the vomiting. He denies any new symptoms. Prior similar symptoms: Yes - Past Medical History (1) Cyclic vomiting syndrome Status: Chronic Past Medical History - Allergies and Home Meds Allergies/Adverse Reactions: Allergies risperidone [From Risperdal] Adverse Reaction (Verified 06/26/20 00:20) TACHYCARDIA RAPID HEARTBEAT Primary Care Physician: Binu Jose MD [Primary Care Provider] - As soon as possible Surgical History: - - resection of part of small intestine due to intussusception at 20 years of age; and left knee reconstruction surgery. Smoking Status: Never smoker Drugs: Marijuana - Family History Paternal Family History: Reports: - - Patient does not know his paternal medical history. Maternal Family History: Reports: - - Migraines Review of Systems General: Reports: Malaise. Denies: Chills, Fever, Sweats Eyes: Denies: Visual changes - bilaterally, Diplopia ENT: Denies: Rhinorrhea, Sore throat Cardiovascular: Denies: Chest pain, Palpitations Respiratory: Denies: Dyspnea, Cough, Dyspnea on exertion Gastrointestinal: Reports: Abdominal pain, Nausea, Vomiting. Denies: Diarrhea, Melena, Hematochezia Genitourinary: Denies: Dysuria, Hematuria, Frequency Musculoskeletal: Denies: Neck pain, Back pain, Swelling, Extremity Pain Skin: Denies: Rash, Wounds Neurological: Denies: Headache, Weakness, Numbness Physical Exam Vital Signs/Narrative: Vital Signs Temp Pulse Resp BP 06/29/20 16:59 97.4 F L 71 22 H 151/97 H Inital Vital Signs reviewed: Yes General: Well nourished, Well developed, No Acute Distress Head: Normocephalic, Atraumatic Eyes: Perrl, EOMI ENT: Moist mucous membranes, No rhinorrhea Neck: Supple, Nontender Cardiovascular: Regular rate, Regular rhythm, No murmurs. Negative for: Tachycardia Respiratory: No distress, CTA bilaterally, Chest nontender Abdomen: Soft, Nondistended, Normal bowel sounds, Tender - LUQ, Guarding - voluntary. Negative for: Rebound tenderness Back: Nontender, Normal Inspection Extremities: Nontender, No edema Skin: Normal color, No rash, No Trauma Neurological: Alert, Oriented x3, Cranial nerves II-XII grossly intact, Normal Strength, Normal Sensation, Normal Gait Psychological: Normal affect, Normal Mood Diagnostic/Tx/Re-eval Laboratory Tests 06/29/20 Range/Units 17:32 Sodium 139 (136-145) mmol/L Potassium 4.6 (3.5-5.1) mmol/L Chloride 107 (98-107) mmol/L Carbon Dioxide 25.0 (21.0-32.0) mmol/L Anion Gap 7 (5-15) BUN 13 (7-18) mg/dL Creatinine 0.89 (0.70-1.30) mg/dL Estim Creat Clear Calc 110.12 ml/min Est GFR (MDRD) Af Amer 137 (>60) mL/min Est GFR (MDRD) Non-Af 113 (>60) mL/min BUN/Creatinine Ratio 14.7 (10-20) RATIO Glucose 106 (74-106) mg/dL Calcium 9.4 (8.5-10.1) mg/dL - Medical Decision Making Patient was given a liter of IV fluids along with Reglan, morphine, Ativan, fo llowed by a dose of Zofran when he requested more nausea medicine after he refused to comply with a p.o. challenge of water. After all of this, and a set of electrolytes that are normal, he is wanting more medicine for pain and nausea. He still refuses to undergo an oral fluid challenge to see if he can keep some fluids down, however he has not vomited once here in the emergency department. I will give him IV Toradol and doses of IM dicyclomine and Thorazine, and then I feel he is stable to be discharged home with a ride. ED Disposition - Plan for ED Patient: Diagnosis: Cyclic vomiting syndrome, Vomiting Instructions: ED Nausea Vomiting Adult Referrals: Binu Jose MD [Primary Care Provider] - As soon as possible
[2020-06-29] MEDS: Metoclopramide 10 MG/2 ML Vial IV (17:34)
[2020-06-29] MEDS: LORazepam 2 MG/ML Syringe 1 MG IV (17:34)
[2020-06-29] MEDS: Morphine 4 MG/ML Syringe IV (17:35)
[2020-06-29] MEDS: 0.9% Normal Saline 1,000 ML 999 ML IV (17:35)
[2020-06-29 17:56] LABS: Anion Gap 7 (5-15); BUN 13 mg/dL (7-18); BUN/Creat Ratio 14.7 RATIO (10-20); Calcium,Total 9.4 mg/dL (8.5-10.1); Chloride 107 mmol/L (98-107); Creatinine, Serum 0.89 mg/dL (0.70-1.30); EST Glomerular Filtration Rate 113 mL/min (>60); Est Glom Filt Rate - Afr Amer 137 mL/min (>60); Estimated Creatinine Clearance 110.12 ml/min; Glucose 106 mg/dL (74-106); Potassium 4.6 mmol/L (3.5-5.1); Sodium Level 139 mmol/L (136-145)
[2020-06-29 19:20] VITALS: BP 125/67; PULSE 77; RESP 14; O2SAT 98
[2020-06-29] MEDS: Ondansetron 4 MG/2 ML Vial IV (19:38)
[2020-06-29] MEDS: Dicyclomine 20 MG/2 ML Vial IM (20:43)
[2020-06-29] MEDS: Ketorolac 30 MG/ML Syringe IV (20:45)
[2020-06-29] MEDS: ChlorproMAZINE 50 MG/2 ML Ampul 25 MG IM (20:45)
[2020-06-29 20:51] VITALS: BP 122/72; PULSE 84; RESP 18; O2SAT 99
--- NOTE | 2020-06-29 20:51 | ED.RN ---
Pt was told to wait 15 min but pt refused and walked out
--- NOTE | 2020-10-21 18:24 | CM.ED ---
Social Work ED Care Plan approved. Entered in [employer]. ED Care Plan faxed to PCP. ED Care Plan mailed to patient alone with resources. Telephone call to patient. No answer. Voicemail left requesting return phone call. Minh SANDS, EVGENY
== END 2020-06-29 20:52 | disposition home or self-care (01) ==
LOC: ED 17:46
PROVIDERS: Emergency Provider Emergency Medicine; PCP Nurse Practitioner Primary Care
DX: R11.15 Cyclical vomiting syndrome unrelated to migraine (principal); R11.2 Nausea with vomiting, unspecified
CPT/HCPCS: 80048; 96361; 96372; 96374; 96375; 99284; J7030; A4216; J2405

== ENCOUNTER 2021-05-28 05:20 | Inpatient (IN) | payer MEDICAID, SELFPAY ==
[2021-05-28] VITALS (35 sets, daily range): BP systolic 109–185; BP diastolic 65–101; PULSE 79–187; RESP 15–362; TEMP 35.8–38.9; O2SAT 92–100; BMI 24.0; BMI 22.1
[2021-05-28] MEDS: 0.9% Normal Saline 1,000 ML 999 ML IV ×2 (05:20→06:26)
[2021-05-28] MEDS: Adenosine 6 MG/2 ML Syringe IV (05:26)
[2021-05-28] MEDS: Adenosine 6 MG/2 ML Syringe 12 MG IV ×2 (05:28→05:32)
[2021-05-28] MEDS: Propofol 200 MG/20 ML Vial 40 MG IV BOLUS (05:35)
--- NOTE | 2021-05-28 05:39 | RAD_ITS ---
STUDY: X-RAY CHEST REASON FOR EXAM: Male, 25 years old. Dyspnea TECHNIQUE: Single PA view of the chest. COMPARISON: 01/26/2020 chest x-ray FINDINGS: The lungs are clear and expanded. There is no demonstrated pleural abnormality. Normal size heart. Normal mediastinum and sandra. Normal visualized pulmonary arteries. Normal visualized aortic arch and descending thoracic aorta. Normal visualized thoracic spine. Normal visualized ribs, clavicles, and shoulders. There is no demonstrated abnormality of the visualized soft tissue structures of the upper abdomen. RAD/Chest 1 View (Portable) IMPRESSION: Normal x-ray examination of the chest. Electronically Signed: Kindra Cobb MD at 6:33 EDT Tel , Service support ,
--- NOTE | 2021-05-28 05:40 | EKG12_ITS ---
Test Reason : CP Blood Pressure : / mmHG Vent. Rate : 177 BPM Atrial Rate : 182 BPM P-R Int : 000 ms QRS Dur : 084 ms QT Int : 278 ms P-R-T Axes : 000 079 062 degrees QTc Int : 477 ms Supraventricular tachycardia Otherwise normal ECG Confirmed by KARLA DOMINGO, SURAJ ([id number]), supervising editor news reel TORI DOTSON ([id number]) on 05/29/2021 1:10:13 PM Referred By: DC Confirmed By:SURAJ ACOSTA MD
[2021-05-28 05:56] LABS: Absolute Lymphocyte Count 4.11 X10^3/uL (0.83-4.51); Absolute Neutrophil Count 21.6 X10^3/uL (2.0-7.7); Basophil# 0.12 X10^3/uL; Basophil% 0.4 % (0-1); Eosinophil# 0.16 X10^3/uL; Eosinophils% 0.5 % (0-5); Hematocrit 50.8 % (40-54); Hemoglobin 16.2 g/dL (13.0-16.5); Lymphocyte # 4.11 X10^3/ul (0.83-4.51); Lymphocyte % 13.3 % (19-41); Mean Corp Hgb Conc 31.9 g/dL (32-36); Mean Corpuscular Hgb 31.8 pg (27.0-32.0); Mean Corpuscular Volume 99.8 fL (80-94); Mean Platelet Vol. 12.1 fl (6.2-12.0); Monocyte# 3.84 X10^3/uL; Monocyte% 12.4 % (0-10); NRBC Flagged by Analyzer 0 % (0-5); Neutrophil # 21.58 X10^3/uL (2.7-7.7); Neutrophil % 69.7 % (47-70); POSITIVE COUNT YES; POSITIVE DIFFERENTIAL YES; Platelet Count 447 K/mm3 (150-450); RBC Distribution Width CV 11.7 % (11.6-14.6); RBC Distribution Width SD 43.9 fl (35.1-43.9); Red Blood Count 5.09 M/mm3 (4.6-6.2)
[2021-05-28 05:58] LABS: Differential Indicated SCAN CRITERIA MET
[2021-05-28 06:00] LABS: Mucous, Urine 0 SEEN /hpf (<or=2+); Squamous Epithelial Cells - UA 0 SEEN /hpf (0-5)
[2021-05-28 06:01] LABS: Allen Test Positive; Base Excess -18 mmol/L (-2 to +2); Bicarbonate 9.4 mmol/L (22-26); Blood Gas Specimen Type ART; FI02 100; O2 Delivery Device NRB; PO2 220 mmHG (75-100); SITE R Radial; SO2 100 % (95-99); Total Carbon Dioxide 10 mmol/L; pCO2 23.4 mmHg (35-45); pH 7.21 (7.35-7.45)
[2021-05-28 06:05] LABS: Glucose, Dipstick 50 mg/dl (Normal); Ketone-Dipstick 15 mg/dl (Negative); Leukocyte Esterase-Dipstick 25 /ul (Negative); Nitrite-Dipstick Positive (Negative); Occult Blood-Urine 250 /ul (Negative); Protein-Dipstick 100 mg/dl (Negative); Urine Clarity Sl. Cloudy (Clear); Urine Urobilinogen 1 mg/dl (Normal)
--- NOTE | 2021-05-28 06:16 | EDS_ITS ---
HPI History of Present Illness Chief Complaint: Palpitations Informant: parent and EMS Limited: other (In distress) Onset/Context/Timing Onset: Yesterday Context: Gradual Onset Timing: Continuous Quality: Nonbloody vomiting Current Severity: Severe Maximum Severity: Severe Worsened by: Nothing Relieved by: Nothing Associated Symptoms Associated Symptoms: Heart racing, anxious Narrative Narrative: Patient has a history of cyclic vomiting syndrome. He was vomiting throughout the day, and he said things kept getting worse. His symptoms were severe. He started to feel his heart racing. He took a Klonopin but it did not help. History was limited as he was in distress. EMS noted a heart rate in the 180s. They started an IV fluid bolus but did not provide any other cardiac interventions. Recent Illness/Hospitalization: No PFSH PFSH Medical History Cyclic vomiting syndrome Home Medications NK 05/28/21 [History Last Taken Unknown] Allergy/AdvReac Type Severity Reaction Status Date / Time risperidone [From Risperdal] AdvReac TACHYCARDIA Verified 05/28/21 05:23 Social History Smoking Status: Never smoker ROS ROS ED Constitutional Constitutional ED: Denies chills or fever(s) Eyes Eyes: Denies change in vision ENT ENT ED: Denies ear pain Cardiovascular Cardiovascular: Reports palpitations and racing heartbeat; Denies chest pain Respiratory/Chest Respiratory/Chest: Denies cough, dyspnea or sputum Gastrointestinal Gastrointestinal: Reports nausea and vomiting; Denies abdominal pain, constipation or diarrhea Genitourinary Genitourinary ED: Denies dysuria, hematuria or urinary frequency Musculoskeletal Musculoskeletal: Denies arthralgias, back pain, myalgias or neck pain Integumentary Denies rash Neurologic Neurologic: Denies headache(s) Psychiatric Psychiatric: Reports anxiety; Denies depression Endocrine Endocrinology: Denies polyuria Allergic/Immunologic Allergic/Immunologic ED: Reports urticaria EXAM Physical Exam Const Vital Signs: 05/28/21 05:21 05/28/21 05:26 05/28/21 05:30 Temperature 96.4 F L Temperature Source Temporal Pulse Rate 178 H 187 H Respiratory Rate 32 H 48 H Respiratory Effort Short of Breath Blood Pressure 109/81 H 121/99 H Blood Pressure Mean 90 106 Pulse Ox 96 97 Oxygen Delivery Method Room Air Nasal Cannula Oxygen Flow Rate (L/min) 4 05/28/21 05:44 05/28/21 06:10 05/28/21 06:20 Temperature 102.1 F H Temperature Source Core Pulse Rate 152 H 144 H Respiratory Rate 35 H 362 H Respiratory Effort Blood Pressure 137/65 H 137/65 H Blood Pressure Mean 89 89 Pulse Ox 96 98 98 Oxygen Delivery Method Non-Rebreather Non-Rebreather Non-Rebreather Oxygen Flow Rate (L/min) 15 4 4 05/28/21 06:53 Temperature Temperature Source Pulse Rate 129 H Respiratory Rate 23 H Respiratory Effort Blood Pressure 134/75 H Blood Pressure Mean 94 Pulse Ox 98 Oxygen Delivery Method Oxygen Flow Rate (L/min) Positive well developed General Appearance ED: well developed and pallor HEENT Negative for trauma or tenderness Eyes Negative for PERRL or EOMs intact bilaterally Eyes Narrative: Sunken eyes Neck supple Chest Wall inspection of chest normal Resp clear to auscultation bilaterally Resp Narrative: Tachypneic Cardio regular rhythm Rate: tachycardic GI normal to inspection, nondistended, normoactive bowel sounds, non-tender and non-distended Palpation: soft Extremity normal to inspection Neuro oriented x3 and CN's II-XII intact bilaterally Sensorium / Orientation: alert Psych Mood & Affect: depressed Skin no rashes or lesions noted General Skin Exam: pallor MDM MDM MDM Narrative Medical decision making narrative: Patient presents with tachycardia. He had some vomiting earlier in the day. There was a concern for SVT as his heart rate was up into the mid 180s. I attempted vagal maneuvers and then adenosine. These were unsuccessful. Patient was breathing very fast and was pale. I was concerned for his hemodynamic stability. We did emergently give him 40 mg of propofol for procedural sedation. He was subsequently synchronized cardioverted with 100 J and this was unsuccessful. He remained tachycardic. We continued fluid resuscitation and I paged cardiology. He was maintaining normal oxygen sats with a nasal cannula. For EMS he was as low as eighty-nine. He did ask for additional oxygen, so we put him on a nonrebreather for comfort. Two IVs were placed. Buckley catheter was placed. He seemed to be stable for the moment. I checked his history. He had a history of cyclic vomiting syndrome with hypokalemia and hyponatremia. His white count came back thirty-one thousand. I was concerned for a metabolic or infectious cause. I did speak with Dr. Flores when he called back, and we agreed that given the additional information this is unlikely to be SVT. We will continue with fluid resuscitation and evaluation. Potassium came back 2.6. Replacement was started. He did not have any vomiting or abdominal pain on reevaluation. However, he did spike a fever of 102.1. I was concerned for sepsis. He will certainly meet severe sepsis or possibly septic shock criteria. I will start antibiotics now with Zosyn and vancomycin. Hospitalist was contacted for admission to the ICU. On additional reevaluation, heart rate is in the 130s. Respiratory rate is slowing down. Blood pressure is improving. He is hypokalemic and hypochloremic his urine does show signs of infection. He has acute kidney injury. Lactate is 32. Urine cultures and blood cultures were ordered. He was treated with weight-based fluid resuscitation. Hospitalist was also concerned for DKA. Will check ketones and start on insulin drip. Patient was discussed with the studio engineer and will be admitted to the ICU. Lab Data Attestation: I reviewed the patient's lab results. Labs: Laboratory Results - last 24 hr 05/28/21 05/28/21 05/28/21 05:50 05:50 05:50 WBC 31.0 H* RBC 5.09 Hgb 16.2 Hct 50.8 MCV 99.8 H MCH 31.8 MCHC 31.9 L RDW Std Deviation 43.9 RDW Coeff of Niki 11.7 Plt Count 447 MPV 12.1 H Immature Gran % (Auto) 3.700 H Neut % (Auto) 69.7 Lymph % (Auto) 13.3 L [place] % (Auto) 12.4 H Eos % (Auto) 0.5 Baso % (Auto) 0.4 Absolute Neuts (auto) 21.6 H Absolute Lymphs (auto) 4.11 Nucleated RBC % 0 Diff Path Review May foll PT INR APTT Sodium 136 Potassium 2.6 L* Chloride 74 L* Carbon Dioxide 12.0 L Anion Gap 50 H BUN 44 H Creatinine 3.56 H Estim Creat Clear Calc 35.42 Est GFR (MDRD) Af Amer 27 L Est GFR (MDRD) Non-Af 23 L BUN/Creatinine Ratio 12.4 Glucose 230 H Lactic Acid Calcium 7.8 L Magnesium Total Bilirubin 1.20 H AST 16 ALT 15 L Alkaline Phosphatase 80 Troponin I High Sens 61.6 Total Protein 7.6 Albumin 4.5 Globulin 3.1 Albumin/Globulin Ratio 1.5 Lipase 74 Urine Color Urine Clarity Urine pH Ur Specific Lula Urine Protein Urine Glucose (UA) Urine Ketones Urine Occult Blood Urine Nitrite Urine Bilirubin Urine Urobilinogen Ur Leukocyte Esterase Urine RBC Urine WBC Ur Squamous Epith Cells Ur Renal Epithelial Cell Urine Bacteria Hyaline Casts Fine Granular Casts Urine Mucus Urine Opiates Screen Urine Methadone Screen Ur Barbiturates Screen Ur Phencyclidine Scrn Ur Amphetamines Screen U Methamphetamin-MDMA U Benzodiazepines Scrn Urine Cocaine Screen U Cannabinoids Screen Ur Drug Screen Comment Ethyl Alcohol < 3.0 Acetone Level 05/28/21 05/28/21 05/28/21 05:50 05:50 05:50 WBC RBC Hgb Hct MCV MCH MCHC RDW Std Deviation RDW Coeff of Niki Plt Count MPV Immature Gran % (Auto) Neut % (Auto) Lymph % (Auto) [place] % (Auto) Eos % (Auto) Baso % (Auto) Absolute Neuts (auto) Absolute Lymphs (auto) Nucleated RBC % Diff Path Review PT INR APTT Sodium Potassium Chloride Carbon Dioxide Anion Gap BUN Creatinine Estim Creat Clear Calc Est GFR (MDRD) Af Amer Est GFR (MDRD) Non-Af BUN/Creatinine Ratio Glucose Lactic Acid 32.7 H* Calcium Magnesium 3.9 H Total Bilirubin AST ALT Alkaline Phosphatase Troponin I High Sens Total Protein Albumin Globulin Albumin/Globulin Ratio Lipase Urine Color Urine Clarity Urine pH Ur Specific Lula Urine Protein Urine Glucose (UA) Urine Ketones Urine Occult Blood Urine Nitrite Urine Bilirubin Urine Urobilinogen Ur Leukocyte Esterase Urine RBC Urine WBC Ur Squamous Epith Cells Ur Renal Epithelial Cell Urine Bacteria Hyaline Casts Fine Granular Casts Urine Mucus Urine Opiates Screen Urine Methadone Screen Ur Barbiturates Screen Ur Phencyclidine Scrn Ur Amphetamines Screen U Methamphetamin-MDMA U Benzodiazepines Scrn Urine Cocaine Screen U Cannabinoids Screen Ur Drug Screen Comment Ethyl Alcohol Acetone Level NEGATIVE 05/28/21 05/28/21 05/28/21 05:55 05:55 06:06 WBC RBC Hgb Hct MCV MCH MCHC RDW Std Deviation RDW Coeff of Niki Plt Count MPV Immature Gran % (Auto) Neut % (Auto) Lymph % (Auto) [place] % (Auto) Eos % (Auto) Baso % (Auto) Absolute Neuts (auto) Absolute Lymphs (auto) Nucleated RBC % Diff Path Review PT 15.3 H INR 1.3 APTT 25.5 Sodium Potassium Chloride Carbon Dioxide Anion Gap BUN Creatinine Estim Creat Clear Calc Est GFR (MDRD) Af Amer Est GFR (MDRD) Non-Af BUN/Creatinine Ratio Glucose Lactic Acid Calcium Magnesium Total Bilirubin AST ALT Alkaline Phosphatase Troponin I High Sens Total Protein Albumin Globulin Albumin/Globulin Ratio Lipase Urine Color Velma Urine Clarity Sl. Cloudy Urine pH 5.0 Ur Specific Lula 1.030 Urine Protein 100 H Urine Glucose (UA) 50 H Urine Ketones 15 H Urine Occult Blood 250 H Urine Nitrite Positive H Urine Bilirubin 1 H Urine Urobilinogen 1 H Ur Leukocyte Esterase 25 H Urine RBC 10-25 SEEN Urine WBC 5-10 SEEN Ur Squamous Epith Cells 0 SEEN Ur Renal Epithelial Cell 0-5 SEEN Urine Bacteria 4+ Hyaline Casts 10-25 SEEN Fine Granular Casts 0-5 SEEN Urine Mucus 0 SEEN Urine Opiates Screen POSITIVE H Urine Methadone Screen NEGATIVE Ur Barbiturates Screen NEGATIVE Ur Phencyclidine Scrn NEGATIVE Ur Amphetamines Screen NEGATIVE U Methamphetamin-MDMA NEGATIVE U Benzodiazepines Scrn POSITIVE H Urine Cocaine Screen NEGATIVE U Cannabinoids Screen POSITIVE H Ur Drug Screen Comment Ethyl Alcohol Acetone Level ABG Data ABG results: ABG 05/28/21 05:55 Specimen Type ART Sample Site R Radial pH 7.21 L Bicarbonate Actual 9.4 L Total CO2 10 Base Excess -18 L O2 Saturation 100 H O2 % 100 ABG pCO2 23.4 L ABG pO2 220 H Osvaldo Test Positive O2 Delivery Device NRB Radiography Chest X-Ray - ED: 1 View, Read by ED Physician and Normal Diagnostic Testing: Radiology Impression Chest X-Ray 05/28/21 05:39 IMPRESSION: Normal x-ray examination of the chest. Electronically Signed: Kindra Cobb MD at 6:33 EDT Tel , Service support , EKG Initial EKG: Attestation: I personally reviewed and interpreted this EKG as follows: (SVT rate of one seventy-seven) Critical Care Time Critical Care Time: Yes Critical care time (excluding procedures): 30-74 minutes, Discussing w/Patient &/or Family/Test Engineer, Discussing w/Consultants and Performing Direct Patient Care at Bedside Discharge Plan Triage Chief Complaint: Palpitations ED Provider: Cesar Ireland Dx/Rx/DC Orders Clinical Impression: Septic shock, Cyclic vomiting syndrome, DKA (diabetic ketoacidosis), DANIA (acute kidney injury), Acute UTI, Polysubstance abuse, Acute hypokalemia Prescriptions: No Action NK RF: 0 Primary Care Provider: Diana Deleon NP Referrals: Diana Deleon NP, [employer] [Primary Care Provider] -
[2021-05-28 06:19] LABS: ALB/GLOB Ratio 1.5 RATIO (0.9-2.4); AST(SGOT) 16 U/L (15-37); Alanine Aminotransfer ALT/SGPT 15 U/L (16-61); Albumin, Serum 4.5 g/dL (3.2-5.0); Alkaline Phosphatase 80 U/L (45-117); Anion Gap 50 (5-15); BUN 44 mg/dL (7-18); BUN/Creat Ratio 12.4 RATIO (10-20); Calcium,Total 7.8 mg/dL (8.5-10.1); Chloride 74 mmol/L (98-107); Creatinine, Serum 3.56 mg/dL (0.70-1.30); EST Glomerular Filtration Rate 23 mL/min (>60); Est Glom Filt Rate - Afr Amer 27 mL/min (>60); Estimated Creatinine Clearance 35.42 ml/min; Globulin 3.1 g/dL (2.2-4.2); Glucose 230 mg/dL (74-106); Lipase 74 U/L (73-393); Potassium 2.6 mmol/L (3.5-5.1); Protein, Total 7.6 g/dL (6.4-8.2); Sodium Level 136 mmol/L (136-145); Troponin-I HS 61.6 pg/mL (3.0-78.5)
[2021-05-28 06:19] LABS: Amphetamine Urine VISTA NEGATIVE (<1000 ng/mL); Barbiturate Urine VISTA NEGATIVE (< 200 ng/mL); Benzodiazepine Urine VISTA POSITIVE (< 200 ng/mL); Cocaine Urine VISTA NEGATIVE (< 300 ng/mL); Color, Urine Amber (Yellow); Ecstacy Urine VISTA NEGATIVE (< 500 ng/mL); Methadone Urine VISTA NEGATIVE (< 300 ng/mL); PCP Urine VISTA NEGATIVE (< 25 ng/mL); THC Urine VISTA POSITIVE (< 50 ng/mL); Urine Bilirubin Dipstick 1 mg/dL (Negative); Vista UDS pH Range 5
[2021-05-28 06:21] LABS: Bacteria 4+ /hpf (None Seen)
[2021-05-28 06:22] LABS: Red Blood Cells-Urine 10-25 SEEN /hpf (0-5); White Blood Cells 5-10 SEEN /hpf (0-5)
[2021-05-28 06:23] LABS: Hyaline Cast 10-25 SEEN /lpf (0-5)
[2021-05-28 06:24] LABS: International Normalized Ratio 1.3; Partial Thromboplast Time 25.5 Seconds (24.1-36.2); Prothrombin Time (Protime)PT. 15.3 SECONDS (11.7-14.9)
[2021-05-28 06:24] LABS: Fine Granular Cast- Urine 0-5 SEEN /lpf (0-5); Renal Epithelial Cells 0-5 SEEN /hpf (0-5)
[2021-05-28 06:32] LABS: Alcohol, Blood (Medical)-Serum < 3.0 mg/dL
[2021-05-28 06:36] LABS: Magnesium 3.9 mg/dL (1.6-2.6)
[2021-05-28 06:37] LABS: Lactic Acid 32.7 mmol/L (0.4-1.9)
[2021-05-28] MEDS: Potassium Chloride 10mEq/100mL 10 MEQ/100 ML IV.SOLN. 100 MEQ IV BOLUS ×8 (06:38→14:11)
--- NOTE | 2021-05-28 06:54 | ED.RN ---
PER GIRLFRIEND PT HAS BEEN SICK FOR 3 DAYS, VOMITING, NOT FEELING WELL. HE TOOK KLONOPIN AND MARIJUANA TO TRY TO HELP VOMITING AND CONTINUED TO DRINK EXCESSIVE AMOUNTS OF WATER AND NOTHING WAS HELPING.
--- NOTE | 2021-05-28 06:57 | CON.PCM.CC_ITS ---
Assessment & Plan Assessment/Plan (1) Septic shock: (2) DANIA (acute kidney injury): PLAN: RECOMMENDATIONS: 1. Continue supplemental IV fluid hydration, given patient's inability to tolerate p.o. intake. 2. Continue antiemetics as ordered. 3. Continue broad-spectrum antimicrobials, pending infectious work-up. 4. Aggressive electrolyte repletion. 5. Start opiate withdrawal protocol. 6. Discontinue insulin infusion. 7. Continue appropriate DVT prophylaxis. IMPRESSIONS: 1. Septic shock The patient was initially admitted with a myriad of different symptoms but was noted to be febrile in the emergency department and was notably tachycardic and tachypneic. In addition, his lactate was significantly elevated and he did have evidence of end-organ dysfunction. However, he has never been hemodynamically unstable. The patient has received supplemental IV fluid hydration and will be continued on broad-spectrum antimicrobials, pending infectious work-up. Chest x-ray was unremarkable. Nevertheless, urine analysis is concerning for potential infection. 2. Hyponatremia/hypokalemia/hypochloremia Likely secondary to intravascular volume depletion in the setting of chronic cyclical vomiting. Continue aggressive IV fluid resuscitation and electrolyte repletion as needed. 3. Anion gap metabolic acidosis/acute kidney injury Likely prerenal in etiology. Anticipate further improvement with ongoing volume expansion. Continue to monitor urine output for now. No current indication for renal replacement therapy. 4. History of polysubstance dependency The patient does have a history of opiate dependency and does report recent fentanyl use approximately 3 days ago. Recommend starting opiate withdrawal protocol. 5. 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 Recommend cannabis cessation. In the interim, continue antiemetics. This note was generated with [employer] dictation software. It may contain incorrect words, spelling, and punctuation that were not noted in checking the note before signing. HPI Consult Data Date of Consult: 05/28/21 HPI Narrative Reason for Consultation: Septic shock HPI Narrative: The patient is a 25-year-old male, with a history as outlined below, who presented to the emergency department on May 28 with complaints of heart palpitations and vomiting. The patient reported to me that he felt that he was beginning to go through withdrawal. When questioned specifically, the patient reported that he has a fentanyl addiction and last used 3 days ago. The patient also has a history of cyclic vomiting syndrome, which is likely cannabis hyperemesis syndrome due to his chronic THC use. He denies any dysuria or hematuria. On presentation to the emergency department, the patient was noted to be febrile, tachycardic and tachypneic. Initial laboratory evaluation revealed an elevated white blood cell count to 31,000. Coagulation profile revealed an INR of 1.3. Chemistry profile was notable for a potassium of 2.6, chloride of 74, bicarbonate of 12 and creatinine of 3.56. Lactate was elevated to 32.7. Magnesium was elevated at 3.9. Total bilirubin was increased to 1.2. Urine analysis was positive for nitrites and leukocyte esterase, along with 4+ urine bacteria. Toxicology screen was positive for opiates, benzodiazepines and cannabis. Plain film chest x-ray revealed no acute cardiopulmonary process. Rapid coronavirus antigen testing was negative. Blood and urine cultures are pending. The patient received supplemental IV fluid hydration and was started on broad-spectrum antimicrobials. Attempts were made in the emergency department to cardiovert the patient's SVT using both adenosine and synchronized cardioversion, neither of which was successful. The patient was subsequently admitted to the medical intensive care unit for further management. [facility] Medical History Cyclic vomiting syndrome Home Medications NK 05/28/21 [History Last Taken Unknown] Allergy/AdvReac Type Severity Reaction Status Date / Time risperidone [From Risperdal] AdvReac TACHYCARDIA Verified 05/28/21 05:23 Social History Smoking Status: Never smoker ROS Constitutional Constitutional: Reports body ache(s), chills, fatigue and fever(s) Eyes Eyes: Denies blurry vision or change in vision ENT HEENT: Denies dizziness, headache(s) or loss taste/smell Cardiovascular Cardiovascular: Denies chest pain or dyspnea Respiratory/Chest Respiratory/Chest: Denies dyspnea Gastrointestinal Gastrointestinal: Reports abdominal pain, nausea and vomiting Genitourinary Genitourinary: Denies difficulty urinating, dysuria or hematuria Musculoskeletal Musculoskeletal: Reports arthralgias and myalgias Integumentary Integumentary: Denies lesions Neurologic Neurologic: Denies abnormal gait, abnormal speech or confusion Psychiatric Psychiatric: Denies anxiety or depression Endocrine Endocrinology: Reports fatigue Hematologic/Lymphatic Hematologic/Lymphatic: Denies easy bleeding or easy bruising Physical Exam Const alert and no apparent distress General Appearance: cooperative and ill appearing HEENT normocephalic and head/scalp atraumatic Mouth: dry mucous membranes Eyes PERRL, EOMs intact bilaterally and conjunctivae normal Neck supple General: trachea midline Resp no use of accessory muscles Effort and Inspection: able to speak in complete sentences and tachypneic Auscultation: Negative for rales, rhonchi or wheezes Cardio S1 normal heart sound and S2 normal heart sound Rate: tachycardic GI normal to inspection, nondistended, normoactive bowel sounds Extremity no clubbing, cyanosis or edema Skin no rashes or lesions noted Neuro CN's II-XII intact bilaterally, moves all extremities and no focal motor deficits Psych Mood & Affect: flat affect Lab / Micro Data Result Diagrams: 05/28/21 05:50 05/28/21 07:16 Labs: Laboratory Results - last 24 hr 05/28/21 05/28/21 05/28/21 05:50 05:50 05:50 WBC 31.0 H* RBC 5.09 Hgb 16.2 Hct 50.8 MCV 99.8 H MCH 31.8 MCHC 31.9 L RDW Std Deviation 43.9 RDW Coeff of Niki 11.7 Plt Count 447 MPV 12.1 H Immature Gran % (Auto) 3.700 H Neut % (Auto) 69.7 Lymph % (Auto) 13.3 L [place] % (Auto) 12.4 H Eos % (Auto) 0.5 Baso % (Auto) 0.4 Absolute Neuts (auto) 21.6 H Absolute Lymphs (auto) 4.11 Nucleated RBC % 0 Diff Path Review May foll PT INR APTT Sodium 136 Potassium 2.6 L* Chloride 74 L* Carbon Dioxide 12.0 L Anion Gap 50 H BUN 44 H Creatinine 3.56 H Estim Creat Clear Calc 35.42 Est GFR (MDRD) Af Amer 27 L Est GFR (MDRD) Non-Af 23 L BUN/Creatinine Ratio 12.4 Glucose 230 H Lactic Acid Calcium 7.8 L Magnesium Total Bilirubin 1.20 H AST 16 ALT 15 L Alkaline Phosphatase 80 Troponin I High Sens 61.6 Total Protein 7.6 Albumin 4.5 Globulin 3.1 Albumin/Globulin Ratio 1.5 Lipase 74 Urine Color Urine Clarity Urine pH Ur Specific [place] Urine Protein Urine Glucose (UA) Urine Ketones Urine Occult Blood Urine Nitrite Urine Bilirubin Urine Urobilinogen Ur Leukocyte Esterase Urine RBC Urine WBC Ur Squamous Epith Cells Ur Renal Epithelial Cell Urine Bacteria Hyaline Casts Fine Granular Casts Urine Mucus Urine Opiates Screen Urine Methadone Screen Ur Barbiturates Screen Ur Phencyclidine Scrn Ur Amphetamines Screen U Methamphetamin-MDMA U Benzodiazepines Scrn Urine Cocaine Screen U Cannabinoids Screen Ur Drug Screen Comment Ethyl Alcohol < 3.0 Acetone Level 05/28/21 05/28/21 05/28/21 05:50 05:50 05:50 WBC RBC Hgb Hct MCV MCH MCHC RDW Std Deviation RDW Coeff of Niki Plt Count MPV Immature Gran % (Auto) Neut % (Auto) Lymph % (Auto) [place] % (Auto) Eos % (Auto) Baso % (Auto) Absolute Neuts (auto) Absolute Lymphs (auto) Nucleated RBC % Diff Path Review PT INR APTT Sodium Potassium Chloride Carbon Dioxide Anion Gap BUN Creatinine Estim Creat Clear Calc Est GFR (MDRD) Af Amer Est GFR (MDRD) Non-Af BUN/Creatinine Ratio Glucose Lactic Acid 32.7 H* Calcium Magnesium 3.9 H Total Bilirubin AST ALT Alkaline Phosphatase Troponin I High Sens Total Protein Albumin Globulin Albumin/Globulin Ratio Lipase Urine Color Urine Clarity Urine pH Ur Specific [place] Urine Protein Urine Glucose (UA) Urine Ketones Urine Occult Blood Urine Nitrite Urine Bilirubin Urine Urobilinogen Ur Leukocyte Esterase Urine RBC Urine WBC Ur Squamous Epith Cells Ur Renal Epithelial Cell Urine Bacteria Hyaline Casts Fine Granular Casts Urine Mucus Urine Opiates Screen Urine Methadone Screen Ur Barbiturates Screen Ur Phencyclidine Scrn Ur Amphetamines Screen U Methamphetamin-MDMA U Benzodiazepines Scrn Urine Cocaine Screen U Cannabinoids Screen Ur Drug Screen Comment Ethyl Alcohol Acetone Level NEGATIVE 05/28/21 05/28/21 05/28/21 05:55 05:55 06:06 WBC RBC Hgb Hct MCV MCH MCHC RDW Std Deviation RDW Coeff of Niki Plt Count MPV Immature Gran % (Auto) Neut % (Auto) Lymph % (Auto) [place] % (Auto) Eos % (Auto) Baso % (Auto) Absolute Neuts (auto) Absolute Lymphs (auto) Nucleated RBC % Diff Path Review PT 15.3 H INR 1.3 APTT 25.5 Sodium Potassium Chloride Carbon Dioxide Anion Gap BUN Creatinine Estim Creat Clear Calc Est GFR (MDRD) Af Amer Est GFR (MDRD) Non-Af BUN/Creatinine Ratio Glucose Lactic Acid Calcium Magnesium Total Bilirubin AST ALT Alkaline Phosphatase Troponin I High Sens Total Protein Albumin Globulin Albumin/Globulin Ratio Lipase Urine Color Velma Urine Clarity Sl. Cloudy Urine pH 5.0 Ur Specific [place] 1.030 Urine Protein 100 H Urine Glucose (UA) 50 H Urine Ketones 15 H Urine Occult Blood 250 H Urine Nitrite Positive H Urine Bilirubin 1 H Urine Urobilinogen 1 H Ur Leukocyte Esterase 25 H Urine RBC 10-25 SEEN Urine WBC 5-10 SEEN Ur Squamous Epith Cells 0 SEEN Ur Renal Epithelial Cell 0-5 SEEN Urine Bacteria 4+ Hyaline Casts 10-25 SEEN Fine Granular Casts 0-5 SEEN Urine Mucus 0 SEEN Urine Opiates Screen POSITIVE H Urine Methadone Screen NEGATIVE Ur Barbiturates Screen NEGATIVE Ur Phencyclidine Scrn NEGATIVE Ur Amphetamines Screen NEGATIVE U Methamphetamin-MDMA NEGATIVE U Benzodiazepines Scrn POSITIVE H Urine Cocaine Screen NEGATIVE U Cannabinoids Screen POSITIVE H Ur Drug Screen Comment Ethyl Alcohol Acetone Level Micro: Microbiology 05/28/21 05:57 SARS-CoV-2 Antigen (Rapid) - Final Mucosa - Nose ABG Data ABG results: ABG 05/28/21 05:55 Specimen Type ART Sample Site R Radial pH 7.21 L Bicarbonate Actual 9.4 L Total CO2 10 Base Excess -18 L O2 Saturation 100 H O2 % 100 ABG pCO2 23.4 L ABG pO2 220 H Osvaldo Test Positive O2 Delivery Device NRB Radiology Impression Chest X-Ray 05/28/21 05:39 IMPRESSION: Normal x-ray examination of the chest. Electronically Signed: Kindra Cobb MD at 6:33 EDT Tel , Service support , Charges/Coding Visit Charges Inpatient E&M: 71348 Init Hosp L3
[2021-05-28 07:00] LABS: Bedside Glucose 148 mg/dL (70-110)
--- NOTE | 2021-05-28 07:20 | NURSING ---
ICU LUTHER SEPSIS
[2021-05-28] MEDS: Ondansetron 4 MG/2 ML Vial IV ×2 (07:30→15:31)
[2021-05-28] MEDS: 0.9% Normal Saline 1,000 ML 1000 ML IV (07:34)
[2021-05-28 07:37] LABS: Anion Gap 13 (5-15); BUN 42 mg/dL (7-18); BUN/Creat Ratio 15.1 RATIO (10-20); Calcium,Total 7.1 mg/dL (8.5-10.1); Chloride 85 mmol/L (98-107); Creatinine, Serum 2.78 mg/dL (0.70-1.30); EST Glomerular Filtration Rate 30 mL/min (>60); Est Glom Filt Rate - Afr Amer 36 mL/min (>60); Estimated Creatinine Clearance 45.36 ml/min; Glucose 140 mg/dL (74-106); Potassium 2.2 mmol/L (3.5-5.1); Sodium Level 132 mmol/L (136-145)
--- NOTE | 2021-05-28 07:50 | HP.PCM.HOS_ITS ---
HPI - General General Date of Admission: 05/28/21 HPI Narrative ROB CANAS, is a 25 M with history of polysubstance use disorder, chronic marijuana use with marijuana hyperemesis syndrome, last admission, 02/02/2019?02/04/2019 who was brought to ER by EMS in a state of altered mental status, significant distress, persistent vomiting, nausea for 3 to 4 days. Patient admitted that he relapsed few months ago has been using fentanyl and opioids after he had inpatient rehab in [place]. EMS found tachycardic, heart rate in 200s, tachypneic, diaphoretic and restless condition. He smelled marijuana as per EMS note. In ED, he was found to have tachycardia, temperature 102 point Fah renheit, heart rate in the 187, BP 109/81, 134/75, hypokalemic 2.6, hypochloremic 74, lactic acid 32, leukocytosis 31,000 BUN/creatinine 44/3.56, anion gap 50, bicarb 12. Glucose was 230, repeat 140. Patient was given 2 L of normal saline and is more awake. Patient was tried to cardiovert by adenosine and even cardioversion but was unsuccessful. ER physician contacted Dr. Flores and as per note it seems unlikely SVT. Patient had 2 L of normal saline bolus in ED and patient started making urine about 250 mL dark yellow urobag. He was also started on insulin drip but patient does not have diabetes mellitus and glucose coming down therefore insulin drip discontinued. Patient denies history of cardiac disease, chronic lung disease or GI disease. Patient is further going to be admitted in ICU [facility] Medical History Cyclic vomiting syndrome Home Medications NK 05/28/21 [History Last Taken Unknown] Allergy/AdvReac Type Severity Reaction Status Date / Time risperidone [From Risperdal] AdvReac TACHYCARDIA Verified 05/28/21 05:23 Social History Smoking Status: Never smoker ROS ROS Narrative Constitutional: Reports fatigue and weakness, dehydrated. In distress HEENT: Reports systems reviewed and no addt'l complaints, except as documented Respiratory/Chest: Denies chest pain. Denies shortness of breath at rest or with exertion Gastrointestinal: Denies coffee ground emesis, hematemesis or vomiting Genitourinary: Denies burning urination. Urine was concentrated, decreased amount Musculoskeletal: Reports joint pain and limited range of motion Neurologic: Anxious denies seizure-like activity skin: No ulcer. No rash Endocrinology: Reports systems reviewed and no addt'l complaints, except as documented Hematologic/Lymphatic: Reports systems reviewed and no addt'l complaints, except as documented Detail 12 system ROS unobtainable as patient in distress Vital Signs Vital Signs Vital Signs: 05/28/21 05:21 05/28/21 05:26 05/28/21 05:30 Temperature 96.4 F L Temperature Source Temporal Pulse Rate 178 H 187 H Respiratory Rate 32 H 48 H Respiratory Effort Short of Breath Blood Pressure 109/81 H 121/99 H Blood Pressure Mean 90 106 Pulse Ox 96 97 Oxygen Delivery Method Room Air Nasal Cannula Oxygen Flow Rate (L/min) 4 05/28/21 05:44 05/28/21 06:10 05/28/21 06:20 Temperature 102.1 F H Temperature Source Core Pulse Rate 152 H 144 H Respiratory Rate 35 H 362 H Respiratory Effort Blood Pressure 137/65 H 137/65 H Blood Pressure Mean 89 89 Pulse Ox 96 98 98 Oxygen Delivery Method Non-Rebreather Non-Rebreather Non-Rebreather Oxygen Flow Rate (L/min) 15 4 4 05/28/21 06:53 05/28/21 07:12 05/28/21 07:32 Temperature 99.8 F H Temperature Source Core Pulse Rate 129 H 110 H 107 H Respiratory Rate 23 H 21 H 22 H Respiratory Effort Blood Pressure 134/75 H 142/79 H 160/81 H Blood Pressure Mean 94 100 107 Pulse Ox 98 98 99 Oxygen Delivery Method Oxygen Flow Rate (L/min) Weight Weight: 177 lb 11.081 oz Body Mass Index (BMI) 24.0 Physical Exam Narrative General: Awake, oriented x3 although looks lethargic. HEENT: Atraumatic, PERRLA, EOMI, Normocephalic Oral: Tongue is coated black. Oral mucosa dry. Neck: Supple, No JVD, Negative Carotid Bruits Lungs: Air entry equal in bilateral lung bases. No crepitation/rhonchi Cardiovascular: Sinus tachycardia, Normal S1, Normal S2, No murmurs Abdomen: Mild nonspecific diffuse tenderness. Bowel Sounds Present, Soft,Non- Distended : No renal angle tenderness. No suprapubic tenderness. Extremities: No edema, Capillary Refill Less than 3 Seconds Skin: No rashes, No breakdown Musculoskeletal: Mild tenderness of extremity muscles Neurological: Nonfocal exam, cranial nerves II-XII grossly intact, Deep Tendon Reflexes 2+/4. Psych/Mental Status: Lethargic. Flat affect Results Lab / Micro Data Result Diagrams: 05/28/21 05:50 05/28/21 07:16 Labs: Laboratory Results - last 24 hr 05/28/21 05/28/21 05/28/21 05:50 05:50 05:50 WBC 31.0 H* RBC 5.09 Hgb 16.2 Hct 50.8 MCV 99.8 H MCH 31.8 MCHC 31.9 L RDW Std Deviation 43.9 RDW Coeff of Niki 11.7 Plt Count 447 MPV 12.1 H Immature Gran % (Auto) 3.700 H Neut % (Auto) 69.7 Lymph % (Auto) 13.3 L [place] % (Auto) 12.4 H Eos % (Auto) 0.5 Baso % (Auto) 0.4 Absolute Neuts (auto) 21.6 H Absolute Lymphs (auto) 4.11 Nucleated RBC % 0 Diff Path Review May foll PT INR APTT Sodium 136 Potassium 2.6 L* Chloride 74 L* Carbon Dioxide 12.0 L Anion Gap 50 H BUN 44 H Creatinine 3.56 H Estim Creat Clear Calc 35.42 Est GFR (MDRD) Af Amer 27 L Est GFR (MDRD) Non-Af 23 L BUN/Creatinine Ratio 12.4 Glucose 230 H Lactic Acid Calcium 7.8 L Magnesium Total Bilirubin 1.20 H AST 16 ALT 15 L Alkaline Phosphatase 80 Troponin I High Sens 61.6 Total Protein 7.6 Albumin 4.5 Globulin 3.1 Albumin/Globulin Ratio 1.5 Lipase 74 Urine Color Urine Clarity Urine pH Ur Specific [place] Urine Protein Urine Glucose (UA) Urine Ketones Urine Occult Blood Urine Nitrite Urine Bilirubin Urine Urobilinogen Ur Leukocyte Esterase Urine RBC Urine WBC Ur Squamous Epith Cells Ur Renal Epithelial Cell Urine Bacteria Hyaline Casts Fine Granular Casts Urine Mucus Urine Opiates Screen Urine Methadone Screen Ur Barbiturates Screen Ur Phencyclidine Scrn Ur Amphetamines Screen U Methamphetamin-MDMA U Benzodiazepines Scrn Urine Cocaine Screen U Cannabinoids Screen Ur Drug Screen Comment Ethyl Alcohol < 3.0 Acetone Level POC Glucose 05/28/21 05/28/21 05/28/21 05:50 05:50 05:50 WBC RBC Hgb Hct MCV MCH MCHC RDW Std Deviation RDW Coeff of Niki Plt Count MPV Immature Gran % (Auto) Neut % (Auto) Lymph % (Auto) [place] % (Auto) Eos % (Auto) Baso % (Auto) Absolute Neuts (auto) Absolute Lymphs (auto) Nucleated RBC % Diff Path Review PT INR APTT Sodium Potassium Chloride Carbon Dioxide Anion Gap BUN Creatinine Estim Creat Clear Calc Est GFR (MDRD) Af Amer Est GFR (MDRD) Non-Af BUN/Creatinine Ratio Glucose Lactic Acid 32.7 H* Calcium Magnesium 3.9 H Total Bilirubin AST ALT Alkaline Phosphatase Troponin I High Sens Total Protein Albumin Globulin Albumin/Globulin Ratio Lipase Urine Color Urine Clarity Urine pH Ur Specific [place] Urine Protein Urine Glucose (UA) Urine Ketones Urine Occult Blood Urine Nitrite Urine Bilirubin Urine Urobilinogen Ur Leukocyte Esterase Urine RBC Urine WBC Ur Squamous Epith Cells Ur Renal Epithelial Cell Urine Bacteria Hyaline Casts Fine Granular Casts Urine Mucus Urine Opiates Screen Urine Methadone Screen Ur Barbiturates Screen Ur Phencyclidine Scrn Ur Amphetamines Screen U Methamphetamin-MDMA U Benzodiazepines Scrn Urine Cocaine Screen U Cannabinoids Screen Ur Drug Screen Comment Ethyl Alcohol Acetone Level NEGATIVE POC Glucose 05/28/21 05/28/21 05/28/21 05:55 05:55 06:06 WBC RBC Hgb Hct MCV MCH MCHC RDW Std Deviation RDW Coeff of Niki Plt Count MPV Immature Gran % (Auto) Neut % (Auto) Lymph % (Auto) [place] % (Auto) Eos % (Auto) Baso % (Auto) Absolute Neuts (auto) Absolute Lymphs (auto) Nucleated RBC % Diff Path Review PT 15.3 H INR 1.3 APTT 25.5 Sodium Potassium Chloride Carbon Dioxide Anion Gap BUN Creatinine Estim Creat Clear Calc Est GFR (MDRD) Af Amer Est GFR (MDRD) Non-Af BUN/Creatinine Ratio Glucose Lactic Acid Calcium Magnesium Total Bilirubin AST ALT Alkaline Phosphatase Troponin I High Sens Total Protein Albumin Globulin Albumin/Globulin Ratio Lipase Urine Color Velma Urine Clarity Sl. Cloudy Urine pH 5.0 Ur Specific [place] 1.030 Urine Protein 100 H Urine Glucose (UA) 50 H Urine Ketones 15 H Urine Occult Blood 250 H Urine Nitrite Positive H Urine Bilirubin 1 H Urine Urobilinogen 1 H Ur Leukocyte Esterase 25 H Urine RBC 10-25 SEEN Urine WBC 5-10 SEEN Ur Squamous Epith Cells 0 SEEN Ur Renal Epithelial Cell 0-5 SEEN Urine Bacteria 4+ Hyaline Casts 10-25 SEEN Fine Granular Casts 0-5 SEEN Urine Mucus 0 SEEN Urine Opiates Screen POSITIVE H Urine Methadone Screen NEGATIVE Ur Barbiturates Screen NEGATIVE Ur Phencyclidine Scrn NEGATIVE Ur Amphetamines Screen NEGATIVE U Methamphetamin-MDMA NEGATIVE U Benzodiazepines Scrn POSITIVE H Urine Cocaine Screen NEGATIVE U Cannabinoids Screen POSITIVE H Ur Drug Screen Comment Ethyl Alcohol Acetone Level POC Glucose 05/28/21 05/28/21 06:54 07:16 WBC RBC Hgb Hct MCV MCH MCHC RDW Std Deviation RDW Coeff of Niki Plt Count MPV Immature Gran % (Auto) Neut % (Auto) Lymph % (Auto) [place] % (Auto) Eos % (Auto) Baso % (Auto) Absolute Neuts (auto) Absolute Lymphs (auto) Nucleated RBC % Diff Path Review PT INR APTT Sodium 132 L Potassium 2.2 L* Chloride 85 L Carbon Dioxide 34.0 H Anion Gap 13 BUN 42 H Creatinine 2.78 H Estim Creat Clear Calc 45.36 Est GFR (MDRD) Af Amer 36 L Est GFR (MDRD) Non-Af 30 L BUN/Creatinine Ratio 15.1 Glucose 140 H Lactic Acid Calcium 7.1 L Magnesium Total Bilirubin AST ALT Alkaline Phosphatase Troponin I High Sens Total Protein Albumin Globulin Albumin/Globulin Ratio Lipase Urine Color Urine Clarity Urine pH Ur Specific [place] Urine Protein Urine Glucose (UA) Urine Ketones Urine Occult Blood Urine Nitrite Urine Bilirubin Urine Urobilinogen Ur Leukocyte Esterase Urine RBC Urine WBC Ur Squamous Epith Cells Ur Renal Epithelial Cell Urine Bacteria Hyaline Casts Fine Granular Casts Urine Mucus Urine Opiates Screen Urine Methadone Screen Ur Barbiturates Screen Ur Phencyclidine Scrn Ur Amphetamines Screen U Methamphetamin-MDMA U Benzodiazepines Scrn Urine Cocaine Screen U Cannabinoids Screen Ur Drug Screen Comment Ethyl Alcohol Acetone Level POC Glucose 148 H Micro: Microbiology 05/28/21 05:57 SARS-CoV-2 Antigen (Rapid) - Final Mucosa - Nose ABG Data ABG results: ABG 05/28/21 05:55 Specimen Type ART Sample Site R Radial pH 7.21 L Bicarbonate Actual 9.4 L Total CO2 10 Base Excess -18 L O2 Saturation 100 H O2 % 100 ABG pCO2 23.4 L ABG pO2 220 H Osvaldo Test Positive O2 Delivery Device NRB Radiology Impression Chest X-Ray 05/28/21 05:39 IMPRESSION: Normal x-ray examination of the chest. Electronically Signed: Kindra Cobb MD at 6:33 EDT Tel , Service support , Assessment & Plan Assessment/Plan (1) DANIA (acute kidney injury): (2) Polysubstance abuse: (3) Acute hypokalemia: (4) Hypokalemia: (5) Intractable vomiting with nausea: (6) Marijuana use, continuous: PLAN: This 24-year-old gentleman with known history of polysubstance use and dependence, multiple admission, ER visits, relapse after inpatient drug rehab recently came to ED in very dehydrated state, DANIA altered mental status and IV fentanyl use. 1. Acute opioid/fentanyl, benzodiazepine withdrawal syndrome with history of polysubstance use and dependence: Currently inpatient ICU. Heart rate is better controlled and patient is more awake. Supportive treatment with IV fluid, and CINA monitoring Mental status is improving. Patient might need buprenorphine based other supportive medications if his withdrawal symptoms gets worse. Consult 180. U tox positive of benzodiazepine and cannabinoids. Discussed with the pharmacy benefits coordinator 2. DANIA prerenal from persistent vomiting for 3 to 4 days: IV fluid resuscitation. Monitor electrolytes and kidney function every 4 hourly. Adjust electrolytes accordingly. Strict input and output. Patient has Buckley catheter 3. Possible septic shock, electrolyte abnormality with lactic acidosis: Patient had fever to 102.1 Fahrenheit in ED. Patient has severe hypokalemia, hypochloremia, high anion gap metabolic acidosis due to lactic acidosis most probably type a from hypovolemia and decreased perfusion. ABG 7.212/23/220/9. Patient denies focal symptoms of infection including cough, sputum, headache or burning micturition. Blood cultures x2 and urine culture has been sent from ER. Patient got 1 dose of vancomycin in ER. Will empirically treat with IV Zosyn. Rapid SARS-CoV-2 antigen is negative. Respiratory panel is ordered. 4. Cardiac arrhythmia most probably due to metabolic derangement: Twelve-lead EKG shows sinus tachycardia at 179 bpm, tall T waves, LAFB. Repeat EKG shows sinus tachycardia rate 118 bpm, QTC 490 ms. On monitor currently patient is in normal sinus rhythm. VTE prophylaxis: Moderate risk due to metabolic derangement, lactic acidosis: Lovenox 40 mg subcu daily. Microbiology Past 72 Hours 05/28/21 05:57 Mucosa - Nose SARS-CoV-2 Antigen (Rapid) - Final Clinical Impression(s) from Imaging Studies Chest X-Ray 05/28/21 05:39 IMPRESSION: Normal x-ray examination of the chest. Charges/Coding Visit Charges Inpatient E&M: 68549 Init Hosp L3
[2021-05-28 08:40] LABS: Magnesium 4.1 mg/dL (1.6-2.6)
[2021-05-28] MEDS: BENZOCAINE/MENTHOL 1 LOZENGE MUCOUS MEM ×2 (08:51→23:08)
[2021-05-28] MEDS: Lactated Ringers 1,000 ML 150 ML IV ×3 (08:51→22:28)
--- NOTE | 2021-05-28 09:37 | CASEMGMT ---
SW spoke w/Ling from [employer] in regard to this pt, she will pass his information on to the pt navigator from [employer] who will be here tomorrow, to bring pt resources. EVGENY Germain
[2021-05-28 09:53] LABS: Reflex Lactate? Y
[2021-05-28] MEDS: 0.9% Saline Lock 10 ML Syringe IV ×3 (10:36→18:04)
[2021-05-28] MEDS: LORazepam 2 MG/ML Syringe 1 MG IV ×2 (10:36→15:36)
[2021-05-28] MEDS: Enoxaparin 40 MG/0.4 ML Syringe SC (10:37)
[2021-05-28 12:14] LABS: Pathologist Review Reviewed
--- NOTE | 2021-05-28 12:40 | RAD_ITS ---
STUDY: X-RAY CHEST REASON FOR EXAM: Male, 25 years old. central line placement TECHNIQUE: Single AP portable view of the chest. COMPARISON: 05/28/2021 FINDINGS: Interval placement of right internal jugular deep venous line with tip the catheter overlying the superior vena cava and no pneumothorax. The lungs are clear and expanded. There is no demonstrated pleural abnormality. Normal size heart. Normal mediastinum and sandra. Normal visualized pulmonary arteries. Normal visualized aortic arch and descending thoracic aorta. Normal visualized thoracic spine. Normal visualized ribs, clavicles, and shoulders. There is no demonstrated abnormality of the visualized soft tissue structures of the upper abdomen. RAD/Chest 1 View (Portable) IMPRESSION: 1. Interval placement of right internal jugular deep venous line with tip the catheter overlying the spur vena cava and no pneumothorax. 2. No active disease. Electronically Signed: Jayjay Arce MD at 13:05 EDT Tel , Service support ,
--- NOTE | 2021-05-28 12:47 | PCM.OP.BLANK ---
Operative Report Date of Procedure: 05/28/21 Central line placement procedure note Indication: IV access/hemodynamic instability/vasoactive medications Procedure: A time-out was completed to verify correct patient, indication, medication allergies, procedure, coagulation studies, informed consent signed, and equipment needed. The patient was placed in the supine position for a central line placement to the rt IJ vein. The patients rt neck was prepped using chlorhexidine and a full body sterile drape was applied. 1% lidocaine was used to anesthetize the surrounding skin. A 7fr 16 cm blue guard triple lumen catheter introduced into the internal jugular vein using the modified Seldinger technique with the assistance of ultrasound. The catheter was threaded smoothly over the guidewire, the guidewire was removed easily, nonpulsatile blood returned. All ports were aspirated of air and flushed with sterile saline. The catheter was sutured in place and covered with an occlusive dressing impregnated with chlorhexidine. Post-procedure: The patient tolerated the procedure well. Vital signs remained stable. EBL 3 cc. No complications. Chest X Ray ordered to confirm tip placement and the absence of pneumothorax. Procedures Hospitalists Procedures: [id number] Insert Non-tunnel CV Cath
[2021-05-28] MEDS: proCHLORPERazine 10 MG/2 ML Vial 5 MG IV ×2 (12:49→18:14)
[2021-05-28 13:18] LABS: Lactic Acid 1.3 mmol/L (0.4-1.9)
[2021-05-28 16:59] LABS: Anion Gap 10 (5-15); BUN 43 mg/dL (7-18); BUN/Creat Ratio 17.1 RATIO (10-20); Calcium,Total 7.1 mg/dL (8.5-10.1); Chloride 91 mmol/L (98-107); Creatinine, Serum 2.52 mg/dL (0.70-1.30); EST Glomerular Filtration Rate 34 mL/min (>60); Est Glom Filt Rate - Afr Amer 41 mL/min (>60); Estimated Creatinine Clearance 47.91 ml/min; Glucose 105 mg/dL (74-106); Potassium 2.5 mmol/L (3.5-5.1); Sodium Level 137 mmol/L (136-145)
[2021-05-28] MEDS: Dicyclomine 10 MG Capsule 20 MG PO (18:07)
[2021-05-28 22:04] LABS: Potassium 3.1 mmol/L (3.5-5.1)
[2021-05-29] VITALS (15 sets, daily range): BP systolic 140–157; BP diastolic 61–108; PULSE 61–99; RESP 12–29; TEMP 36.4–37.7; O2SAT 94–99; BMI 22.2
[2021-05-29] MEDS: LORazepam 2 MG/ML Syringe 1 MG IV ×2 (00:40→09:14)
[2021-05-29 04:10] LABS: Absolute Lymphocyte Count 0.86 X10^3/uL (0.83-4.51); Basophil# 0.01 X10^3/uL; Basophil% 0.1 % (0-1); Hematocrit 35.3 % (40-54); Lymphocyte # 0.86 X10^3/ul (0.83-4.51); Lymphocyte % 9.4 % (19-41); Mean Corpuscular Hgb 31.6 pg (27.0-32.0); Mean Corpuscular Volume 92.9 fL (80-94); Mean Platelet Vol. 10.9 fl (6.2-12.0); Monocyte# 1.25 X10^3/uL; Monocyte% 13.7 % (0-10); NRBC Flagged by Analyzer 0 % (0-5); Neutrophil # 6.98 X10^3/uL (2.7-7.7); Neutrophil % 76.3 % (47-70); Platelet Count 206 K/mm3 (150-450); RBC Distribution Width CV 11.6 % (11.6-14.6); RBC Distribution Width SD 39.3 fl (35.1-43.9); White Blood Count 9.2 K/mm3 (4.4-11.0)
[2021-05-29 04:25] LABS: Anion Gap 7 (5-15); BUN 43 mg/dL (7-18); BUN/Creat Ratio 13.8 RATIO (10-20); Calcium,Total 7.7 mg/dL (8.5-10.1); Chloride 100 mmol/L (98-107); Creatinine, Serum 3.11 mg/dL (0.70-1.30); EST Glomerular Filtration Rate 26 mL/min (>60); Est Glom Filt Rate - Afr Amer 32 mL/min (>60); Estimated Creatinine Clearance 38.93 ml/min; Glucose 109 mg/dL (74-106); Magnesium 3.2 mg/dL (1.6-2.6); Potassium 3.2 mmol/L (3.5-5.1); Sodium Level 141 mmol/L (136-145)
[2021-05-29 04:30] LABS: Phosphorus 3.1 mg/dL (2.5-4.9)
[2021-05-29] MEDS: Lactated Ringers 1,000 ML 150 ML IV ×2 (05:12→11:40)
--- NOTE | 2021-05-29 06:05 | PCM.PN.INT ---
Assessment & Plan Assessment/Plan (1) Septic shock: (2) DANIA (acute kidney injury): PLAN: RECOMMENDATIONS: 1. Continue supplemental IV fluid hydration, until p.o. intake improves. 2. Continue antiemetics as ordered. 3. Continue broad-spectrum antimicrobials, pending infectious work-up. 4. Aggressive electrolyte repletion. 5. Continue appropriate DVT prophylaxis. 6. Obtain nephrology consultation. 7. Okay to transfer out of the medical intensive care unit. IMPRESSIONS: 1. Septic shock The patient was initially admitted with a myriad of different symptoms but was noted to be febrile in the emergency department and was notably tachycardic and tachypneic. In addition, his lactate was significantly elevated and he did have evidence of end-organ dysfunction. However, he has never been hemodynamically unstable. The patient has received supplemental IV fluid hydration and will be continued on broad-spectrum antimicrobials, pending infectious work-up. Chest x-ray was unremarkable. Nevertheless, urine analysis is concerning for potential infection. 2. Hyponatremia/hypokalemia/hypochloremia Likely secondary to intravascular volume depletion in the setting of chronic cyclical vomiting. Continue aggressive IV fluid resuscitation and electrolyte repletion as needed. 3. Anion gap metabolic acidosis/acute kidney injury Likely prerenal in etiology. Continue to monitor urine output for now. No current indication for renal replacement therapy. Given increasing creatinine noted today, will obtain nephrology consultation. 4. History of polysubstance dependency The patient does have a history of opiate dependency and does report recent fentanyl use approximately 3 days ago. Consider starting opiate withdrawal protocol, if needed. 5. 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 Recommend cannabis cessation. In the interim, continue antiemetics. This note was generated with [employer] dictation software. It may contain incorrect words, spelling, and punctuation that were not noted in checking the note before signing. Subjective Subjective The patient was seen and examined at the bedside this morning. Events from the last 24 hours have been reviewed. The patient currently has a low-grade fever but otherwise remains hemodynamically stable on room air. Buckley catheter was removed overnight by nursing staff. The patient is currently documented to be overall net +6 L for the hospital admission. He does continue to have episodes of vomiting. His white count has normalized. Potassium this morning was noted to be 3.2. Creatinine has increased to 3.1. The patient denies any abdominal pain. He does report that he is interested in advancing his diet to clear liquids. Otherwise, he stated an interest in leaving the hospital AGAINST MEDICAL ADVICE. Objective Data Objective Data The patient's most recent lab work, culture data and imaging studies have all been personally reviewed. Rapid coronavirus antigen testing was negative. Respiratory viral panel was negative. Blood and urine cultures are pending. Vital Signs: Vital Signs Temp Pulse Resp BP Pulse Ox 99.3 F H 82 24 H 150/77 H 96 05/29/21 02:00 05/29/21 05:00 05/29/21 05:00 05/29/21 05:00 05/29/21 05:00 Oxygen Flow Rate (L/min) 2 Oxygen Delivery Method Room Air Weight: 164 lb 3.91 oz Body Mass Index (BMI) 22.1 Intake & Output: Intake and Output for Last 24 Hours 05/27/21 05/28/21 05/29/21 23:59 23:59 23:59 Intake Total 6555.42 / 6555.42 1170 / 1170 Output Total 1365 / 1365 425 / 425 Balance 5190.42 / 5190.42 745 / 745 Lab / Micro Data Attestation: I reviewed the patient's lab results. Result Diagrams: 05/29/21 04:05 05/29/21 04:05 Labs: Laboratory Results - last 24 hr 05/28/21 05/28/21 05/28/21 05:50 05:50 05:50 WBC RBC Hgb Hct MCV MCH MCHC RDW Std Deviation RDW Coeff of Niki Plt Count MPV Immature Gran % (Auto) Neut % (Auto) Lymph % (Auto) Smyth % (Auto) Eos % (Auto) Baso % (Auto) Absolute Neuts (auto) Absolute Lymphs (auto) Nucleated RBC % Diff Path Review Reviewed PT INR APTT Sodium 136 Potassium 2.6 L* Chloride 74 L* Carbon Dioxide 12.0 L Anion Gap 50 H BUN 44 H Creatinine 3.56 H Estim Creat Clear Calc 35.42 Est GFR (MDRD) Af Amer 27 L Est GFR (MDRD) Non-Af 23 L BUN/Creatinine Ratio 12.4 Glucose 230 H Lactic Acid Calcium 7.8 L Phosphorus Magnesium Total Bilirubin 1.20 H AST 16 ALT 15 L Alkaline Phosphatase 80 Troponin I High Sens 61.6 Total Protein 7.6 Albumin 4.5 Globulin 3.1 Albumin/Globulin Ratio 1.5 Lipase 74 Urine Color Urine Clarity Urine pH Ur Specific [place] Urine Protein Urine Glucose (UA) Urine Ketones Urine Occult Blood Urine Nitrite Urine Bilirubin Urine Urobilinogen Ur Leukocyte Esterase Urine RBC Urine WBC Ur Squamous Epith Cells Ur Renal Epithelial Cell Urine Bacteria Hyaline Casts Fine Granular Casts Urine Mucus Urine Opiates Screen Urine Methadone Screen Ur Barbiturates Screen Ur Phencyclidine Scrn Ur Amphetamines Screen U Methamphetamin-MDMA U Benzodiazepines Scrn Urine Cocaine Screen U Cannabinoids Screen Ethyl Alcohol < 3.0 Acetone Level POC Glucose 05/28/21 05/28/21 05/28/21 05:50 05:50 05:50 WBC RBC Hgb Hct MCV MCH MCHC RDW Std Deviation RDW Coeff of Niki Plt Count MPV Immature Gran % (Auto) Neut % (Auto) Lymph % (Auto) Smyth % (Auto) Eos % (Auto) Baso % (Auto) Absolute Neuts (auto) Absolute Lymphs (auto) Nucleated RBC % Diff Path Review PT INR APTT Sodium Potassium Chloride Carbon Dioxide Anion Gap BUN Creatinine Estim Creat Clear Calc Est GFR (MDRD) Af Amer Est GFR (MDRD) Non-Af BUN/Creatinine Ratio Glucose Lactic Acid 32.7 H* Calcium Phosphorus Magnesium 3.9 H Total Bilirubin AST ALT Alkaline Phosphatase Troponin I High Sens Total Protein Albumin Globulin Albumin/Globulin Ratio Lipase Urine Color Urine Clarity Urine pH Ur Specific [place] Urine Protein Urine Glucose (UA) Urine Ketones Urine Occult Blood Urine Nitrite Urine Bilirubin Urine Urobilinogen Ur Leukocyte Esterase Urine RBC Urine WBC Ur Squamous Epith Cells Ur Renal Epithelial Cell Urine Bacteria Hyaline Casts Fine Granular Casts Urine Mucus Urine Opiates Screen Urine Methadone Screen Ur Barbiturates Screen Ur Phencyclidine Scrn Ur Amphetamines Screen U Methamphetamin-MDMA U Benzodiazepines Scrn Urine Cocaine Screen U Cannabinoids Screen Ethyl Alcohol Acetone Level NEGATIVE POC Glucose 05/28/21 05/28/21 05/28/21 05:55 05:55 06:06 WBC RBC Hgb Hct MCV MCH MCHC RDW Std Deviation RDW Coeff of Niki Plt Count MPV Immature Gran % (Auto) Neut % (Auto) Lymph % (Auto) Smyth % (Auto) Eos % (Auto) Baso % (Auto) Absolute Neuts (auto) Absolute Lymphs (auto) Nucleated RBC % Diff Path Review PT 15.3 H INR 1.3 APTT 25.5 Sodium Potassium Chloride Carbon Dioxide Anion Gap BUN Creatinine Estim Creat Clear Calc Est GFR (MDRD) Af Amer Est GFR (MDRD) Non-Af BUN/Creatinine Ratio Glucose Lactic Acid Calcium Phosphorus Magnesium Total Bilirubin AST ALT Alkaline Phosphatase Troponin I High Sens Total Protein Albumin Globulin Albumin/Globulin Ratio Lipase Urine Color Velma Urine Clarity Sl. Cloudy Urine pH 5.0 Ur Specific [place] 1.030 Urine Protein 100 H Urine Glucose (UA) 50 H Urine Ketones 15 H Urine Occult Blood 250 H Urine Nitrite Positive H Urine Bilirubin 1 H Urine Urobilinogen 1 H Ur Leukocyte Esterase 25 H Urine RBC 10-25 SEEN Urine WBC 5-10 SEEN Ur Squamous Epith Cells 0 SEEN Ur Renal Epithelial Cell 0-5 SEEN Urine Bacteria 4+ Hyaline Casts 10-25 SEEN Fine Granular Casts 0-5 SEEN Urine Mucus 0 SEEN Urine Opiates Screen POSITIVE H Urine Methadone Screen NEGATIVE Ur Barbiturates Screen NEGATIVE Ur Phencyclidine Scrn NEGATIVE Ur Amphetamines Screen NEGATIVE U Methamphetamin-MDMA NEGATIVE U Benzodiazepines Scrn POSITIVE H Urine Cocaine Screen NEGATIVE U Cannabinoids Screen POSITIVE H Ethyl Alcohol Acetone Level POC Glucose 05/28/21 05/28/21 05/28/21 06:54 07:16 07:16 WBC RBC Hgb Hct MCV MCH MCHC RDW Std Deviation RDW Coeff of Niki Plt Count MPV Immature Gran % (Auto) Neut % (Auto) Lymph % (Auto) Smyth % (Auto) Eos % (Auto) Baso % (Auto) Absolute Neuts (auto) Absolute Lymphs (auto) Nucleated RBC % Diff Path Review PT INR APTT Sodium 132 L Potassium 2.2 L* Chloride 85 L Carbon Dioxide 34.0 H Anion Gap 13 BUN 42 H Creatinine 2.78 H Estim Creat Clear Calc 45.36 Est GFR (MDRD) Af Amer 36 L Est GFR (MDRD) Non-Af 30 L BUN/Creatinine Ratio 15.1 Glucose 140 H Lactic Acid Calcium 7.1 L Phosphorus 3.0 Magnesium 4.1 H Total Bilirubin AST ALT Alkaline Phosphatase Troponin I High Sens Total Protein Albumin Globulin Albumin/Globulin Ratio Lipase Urine Color Urine Clarity Urine pH Ur Specific [place] Urine Protein Urine Glucose (UA) Urine Ketones Urine Occult Blood Urine Nitrite Urine Bilirubin Urine Urobilinogen Ur Leukocyte Esterase Urine RBC Urine WBC Ur Squamous Epith Cells Ur Renal Epithelial Cell Urine Bacteria Hyaline Casts Fine Granular Casts Urine Mucus Urine Opiates Screen Urine Methadone Screen Ur Barbiturates Screen Ur Phencyclidine Scrn Ur Amphetamines Screen U Methamphetamin-MDMA U Benzodiazepines Scrn Urine Cocaine Screen U Cannabinoids Screen Ethyl Alcohol Acetone Level POC Glucose 148 H 05/28/21 05/28/21 05/28/21 12:35 16:08 21:50 WBC RBC Hgb Hct MCV MCH MCHC RDW Std Deviation RDW Coeff of Niki Plt Count MPV Immature Gran % (Auto) Neut % (Auto) Lymph % (Auto) Smyth % (Auto) Eos % (Auto) Baso % (Auto) Absolute Neuts (auto) Absolute Lymphs (auto) Nucleated RBC % Diff Path Review PT INR APTT Sodium 137 Potassium 2.5 L* 3.1 L Chloride 91 L Carbon Dioxide 36.0 H Anion Gap 10 BUN 43 H Creatinine 2.52 H Estim Creat Clear Calc 47.91 Est GFR (MDRD) Af Amer 41 L Est GFR (MDRD) Non-Af 34 L BUN/Creatinine Ratio 17.1 Glucose 105 Lactic Acid 1.3 Calcium 7.1 L Phosphorus Magnesium Total Bilirubin AST ALT Alkaline Phosphatase Troponin I High Sens Total Protein Albumin Globulin Albumin/Globulin Ratio Lipase Urine Color Urine Clarity Urine pH Ur Specific [place] Urine Protein Urine Glucose (UA) Urine Ketones Urine Occult Blood Urine Nitrite Urine Bilirubin Urine Urobilinogen Ur Leukocyte Esterase Urine RBC Urine WBC Ur Squamous Epith Cells Ur Renal Epithelial Cell Urine Bacteria Hyaline Casts Fine Granular Casts Urine Mucus Urine Opiates Screen Urine Methadone Screen Ur Barbiturates Screen Ur Phencyclidine Scrn Ur Amphetamines Screen U Methamphetamin-MDMA U Benzodiazepines Scrn Urine Cocaine Screen U Cannabinoids Screen Ethyl Alcohol Acetone Level POC Glucose 05/29/21 05/29/21 05/29/21 04:05 04:05 04:05 WBC 9.2 RBC 3.80 L Hgb 12.0 L Hct 35.3 L MCV 92.9 D MCH 31.6 MCHC 34.0 D RDW Std Deviation 39.3 RDW Coeff of Niki 11.6 Plt Count 206 MPV 10.9 Immature Gran % (Auto) 0.500 Neut % (Auto) 76.3 H Lymph % (Auto) 9.4 L Smyth % (Auto) 13.7 H Eos % (Auto) 0.0 Baso % (Auto) 0.1 Absolute Neuts (auto) 7.0 Absolute Lymphs (auto) 0.86 Nucleated RBC % 0 Diff Path Review PT INR APTT Sodium 141 Potassium 3.2 L Chloride 100 Carbon Dioxide 34.0 H Anion Gap 7 BUN 43 H Creatinine 3.11 H Estim Creat Clear Calc 38.93 Est GFR (MDRD) Af Amer 32 L Est GFR (MDRD) Non-Af 26 L BUN/Creatinine Ratio 13.8 Glucose 109 H Lactic Acid Calcium 7.7 L Phosphorus 3.1 Magnesium 3.2 H Total Bilirubin AST ALT Alkaline Phosphatase Troponin I High Sens Total Protein Albumin Globulin Albumin/Globulin Ratio Lipase Urine Color Urine Clarity Urine pH Ur Specific [place] Urine Protein Urine Glucose (UA) Urine Ketones Urine Occult Blood Urine Nitrite Urine Bilirubin Urine Urobilinogen Ur Leukocyte Esterase Urine RBC Urine WBC Ur Squamous Epith Cells Ur Renal Epithelial Cell Urine Bacteria Hyaline Casts Fine Granular Casts Urine Mucus Urine Opiates Screen Urine Methadone Screen Ur Barbiturates Screen Ur Phencyclidine Scrn Ur Amphetamines Screen U Methamphetamin-MDMA U Benzodiazepines Scrn Urine Cocaine Screen U Cannabinoids Screen Ethyl Alcohol Acetone Level POC Glucose Micro: Microbiology 05/28/21 11:08 Mucosa - Nasopharyngeal Respiratory Panel (PCR) - Final 05/28/21 05:57 Mucosa - Nose SARS-CoV-2 Antigen (Rapid) - Final Radiography Diagnostic Testing: Radiology Impression Chest X-Ray 05/28/21 05:39 IMPRESSION: Normal x-ray examination of the chest. Electronically Signed: Kindra Cobb MD at 6:33 EDT Tel , Service support , Chest X-Ray 05/28/21 12:40 IMPRESSION: 1. Interval placement of right internal jugular deep venous line with tip the catheter overlying the spur vena cava and no pneumothorax. 2. No active disease. Electronically Signed: Jayjay Arce MD at 13:05 EDT Tel , Service support , Physical Exam Const alert and no apparent distress General Appearance: cooperative HEENT normocephalic and head/scalp atraumatic Mouth: dry mucous membranes Eyes PERRL, EOMs intact bilaterally and conjunctivae normal Neck supple General: trachea midline Resp normal respiratory effort and no use of accessory muscles Effort and Inspection: able to speak in complete sentences Auscultation: Negative for rales, rhonchi or wheezes Cardio regular rate, regular rhythm, S1 normal heart sound and S2 normal heart sound GI normal to inspection, nondistended, normoactive bowel sounds Extremity no clubbing, cyanosis or edema Skin no rashes or lesions noted Neuro CN's II-XII intact bilaterally, moves all extremities and no focal motor deficits Psych Mood & Affect: flat affect Charges/Coding Visit Charges Inpatient E&M: 70476 Subs Hosp L3
--- NOTE | 2021-05-29 09:35 | CASEMGMT ---
RN CM Face to Face with patient for initial transition planning/care coordination assessment. RN CM introduced self and role at [facility]. Patient lying in bed, alert and oriented. Patient willing to participate in assessment and is able to answer all questions appropriately. Care providers, pharmacy, and demographics verified. Patient wishes to discharge home, denies need for home health at this time. Patient states he has no further needs or concerns at this time. CM to follow for discharge planning needs that may arise. PCP: Pancho HUFF Specialists: CAMI Soria Preferred Pharmacy: [facility] Insurance: [facility] Prescription Benefit: yes Living Will/HPOA: none LNOK: parents Living Arrangements: Patient lives with parents in a 2 story home. Patient is independent and able to ambulate stairs Transportation: parents, grandparents DME/HHC: Patient has wheelchair at home. Denies previous HHC. Patient states he is interested to drug addiction resources but does not want to talk to Nithya-IRENE Bowie updated Disposition Plan: Patient to discharge home with family support and follow-up plans in place. Yoli CAMARENA, RN, CM
--- NOTE | 2021-05-29 09:40 | EX.NTREPO ---
Medical Nutrition Therapy - History Nutrition Services has been consulted to:: Manage nutrient details of diet order Current diet/nutrition support order:: clear liquids - Anthropometric Measurements Height:: 6 ft Weight:: 74.5 kg Body Mass Index (BMI):: 22.2 - Relevant Labs Relevant Labs:: WBC 31.0 K/mm3 (4.4-11.0) H* 05/28/21 05:50 RBC 3.80 M/mm3 (4.6-6.2) L 05/29/21 04:05 Hgb 12.0 g/dL (13.0-16.5) L 05/29/21 04:05 Hct 35.3 % (40-54) L 05/29/21 04:05 MCV 99.8 fL (80-94) H 05/28/21 05:50 MCHC 31.9 g/dL (32-36) L 05/28/21 05:50 MPV 12.1 fl (6.2-12.0) H 05/28/21 05:50 Immature Gran % (Auto) 3.700 % (0.0-0.9) H 05/28/21 05:50 Neut % (Auto) 76.3 % (47-70) H 05/29/21 04:05 Lymph % (Auto) 9.4 % (19-41) L 05/29/21 04:05 [place] % (Auto) 13.7 % (0-10) H 05/29/21 04:05 Absolute Neuts (auto) 21.6 X10^3/uL (2.0-7.7) H 05/28/21 05:50 PT 15.3 SECONDS (11.7-14.9) H 05/28/21 06:06 Sodium 132 mmol/L (136-145) L 05/28/21 07:16 Potassium 3.2 mmol/L (3.5-5.1) L 05/29/21 04:05 Chloride 91 mmol/L (98-107) L 05/28/21 16:08 Carbon Dioxide 34.0 mmol/L (21.0-32.0) H 05/29/21 04:05 Anion Gap 50 (5-15) H 05/28/21 05:50 BUN 43 mg/dL (7-18) H 05/29/21 04:05 Creatinine 3.11 mg/dL (0.70-1.30) H 05/29/21 04:05 Est GFR (MDRD) Af Amer 32 mL/min (>60) L 05/29/21 04:05 Est GFR (MDRD) Non-Af 26 mL/min (>60) L 05/29/21 04:05 Glucose 109 mg/dL (74-106) H 05/29/21 04:05 Lactic Acid 32.7 mmol/L (0.4-1.9) H* 05/28/21 05:50 Calcium 7.7 mg/dL (8.5-10.1) L 05/29/21 04:05 Magnesium 3.2 mg/dL (1.6-2.6) H 05/29/21 04:05 Total Bilirubin 1.20 mg/dL (0.20-1.00) H 05/28/21 05:50 ALT 15 U/L (16-61) L 05/28/21 05:50 - Assessment Food and Nutrient Intake: Pt advanced to clear liquid diet today - tolerated for breakfast before he got seconds and then vomited back up. Advised pt to take small sips and resume po diet slowly to avoid n/v. Pt agreed and then asked what kind of diet he would get for lunch - responded that he would probably not be advanced if continues w/ n/v. Pt then asked for nausea medication - told him that he needs to talk to nurse about that. Reported n/v for 3-4 days D[employer]. UBW 170#/77.2 kg and CBW 164#/ 74.5 kg - increase of .2 kg since last review. (Wt loss of 3.5% in past week d/t n/v) - Nutrition Diagnosis: Intake Problem Inadequate Oral Intake Intake Problem - Etiology: r/t nausea, emesis Intake Problem - Signs/Symptoms: as evidenced by estimated energy intake meeting <50% of nutritional needs x 4 days and 3.5% wt loss x <1 wk Status: Active Problem - Protein Calorie Malnutrition Evidence of Malnutrition Exists: Yes Severe Protein Calorie Malnutrition:: Acute Illness/Injury - Nutrition Intervention Nutrition Prescription: 2416-8983 calories/day (1.3xRMR). 70-80 g protein/day (1.0g/kg). 2600mL fluid/day (35mL/kg) - Food / Nutrient Delivery Interventions Summary of nutrition intervention:: Adjust diet order Nutrition support ordered as / adjusted to:: advance diet as tolerated to regular Coordination of Nutrition Care: Talked to nsg about pt request for additional apple juice (which nsg had just given him which he chugged down and then had emesis), his request for nausea medication and what kind of diet he will get for lunch. - MNT Monitoring Active Nutrition Patient: Yes Nutrition Status: Requires Follow Up 3-5 Days - please call RD/LD if questions/concerns at x [phone]
--- NOTE | 2021-05-29 10:19 | CON.PCM.RE_ITS ---
Assessment & Plan Assessment/Plan (1) DANIA (acute kidney injury): PLAN: The patient has normal baseline kidney function as of June 2020. His serum creatinine was 0.89 mg/dL at that time. I do not suspect chronic kidn ey disease in this young patient. DANIA is likely due to prerenal azotemia from volume depletion versus ischemic ATN from prolonged prerenal state prior to presentation. Another possibility would be nephrotoxic ATN from rhabdomyolysis. His risk factor includes severe hypokalemia and substance abuse prior to admission. At this point, treatment would not change even if he has ATN. The patient still appears to be volume depleted, and he is not yet on regular food. I would recommend continuing IV fluid today. I will recheck renal function again at 1400-hour. I will check CPK at that time as well. I will also send urine for urine indices. If the patient can tolerate lunch and his repeat renal function at 1400 is stable or better, we can consider discharging the patient. Ideally, however, I would like the patient to stay overnight so we can ensure sustained improvement in renal function. However, if he insists on being discharged, I would recommend rechecking renal function panel again on 06/02/2021 as outpatient. (2) Hypokalemia: PLAN: Hypokalemia has resolved with IV potassium chloride repletion. He is not hypomagnesemic. I suspect hypokalemia is due to vomiting and associated metabolic alkalosis on presentation. I agree with volume repletion along with potassium replacement as we are doing. (3) Cyclic vomiting syndrome: (4) Polysubstance abuse: HPI Consult Data Date of Consult: 05/29/21 HPI Narrative Reason for Consultation: DANIA HPI Narrative: The patient is a 25-year-old man with past history of polysubstance abuse and cyclic vomiting possibly due to marijuana hyperemesis syndrome. The patient relapsed and started using opioid again a few months ago after recent inpatient rehabilitation for opioid addiction. The patient presented to the hospital on 05/28/2021 with a 4-day history of persistent nausea and vomiting. He also had altered mental status on chart review on admission. He was also found to have tachycardia, fever and relatively low blood pressure on presentation. Nephrology is asked to see the patient because of DANIA. The patient does not have a past history of chronic kidney disease. His last available serum creatinine in our system was from 06/29/2020 at 0.89 mg/dL. The patient presented to the hospital yesterday with serum creatinine of 3.56 mg/dL. Creatinine did improve with IV fluid down to 2.52 mg/dL by 4 p.m. yesterday. However, repeat serum creatinine today increased back to 3.11 mg/dL despite IV fluid. Since admission to the ICU, he is around 7 L positive in fluid balance. The patient still has intermittent nausea, but the symptom has improved since yesterday. He also complains of some thigh soreness. He denies current chest pain, shortness of breath, or lower extremity edema. The patient denies gross hematuria or lower urinary tract symptoms prior to or during this admission. The patient denies using NSAIDs on a regular basis. There has been no recent exposure to IV contrast. [facility] Medical History Cyclic vomiting syndrome Home Medications NK 05/28/21 [History Last Taken Unknown] Allergy/AdvReac Type Severity Reaction Status Date / Time risperidone [From Risperdal] AdvReac TACHYCARDIA Verified 05/28/21 05:23 Social History Smoking Status: Never smoker ROS Constitutional Constitutional: Reports anorexia, body ache(s), fatigue and malaise; Denies josephine nge in weight, chills, daytime sleepiness, difficulty sleeping, excessive sweating, fever(s), frequent falls, headache(s), increased appetite, lethargy, night sweats, poor appetite, snoring, stops breathing during sleep, weakness, weight gain or weight loss Eyes Eyes: Denies acute decrease in peripheral vision, blindness, blind spots, bloody eye, blurry vision, burning, change in eye color, change in vision, decreased night vision, diplopia, discharge from eye(s), discongugate gaze, double vision, dry eyes, erythema, excessive blinking, exophthalmos, eye pain, floaters, foreign body, halo effect, irritation, itchy eyes, loss of central vision, loss of peripheral vision, loss of vision, miosis, mydriasis, numbness, nystagmus, other visual disturbances, periorbital itching, photophobia, ptosis, puffy eyes, requires corrective lenses, seeing flashes, spots in vision, sunken eyes, tearing, tunnel vision or other ENT HEENT: Reports other; Denies abnormal hearing, bleeding gums, change in voice, dental pain, disequillibrium, dizziness, dry mouth, dysphagia, ear discharge, ear pain, epistaxis, facial pain, foreign body in nose, halitosis, headache(s), hearing loss, hoarseness, lip swelling, loss taste/smell, mouth lesions, mouth pain, mucositis, nasal congestion, nasal discharge, nasal obstruction, nasal trauma, neck mass, neck pain, nose pain, odynophagia, otalgia, post nasal drip, rhinorrhea, sinus pain, sinus pressure, sore throat, throat swelling, tinnitus, tongue swelling or vertigo Cardiovascular Cardiovascular: Denies abdominal bloating, abdominal edema, abdominal pain, arrhythmia on telemetry, bluish discoloration of hand/feet, chest pain, chest pain at rest, chest pain with activity, claudication, clubbing, cold extremities, cyanosis, diaphoresis, dizziness, dyspnea, dyspnea at rest, dyspnea on exertion, easily tiring during activity, edema, erythema on extremities, fatigue, flutter in chest, hypertension, irregular heart rhythm, leg edema, leg ulcers, lightheadedness, nausea, numbness in extremities, orthopnea, orthostatic symptoms, pale richards skin, palpitations, paroxysmal nocturnal dyspnea, pedal edema, periorbital swelling, pounding heartbeat, racing heartbeat, radiating jaw, neck or arm pain, rapid heart rate, slow heart rate, syncope, tachypnea, vomiting, weakness in extremities or weight gain Respiratory/Chest Respiratory/Chest: Reports dyspnea; Denies change in mental status, change in phlegm color, chest congestion, chest tightness, cough, difficulty clearing secretions, dry cough, dusky skin, dyspnea on exertion, excessive phlegm production, hemoptysis, hoarseness, inability to speak, mouth breathing, nail bed cyanosis, non-rest sleep EDS, pain on inspiration, pain with cough, pale skin, chencho-oral cyanosis, portable oxygen @ home, productive cough, red skin, restlessness, shortness of breath at rest, shortness of breath with exertion, snoring, stridor, tachypnea, wheezing, witnessed apneas, breast mass, breast pain, breast skin changes, breast swelling, change in breast shape or nipple discharge Gastrointestinal Gastrointestinal: Reports anorexia, cramping, dry heaves, nausea and vomiting; Denies abdominal pain, belching, bloating, change in bowel habits, change in stool character, chewing difficulty, coffee ground emesis, constipation, diarrhea, dyspepsia, dysphagia, early satiety, excessive flatus, fecal incontinence, heartburn, hematemesis, hematochezia, hemorrhoids, loose stools, melena, odynophagia, rectal bleeding, taste impaired, tenesmus or weight changes Genitourinary Genitourinary: Denies abdominal discomfort, anuria, burning urination, change in libido, change in urinary stream, contractions, difficulty urinating, difficulty with ejaculations, dribbling, dysuria, erectile dysfunction, external genitalia discoloration, movement, flank pain, genital bruising, genital lesions, genital pain, hematospermia, hematuria, itching, low back pain, nocturia, oliguria, painful ejaculations, penile discharge, penile swelling, polyuria, post void dribbling, scrotal pain, scrotal swelling, testicular mass, testicular swelling, undescended testicles, urinary frequency, urinary hesitancy, urinary incontinence or urinary urgency Musculoskeletal Musculoskeletal: Reports muscle cramps; Denies abnormal gait, arthralgias, atrophy, back pain, deformity, difficulty walking, extremity pain, joint pain, joint stiffness, joint swelling, limited range of motion, loss of height, muscle spasms, muscle weakness, myalgias, neck pain, numbness, radiating pain into limb, stiffness, tingling or tremors Integumentary Integumentary: Denies acne, alopecia, bleeding lesions, change in hair, change in pigmentation, changing lesions, dry skin, erythema, furuncle, hirsutism, jaundice, lesions, nail changes, new lesions, non-healing lesions, phot osensitivity, pruritus, rash, skin pain, skin ulcer, skin swelling, sores, striae, unusual bruising or wounds Neurologic Neurologic: Denies abnormal gait, abnormal hearing, abnormal movements, abnormal speech, behavior changes, burning sensations, confusion, convulsions, disequilibrium, dizziness, focal weakness, frequent falls, headache(s), lack of coordination, loss of vision, memory loss, numbness, other visual disturbances, paresthesias, radicular pain, restless legs, seizure-like activity, seizures, sensory deficit, syncope, tingling, tremor(s), vertigo or weakness Psychiatric Psychiatric: Reports abnormal sleep pattern; Denies anhedonia, anxiety, auditory hallucinations, behavioral changes, change in appetite, change in libido, cognitive impairment, confusion, depression, difficulty concentrating, hallucinations, homicidal ideation, hopelessness, irritability, memory loss, mood swings, panic attacks, paranoia, suicidal ideation, suicidal thoughts, tactile hallucinations or visual hallucinations Endocrine Endocrinology: Denies change in body appearance, change in libido, cold intolerance, deepening of the voice, excessive sweating, fatigue, flushing, heat intolerance, increase in ring/shoe/hat size, palpitations, polydipsia, polypha angus or polyuria Hematologic/Lymphatic Hematologic/Lymphatic: Denies anemia, easy bleeding, easy bruising or lymphadenopathy Allergic/Immunologic Allergic/Immunologic: Reports GI upset w/certain foods; Denies itchy eyes, lip swelling, seasonal rhinorrhea, rhinitis, throat swelling, tongue swelling, hives, urticaria, eczemia, wheezing or asthma Physical Exam Narrative General appearance: No apparent distress. HEENT: Normocephalic, atraumatic, mucous membrane dry without erythema, PERRLA, EOMI, hearing intact Neck: Supple no JVD Heart: Normal S1, S2 no rubs or murmurs Lungs: Clear to auscultation bilaterally Abdomen: Normal bowel sound, soft, mild tenderness on palpation without guarding or rebound Extremity: No clubbing, cyanosis or edema Musculoskeletal: Full passive range of motion, no joint swelling Skin: No rash, skin is warm and dry Psychiatric: Affect is somewhat flat Testes: Negative for testicular swelling or testicular mass Lab / Micro Data Result Diagrams: 05/29/21 04:05 05/29/21 04:05 Labs: Laboratory Results - last 24 hr 05/28/21 05/28/21 05/28/21 05:50 12:35 16:08 WBC RBC Hgb Hct MCV MCH MCHC RDW Std Deviation RDW Coeff of Niki Plt Count MPV Immature Gran % (Auto) Neut % (Auto) Lymph % (Auto) Sully % (Auto) Eos % (Auto) Baso % (Auto) Absolute Neuts (auto) Absolute Lymphs (auto) Nucleated RBC % Diff Path Review Reviewed Sodium 137 Potassium 2.5 L* Chloride 91 L Carbon Dioxide 36.0 H Anion Gap 10 BUN 43 H Creatinine 2.52 H Estim Creat Clear Calc 47.91 Est GFR (MDRD) Af Amer 41 L Est GFR (MDRD) Non-Af 34 L BUN/Creatinine Ratio 17.1 Glucose 105 Lactic Acid 1.3 Calcium 7.1 L Phosphorus Magnesium 05/28/21 05/29/21 05/29/21 21:50 04:05 04:05 WBC 9.2 RBC 3.80 L Hgb 12.0 L Hct 35.3 L MCV 92.9 D MCH 31.6 MCHC 34.0 D RDW Std Deviation 39.3 RDW Coeff of Niki 11.6 Plt Count 206 MPV 10.9 Immature Gran % (Auto) 0.500 Neut % (Auto) 76.3 H Lymph % (Auto) 9.4 L Sully % (Auto) 13.7 H Eos % (Auto) 0.0 Baso % (Auto) 0.1 Absolute Neuts (auto) 7.0 Absolute Lymphs (auto) 0.86 Nucleated RBC % 0 Diff Path Review Sodium 141 Potassium 3.1 L 3.2 L Chloride 100 Carbon Dioxide 34.0 H Anion Gap 7 BUN 43 H Creatinine 3.11 H Estim Creat Clear Calc 38.93 Est GFR (MDRD) Af Amer 32 L Est GFR (MDRD) Non-Af 26 L BUN/Creatinine Ratio 13.8 Glucose 109 H Lactic Acid Calcium 7.7 L Phosphorus Magnesium 3.2 H 05/29/21 04:05 WBC RBC Hgb Hct MCV MCH MCHC RDW Std Deviation RDW Coeff of Niki Plt Count MPV Immature Gran % (Auto) Neut % (Auto) Lymph % (Auto) Sully % (Auto) Eos % (Auto) Baso % (Auto) Absolute Neuts (auto) Absolute Lymphs (auto) Nucleated RBC % Diff Path Review Sodium Potassium Chloride Carbon Dioxide Anion Gap BUN Creatinine Estim Creat Clear Calc Est GFR (MDRD) Af Amer Est GFR (MDRD) Non-Af BUN/Creatinine Ratio Glucose Lactic Acid Calcium Phosphorus 3.1 Magnesium Micro: Microbiology 05/28/21 11:08 Respiratory Panel (PCR) - Final Mucosa - Nasopharyngeal 05/28/21 05:57 SARS-CoV-2 Antigen (Rapid) - Final Mucosa - Nose Radiology Impression Chest X-Ray 05/28/21 12:40 IMPRESSION: 1. Interval placement of right internal jugular deep venous line with tip the catheter overlying the spur vena cava and no pneumothorax. 2. No active disease. Electronically Signed: Jayjay Arce MD at 13:05 EDT Tel , Service support ,
[2021-05-29] MEDS: Thiamine Hydrochloride 100 MG Tablet PO (11:04)
[2021-05-29] MEDS: Folic Acid 1 MG Tablet PO (11:04)
--- NOTE | 2021-05-29 11:05 | NURSING ---
report called transferred per chair to room 105
[2021-05-29] MEDS: proCHLORPERazine 10 MG/2 ML Vial 5 MG IV (11:40)
[2021-05-29] MEDS: proMETHazine 25 MG/ML Syringe 12.5 MG IM (13:09)
--- NOTE | 2021-05-29 13:25 | PN.HOSP_ITS ---
Subjective Subjective still with nausea and vomiting. Objective Data Objective Data Vital Signs: Vital Signs Temp Pulse Resp BP Pulse Ox 36.4 C L 92 18 146/85 H 96 05/29/21 11:35 05/29/21 12:44 05/29/21 11:35 05/29/21 11:35 05/29/21 11:35 Oxygen Flow Rate (L/min) 2 Oxygen Delivery Method Room Air Weight: 74.5 kg Body Mass Index (BMI) 22.2 Intake & Output: Intake and Output for Last 24 Hours 05/27/21 05/28/21 05/29/21 23:59 23:59 23:59 Intake Total 6555.42 / 6555.42 3377.50 / 3377.50 Output Total 1365 / 1365 825 / 825 Balance 5190.42 / 5190.42 2552.50 / 2552.50 Lab / Micro Data Result Diagrams: 05/29/21 04:05 05/29/21 04:05 Labs: Laboratory Results - last 24 hr 05/28/21 05/28/21 05/29/21 16:08 21:50 04:05 WBC RBC Hgb Hct MCV MCH MCHC RDW Std Deviation RDW Coeff of Niki Plt Count MPV Immature Gran % (Auto) Neut % (Auto) Lymph % (Auto) Phelps % (Auto) Eos % (Auto) Baso % (Auto) Absolute Neuts (auto) Absolute Lymphs (auto) Nucleated RBC % Sodium 137 141 Potassium 2.5 L* 3.1 L 3.2 L Chloride 91 L 100 Carbon Dioxide 36.0 H 34.0 H Anion Gap 10 7 BUN 43 H 43 H Creatinine 2.52 H 3.11 H Estim Creat Clear Calc 47.91 38.93 Est GFR (MDRD) Af Amer 41 L 32 L Est GFR (MDRD) Non-Af 34 L 26 L BUN/Creatinine Ratio 17.1 13.8 Glucose 105 109 H Calcium 7.1 L 7.7 L Phosphorus Magnesium 3.2 H 05/29/21 05/29/21 04:05 04:05 WBC 9.2 RBC 3.80 L Hgb 12.0 L Hct 35.3 L MCV 92.9 D MCH 31.6 MCHC 34.0 D RDW Std Deviation 39.3 RDW Coeff of Niki 11.6 Plt Count 206 MPV 10.9 Immature Gran % (Auto) 0.500 Neut % (Auto) 76.3 H Lymph % (Auto) 9.4 L Phelps % (Auto) 13.7 H Eos % (Auto) 0.0 Baso % (Auto) 0.1 Absolute Neuts (auto) 7.0 Absolute Lymphs (auto) 0.86 Nucleated RBC % 0 Sodium Potassium Chloride Carbon Dioxide Anion Gap BUN Creatinine Estim Creat Clear Calc Est GFR (MDRD) Af Amer Est GFR (MDRD) Non-Af BUN/Creatinine Ratio Glucose Calcium Phosphorus 3.1 Magnesium Micro: Microbiology 05/28/21 05:55 Urine Catheter - Buckley Urine Culture - Preliminary Culture exhibits no growth. 05/28/21 11:08 Mucosa - Nasopharyngeal Respiratory Panel (PCR) - Final 05/28/21 05:57 Mucosa - Nose SARS-CoV-2 Antigen (Rapid) - Final Physical Exam Narrative drinking soda, then spits it up Const alert Exam Limitations: no limitations HEENT Head and Scalp: normocephalic Eyes PERRL Resp normal respiratory effort, no retractions, no use of accessory muscles and clear to auscultation bilaterally Cardio regular rate, regular rhythm, S1 normal heart sound and S2 normal heart sound GI normal to inspection, nondistended, normoactive bowel sounds, soft to palpation, non-tender and non-distended Extremity normal to inspection Assessment & Plan Assessment/Plan (1) Cyclic vomiting syndrome: PLAN: 1. DANIA * DW nephrology, felt to have prerenal azotemia from dehydration * on IVF 2. Intractable N/V * unclear etiology * suspect CVC from THC and/or opiate withdrawal * supportive mgmt * advised discontinuation of THC 3. Opiate abuse * discussed buprenorphine taper with patient as it may alleviate some symptoms * start buprenorphine taper * he states that he does not want [facility]. He will follow up with another agency 4. VTE prophylaxis: LMWH Charges/Coding Visit Charges Inpatient E&M: 37814 Subs Hosp L2
[2021-05-29 14:50] LABS: Albumin, Serum 3.2 g/dL (3.2-5.0); BUN 40 mg/dL (7-18); BUN/Creat Ratio 11.7 RATIO (10-20); CPK Total, Creatine Kinase 1509 U/L (39-308); Chloride 101 mmol/L (98-107); Creatinine, Serum 3.41 mg/dL (0.70-1.30); EST Glomerular Filtration Rate 24 mL/min (>60); Est Glom Filt Rate - Afr Amer 29 mL/min (>60); Glucose 105 mg/dL (74-106); Phosphorus 2.9 mg/dL (2.5-4.9); Potassium 3.1 mmol/L (3.5-5.1); Sodium Level 142 mmol/L (136-145)
--- NOTE | 2021-05-29 16:25 | PCM.DC.SUM ---
Providers Date of Admission: 05/28/21 Primary Care Physician: Diana Deleon NP Consultations 05/29/21 06:08 Consult: Nephrology Routine Consulting Provider: Simona Mora Reason for Consult: DANIA EMERGENT Consult: No MD Notified: Yes Date Notified: 05/29/21 Time Notified: 09:08 Method of Notification: Answering Service Reason For Visit: METABOLIC ENCAPHALOPATHY / DANIA Diagnosis Discharge Diagnosis (1) Cyclic vomiting syndrome: Status: Chronic Code(s): G43.A0 - Cyclical vomiting, in migraine, not intractable Medications at Discharge Home Medications NK 05/28/21 Hospital Course Summary of Care Provided Minutes Spent on Discharge: 32 Hospital Course: 25-year-old male presents with change in mental status, distress, nausea and vomiting for 3 to 4 days. Patient was found to be in acute kidney injury and concern for septic shock. Patient had acute kidney injury and opiate withdrawal and likely cannabinoid hyperemesis. Patient was seen by nephrology who felt the patient had prerenal azotemia versus ischemic ATN. Patient was still having active vomiting while he was still here. Told him that this could be related with cannabinoid hyperemesis and did advise cessation of marijuana-containing products. But I told him also this could be related with opiate withdrawal and did recommend buprenorphine taper which we did start. Despite that, patient does not leave AGAINST MEDICAL ADVICE and signed the papers. Weight / BMI Weight Weight: 74.5 kg Body Mass Index (BMI) 22.2 ABG / Lab / Microbiology Data Result Diagrams: 05/29/21 04:05 05/29/21 13:10 Laboratory: Laboratory Results - last 24 hr 05/28/21 05/28/21 05/29/21 16:08 21:50 04:05 WBC RBC Hgb Hct MCV MCH MCHC RDW Std Deviation RDW Coeff of Niki Plt Count MPV Immature Gran % (Auto) Neut % (Auto) Lymph % (Auto) Labette % (Auto) Eos % (Auto) Baso % (Auto) Absolute Neuts (auto) Absolute Lymphs (auto) Nucleated RBC % Sodium 137 141 Potassium 2.5 L* 3.1 L 3.2 L Chloride 91 L 100 Carbon Dioxide 36.0 H 34.0 H Anion Gap 10 7 BUN 43 H 43 H Creatinine 2.52 H 3.11 H Estim Creat Clear Calc 47.91 38.93 Est GFR (MDRD) Af Amer 41 L 32 L Est GFR (MDRD) Non-Af 34 L 26 L BUN/Creatinine Ratio 17.1 13.8 Glucose 105 109 H Calcium 7.1 L 7.7 L Phosphorus Magnesium 3.2 H Total Creatine Kinase Albumin 05/29/21 05/29/21 05/29/21 04:05 04:05 13:10 WBC 9.2 RBC 3.80 L Hgb 12.0 L Hct 35.3 L MCV 92.9 D MCH 31.6 MCHC 34.0 D RDW Std Deviation 39.3 RDW Coeff of Niki 11.6 Plt Count 206 MPV 10.9 Immature Gran % (Auto) 0.500 Neut % (Auto) 76.3 H Lymph % (Auto) 9.4 L Labette % (Auto) 13.7 H Eos % (Auto) 0.0 Baso % (Auto) 0.1 Absolute Neuts (auto) 7.0 Absolute Lymphs (auto) 0.86 Nucleated RBC % 0 Sodium 142 Potassium 3.1 L Chloride 101 Carbon Dioxide 32.0 Anion Gap BUN 40 H Creatinine 3.41 H Estim Creat Clear Calc 35.50 Est GFR (MDRD) Af Amer 29 L Est GFR (MDRD) Non-Af 24 L BUN/Creatinine Ratio 11.7 Glucose 105 Calcium 8.0 L Phosphorus 3.1 2.9 Magnesium Total Creatine Kinase 1509 H Albumin 3.2 Microbiology: Microbiology 05/28/21 05:55 Urine Culture - Preliminary Urine Catheter - Buckley Culture exhibits no growth. 05/28/21 11:08 Respiratory Panel (PCR) - Final Mucosa - Nasopharyngeal Microbiology 05/28/21 05:55 Urine Catheter - Buckley Urine Culture - Preliminary Culture exhibits no growth. 05/28/21 11:08 Mucosa - Nasopharyngeal Respiratory Panel (PCR) - Final 05/28/21 05:57 Mucosa - Nose SARS-CoV-2 Antigen (Rapid) - Final Meaningful Use Info Meaningful Use Diagnoses (Choose all that apply): None applicable Discharge Plan Admission Admit Date/Time: 05/28/21 08:14 Attending Provider: Raymon Britt Primary Care Provider: Diana Deleon NP Consulting Providers: Simona Mora Discharge Orders/Prescriptions Prescriptions: No Action NK RF: 0 Referrals / Follow Up: Seffens,Diana CHIEF VENDOR QUALITY, CHIEF VENDOR [employer]-C [Primary Care Provider] - Disposition Disposition (needs filled in before D/C Order can be placed): Against Medical Advice Charges/Coding Visit Charges Inpatient E&M: 28967 Disch Hosp
--- NOTE | 2021-05-29 16:27 | NURSING ---
This RN notified Dr. Britt that pt states he wants to leave AMA. Dr. Britt aware from talking with pt earlier and will not be discharging pt. edge pluggerTHOMPSON Parker notified. edge plugger in and dc'd RIJ line. This RN advised pt that it was in his best interest to stay and get treatment and offered to give pt ativan to make him more comfortable. PT declines. AMA papers signed by pt and copy given to pt.
--- NOTE | 2021-05-29 17:40 | CM.ED ---
SOCIAL WORK Referral Source: CM Reason for Consult: Substance Abuse resources Patient left AMA. SS did not provide resources. Samanta Rojas, PSYCHIATRIC ARNP, RN DOCUMENT IMPROVEMENT
== END 2021-05-29 17:09 | disposition left against medical advice (07) | DRG 720 ==
LOC: ED 06:37 → ICU 07:58 → PCU 05-29 11:58
PROVIDERS: Internal Medicine Critical Care Medicine; Internal Medicine Nephrology; Admitting Provider Internal Medicine; Emergency Provider Emergency Medicine; PCP Nurse Practitioner Primary Care
DX: A41.9 Sepsis, unspecified organism (principal); N17.9 Acute kidney failure, unspecified; F11.23 Opioid dependence with withdrawal; R11.15 Cyclical vomiting syndrome unrelated to migraine; E87.6 Hypokalemia; E87.8 Other disorders of electrolyte and fluid balance, not elsewhere classified; R65.21 Severe sepsis with septic shock; E86.0 Dehydration; E87.1 Hypo-osmolality and hyponatremia; E87.2 Acidosis; F11.20 Opioid dependence, uncomplicated; F12.90 Cannabis use, unspecified, uncomplicated; F13.239 Sedative, hypnotic or anxiolytic dependence with withdrawal, unspecified; I49.9 Cardiac arrhythmia, unspecified
CPT/HCPCS: 36415; 36600; 51702; 71045; 80048; 80053; 80069; 80307; 81001; 82009; 82077; 82550; 82803; 82962; 83605; 83690; 83735; 84100; 84132; 84484; 85025; 85610; 85730; 87040; 87086; 87426; 87633; 92960; 93005; 99285; J7030; J7050; J7120; A4216; C1751; J0153; J2405

== ENCOUNTER 2021-08-02 23:38 | Emergency (ER) | payer MEDICAID, SELFPAY ==
[2021-08-02 23:39] VITALS: BP 141/95; PULSE 104; RESP 16; TEMP 35.7; O2SAT 96; BMI 21.5
[2021-08-03 00:24] LABS: Absolute Lymphocyte Count 0.78 X10^3/uL (0.83-4.51); Absolute Neutrophil Count 19.1 X10^3/uL (2.0-7.7); Basophil# 0.03 X10^3/uL; Basophil% 0.1 % (0-1); Hematocrit 46.8 % (40-54); Hemoglobin 16.5 g/dL (13.0-16.5); Lymphocyte # 0.78 X10^3/ul (0.83-4.51); Lymphocyte % 3.7 % (19-41); Mean Corp Hgb Conc 35.3 g/dL (32-36); Mean Corpuscular Hgb 30.8 pg (27.0-32.0); Mean Corpuscular Volume 87.3 fL (80-94); Mean Platelet Vol. 10.4 fl (6.2-12.0); Monocyte# 0.78 X10^3/uL; Monocyte% 3.7 % (0-10); NRBC Flagged by Analyzer 0 % (0-5); Neutrophil # 19.12 X10^3/uL (2.7-7.7); Platelet Count 571 K/mm3 (150-450); RBC Distribution Width CV 11.9 % (11.6-14.6); RBC Distribution Width SD 38.2 fl (35.1-43.9); Red Blood Count 5.36 M/mm3 (4.6-6.2); White Blood Count 20.8 K/mm3 (4.4-11.0)
[2021-08-03] MEDS: 0.9% Normal Saline 1,000 ML 999 ML IV ×2 (00:28→03:02)
[2021-08-03] MEDS: DiphenhydrAMINE 50 MG/ML Syringe 25 MG IV (00:29)
[2021-08-03] MEDS: Metoclopramide 10 MG/2 ML Vial IV (00:29)
[2021-08-03] MEDS: Dicyclomine 20 MG/2 ML Vial IM (00:29)
[2021-08-03 00:55] LABS: AST(SGOT) 13 U/L (15-37); Alanine Aminotransfer ALT/SGPT 19 U/L (16-61); Albumin, Serum 4.6 g/dL (3.2-5.0); Alkaline Phosphatase 91 U/L (45-117); Anion Gap 13 (5-15); BUN 16 mg/dL (7-18); BUN/Creat Ratio 13.4 RATIO (10-20); Bilirubin, Direct 0.16 mg/dL (0.00-0.30); Calcium,Total 10.1 mg/dL (8.5-10.1); Chloride 99 mmol/L (98-107); Creatinine, Serum 1.19 mg/dL (0.70-1.30); EST Glomerular Filtration Rate 80 mL/min (>60); Est Glom Filt Rate - Afr Amer 97 mL/min (>60); Estimated Creatinine Clearance 98.32 ml/min; Globulin 4.6 g/dL (2.2-4.2); Glucose 213 mg/dL (74-106); Lipase 38 U/L (73-393); Potassium 3.1 mmol/L (3.5-5.1); Protein, Total 9.2 g/dL (6.4-8.2); Sodium Level 138 mmol/L (136-145)
[2021-08-03 01:13] LABS: Mucous, Urine 0 SEEN /hpf (<or=2+); Squamous Epithelial Cells - UA 0 SEEN /hpf (0-5)
[2021-08-03] MEDS: Ketorolac 30 MG/ML Syringe IV (01:35)
[2021-08-03 01:36] LABS: Alcohol, Blood (Medical)-Serum < 3.0 mg/dL
[2021-08-03 01:39] VITALS: PULSE 87; RESP 16; O2SAT 95
[2021-08-03 01:39] LABS: Color, Urine Yellow (Yellow); Glucose, Dipstick Normal (Normal); Ketone-Dipstick 15 mg/dl (Negative); Leukocyte Esterase-Dipstick 25 /ul (Negative); Nitrite-Dipstick Negative (Negative); Occult Blood-Urine 50 /ul (Negative); Protein-Dipstick 30 mg/dl (Negative); Urine Bilirubin Dipstick Negative (Negative); Urine Clarity Clear (Clear); Urine Urobilinogen 4 mg/dl (Normal)
[2021-08-03 01:54] LABS: Amphetamine Urine VISTA NEGATIVE (<1000 ng/mL); Barbiturate Urine VISTA NEGATIVE (< 200 ng/mL); Benzodiazepine Urine VISTA NEGATIVE (< 200 ng/mL); Cocaine Urine VISTA NEGATIVE (< 300 ng/mL); Ecstacy Urine VISTA NEGATIVE (< 500 ng/mL); Methadone Urine VISTA NEGATIVE (< 300 ng/mL); PCP Urine VISTA NEGATIVE (< 25 ng/mL); THC Urine VISTA POSITIVE (< 50 ng/mL); Vista UDS pH Range 7
--- NOTE | 2021-08-03 01:55 | EX.ED.DYSGE1 ---
HPI History of Present Illness Chief Complaint: Nausea/Vomiting Informant: patient Onset/Context/Timing Onset: Yesterday Current Severity: Moderate Maximum Severity: Severe Narrative Narrative: Patient presents secondary to vomiting. He has a history of cyclic vomiting. He is currently in an outpatient rehab center for drug detox and was supposed to start Suboxone yesterday morning at 11 AM. When they went to give him this pill he became very nauseated and vomited. He is in vomiting throughout the day. He is complaining of pain diffusely throughout his stomach. He states his last drug use was about 3 AM the day prior. [facility] Medical History Cyclic vomiting syndrome Home Medications buprenorphine-naloxone 08/02/21 [History Last Taken Unknown] ondansetron 4 mg PO Q8H PRN #20 tab 08/03/21 [Rx Last Taken Unknown] Allergy/AdvReac Type Severity Reaction Status Date / Time risperidone [From Risperdal] AdvReac TACHYCARDIA Verified 05/28/21 05:23 Social History Smoking Status: Never smoker ROS ROS ED Constitutional Constitutional ED: Denies chills or fever(s) Eyes Eyes: Denies change in vision ENT ENT ED: Denies sore throat Cardiovascular Cardiovascular: Denies chest pain Respiratory/Chest Respiratory/Chest: Denies cough or dyspnea Gastrointestinal Gastrointestinal: Reports abdominal pain, nausea and vomiting; Denies diarrhea Genitourinary Genitourinary ED: Denies dysuria Musculoskeletal Musculoskeletal: Denies back pain Integumentary Denies rash Neurologic Neurologic: Denies headache(s) or weakness Allergic/Immunologic Allergic/Immunologic ED: Denies urticaria EXAM Physical Exam Const Vital Signs: 08/02/21 23:39 08/03/21 01:39 08/03/21 05:36 Temperature 96.3 F L Temperature Source Temporal Pulse Rate 104 H 87 112 H Respiratory Rate 16 16 18 Blood Pressure 141/95 H 136/81 H Blood Pressure Mean 110 99 Pulse Ox 96 95 97 Oxygen Delivery Method Room Air Room Air Room Air Positive well nourished and well developed General Appearance ED: well developed Eyes EOMs intact bilaterally Neck supple Chest Wall inspection of chest normal and palpation of chest normal Resp normal respiratory effort and clear to auscultation bilaterally Cardio regular rhythm Rate: tachycardic GI Auscultation: hypoactive bowel sounds Palpation: soft and tender other (Mild diffuse tenderness location. No guarding or rebound.) Extremity normal to inspection Neuro oriented x3 Sensorium / Orientation: alert Psych Mood & Affect: anxious Skin no rashes or lesions noted MDM MDM MDM Narrative Medical decision making narrative: Patient was given Bentyl, Reglan, and Benadryl along with IV fluids. Lab work obtained. Lab Data Attestation: I reviewed the patient's lab results. Labs: Laboratory Results - last 24 hr 08/03/21 08/03/21 08/03/21 00:16 00:16 00:16 WBC 20.8 H RBC 5.36 Hgb 16.5 Hct 46.8 MCV 87.3 MCH 30.8 MCHC 35.3 RDW Std Deviation 38.2 RDW Coeff of Niki 11.9 Plt Count 571 H MPV 10.4 Immature Gran % (Auto) 0.500 Neut % (Auto) 92.0 H Lymph % (Auto) 3.7 L [place] % (Auto) 3.7 Eos % (Auto) 0.0 Baso % (Auto) 0.1 Absolute Neuts (auto) 19.1 H Absolute Lymphs (auto) 0.78 L Nucleated RBC % 0 Sodium 138 Potassium 3.1 L Chloride 99 Carbon Dioxide 26.0 Anion Gap 13 BUN 16 Creatinine 1.19 Estim Creat Clear Calc 98.32 Est GFR (MDRD) Af Amer 97 Est GFR (MDRD) Non-Af 80 BUN/Creatinine Ratio 13.4 Glucose 213 H Calcium 10.1 Total Bilirubin 0.80 Direct Bilirubin 0.16 AST 13 L ALT 19 Alkaline Phosphatase 91 Total Protein 9.2 H Albumin 4.6 Globulin 4.6 H Lipase 38 L Urine Color Urine Clarity Urine pH Ur Specific [place] Urine Protein Urine Glucose (UA) Urine Ketones Urine Occult Blood Urine Nitrite Urine Bilirubin Urine Urobilinogen Ur Leukocyte Esterase Urine RBC Urine WBC Ur Squamous Epith Cells Urine Bacteria Urine Mucus Urine Opiates Screen Urine Methadone Screen Ur Barbiturates Screen Ur Phencyclidine Scrn Ur Amphetamines Screen U Methamphetamin-MDMA U Benzodiazepines Scrn Urine Cocaine Screen U Cannabinoids Screen Ur Drug Screen Comment Ethyl Alcohol < 3.0 08/03/21 08/03/21 00:59 00:59 WBC RBC Hgb Hct MCV MCH MCHC RDW Std Deviation RDW Coeff of Niki Plt Count MPV Immature Gran % (Auto) Neut % (Auto) Lymph % (Auto) [place] % (Auto) Eos % (Auto) Baso % (Auto) Absolute Neuts (auto) Absolute Lymphs (auto) Nucleated RBC % Sodium Potassium Chloride Carbon Dioxide Anion Gap BUN Creatinine Estim Creat Clear Calc Est GFR (MDRD) Af Amer Est GFR (MDRD) Non-Af BUN/Creatinine Ratio Glucose Calcium Total Bilirubin Direct Bilirubin AST ALT Alkaline Phosphatase Total Protein Albumin Globulin Lipase Urine Color Yellow Urine Clarity Clear Urine pH 7.0 Ur Specific [place] 1.010 Urine Protein 30 H Urine Glucose (UA) Normal Urine Ketones 15 H Urine Occult Blood 50 H Urine Nitrite Negative Urine Bilirubin Negative Urine Urobilinogen 4 H Ur Leukocyte Esterase 25 H Urine RBC 0-5 SEEN Urine WBC 0-5 SEEN Ur Squamous Epith Cells 0 SEEN Urine Bacteria RARE Urine Mucus 0 SEEN Urine Opiates Screen NEGATIVE Urine Methadone Screen NEGATIVE Ur Barbiturates Screen NEGATIVE Ur Phencyclidine Scrn NEGATIVE Ur Amphetamines Screen NEGATIVE U Methamphetamin-MDMA NEGATIVE U Benzodiazepines Scrn NEGATIVE Urine Cocaine Screen NEGATIVE U Cannabinoids Screen POSITIVE H Ur Drug Screen Comment Ethyl Alcohol Treatment and Re-Evaluation Comments:: Patient's lab work is reviewed. White count is elevated, likely reactive from vomiting. Potassium is low at 3.1, consistent with the time of discharge with his recent hospital admission. He is given 20 mEq IV. Patient did ask for something further for nausea and pain. He was given a dose of Zofran and Toradol. Patient was able to tolerate his p.o. medication while in the emergency room. He is asking for discharge to home. He is given a prescription for Zofran ODT. Of note, I did offer to admit the patient for inpatient detox. He states that he will lose his job if he is admitted to the hospital and wishes to continue his outpatient program. Discharge Plan Triage Chief Complaint: Nausea/Vomiting ED Provider: Ling Hall Dx/Rx/DC Orders Clinical Impression: Vomiting Instructions: ED Vomiting (Adult) Prescriptions: New ondansetron 4 mg tablet,disintegrating 4 mg PO Q8H PRN (Reason: nausea and vomiting) Qty: 20 RF: 0 No Action buprenorphine-naloxone 8-2 mg film RF: 0 Primary Care Provider: Diana Deleon TRAIL CONSTRUCTION WORKER Referrals: Diana Deleon NP, TRAIL CONSTRUCTION WORKER-C [Primary Care Provider] - 3-5 Days if not improving Disposition Disposition: Home, Self Care Discharge Date/Time: 08/03/21 06:21
[2021-08-03] MEDS: Potassium Chloride 10mEq/100mL 10 MEQ/100 ML IV.SOLN. 100 MEQ IV BOLUS ×2 (02:06→03:05)
[2021-08-03 02:27] LABS: Bacteria RARE /hpf (None Seen); Red Blood Cells-Urine 0-5 SEEN /hpf (0-5); White Blood Cells 0-5 SEEN /hpf (0-5)
[2021-08-03] MEDS: Ondansetron 4 MG/2 ML Vial IV (05:03)
[2021-08-03 05:36] VITALS: BP 136/81; PULSE 112; RESP 18; O2SAT 97
--- NOTE | 2021-08-03 05:36 | ED.RN ---
CALLED MOTHER NUMEROUS TIMES FOR RIDE HOME. PHONE GOES RIGHT TO VOICEMAIL. GOT PERMISSION TO CALL HIS STEP DAD AND S/O, NO ANSWER ON EITHER.
--- NOTE | 2021-08-03 06:20 | ED.RN ---
Mom called back, she is coming to get PT.,
== END 2021-08-03 06:21 | disposition home or self-care (01) ==
PROVIDERS: Emergency Provider Emergency Medicine; PCP Nurse Practitioner Primary Care
DX: R11.2 Nausea with vomiting, unspecified (principal)
CPT/HCPCS: 80048; 80076; 80307; 81001; 82077; 83690; 85025; 96365; 96366; 96372; 96375; 99283; J7030; J7040; A4216; J2405

== ENCOUNTER 2021-08-04 07:16 | Emergency (ER) | payer MEDICAID, SELFPAY ==
[2021-08-04 07:17] VITALS: BP 139/81; PULSE 107; RESP 16; TEMP 37.3; O2SAT 96; BMI 21.5
--- NOTE | 2021-08-04 07:32 | EDS_ITS ---
HPI History of Present Illness Chief Complaint: Nausea/Vomiting Narrative Narrative: Patient presents with nausea vomiting for 3 days. He has a history of cyclical vomiting syndrome, he is also on outpatient detox program for fentanyl addiction. He does have epigastric pain and cramping. No fever chills cough or congestion. No back pain or tearing sensation no chest pain. He has decreased p.o. intake for the past 3 days but is still urinating. [facility] Medical History Cyclic vomiting syndrome Home Medications buprenorphine-naloxone 08/02/21 [History Last Taken Unknown] ondansetron 4 mg PO Q8H PRN #20 tab 08/03/21 [Rx Last Taken Unknown] Allergy/AdvReac Type Severity Reaction Status Date / Time risperidone [From Risperdal] AdvReac TACHYCARDIA Verified 08/04/21 07:19 Social History Smoking Status: Current every day smoker tobacco type: cigarettes ROS ROS ED ROS Narrative Past medical history: Reviewed, includes cyclical vomiting syndrome, diabetes, polysubstance abuse Medications: Reviewed Social history: Noncontributory Review of systems: All systems negative except as indicated General: No fever Cardiovascular: No chest pain Respiratory: No shortness of breath or cough Gastrointestinal: Abdominal pain with nausea and vomiting. Genitourinary: No dysuria Musculoskeletal: Denies myalgias no difficulty with ambulation Skin: No rash Neurological: No memory loss, confusion or any focal weakness Psych: No recent behavioral changes Hematologic: No easy bleeding or easy bruising EXAM Physical Exam Narrative Exam Narrative: Physical exam General: Patient appears relatively comfortable in the bed. Head: Normocephalic, Atraumatic Eyes: Conjunctiva not pale ENT: Dry mucous membranes Neck: Supple, Nontender, No lymphadenopathy Cardiovascular: Regular rate, Regular rhythm Respiratory: No distress, CTA bilaterally Abdomen: Soft, there is diffuse tenderness throughout but mostly in the epigastrium there is no distention. There is no guarding or rebound. Back: Nontender, Normal Inspection. Negative for: CVA tenderness Extremities: Nontender, No edema Skin: Normal color, No rash Neurological: Alert, Normal Strength, Normal Sensation Psychological: Slightly anxious appearing Const Vital Signs: 08/04/21 07:17 Temperature 99.1 F Temperature Source Oral Pulse Rate 107 H Respiratory Rate 16 Blood Pressure 139/81 H Blood Pressure Mean 100 Pulse Ox 96 Oxygen Delivery Method Room Air MDM MDM MDM Narrative Medical decision making narrative: Patient's white count improved from last time he was here, there is no evidence of sepsis. He appears well he was hypokalemic which we treated. There is no evidence of DKA today. He did improve. He is tolerating p.o. and I will discharge him. Lab Data Labs: Laboratory Results - last 24 hr 08/04/21 08/04/21 08/04/21 08:15 08:15 08:15 WBC 14.1 H RBC 5.07 Hgb 15.7 Hct 45.0 MCV 88.8 MCH 31.0 MCHC 34.9 RDW Std Deviation 39.5 RDW Coeff of Niki 12.2 Plt Count 508 H MPV 10.2 Immature Gran % (Auto) 0.400 Neut % (Auto) 79.7 H Lymph % (Auto) 12.4 L [place] % (Auto) 7.4 Eos % (Auto) 0.0 Baso % (Auto) 0.1 Absolute Neuts (auto) 11.3 H Absolute Lymphs (auto) 1.75 Nucleated RBC % 0 Sodium 137 Potassium 2.6 L* Chloride 97 L Carbon Dioxide 32.0 Anion Gap 8 BUN 15 Creatinine 0.82 Estim Creat Clear Calc 142.68 Est GFR (MDRD) Af Amer 149 Est GFR (MDRD) Non-Af 123 BUN/Creatinine Ratio 18.4 Glucose 130 H Lactic Acid 1.3 Calcium 9.9 Total Bilirubin 1.50 H AST 19 ALT 22 Alkaline Phosphatase 78 Total Protein 9.2 H Albumin 4.8 Globulin 4.4 H Albumin/Globulin Ratio 1.1 Lipase 42 L Discharge Plan Triage Chief Complaint: Nausea/Vomiting ED Provider: Haja Castañeda Dx/Rx/DC Orders Clinical Impression: Cyclic vomiting syndrome Instructions: ED Cyclic Vomiting Syndrome Prescriptions: No Action buprenorphine-naloxone 8-2 mg film RF: 0 ondansetron 4 mg tablet,disintegrating 4 mg PO Q8H PRN (Reason: nausea and vomiting) Qty: 20 RF: 0 Primary Care Provider: Diana Deleon NP Referrals: Diana Deleon NP, WET PROCESS OPERATOR-C [Primary Care Provider] - Disposition Disposition: Home, Self Care
[2021-08-04 08:25] LABS: Absolute Lymphocyte Count 1.75 X10^3/uL (0.83-4.51); Absolute Neutrophil Count 11.3 X10^3/uL (2.0-7.7); Basophil# 0.01 X10^3/uL; Basophil% 0.1 % (0-1); Hemoglobin 15.7 g/dL (13.0-16.5); Lymphocyte # 1.75 X10^3/ul (0.83-4.51); Lymphocyte % 12.4 % (19-41); Mean Corp Hgb Conc 34.9 g/dL (32-36); Mean Corpuscular Volume 88.8 fL (80-94); Mean Platelet Vol. 10.2 fl (6.2-12.0); Monocyte# 1.04 X10^3/uL; Monocyte% 7.4 % (0-10); NRBC Flagged by Analyzer 0 % (0-5); Neutrophil # 11.26 X10^3/uL (2.7-7.7); Neutrophil % 79.7 % (47-70); Platelet Count 508 K/mm3 (150-450); RBC Distribution Width CV 12.2 % (11.6-14.6); RBC Distribution Width SD 39.5 fl (35.1-43.9); Red Blood Count 5.07 M/mm3 (4.6-6.2); White Blood Count 14.1 K/mm3 (4.4-11.0)
[2021-08-04] MEDS: 0.9% Normal Saline 1,000 ML 1000 ML IV (08:32)
[2021-08-04] MEDS: Dicyclomine 20 MG/2 ML Vial IM (08:33)
[2021-08-04] MEDS: Haloperidol Lactate 5 MG/ML Vial 2 MG IV (08:33)
--- NOTE | 2021-08-04 08:33 | ED.RN ---
MEDS VERIFIED WITH CECILIA MACKAY COMPUTER WILL NOT SCAN
[2021-08-04 08:49] LABS: ALB/GLOB Ratio 1.1 RATIO (0.9-2.4); AST(SGOT) 19 U/L (15-37); Alanine Aminotransfer ALT/SGPT 22 U/L (16-61); Albumin, Serum 4.8 g/dL (3.2-5.0); Alkaline Phosphatase 78 U/L (45-117); Anion Gap 8 (5-15); BUN 15 mg/dL (7-18); BUN/Creat Ratio 18.4 RATIO (10-20); Calcium,Total 9.9 mg/dL (8.5-10.1); Chloride 97 mmol/L (98-107); Creatinine, Serum 0.82 mg/dL (0.70-1.30); EST Glomerular Filtration Rate 123 mL/min (>60); Est Glom Filt Rate - Afr Amer 149 mL/min (>60); Estimated Creatinine Clearance 142.68 ml/min; Globulin 4.4 g/dL (2.2-4.2); Glucose 130 mg/dL (74-106); Lactic Acid 1.3 mmol/L (0.4-1.9); Lipase 42 U/L (73-393); Potassium 2.6 mmol/L (3.5-5.1); Protein, Total 9.2 g/dL (6.4-8.2); Sodium Level 137 mmol/L (136-145)
--- NOTE | 2021-08-04 08:50 | ED.RN ---
LAB CALLED CRITICAL POTASSIUM OF 2.6. DR MANUEL
[2021-08-04] MEDS: Potassium Chloride Oral Soln 20 MEQ/15 ML UDC 40 MEQ PO (09:31)
[2021-08-04] MEDS: Potassium Chloride Oral Tablet 20 MEQ 40 MEQ PO (11:08)
== END 2021-08-04 12:01 | disposition home or self-care (01) ==
PROVIDERS: Emergency Provider Emergency Medicine; PCP Nurse Practitioner Primary Care
DX: R11.15 Cyclical vomiting syndrome unrelated to migraine (principal); F17.210 Nicotine dependence, cigarettes, uncomplicated
CPT/HCPCS: 80053; 83605; 83690; 85025; 87040; 96361; 96372; 96374; 99285; J7030; A4216

== ENCOUNTER 2022-02-11 16:21 | Emergency (ER) | payer MEDICAID, SELFPAY ==
[2022-02-11 16:21] VITALS: BP 130/83; PULSE 128; RESP 16; TEMP 36.9; O2SAT 96; BMI 24.4
--- NOTE | 2022-02-11 16:38 | CT_ITS ---
STUDY: CT Abdomen And Pelvis W/ Contrast Injection 02/11/2022 5:53 PM REASON FOR EXAM: Male, 26 years old. Left sided abdomen pain, nausea/vomiting x3 days.abd pain TECHNIQUE: Transaxial images were obtained without oral contrast, and with IV 100mL Isovue-300 intravenous contrast. Individualized dose optimization techniques were used for this CT. COMPARISON: 01.27.20. FINDINGS: The visualized lung bases are unremarkable. The visualized portions of the heart are within normal limits. Normal liver. Normal gallbladder and extrahepatic biliary system. Normal spleen. Normal pancreas. Normal bilateral adrenal glands. No acute findings of the right kidney. No acute findings of the left kidney. Normal visualized stomach. Left upper quadrant small bowel anastomosis. Stool throughout the colon. There is non-visualization of the appendix. There are no acute findings of the abdominal aorta. Normal inferior vena cava. Subcentimeter mesenteric lymph nodes. Normal urinary bladder. There are prostatic calcifications. There is an umbilical hernia containing fat. Stable compression deformity of T12 IMPRESSION: (NOT LISTED IN ORDER OF SIGNIFICANCE) There are no acute findings. Other findings as above. Electronically Signed: Jacky Galdamez MD at 17:55 EDT Reading Location ID and State: [facility] / [place] , Service support , CT/Abdomen/Pelvis W IV Cont ONLY
--- NOTE | 2022-02-11 16:39 | ED.VIS.GI ---
HPI HPI - GI History of Present Illness Chief Complaint: Abd Pain Informant: patient Narrative Narrative: Patient presents with nausea vomiting left upper quadrant and left flank area pain. He states he has a history of drug abuse mostly opiates. But he has been completely clean for 30 to 35 days. He states he would get vomiting when he stopped opiates but he feels that this is late for withdrawal. He has been diagnosed with marijuana cyclic vomiting but he states that was probably always opiates when he had that. No blood in the vomitus. Bowel habits have been okay. He states he has been having vomiting and pain for about 3 days. Nothing specifically makes it better or worse. Patient also states he had some surgery in his abdomen somewhere between 2 and 4 years ago somewhere in [place]. He said they had to take out a valve and 6 inches. This was due to recurrent vomiting. He cannot recall any more details about this. [facility] Medical History Cyclic vomiting syndrome Home Medications dicyclomine 40 mg PO TID PRN #14 tab 02/11/22 [Rx Last Taken Unknown] ondansetron 4 mg PO Q8H PRN #10 tab 02/11/22 [Rx Last Taken Unknown] promethazine 25 mg PO TID PRN #10 tab 02/11/22 [Rx Last Taken Unknown] Allergy/AdvReac Type Severity Reaction Status Date / Time risperidone [From Risperdal] AdvReac TACHYCARDIA Verified 02/11/22 16:23 Social History Smoking Status: Current every day smoker tobacco type: cigarettes ROS ROS ED Constitutional Constitutional ED: Denies chills, fever(s) or subjective ENT ENT ED: Denies rhinorrhea or sore throat Cardiovascular Cardiovascular: Denies chest pain, orthopnea or palpitations Respiratory/Chest Respiratory/Chest: Denies cough, dyspnea, dyspnea on exertion, orthopnea or sputum Gastrointestinal Gastrointestinal: Reports abdominal pain, nausea and vomiting; Denies diarrhea Genitourinary Genitourinary ED: Denies dysuria, hematuria or urinary frequency Musculoskeletal Musculoskeletal: Denies arthralgias, myalgias or neck pain Integumentary Denies abscess, Abrasions or rash Neurologic Neurologic: Denies headache(s) Psychiatric Psychiatric: Denies suicidal thoughts Endocrine Endocrinology: Denies polydipsia or polyuria Hematologic/Lymphatic Hematologic/Lymphatic: Denies easy bleeding or easy bruising Allergic/Immunologic Allergic/Immunologic ED: Denies urticaria EXAM Physical Exam Const Vital Signs: 02/11/22 16:21 Temperature 98.4 F Temperature Source Temporal Pulse Rate 128 H Respiratory Rate 16 Blood Pressure 130/83 H Blood Pressure Mean 98 Pulse Ox 96 Oxygen Delivery Method Room Air Positive well nourished and well developed General Appearance ED: well developed and NAD HEENT Reports dry mucous membranes Mouth ED: Yes dry mucous membranes Mouth: dry mucous membranes Eyes General Eye ED: Negative for pale conjunctiva or scleral icterus Neck no JVD Resp normal respiratory effort and clear to auscultation bilaterally Resp Narrative: Lungs are clear. There is no pain with a deep breath. Auscultation: Negative for rales, rhonchi or wheezes Cardio regular rhythm Rate: tachycardic GI GI Narrative: Abdomen soft. Nondistended. He does have some mild left upper quadrant tenderness. He does have well-healed scars. Palpation: soft Back/Spine no CVA tenderness Extremity full ROM General Extremety ED: Negative for edema or tenderness General Extremity: Negative for edema Neuro Sensorium / Orientation: alert and oriented to person Psych mental status grossly normal Skin Rashes: no rashes MDM MDM MDM Narrative Medical decision making narrative: Patient's blood work does show high white count hemoglobin. This is likely due to some mild hemoconcentration. However BUN and creatinine are overall preserved. Potassium is a little bit low. This should self correct. This is chronic problem. Likely related to recurrent vomiting. Liver function tests are overall unremarkable. Lipase is negative. Tox screen is positive for cannabis supporting a prior history of cannabis hyperemesis syndrome. I was not able to find data on what procedure he had done in the past. I was not able to get an operative report or details. I did do a CAT scan because of this unknown prior surgery and pain reportedly in that area. CAT scan did not show any acute process. Patient is much calmer now. Nausea is better but still a little bit present. I will get him more meds here and I think we can get him home. This is been a recurrent problem over years for him. I am not seeing indication for admission at this time. Lab Data Attestation: I reviewed the patient's lab results. Labs: Laboratory Results - last 24 hr 02/11/22 02/11/22 02/11/22 16:50 16:50 17:58 WBC 13.6 H RBC 5.36 Hgb 17.1 H Hct 47.0 MCV 87.7 MCH 31.9 MCHC 36.4 H RDW Std Deviation 40.7 RDW Coeff of Niki 12.8 Plt Count 484 H MPV 10.4 Immature Gran % (Auto) 0.300 Neut % (Auto) 68.4 Lymph % (Auto) 21.2 [place] % (Auto) 9.8 Eos % (Auto) 0.1 Baso % (Auto) 0.2 Absolute Neuts (auto) 9.3 H Absolute Lymphs (auto) 2.89 Nucleated RBC % 0 Sodium 135 L Potassium 3.1 L Chloride 94 L Carbon Dioxide 31.0 Anion Gap 10 BUN 15 Creatinine 1.20 Estim Creat Clear Calc 104.19 Est GFR (MDRD) Af Amer 95 Est GFR (MDRD) Non-Af 79 BUN/Creatinine Ratio 12.5 Glucose 126 H Calcium 10.5 H Total Bilirubin 1.00 AST 7 L ALT 16 Alkaline Phosphatase 83 Total Protein 8.5 H Albumin 4.9 Globulin 3.6 Albumin/Globulin Ratio 1.4 Lipase 45 L Urine Color Urine Clarity Urine pH Ur Specific [place] Urine Protein Urine Glucose (UA) Urine Ketones Urine Occult Blood Urine Nitrite Urine Bilirubin Urine Urobilinogen Ur Leukocyte Esterase Urine RBC Urine WBC Ur Squamous Epith Cells Amorphous Sediment Urine Bacteria Urine Mucus Urine Opiates Screen NEGATIVE Urine Methadone Screen NEGATIVE Ur Barbiturates Screen NEGATIVE Ur Phencyclidine Scrn NEGATIVE Ur Amphetamines Screen NEGATIVE MDMA (Ecstasy) Screen NEGATIVE U Benzodiazepines Scrn NEGATIVE Urine Cocaine Screen NEGATIVE U Cannabinoids Screen POSITIVE H Ur Drug Screen Comment 02/11/22 17:58 WBC RBC Hgb Hct MCV MCH MCHC RDW Std Deviation RDW Coeff of Niki Plt Count MPV Immature Gran % (Auto) Neut % (Auto) Lymph % (Auto) [place] % (Auto) Eos % (Auto) Baso % (Auto) Absolute Neuts (auto) Absolute Lymphs (auto) Nucleated RBC % Sodium Potassium Chloride Carbon Dioxide Anion Gap BUN Creatinine Estim Creat Clear Calc Est GFR (MDRD) Af Amer Est GFR (MDRD) Non-Af BUN/Creatinine Ratio Glucose Calcium Total Bilirubin AST ALT Alkaline Phosphatase Total Protein Albumin Globulin Albumin/Globulin Ratio Lipase Urine Color Yellow Urine Clarity Clear Urine pH 9.0 Ur Specific [place] 1.015 Urine Protein 15 H Urine Glucose (UA) Normal Urine Ketones Negative Urine Occult Blood 10 H Urine Nitrite Negative Urine Bilirubin Negative Urine Urobilinogen Normal Ur Leukocyte Esterase Negative Urine RBC 0 SEEN Urine WBC 0 SEEN Ur Squamous Epith Cells 0 SEEN Amorphous Sediment 2+ Urine Bacteria 0 SEEN Urine Mucus 0 SEEN Urine Opiates Screen Urine Methadone Screen Ur Barbiturates Screen Ur Phencyclidine Scrn Ur Amphetamines Screen MDMA (Ecstasy) Screen U Benzodiazepines Scrn Urine Cocaine Screen U Cannabinoids Screen Ur Drug Screen Comment Radiography Diagnostic Testing: Clinical Impression(s) from Imaging Studies Abdomen/Pelvis CT 02/11/22 16:38 Discharge Plan Triage Chief Complaint: Abd Pain ED Provider: Omid Cardenas Dx/Rx/DC Orders Clinical Impression: Cannabis hyperemesis syndrome concurrent with and due to cannabis abuse, Abdominal pain Instructions: ED Abdominal Pain Unkn Cause Male..., Cannabinoid Hyperemesis Syndrome Prescriptions: New ondansetron 4 mg tablet,disintegrating 4 mg PO Q8H PRN (Reason: nausea and vomiting) Qty: 10 RF: 0 promethazine 25 mg tablet 25 mg PO TID PRN (Reason: nausea and vomiting) Qty: 10 RF: 0 dicyclomine 20 mg tablet 40 mg PO TID PRN (Reason: cramps) Qty: 14 RF: 0 Primary Care Provider: Diana Deleon NP Referrals: Diana Deleon NP, CUT FILE CLERK-C [Primary Care Provider] - 1-2 Days if not improving Disposition Disposition: Home, Self Care Discharge Date/Time: 02/11/22 19:18
[2022-02-11 17:00] LABS: Absolute Lymphocyte Count 2.89 X10^3/uL (0.83-4.51); Absolute Neutrophil Count 9.3 X10^3/uL (2.0-7.7); Basophil# 0.03 X10^3/uL; Basophil% 0.2 % (0-1); Eosinophil# 0.01 X10^3/uL; Eosinophils% 0.1 % (0-5); Hemoglobin 17.1 g/dL (13.0-16.5); Lymphocyte # 2.89 X10^3/ul (0.83-4.51); Lymphocyte % 21.2 % (19-41); Mean Corp Hgb Conc 36.4 g/dL (32-36); Mean Corpuscular Hgb 31.9 pg (27.0-32.0); Mean Corpuscular Volume 87.7 fL (80-94); Mean Platelet Vol. 10.4 fl (6.2-12.0); Monocyte# 1.34 X10^3/uL; Monocyte% 9.8 % (0-10); NRBC Flagged by Analyzer 0 % (0-5); Neutrophil # 9.31 X10^3/uL (2.7-7.7); Neutrophil % 68.4 % (47-70); Platelet Count 484 K/mm3 (150-450); RBC Distribution Width CV 12.8 % (11.6-14.6); RBC Distribution Width SD 40.7 fl (35.1-43.9); Red Blood Count 5.36 M/mm3 (4.6-6.2); White Blood Count 13.6 K/mm3 (4.4-11.0)
[2022-02-11] MEDS: 0.9% Normal Saline 1,000 ML 1000 ML IV (17:11)
[2022-02-11] MEDS: Ondansetron 4 MG/2 ML Vial IV (17:11)
[2022-02-11 17:21] LABS: ALB/GLOB Ratio 1.4 RATIO (0.9-2.4); AST(SGOT) 7 U/L (15-37); Alanine Aminotransfer ALT/SGPT 16 U/L (16-61); Albumin, Serum 4.9 g/dL (3.2-5.0); Alkaline Phosphatase 83 U/L (45-117); Anion Gap 10 (5-15); BUN 15 mg/dL (7-18); BUN/Creat Ratio 12.5 RATIO (10-20); Calcium,Total 10.5 mg/dL (8.5-10.1); Chloride 94 mmol/L (98-107); EST Glomerular Filtration Rate 79 mL/min (>60); Est Glom Filt Rate - Afr Amer 95 mL/min (>60); Estimated Creatinine Clearance 104.19 ml/min; Globulin 3.6 g/dL (2.2-4.2); Glucose 126 mg/dL (74-106); Lipase 45 U/L (73-393); Potassium 3.1 mmol/L (3.5-5.1); Protein, Total 8.5 g/dL (6.4-8.2); Sodium Level 135 mmol/L (136-145)
[2022-02-11 18:05] LABS: Bacteria 0 SEEN /hpf (None Seen); Mucous, Urine 0 SEEN /hpf (<or=2+); Red Blood Cells-Urine 0 SEEN /hpf (0-5); Squamous Epithelial Cells - UA 0 SEEN /hpf (0-5); White Blood Cells 0 SEEN /hpf (0-5)
[2022-02-11 18:12] LABS: Color, Urine Yellow (Yellow); Glucose, Dipstick Normal (Normal); Ketone-Dipstick Negative (Negative); Leukocyte Esterase-Dipstick Negative /ul (Negative); Nitrite-Dipstick Negative (Negative); Occult Blood-Urine 10 /ul (Negative); Protein-Dipstick 15 mg/dl (Negative); Specific Gravity, Urine 1.015 (1.002-1.030); Urine Bilirubin Dipstick Negative (Negative); Urine Clarity Clear (Clear); Urine Urobilinogen Normal (Normal)
[2022-02-11 18:41] LABS: Amphetamine Urine VISTA NEGATIVE (<1000 ng/mL); Barbiturate Urine VISTA NEGATIVE (< 200 ng/mL); Benzodiazepine Urine VISTA NEGATIVE (< 200 ng/mL); Cocaine Urine VISTA NEGATIVE (< 300 ng/mL); Ecstacy Urine VISTA NEGATIVE (< 500 ng/mL); Methadone Urine VISTA NEGATIVE (< 300 ng/mL); PCP Urine VISTA NEGATIVE (< 25 ng/mL); THC Urine VISTA POSITIVE (< 50 ng/mL); Vista UDS pH Range 7
[2022-02-11 18:42] LABS: Amorphous Sediment 2+
[2022-02-11] MEDS: Dicyclomine 20 MG/2 ML Vial IM (19:13)
[2022-02-11] MEDS: proMETHazine 25 MG/ML Syringe 12.5 MG IM (19:13)
== END 2022-02-11 19:18 | disposition home or self-care (01) ==
PROVIDERS: Emergency Provider Emergency Medicine; PCP Nurse Practitioner Primary Care; Visit Provider Emergency Medicine
DX: R11.2 Nausea with vomiting, unspecified (principal); F12.188 Cannabis abuse with other cannabis-induced disorder; R10.9 Unspecified abdominal pain; F17.210 Nicotine dependence, cigarettes, uncomplicated
CPT/HCPCS: 74177; 80053; 80307; 81001; 83690; 85025; 96361; 96372; 96374; 99283; J7030; Q9967; A4216; J2405

== ENCOUNTER 2022-10-31 08:16 | Emergency (ER) | payer MEDICAID, SELFPAY ==
[2022-10-31 08:20] VITALS: BP 141/85; PULSE 128; RESP 20; TEMP 36.1; O2SAT 96; BMI 19.3
--- NOTE | 2022-10-31 08:36 | CT_ITS ---
EXAM: CT ABDOMEN AND PELVIS WITHOUT INTRAVENOUS CONTRAST CLINICAL INDICATION: right flank pain TECHNIQUE: Helically acquired images were obtained of the abdomen and pelvis without intravenous contrast. This CT exam was performed using one or more of the following dose reduction techniques: automated exposure control, adjustment of the mA and/or kV according to patient size, and/or use of iterative reconstruction technique. This report was created using [employer] report generation technology. RADIATION DOSE: CTDIvol = 6.04 mGy, DLP = 323.17 mGy-cm COMPARISON: CT abdomen and pelvis with contrast 02/11/2022. FINDINGS: LOWER THORAX: Unremarkable. Lung bases are clear. No cardiomegaly. No significant pericardial effusion. ABDOMEN: LIVER: Unremarkable. Homogeneous. GALLBLADDER AND BILE DUCTS: Unremarkable. No calcified gallstones. No gallbladder distention or wall edema. No intra- or extrahepatic biliary ductal dilation. PANCREAS: Unremarkable. No focal cystic mass. SPLEEN: Unremarkable. Normal size without focal cystic or solid mass. ADRENALS: Unremarkable. No nodules. KIDNEYS AND URETERS: Unremarkable. Normal renal size and position. No hydronephrosis. STOMACH AND BOWEL: Unremarkable. No stomach or bowel distention. No focal inflammatory change. PELVIS: APPENDIX: Contrast inside the normal-appearing appendix. No inflammatory changes of fat around the appendix. BLADDER: Unremarkable. REPRODUCTIVE: Unremarkable as visualized. No mass. ABDOMEN and PELVIS: INTRAPERITONEAL SPACE: Unremarkable. No ascites or other fluid collection. No free air. BONES/JOINTS: Unremarkable. No suspicious lytic or blastic abnormality. SOFT TISSUES: Unremarkable. No discrete abdominal or pelvic wall hernia. VASCULATURE: Unremarkable. Abdominal aorta is non-dilated. LYMPH NODES: Unremarkable. No enlarged lymph nodes. CT/Abdomen/Pelvis without Cont IMPRESSION: No acute findings in the abdomen or pelvis and no significant interval change when compared to 02/11/2022. Electronically Signed: Lisandro Mahan MD at 9:54 EST ,
--- NOTE | 2022-10-31 08:37 | EDS_ITS ---
HPI History of Present Illness Chief Complaint: Nausea/Vomiting Informant: patient Narrative Narrative: 27-year-old male with a history of cyclic vomiting syndrome as well as a care plan at this hospital presenting to the emergency department with vomiting. He states that it began in the middle the night also notes some right flank pain. He notes a history of kidney stones denies any urinary symptoms. He states that he does not have any Zofran or Phenergan or anything at home. He states he is never followed up through his many emergency department visits with his primary care doctor does not know why. He continues to use cannabis. He states he has no idea why he may be vomiting. I do mention the cyclic vomiting but he keeps his eyes closed does not look at me and does not speak. This is consistent through much of my history as it is very difficult to get any information out of him either he is not telling me the truth her for what ever reason he wants to hide his medical history from his doctor. [facility] Medical History Cyclic vomiting syndrome Home Medications dicyclomine 20 mg tablet 40 mg PO TID PRN cramps #14 tabs 02/11/22 [Rx Last Taken Unknown] ondansetron 4 mg disintegrating tablet 4 mg PO Q8H PRN nausea and vomiting #10 tabs 02/11/22 [Rx Last Taken Unknown] promethazine 25 mg tablet 25 mg PO TID PRN nausea and vomiting #10 tabs 02/11/22 [Rx Last Taken Unknown] Allergy/AdvReac Type Severity Reaction Status Date / Time risperidone [From Risperdal] AdvReac TACHYCARDIA Verified 10/31/22 08:20 Social History (Updated 10/31/22 @ 08:[address] Cesar Rich DO) Smoking Status: Current every day smoker tobacco type: cigarettes substance use type: other details: Cannabis ROS ROS ED Constitutional Constitutional ED: Denies chills or weight loss Eyes Eyes: Denies change in vision or diplopia ENT ENT ED: Denies ear pain, rhinorrhea or sore throat Cardiovascular Cardiovascular: Denies chest pain, orthopnea, palpitations or racing heartbeat Respiratory/Chest Respiratory/Chest: Denies cough, dyspnea or orthopnea Gastrointestinal Gastrointestinal: Reports abdominal pain, nausea and vomiting; Denies diarrhea Genitourinary Genitourinary ED: Denies dysuria, hematuria or urinary frequency Musculoskeletal Musculoskeletal: Reports back pain; Denies arthralgias or myalgias Integumentary Denies abscess or rash Neurologic Neurologic: Denies headache(s) or weakness Psychiatric Psychiatric: Denies anxiety, depression, suicidal ideation or suicidal thoughts Endocrine Endocrinology: Denies polydipsia, polyphagia or polyuria Allergic/Immunologic Allergic/Immunologic ED: Denies mouth swelling, tongue swelling or urticaria EXAM Physical Exam Narrative Exam Narrative: Patient laying in the bed holding his right side. He states that he is in great pain while remaining still with his eyes closed and refusing to talk with a lot of my questions he moans with palpation of his abdomen Const Vital Signs: 10/31/22 08:20 Temperature 96.9 F L Temperature Source Temporal Pulse Rate 128 H Respiratory Rate 20 H Blood Pressure 141/85 H Blood Pressure Mean 103 Pulse Ox 96 Oxygen Delivery Method Room Air Positive well nourished and well developed General Appearance ED: well developed HEENT Reports normocephalic, head/scalp atraumatic and moist mucous membranes Eyes PERRL and EOMs intact bilaterally Neck no lymphadenopathy, supple and no JVD Resp normal respiratory effort and clear to auscultation bilaterally Cardio regular rate, regular rhythm and no murmurs GI Auscultation: normoactive bowel sounds Palpation: soft Back/Spine no CVA tenderness and normal ROM Extremity normal to inspection General Extremety ED: Negative for edema General Extremity: Negative for edema Neuro oriented x3 and CN's II-XII intact bilaterally Sensorium / Orientation: alert Motor Exam: strength 5/5 throughout Psych mental status grossly normal Mood & Affect: Negative for depressed or tearful Skin no rashes or lesions noted and no wounds MDM MDM MDM Narrative Medical decision making narrative: Blood work was obtained and negative except for an elevated glucose. CT of the abdomen pelvis did not demonstrate any ureterolithiasis. Repeat examination after Toradol Zofran and fluids finds the patient laying on his right side with his eyes closed again not speaking. At this point he will be discharged home with Zofran Lab Data Attestation: I reviewed the patient's lab results. Labs: Laboratory Results - last 24 hr 10/31/22 10/31/22 10/31/22 08:58 08:58 09:27 WBC Cancelled 7.2 Corrected WBC Cancelled RBC Cancelled 5.04 Hgb Cancelled 16.1 Hct Cancelled 45.6 MCV Cancelled 90.5 MCH Cancelled 31.9 MCHC Cancelled 35.3 RDW Std Deviation Cancelled 40.9 RDW Coeff of Niki Cancelled 12.5 Plt Count Cancelled 309 MPV Cancelled 10.5 Immature Gran % (Auto) Cancelled 0.300 Neut % (Auto) Cancelled 84.3 H Lymph % (Auto) Cancelled 5.2 L [place] % (Auto) Cancelled 9.9 Eos % (Auto) Cancelled 0.0 Baso % (Auto) Cancelled 0.3 Absolute Neuts (auto) Cancelled 6.1 Absolute Lymphs (auto) Cancelled 0.37 L Total Counted Cancelled Neutrophils % (Manual) Cancelled Band Neutrophils % Cancelled Lymphocytes % (Manual) Cancelled Monocytes % (Manual) Cancelled Eosinophils % (Manual) Cancelled Basophils % (Manual) Cancelled Metamyelocytes % Cancelled Myelocytes % Cancelled Promyelocytes % Cancelled Blast Cells % Cancelled Plasma Cell % (Manual) Cancelled Other Cells % Cancelled Nucleated RBC % Cancelled 0 Nucleated RBCs/100 WBC Cancelled Differential Comment Cancelled Diff Path Review Cancelled Hypersegmented Neuts Cancelled Atypical Lymphocytes Cancelled Reactive Lymphocytes Cancelled Smudge Cells Cancelled Toxic Granulation Cancelled Toxic Vacuolation Cancelled Dohle Bodies Cancelled Pradip Rods Cancelled Platelet Estimate Cancelled ADEQUATE Plt Morphology Comment Cancelled RBC Morphology Cancelled NORM C+C Polychromasia Cancelled Hypochromasia Cancelled Poikilocytosis Cancelled Basophilic Stippling Cancelled Anisocytosis Cancelled Microcytosis Cancelled Macrocytosis Cancelled Spherocytes Cancelled Sickle Cells Cancelled Target Cells Cancelled Tear Drop Cells Cancelled Ovalocytes Cancelled Stomatocytes Cancelled Yanez-Sh[place]acres Bodies Cancelled Brionna Cells Cancelled Bite Cells Cancelled Crenated Cell Cancelled Acanthocytes (Spur) Cancelled Rouleaux Cancelled Schistocytes Cancelled Sodium 137 Potassium 3.5 Chloride 101 Carbon Dioxide 27.0 Anion Gap 9 BUN 12 Creatinine 1.29 Estim Creat Clear Calc 79.98 Est GFR (MDRD) Af Amer 87 Est GFR (MDRD) Non-Af 72 BUN/Creatinine Ratio 9.3 L Glucose 149 H Calcium 10.2 H Radiography Diagnostic Testing: Clinical Impression(s) from Imaging Studies Abdomen/Pelvis CT 12/04/22 08:36 IMPRESSION: No acute findings in the abdomen or pelvis and no significant interval change when compared to 02/11/2022. Electronically Signed: Lisandro Mahan MD at 9:54 EST , Discharge Plan Triage Chief Complaint: Nausea/Vomiting ED Provider: Cesar Rich Dx/Rx/DC Orders Prescriptions: No Action ondansetron 4 mg tablet,disintegrating 4 mg PO Q8H PRN (Reason: nausea and vomiting) Qty: 10 0RF promethazine 25 mg tablet 25 mg PO TID PRN (Reason: nausea and vomiting) Qty: 10 0RF dicyclomine 20 mg tablet 40 mg PO TID PRN (Reason: cramps) Qty: 14 0RF Primary Care Provider: Diana Deleon NP Referrals: Diana Deleon NP, [employer] OPERATOR-C [Primary Care Provider] -
[2022-10-31] MEDS: 0.9% Normal Saline 1,000 ML 1000 ML IV (09:07)
[2022-10-31] MEDS: Ondansetron 4 MG/2 ML Vial IV (09:07)
[2022-10-31] MEDS: Ketorolac 30 MG/ML Syringe IV (09:07)
--- NOTE | 2022-10-31 09:11 | NURSING ---
need a new lavendar tube. it hemolized
[2022-10-31 09:17] LABS: Anion Gap 9 (5-15); BUN 12 mg/dL (7-18); BUN/Creat Ratio 9.3 RATIO (10-20); Calcium,Total 10.2 mg/dL (8.5-10.1); Chloride 101 mmol/L (98-107); Creatinine, Serum 1.29 mg/dL (0.70-1.30); EST Glomerular Filtration Rate 72 mL/min (>60); Est Glom Filt Rate - Afr Amer 87 mL/min (>60); Estimated Creatinine Clearance 79.98 ml/min; Glucose 149 mg/dL (74-106); Potassium 3.5 mmol/L (3.5-5.1); Sodium Level 137 mmol/L (136-145)
[2022-10-31 09:38] LABS: Absolute Lymphocyte Count 0.37 X10^3/uL (0.83-4.51); Absolute Neutrophil Count 6.1 X10^3/uL (2.0-7.7); Basophil# 0.02 X10^3/uL; Basophil% 0.3 % (0-1); Hematocrit 45.6 % (40-54); Hemoglobin 16.1 g/dL (13.0-16.5); Lymphocyte # 0.37 X10^3/ul (0.83-4.51); Lymphocyte % 5.2 % (19-41); Mean Corp Hgb Conc 35.3 g/dL (32-36); Mean Corpuscular Hgb 31.9 pg (27.0-32.0); Mean Corpuscular Volume 90.5 fL (80-94); Mean Platelet Vol. 10.5 fl (6.2-12.0); Monocyte# 0.71 X10^3/uL; Monocyte% 9.9 % (0-10); NRBC Flagged by Analyzer 0 % (0-5); Neutrophil # 6.05 X10^3/uL (2.7-7.7); Neutrophil % 84.3 % (47-70); POSITIVE DIFFERENTIAL YES; Platelet Count 309 K/mm3 (150-450); RBC Distribution Width CV 12.5 % (11.6-14.6); RBC Distribution Width SD 40.9 fl (35.1-43.9); Red Blood Count 5.04 M/mm3 (4.6-6.2); White Blood Count 7.2 K/mm3 (4.4-11.0)
[2022-10-31 09:42] LABS: Differential Indicated SCAN CRITERIA MET
[2022-10-31 10:23] LABS: Mucous, Urine 0 SEEN /hpf (<or=2+)
[2022-10-31 10:24] LABS: Platelet Estimate ADEQUATE (ADEQ); Red Cell Morphology NORM C+C NORMAL (NORM C&C)
[2022-10-31 10:42] LABS: Color, Urine Yellow (Yellow); Glucose, Dipstick Normal (Normal); Leukocyte Esterase-Dipstick 25 /ul (Negative); Nitrite-Dipstick Negative (Negative); Occult Blood-Urine 150 /ul (Negative); Protein-Dipstick 100 mg/dl (Negative); Urine Clarity Sl. Cloudy (Clear); Urine Urobilinogen 1 mg/dl (Normal)
[2022-10-31 10:54] LABS: Urine Bilirubin Dipstick 1 mg/dL (Negative)
[2022-10-31 10:55] LABS: Ketone-Dipstick 150 mg/dl (Negative)
[2022-10-31 10:57] LABS: Bacteria 3+ /hpf (None Seen); Red Blood Cells-Urine 0-5 SEEN /hpf (0-5); Squamous Epithelial Cells - UA 0-5 SEEN /hpf (0-5); White Blood Cells 5-10 SEEN /hpf (0-5)
== END 2022-10-31 11:22 | disposition home or self-care (01) ==
PROVIDERS: Emergency Provider Emergency Medicine; PCP Nurse Practitioner Primary Care; Visit Provider Emergency Medicine
DX: R11.2 Nausea with vomiting, unspecified (principal); F17.210 Nicotine dependence, cigarettes, uncomplicated; R10.9 Unspecified abdominal pain; M54.9 Dorsalgia, unspecified
CPT/HCPCS: 36415; 74176; 80048; 81001; 85025; 96361; 96374; 96375; 99282; J7030; A4216; J2405

== ENCOUNTER 2024-01-06 09:25 | Emergency (ER) | payer OTHER, SELFPAY ==
[2024-01-06 09:26] VITALS: BP 118/85; PULSE 94; RESP 16; TEMP 36.2; O2SAT 99; BMI 19.0
--- NOTE | 2024-01-06 10:03 | EDS_ITS ---
HPI HPI - GI History of Present Illness Chief Complaint: Nausea/Vomiting Informant: patient Abdominal Pain/Flank Pain Onset: Days (3) Context: Gradual Onset Timing: Continuous Quality: Aching Location: Diffuse Current Severity: Moderate Maximum Severity: Moderate Worsened by: Food Relieved by: Nothing Nausea/Vomiting/Emesis GI Symptom: Positive for Nausea and Vomiting Onset: Days (3) Quality: Positive for Nonbilious; Negative for Blood streaks, Coffee ground or Hematemesis Severity: Severe Diarrhea/Melena/Hematochezia GI Symptom: Positive for - (No bowel movement but passing some small amount of flatus); Negative for Diarrhea, Melena or Hematochezia Narrative Narrative: Patient has had abdominal pain and vomiting for the past 3 days no fevers or chills or diarrhea. He has not had any bowel movements and has not eaten anything because he cannot keep anything down. He has a history of cyclic vomiting syndrome but states this for some reason this feels different, although the symptoms are similar. No hematemesis, bilious emesis. Chest discomfort or dyspnea. No obvious etiology. He states he had abdominal surgery in [place] long ago. When asked what he had done he states I had a little ileus cut out. When I told him that that does not really make sense, he states he thinks it was a piece of intestine but then states that he really does not know what was done or why. [facility] Medical History (Updated 01/06/24 @ 13:[address] Alvaor Fuller MD) Cyclic vomiting syndrome Home Medications dicyclomine 20 mg tablet 40 mg (2 x 20 mg) PO TID PRN cramps #14 tabs 02/11/22 [Rx Last Taken Unknown] ondansetron 4 mg disintegrating tablet 4 mg PO Q8H PRN nausea and vomiting #10 t abs 02/11/22 [Rx Last Taken Unknown] promethazine 25 mg tablet 25 mg PO TID PRN nausea and vomiting #10 tabs 02/11/22 [Rx Last Taken Unknown] ondansetron HCl 4 mg tablet 4 mg PO Q6H PRN nausea and vomiting #15 tabs 10/31/22 [Rx Last Taken Unknown] Allergy/AdvReac Type Severity Reaction Status Date / Time risperidone [From Risperdal] AdvReac TACHYCARDIA Verified 01/06/24 09:28 Surgical History Hx of abdominal surgery Social History (Updated 01/06/24 @ 12:02 by Nancie Pérez) household members: family housing: house Smoking Status: Current every day smoker tobacco type: cigarettes substance use type: other details: Cannabis ROS ROS ED Constitutional Constitutional ED: Denies chills or fever(s) Eyes Eyes: Denies change in vision or diplopia ENT ENT ED: Denies rhinorrhea or sore throat Cardiovascular Cardiovascular: Denies chest pain or palpitations Respiratory/Chest Respiratory/Chest: Denies cough or dyspnea Gastrointestinal Gastrointestinal: Reports abdominal pain, nausea and vomiting; Denies diarrhea Genitourinary Genitourinary ED: Denies dysuria or hematuria Musculoskeletal Musculoskeletal: Denies back pain or neck pain Integumentary Denies abscess or rash Neurologic Neurologic: Denies headache(s), paresthesias or weakness Psychiatric Psychiatric: Denies depression or suicidal thoughts EXAM Physical Exam Const Vital Signs: 01/06/24 09:26 Temperature 97.2 F L Temperature Source Temporal Pulse Rate 94 Respiratory Rate 16 Blood Pressure 118/85 H Blood Pressure Mean 96 Pulse Ox 99 Oxygen Delivery Method Room Air Positive well nourished and well developed General Appearance ED: well developed and NAD HEENT Reports moist mucous membranes normocephalic and atraumatic Eyes PERRL and EOMs intact bilaterally Neck full ROM and supple Resp normal respiratory effort and clear to auscultation bilaterally Cardio regular rate, regular rhythm and no murmurs Rate: Negative for tachycardic GI non-distended GI Narrative: Hypoactive bowel sounds but nondistended. Diffusely tender but no guarding, no rebound. Well-healed midline supraumbilical surgical incision that is small. Auscultation: hypoactive bowel sounds Palpation: soft Back/Spine no CVA tenderness General Back: other FROM Extremity normal to inspection General Extremety ED: Negative for edema, pulses abnormal or tenderness General Extremity: Negative for edema or pulses abnormal Neuro oriented x3, CN's II-XII intact bilaterally and no sensory deficits noted Sensorium / Orientation: awake and alert Motor Exam: strength 5/5 throughout Skin no rashes or lesions noted and no wounds MDM MDM MDM Narrative Medical decision making narrative: Given the fact that the patient had surgery and has been vomiting with no bowel movements, initially did an acute abdominal series to screen for an obstructive pattern. 3 views my interpretation shows a nonspecific bowel gas pattern. Radiology in agreement noting that there is a large amount of fecal material in the colon. His labs show a mild leukocytosis, he was initially given IV fluids, Reglan, Benadryl, and dicyclomine. He states his abdominal discomfort is better but he is still feeling nauseated although is no longer vomiting. I additionally ordered Zofran followed by Ciara, he got the Zofran and then needed to have a bowel movement, and had a very large movement in the room. His symptoms resolved after that. Given all of this, more likely due to constipation. I am advising he do a stool softener and follow-up with his doctor. There is no free air to suggest perforation on the acute abdominal series, so I do not think there is an emergent process going on despite his mild leukocytosis. The rest of his labs are normal except for hypokalemia likely due to GI losses which we replaced with a 10 mill equivalent potassium bolus over an hour while he was getting treated with the other medications. Lab Data Attestation: I reviewed the patient's lab results. Labs: Laboratory Results - last 24 hr 01/06/24 10:10 WBC 14.6 H RBC 5.43 Hgb 16.8 H Hct 47.8 MCV 88.0 MCH 30.9 MCHC 35.1 RDW Std Deviation 37.5 RDW Coeff of Niki 11.7 Plt Count 518 H MPV 10.3 Immature Gran % (Auto) 0.300 Neut % (Auto) 84.6 H Lymph % (Auto) 8.8 L [place] % (Auto) 6.2 Eos % (Auto) 0.0 Baso % (Auto) 0.1 Absolute Neuts (auto) 12.3 H Absolute Lymphs (auto) 1.29 Nucleated RBC % 0 Sodium 135 L Potassium 3.0 L Chloride 91 L Carbon Dioxide 33.0 H Anion Gap 11 BUN 23 H Creatinine 0.95 Estim Creat Clear Calc 105.84 Est GFR (MDRD) Af Amer 124 Est GFR (MDRD) Non-Af 102 BUN/Creatinine Ratio 24.3 H Glucose 140 H Calcium 10.4 H Total Bilirubin 1.30 H AST 15 ALT 24 Alkaline Phosphatase 69 Total Protein 9.2 H Albumin 4.8 Globulin 4.4 H Albumin/Globulin Ratio 1.1 Lipase 18 Radiography Diagnostic Testing: Clinical Impression(s) from Imaging Studies Acute Abdomen Series 01/06/24 10:35 IMPRESSION: Moderate amount of fecal material is seen in the colon. Electronically Signed: Torres Russ MD at 10:51 EST , Discharge Plan Triage Chief Complaint: Nausea/Vomiting ED Provider: Alvaro Fuller Dx/Rx/DC Orders Clinical Impression: Hypokalemia due to excessive gastrointestinal loss of potassium, Cyclic vomiting syndrome, Mild dehydration, Acute constipation Instructions: Treating Constipation Prescriptions: No Action ondansetron 4 mg tablet,disintegrating 4 mg PO Q8H PRN (Reason: nausea and vomiting) Qty: 10 0RF promethazine 25 mg tablet 25 mg PO TID PRN (Reason: nausea and vomiting) Qty: 10 0RF dicyclomine 20 mg tablet 40 mg PO TID PRN (Reason: cramps) Qty: 14 0RF ondansetron HCl 4 mg tablet 4 mg PO Q6H PRN (Reason: nausea and vomiting) Qty: 15 0RF Primary Care Provider: Diana Deleon NP Referrals: Diana Deleon NP, MAILROOM CLERK-C [Primary Care Provider] - 3-5 Days if not improving Activity Restrictions/Additional Instructions: Get generic form of MiraLAX and take it daily as prescribed. If you have episodes where you are vomiting, avoid taking the MiraLAX. Disposition Disposition: Home, Self Care
[2024-01-06 10:19] LABS: Absolute Lymphocyte Count 1.29 X10^3/uL (0.83-4.51); Absolute Neutrophil Count 12.3 X10^3/uL (2.0-7.7); Basophil# 0.02 X10^3/uL; Basophil% 0.1 % (0-1); Hematocrit 47.8 % (40-54); Hemoglobin 16.8 g/dL (13.0-16.5); Lymphocyte # 1.29 X10^3/ul (0.83-4.51); Lymphocyte % 8.8 % (19-41); Mean Corp Hgb Conc 35.1 g/dL (32-36); Mean Corpuscular Hgb 30.9 pg (27.0-32.0); Mean Platelet Vol. 10.3 fl (6.2-12.0); Monocyte% 6.2 % (0-10); NRBC Flagged by Analyzer 0 % (0-5); Neutrophil # 12.33 X10^3/uL (2.7-7.7); Neutrophil % 84.6 % (47-70); Platelet Count 518 K/mm3 (150-450); RBC Distribution Width CV 11.7 % (11.6-14.6); RBC Distribution Width SD 37.5 fl (35.1-43.9); Red Blood Count 5.43 M/mm3 (4.6-6.2); White Blood Count 14.6 K/mm3 (4.4-11.0)
[2024-01-06] MEDS: Metoclopramide 10 MG/2 ML Vial IV (10:27)
[2024-01-06] MEDS: Ketorolac 30 MG/ML Syringe IV (10:27)
[2024-01-06] MEDS: 0.9% Normal Saline (1000mL) 1,000 ML 1000 ML IV (10:27)
[2024-01-06] MEDS: Dicyclomine 20 MG/2 ML Vial IM (10:28)
[2024-01-06] MEDS: DiphenhydrAMINE 50 MG/ML Syringe 12.5 MG IV ×2 (10:28→13:27)
[2024-01-06 10:35] LABS: ALB/GLOB Ratio 1.1 RATIO (0.9-2.4); AST(SGOT) 15 U/L (15-37); Alanine Aminotransfer ALT/SGPT 24 U/L (16-61); Albumin, Serum 4.8 g/dL (3.2-5.0); Alkaline Phosphatase 69 U/L (45-117); Anion Gap 11 (5-15); BUN 23 mg/dL (7-18); BUN/Creat Ratio 24.3 RATIO (10-20); Calcium,Total 10.4 mg/dL (8.5-10.1); Chloride 91 mmol/L (98-107); Creatinine, Serum 0.95 mg/dL (0.70-1.30); EST Glomerular Filtration Rate 102 mL/min (>60); Est Glom Filt Rate - Afr Amer 124 mL/min (>60); Estimated Creatinine Clearance 105.84 ml/min; Globulin 4.4 g/dL (2.2-4.2); Glucose 140 mg/dL (74-106); Lipase 18 U/L (13-75); Protein, Total 9.2 g/dL (6.4-8.2); Sodium Level 135 mmol/L (136-145)
--- NOTE | 2024-01-06 10:35 | RAD_ITS ---
STUDY: X-RAY - ACUTE ABDOMINAL SERIES REASON FOR EXAM: Male, 28 years old. Abdominal pain and vomiting. TECHNIQUE: Single view of the chest. Supine, and erect view(s) of the abdomen were obtained. COMPARISON: None. FINDINGS: The lungs are clear and expanded. Normal size heart. Normal mediastinum and sandra. Normal visualized pulmonary arteries. Normal visualized aortic arch and descending thoracic aorta. There is a moderate amount of colonic fecal material. Sutures are seen in the left mid abdomen. The soft tissue structures of the abdomen and pelvis are unremarkable. Normal visualized osseous structures. RAD/Acute Abdomen Inc Chest IMPRESSION: Moderate amount of fecal material is seen in the colon. Electronically Signed: Torres Russ MD at 10:51 EST ,
[2024-01-06] MEDS: Potassium Chloride 10mEq/100mL 10 MEQ/100 ML IV.SOLN. 100 MEQ IV BOLUS (11:56)
[2024-01-06] MEDS: Ondansetron 4 MG/2 ML Vial IV (13:28)
[2024-01-06 14:05] VITALS: BP 134/66; PULSE 72; RESP 15; O2SAT 97
--- NOTE | 2024-01-06 14:05 | ED.RN ---
PT STATES HE PUT HIS CALL LIGHT ON ASKING TO GO TO THE BATHROOM. PT WAS FOUND TO BE STANDING NEXT TO THE BED AND HAD A BM ON THE FLOOR. PT STATES HE DIDN'T KNOW WHAT TO DO BECAUSE HE HAD A IV IN THE IV PUMP GOING.
== END 2024-01-06 14:06 | disposition home or self-care (01) ==
PROVIDERS: Emergency Provider Emergency Medicine; PCP Nurse Practitioner Primary Care; Visit Provider Emergency Medicine
DX: E87.6 Hypokalemia (principal); R11.15 Cyclical vomiting syndrome unrelated to migraine; E86.0 Dehydration; K59.00 Constipation, unspecified; F17.210 Nicotine dependence, cigarettes, uncomplicated
CPT/HCPCS: 74022; 80053; 83690; 85025; 96365; 96372; 96375; 96376; 99283; J7030; A4216; J2405

== ENCOUNTER 2024-08-01 09:23 | Inpatient (IN) | payer SELFPAY ==
[2024-08-01] VITALS (9 sets, daily range): BP systolic 116–168; BP diastolic 70–87; PULSE 76–122; RESP 16–30; TEMP 36.4–37.6; O2SAT 97–100; BMI 20.6; BMI 24.8
--- NOTE | 2024-08-01 09:31 | EX.ED.SAOD ---
HPI History of Present Illness Chief Complaint: Substance Abuse Informant: patient and parent Onset/Context/Timing Onset: Today Context: Gradual Onset Timing: Continuous Worsened by: Nothing Relieved by: Nothing Associated Symptoms Associated Symptoms: Positive for vomiting*, fever*, tremor and palpatations; Negative for diarrhea*, rash*, seizure, change in mental status, suicidal ideation or homicidal ideation Narrative Narrative: Patient presents requesting detox from fentanyl. Patient states the use is every day. Patient states he snorts 5 to 10 tablets/day. Patient states his last use was 4 AM today. Patient has had some nausea and vomiting. Patient denies any diarrhea. Patient admits to some subjective fevers and chills. Patient also admits to some palpitations and tremors. Patient denies any suicidal or homicidal ideations. Patient denies any prior history of detox. Mother states that the patient was seen at [place] emergency department 4 days ago and was diagnosed with hyperglycemia and dehydration. Mother states patient was discharged from the emergency department at that time. [facility] Medical History Cyclic vomiting syndrome Home Medications ?Medication ?Instructions ?Recorded ?Last Taken ?Type dicyclomine 20 mg tablet 40 mg (2 x 20 mg) PO TID PRN 02/11/22 Unknown Rx cramps #14 tabs ondansetron 4 mg disintegrating 4 mg PO Q8H PRN nausea and 02/11/22 Unknown Rx tablet vomiting #10 tabs promethazine 25 mg tablet 25 mg PO TID PRN nausea and 02/11/22 Unknown Rx vomiting #10 tabs ondansetron HCl 4 mg tablet 4 mg PO Q6H PRN nausea and 10/31/22 Unknown Rx vomiting #15 tabs Allergy/AdvReac Type Severity Reaction Status Date / Time risperidone (From Risperdal) AdvReac TACHYCARDIA Verified 08/01/24 09:26 Surgical History Hx of abdominal surgery Social History household members: family housing: house Smoking Status: Current every day smoker tobacco type: cigarettes and e-cigarettes substance use type: other details: Cannabis ROS ROS ED Constitutional Constitutional ED: Reports chills, fever(s) and subjective Eyes Eyes: Denies blurry vision or change in vision ENT ENT ED: Denies rhinorrhea or sore throat Cardiovascular Cardiovascular: Denies chest pain or palpitations Respiratory/Chest Respiratory/Chest: Denies cough or dyspnea Gastrointestinal Gastrointestinal: Reports abdominal pain, nausea and vomiting Genitourinary Genitourinary ED: Denies dysuria or hematuria Musculoskeletal Musculoskeletal: Reports back pain; Denies neck pain Integumentary Denies abscess or rash Neurologic Neurologic: Reports weakness; Denies headache(s) Allergic/Immunologic Allergic/Immunologic ED: Denies mouth swelling or urticaria EXAM Physical Exam Const Vital Signs: 08/01/24 09:26 08/01/24 10:22 08/01/24 11:00 Temperature 97.6 F L Temperature Source Temporal Pulse Rate 122 H 97 87 Respiratory Rate 16 16 30 H Blood Pressure 122/78 H 124/87 H 124/80 H Blood Pressure Mean 92 99 94 Pulse Ox 98 98 98 Oxygen Delivery Method Room Air Room Air Room Air Positive well nourished and well developed General Appearance ED: well developed and NAD HEENT Reports moist mucous membranes Neck supple Resp normal respiratory effort and clear to auscultation bilaterally Cardio regular rhythm Rate: tachycardic GI soft to palpation and non-distended Palpation: tender LLQ and LUQ; Negative for guarding Neuro oriented x3, CN's II-XII intact bilaterally and no sensory deficits noted [place] Coma Scale: document GCS findings Spontaneous Obeys Commands Oriented 15 Sensorium / Orientation: alert Speech: speech normal Motor Exam: strength 5/5 throughout Psych mental status grossly normal MDM MDM MDM Narrative Medical decision making narrative: Medical screening labs will be obtained. CBC will be obtained to assess for leukocytosis and anemia. Comprehensive metabolic profile will be obtained to assess for hepatic function, renal function, and electrolyte abnormality. Lipase will be obtained to assess for pancreatitis. Urinalysis will be obtained to assess for urinary tract infection and hematuria. Urine drug screen will be obtained to assess for substance abuse. Serum alcohol level will be obtained to assess for alcohol intoxication. History & Record Review Additional record(s) reviewed:: Prior labs Lab Data Attestation: I reviewed the patient's lab results. Lab results narrative: CBC was reviewed. There is a mild leukocytosis of 14.4. Hemoglobin was slightly increased at 17.5. Platelets were 592. Comprehensive metabolic profile was reviewed. Sodium was slightly low at 130 and chloride was slightly low at 76. Potassium was low at 2.5. BUN was slightly elevated at 36 and creatinine was 1.43. Total bilirubin was mildly elevated at 1.9. Lipase was reviewed and was normal at 11. Urinalysis was reviewed. There is no evidence of urinary tract infection or hematuria. Urine tox screen was reviewed and was positive for opiates and cannabinoids. Serum alcohol level was reviewed and was negative. Labs: Laboratory Results - last 24 hr 08/01/24 09:56 WBC 14.4 H RBC 5.59 Hgb 17.5 H Hct 48.3 MCV 86.4 MCH 31.3 MCHC 36.2 H RDW Std Deviation 38.3 RDW Coeff of Niki 12.0 Plt Count 592 H MPV 10.7 Immature Gran % (Auto) 0.300 Neut % (Auto) 82.4 H Lymph % (Auto) 9.3 L [place] % (Auto) 7.9 Eos % (Auto) 0.0 Baso % (Auto) 0.1 Absolute Neuts (auto) 11.8 H Absolute Lymphs (auto) 1.34 Nucleated RBC % 0 Sodium 130 L Potassium 2.5 L* Chloride 76 L Carbon Dioxide 40.0 H Anion Gap 14 BUN 36 H Creatinine 1.43 H Estim Creat Clear Calc 76.54 Est GFR (MDRD) Af Amer 76 Est GFR (MDRD) Non-Af 63 BUN/Creatinine Ratio 25.2 H Glucose 151 H Calcium 10.1 Total Bilirubin 1.90 H AST 19 ALT 21 Alkaline Phosphatase 83 Total Protein 9.3 H Albumin 4.9 Globulin 4.4 H Albumin/Globulin Ratio 1.1 Lipase 11 L Urine Color Yellow Urine Clarity Clear Urine pH 7.0 Ur Specific [place] 1.010 Urine Protein 100 H Urine Glucose (UA) Normal Urine Ketones Negative Urine Occult Blood 50 H Urine Nitrite Negative Urine Bilirubin Negative Urine Urobilinogen 1 H Ur Leukocyte Esterase 25 H Urine RBC 0-5 SEEN Urine WBC 0-5 SEEN Ur Squamous Epith Cells 0 SEEN Urine Bacteria 0 SEEN Urine Mucus 0 SEEN Urine Opiates Screen POSITIVE H Urine Methadone Screen NEGATIVE Ur Barbiturates Screen NEGATIVE Ur Phencyclidine Scrn NEGATIVE Ur Amphetamines Screen NEGATIVE MDMA (Ecstasy) Screen NEGATIVE U Benzodiazepines Scrn NEGATIVE Urine Cocaine Screen NEGATIVE U Cannabinoids Screen POSITIVE H Ur Drug Screen Comment Ethyl Alcohol < 3.0 Management Discussion w/another healthcare provider: Hospitalist Treatment and Re-Evaluation Narrative: Patient was given IV fluids. Patient's heart rate improved to 87. Patient was given a dose of potassium orally and a dose of potassium intravenously. Patient was given a dose of Zofran. Case was discussed with the hospitalist. He will admit the patient to his service. Patient understood and was agreeable with the plan. All questions were answered. Discharge Plan Triage Chief Complaint: Substance Abuse ED Provider: Raymon Pierce Dx/Rx/DC Orders Clinical Impression: Opiate withdrawal, DANIA (acute kidney injury), Hypokalemia Prescriptions: No Action ondansetron 4 mg tablet,disintegrating 4 mg PO Q8H PRN (Reason: nausea and vomiting) Qty: 10 0RF promethazine 25 mg tablet 25 mg PO TID PRN (Reason: nausea and vomiting) Qty: 10 0RF dicyclomine 20 mg tablet 40 mg PO TID PRN (Reason: cramps) Qty: 14 0RF ondansetron HCl 4 mg tablet 4 mg PO Q6H PRN (Reason: nausea and vomiting) Qty: 15 0RF Primary Care Provider: Care Physician,No Primary Referrals: Diana Deleon HARNESS WORKER, HARNESS WORKER-C [Non-Staff] - Print Language: Kyrgyz Disposition Disposition: Acute Care [facility]
[2024-08-01] MEDS: 0.9% Normal Saline (1000mL) 1,000 ML 1000 ML IV ×2 (09:52→11:06)
[2024-08-01 10:13] LABS: Bacteria 0 SEEN /hpf (None Seen); Mucous, Urine 0 SEEN /hpf (<or=2+); Squamous Epithelial Cells - UA 0 SEEN /hpf (0-5)
[2024-08-01 10:24] LABS: Absolute Lymphocyte Count 1.34 X10^3/uL (0.83-4.51); Absolute Neutrophil Count 11.8 X10^3/uL (2.0-7.7); Basophil# 0.02 X10^3/uL; Basophil% 0.1 % (0-1); Hematocrit 48.3 % (40-54); Hemoglobin 17.5 g/dL (13.0-16.5); Lymphocyte # 1.34 X10^3/ul (0.83-4.51); Lymphocyte % 9.3 % (19-41); Mean Corp Hgb Conc 36.2 g/dL (32-36); Mean Corpuscular Hgb 31.3 pg (27.0-32.0); Mean Corpuscular Volume 86.4 fL (80-94); Mean Platelet Vol. 10.7 fl (6.2-12.0); Monocyte# 1.14 X10^3/uL; Monocyte% 7.9 % (0-10); NRBC Flagged by Analyzer 0 % (0-5); Neutrophil # 11.83 X10^3/uL (2.7-7.7); Neutrophil % 82.4 % (47-70); Platelet Count 592 K/mm3 (150-450); RBC Distribution Width SD 38.3 fl (35.1-43.9); Red Blood Count 5.59 M/mm3 (4.6-6.2); White Blood Count 14.4 K/mm3 (4.4-11.0)
[2024-08-01 10:30] LABS: Color, Urine Yellow (Yellow); Glucose, Dipstick Normal (Normal); Ketone-Dipstick Negative (Negative); Leukocyte Esterase-Dipstick 25 /ul (Negative); Nitrite-Dipstick Negative (Negative); Occult Blood-Urine 50 /ul (Negative); Protein-Dipstick 100 mg/dl (Negative); Urine Bilirubin Dipstick Negative (Negative); Urine Clarity Clear (Clear); Urine Urobilinogen 1 mg/dl (Normal)
[2024-08-01 10:39] LABS: Alcohol, Blood (Medical)-Serum < 3.0 mg/dL
[2024-08-01 10:47] LABS: Amphetamine Urine VISTA NEGATIVE (<1000 ng/mL); Barbiturate Urine VISTA NEGATIVE (< 200 ng/mL); Benzodiazepine Urine VISTA NEGATIVE (< 200 ng/mL); Cocaine Urine VISTA NEGATIVE (< 300 ng/mL); Ecstacy Urine VISTA NEGATIVE (< 500 ng/mL); Methadone Urine VISTA NEGATIVE (< 300 ng/mL); PCP Urine VISTA NEGATIVE (< 25 ng/mL); THC Urine VISTA POSITIVE (< 50 ng/mL); Vista UDS pH Range 7
[2024-08-01 10:51] LABS: ALB/GLOB Ratio 1.1 RATIO (0.9-2.4); AST(SGOT) 19 U/L (15-37); Alanine Aminotransfer ALT/SGPT 21 U/L (16-61); Albumin, Serum 4.9 g/dL (3.2-5.0); Alkaline Phosphatase 83 U/L (45-117); Anion Gap 14 (5-15); BUN 36 mg/dL (7-18); BUN/Creat Ratio 25.2 RATIO (10-20); Calcium,Total 10.1 mg/dL (8.5-10.1); Chloride 76 mmol/L (98-107); Creatinine, Serum 1.43 mg/dL (0.70-1.30); EST Glomerular Filtration Rate 63 mL/min (>60); Est Glom Filt Rate - Afr Amer 76 mL/min (>60); Estimated Creatinine Clearance 76.54 ml/min; Globulin 4.4 g/dL (2.2-4.2); Glucose 151 mg/dL (74-106); Lipase 11 U/L (13-75); Potassium 2.5 mmol/L (3.5-5.1); Protein, Total 9.3 g/dL (6.4-8.2); Sodium Level 130 mmol/L (136-145)
[2024-08-01 11:04] LABS: Red Blood Cells-Urine 0-5 SEEN /hpf (0-5); White Blood Cells 0-5 SEEN /hpf (0-5)
[2024-08-01] MEDS: Potassium Chloride Oral Tablet 20 MEQ 40 MEQ PO (11:06)
[2024-08-01] MEDS: Ondansetron 4 MG/2 ML Vial IV (11:10)
[2024-08-01] MEDS: Potassium Chloride 10mEq/100mL 10 MEQ/100 ML IV.SOLN. 100 MEQ IV BOLUS (11:20)
--- NOTE | 2024-08-01 11:33 | PCM.HP.STD ---
HPI - General General Date of Admission: 08/01/24 Date of Service: 08/01/24 Chief Complaint: Abdominal cramps intractable nausea and vomiting HPI Narrative ROB CANAS, is a 28 M with past medical history including polysubstance dependence (opioid as well as marijuana) who presented to the emergency department with intractable nausea vomiting as well as abdominal cramps with desire to undergo detoxification. Patient uses fentanyl and Percocet which he snorts. Last use was in the early hours of the morning of his presentation. Patient was seen and assessed in the emergency department noted to have significant electrolyte abnormalities including hyponatremia hypokalemia as well as acute kidney injury. Treatment initiated per protocol admitted to the monitored floor for subsequent manage [facility] Medical History Cyclic vomiting syndrome Home Medications ?Medication ?Instructions ?Recorded ?Last Taken ?Type dicyclomine 20 mg tablet 40 mg (2 x 20 mg) PO TID PRN 02/11/22 Unknown Rx cramps #14 tabs ondansetron 4 mg disintegrating 4 mg PO Q8H PRN nausea and 02/11/22 Unknown Rx tablet vomiting #10 tabs promethazine 25 mg tablet 25 mg PO TID PRN nausea and 02/11/22 Unknown Rx vomiting #10 tabs ondansetron HCl 4 mg tablet 4 mg PO Q6H PRN nausea and 10/31/22 Unknown Rx vomiting #15 tabs Allergy/AdvReac Type Severity Reaction Status Date / Time risperidone (From Risperdal) AdvReac TACHYCARDIA Verified 08/01/24 09:26 Surgical History Hx of abdominal surgery Social History household members: family housing: house Smoking Status: Former smoker substance use type: other details: Cannabis ROS ROS Narrative GENERAL: night sweats, HEENT: denies headache, sinus congestion, or drainage, RESPIRATORY: denies cough, sputum production, CARDIAC: palpitations, orthopnea, GASTROINTESTINAL: abdominal pain, nausea, vomiting, GENITOURINARY: denies dysuria, urgency, frequency, EXTREMITY: denies swelling MUSCULOSKELETAL: denies current joint pain or tenderness NEUROLOGIC: denies focal numbness, weakness, tingling HEMATOLOGIC: denies easy bruising and/or hemorrhage INTEGUMENT: denies rashes PSYCHIATRIC: denies suicidal or homicidal ideation Vital Signs Vital Signs Vital Signs: 08/01/24 09:26 08/01/24 10:22 08/01/24 11:00 Temperature 97.6 F L Temperature Source Temporal Pulse Rate 122 H 97 87 Respiratory Rate 16 16 30 H Blood Pressure 122/78 H 124/87 H 124/80 H Blood Pressure Mean 92 99 94 Pulse Ox 98 98 98 Oxygen Delivery Method Room Air Room Air Room Air 08/01/24 11:30 Temperature 98 F Temperature Source Pulse Rate 91 Respiratory Rate 24 H Blood Pressure 124/74 H Blood Pressure Mean 90 Pulse Ox 97 Oxygen Delivery Method Weight Weight: 69.127 kg Body Mass Index (BMI) 20.6 Physical Exam Narrative GENERAL: Patient appears ill looking HEENT: Atraumatic; normocephalic EYES; Anicteric, Normal Conjunctiva NECK; supple, normal thyroid, RESPIRATORY: Diminished to auscultation CARDIOVASCULAR: Regular S1 S2, GI: soft, normoactive bowel sounds, : No Renal angle tenderness; EXTREMITIES: No edema, no clubbing, MUSCULOSKELETAL: no muscle wasting NEURO: Awake; no lateralizing signs. SKIN: No Rash PSYCH; Flat affect Results Lab / Micro Data 08/01/24 09:56 08/01/24 09:56 Labs: Laboratory Results - last 24 hr 08/01/24 09:56: WBC 14.4 H, RBC 5.59, Hgb 17.5 H, Hct 48.3, MCV 86.4, MCH 31.3, MCHC 36.2 H, RDW Std Deviation 38.3, RDW Coeff of Niki 12.0, Plt Count 592 H, MPV 10.7, Immature Gran % (Auto) 0.300, Neut % (Auto) 82.4 H, Lymph % (Auto) 9.3 L, [place] % (Auto) 7.9, Eos % (Auto) 0.0, Baso % (Auto) 0.1, Absolute Neuts (auto) 11.8 H, Absolute Lymphs (auto) 1.34, Nucleated RBC % 0, Sodium 130 L, Potassium 2.5 L*, Chloride 76 L, Carbon Dioxide 40.0 H, Anion Gap 14, BUN 36 H, Creatinine 1.43 H, Estim Creat Clear Calc 76.54, Est GFR (MDRD) Af Amer 76, Est GFR (MDRD) Non-Af 63, BUN/Creatinine Ratio 25.2 H, Glucose 151 H, Calcium 10.1, Total Bilirubin 1.90 H, AST 19, ALT 21, Alkaline Phosphatase 83, Total Protein 9.3 H, Albumin 4.9, Globulin 4.4 H, Albumin/Globulin Ratio 1.1, Lipase 11 L, Urine Color Yellow, Urine Clarity Clear, Urine pH 7.0, Ur Specific [place] 1.010, Urine Protein 100 H, Urine Glucose (UA) Normal, Urine Ketones Negative, Urine Occult Blood 50 H, Urine Nitrite Negative, Urine Bilirubin Negative, Urine Urobilinogen 1 H, Ur Leukocyte Esterase 25 H, Urine RBC 0-5 SEEN, Urine WBC 0-5 SEEN, Ur Squamous Epith Cells 0 SEEN, Urine Bacteria 0 SEEN, Urine Mucus 0 SEEN, Urine Opiates Screen POSITIVE H, Urine Methadone Screen NEGATIVE, Ur Barbiturates Screen NEGATIVE, Ur Phencyclidine Scrn NEGATIVE, Ur Amphetamines Screen NEGATIVE, MDMA (Ecstasy) Screen NEGATIVE, U Benzodiazepines Scrn NEGATIVE, Urine Cocaine Screen NEGATIVE, U Cannabinoids Screen POSITIVE H, Ur Drug Screen Comment , Ethyl Alcohol < 3.0 Assessment & Plan Assessment/Plan (1) Opiate withdrawal: PLAN: Plan Patient is a 28-year-old gentleman with history of opioid dependence presenting with acute opioid withdrawal 1. 1. Acute opioid withdrawal - Patient has been admitted to regular nursing floor, managed buprenorphine taper along with other adjunctive medications for medical stabilization 2. Polysubstance dependence ? Including opioid and marijuana counseled on cessation 3. Cyclical vomiting syndrome ? Secondary to chronic use of marijuana patient counseled on cessation plan is to treat symptomatically 4. Acute kidney injury ? Secondary to severe dehydration as a result of persistent nausea vomiting. Patient started on IV fluid repeat BMP ordered for a.m. 5. Hypokalemia ? Secondary to GI losses corrected per protocol repeat labs ordered for monitoring 6. Hyponatremia Secondary to hypovolemic hyponatremia patient is on IV fluid with subsequent monitoring of electrolyte 7. Hyperglycemia ? Patient states was recently diagnosed with diabetes ordered hemoglobin A1c for verification 8. DVT prophylaxis ? Low risk to encourage early ambulation Time spent in the patient's overall evaluation,decision-making process, review of diagnostic data, adjustment of management, discussion with other providers, nursing nursing and ancillary staff involved in patient's care documentation, 75 Minutes Charges/Coding Visit Charges Inpatient E&M: 89005 Init Hosp L3
--- NOTE | 2024-08-01 13:57 | NURSING ---
Additional belongings that did not fit on the admission list : blanket and heating pad.
[2024-08-01] MEDS: KCL 20MEQ in 0.9% NS 20 MEQ/1,000 ML IV.SOLN. 200 MEQ IV ×2 (15:15→20:13)
[2024-08-01] MEDS: Buprenorphine HCl 2 MG TAB.SUBL SL ×2 (15:31→21:28)
[2024-08-01] MEDS: Gabapentin 300 MG Capsule PO (17:49)
[2024-08-01] MEDS: Potassium Chloride Oral Tablet 20 MEQ PO (17:49)
[2024-08-01] MEDS: Dicyclomine 10 MG Capsule 20 MG PO (17:49)
[2024-08-01] MEDS: Ondansetron 4 MG/2 ML Vial 8 MG IV (18:39)
[2024-08-01] MEDS: proCHLORPERazine 10 MG/2 ML Vial IV (21:11)
[2024-08-02 01:20] VITALS: BP 136/73; PULSE 67; RESP 18; TEMP 36.7; O2SAT 100
[2024-08-02] MEDS: Ondansetron 4 MG/2 ML Vial 8 MG IV ×2 (04:05→13:45)
[2024-08-02] MEDS: 0.9% Saline Lock 10 ML Syringe IV ×2 (04:06→05:49)
[2024-08-02 05:38] VITALS: BP 135/104; PULSE 82; RESP 18; TEMP 36.7; O2SAT 99
[2024-08-02] MEDS: proCHLORPERazine 10 MG/2 ML Vial IV (05:42)
[2024-08-02] MEDS: Buprenorphine HCl 2 MG TAB.SUBL SL (05:49)
[2024-08-02 06:25] LABS: ALB/GLOB Ratio 1.2 RATIO (0.9-2.4); AST(SGOT) 25 U/L (15-37); Alanine Aminotransfer ALT/SGPT 16 U/L (16-61); Albumin, Serum 4.1 g/dL (3.2-5.0); Alkaline Phosphatase 60 U/L (45-117); Anion Gap 9 (5-15); BUN 21 mg/dL (7-18); Calcium,Total 9.3 mg/dL (8.5-10.1); Chloride 93 mmol/L (98-107); EST Glomerular Filtration Rate 95 mL/min (>60); Est Glom Filt Rate - Afr Amer 115 mL/min (>60); Estimated Creatinine Clearance 122.87 ml/min; Globulin 3.4 g/dL (2.2-4.2); Glucose 111 mg/dL (74-106); Potassium 2.8 mmol/L (3.5-5.1); Protein, Total 7.5 g/dL (6.4-8.2); Sodium Level 130 mmol/L (136-145)
--- NOTE | 2024-08-02 07:39 | PCM.PN.HOSP ---
Reason for Visit Reason for Visit: Diagnoses Opioid use, unspecified with withdrawal (08/01/24) Subjective Subjective Patient seen still has significant electrolyte abnormalities with hypokalemia and hyponatremia. Patient complains of his tongue cramping which he attributes to his low potassium Objective Data Objective Data Vital Signs: Vital Signs Temp Pulse Resp BP Pulse Ox O2 Del Method 98.1 F 82 18 135/104 H 99 Room Air 08/02/24 05:38 08/02/24 05:38 08/02/24 05:38 08/02/24 05:38 08/02/24 05:38 08/02/24 05:38 Oxygen Delivery Method Room Air Weight: 83.007 kg Body Mass Index (BMI) 24.8 Intake & Output: Intake and Output for Last 24 Hours 07/31/24 08/01/24 08/02/24 23:59 23:59 23:59 Intake Total 3333.33 / 3333.33 1000 / 1000 Output Total 600 / 600 400 / 400 Balance 2733.33 / 2733.33 600 / 600 Lab / Micro Data 08/01/24 09:56 08/02/24 05:24 Labs: Laboratory Results - last 24 hr 08/01/24 09:56: WBC 14.4 H, RBC 5.59, Hgb 17.5 H, Hct 48.3, MCV 86.4, MCH 31.3, MCHC 36.2 H, RDW Std Deviation 38.3, RDW Coeff of Niki 12.0, Plt Count 592 H, MPV 10.7, Immature Gran % (Auto) 0.300, Neut % (Auto) 82.4 H, Lymph % (Auto) 9.3 L, [place] % (Auto) 7.9, Eos % (Auto) 0.0, Baso % (Auto) 0.1, Absolute Neuts (auto) 11.8 H, Absolute Lymphs (auto) 1.34, Nucleated RBC % 0, Sodium 130 L, Potassium 2.5 L*, Chloride 76 L, Carbon Dioxide 40.0 H, Anion Gap 14, BUN 36 H, Creatinine 1.43 H, Estim Creat Clear Calc 76.54, Est GFR (MDRD) Af Amer 76, Est GFR (MDRD) Non-Af 63, BUN/Creatinine Ratio 25.2 H, Glucose 151 H, Calcium 10.1, Total Bilirubin 1.90 H, AST 19, ALT 21, Alkaline Phosphatase 83, Total Protein 9.3 H, Albumin 4.9, Globulin 4.4 H, Albumin/Globulin Ratio 1.1, Lipase 11 L, Urine Color Yellow, Urine Clarity Clear, Urine pH 7.0, Ur Specific [place] 1.010, Urine Protein 100 H, Urine Glucose (UA) Normal, Urine Ketones Negative, Urine Occult Blood 50 H, Urine Nitrite Negative, Urine Bilirubin Negative, Urine Urobilinogen 1 H, Ur Leukocyte Esterase 25 H, Urine RBC 0-5 SEEN, Urine WBC 0-5 SEEN, Ur Squamous Epith Cells 0 SEEN, Urine Bacteria 0 SEEN, Urine Mucus 0 SEEN, Urine Opiates Screen POSITIVE H, Urine Methadone Screen NEGATIVE, Ur Barbiturates Screen NEGATIVE, Ur Phencyclidine Scrn NEGATIVE, Ur Amphetamines Screen NEGATIVE, MDMA (Ecstasy) Screen NEGATIVE, U Benzodiazepines Scrn NEGATIVE, Urine Cocaine Screen NEGATIVE, U Cannabinoids Screen POSITIVE H, Ur Drug Screen Comment , Ethyl Alcohol < 3.0 08/02/24 05:24: Sodium 130 L, Potassium 2.8 L, Chloride 93 L, Carbon Dioxide 28.0, Anion Gap 9, BUN 21 H, Creatinine 1.00, Estim Creat Clear Calc 122.87, Est GFR (MDRD) Af Amer 115, Est GFR (MDRD) Non-Af 95, BUN/Creatinine Ratio 21.0 H, Glucose 111 H, Calcium 9.3, Total Bilirubin 2.20 H, AST 25, ALT 16, Alkaline Phosphatase 60, Total Protein 7.5, Albumin 4.1, Globulin 3.4, Albumin/Globulin Ratio 1.2 Physical Exam Narrative GENERAL: Patient appears ill looking HEENT: Atraumatic; normocephalic EYES; Anicteric, Normal Conjunctiva NECK; supple, normal thyroid, RESPIRATORY: Diminished to auscultation CARDIOVASCULAR: Regular S1 S2, GI: soft, normoactive bowel sounds, : No Renal angle tenderness; EXTREMITIES: No edema, no clubbing, MUSCULOSKELETAL: no muscle wasting NEURO: Awake; no lateralizing signs. SKIN: No Rash PSYCH; Flat affect Assessment & Plan Assessment/Plan (1) Opiate withdrawal: PLAN: Plan Patient is a 28-year-old gentleman with history of opioid dependence presenting with acute opioid withdrawal 1. 1. Acute opioid withdrawal - Patient has been ? 08/02/2024; patient remains on Subutex to regular nursing floor, managed buprenorphine taper along with other adjunctive medications for medical stabilization taper 2. Polysubstance dependence ? Including opioid and marijuana counseled on cessation 3. Cyclical vomiting syndrome ? Secondary to chronic use of marijuana patient counseled on cessation plan is to treat symptomatically 4. Acute kidney injury ? Secondary to severe dehydration as a result of persistent nausea vomiting. Patient started on IV fluid repeat BMP ordered for a.m. ? 08/02/2020 creatinine down to 1.0 5. Hypokalemia ? Secondary to GI losses corrected per protocol repeat labs ordered for monitoring ? 08/02/2024; potassium still remains low at 2.8 additional replacement given 6. Hyponatremia Secondary to hypovolemic hyponatremia patient is on IV fluid with subsequent monitoring of electrolyte ?08/02/2024; sodium still remains low at 130 7. Hyperglycemia ? Patient states was recently diagnosed with diabetes ordered hemoglobin A1c for verification 8. DVT prophylaxis ? Low risk to encourage early ambulation Time spent in the patient's overall evaluation,decision-making process, review of diagnostic data, adjustment of management, discussion with other providers, nursing nursing and ancillary staff involved in patient's care documentation, 50 Minutes Charges/Coding Visit Charges Inpatient E&M: 67895 [facility] Hosp L3
[2024-08-02 08:32] LABS: Magnesium 2.6 mg/dL (1.6-2.6)
[2024-08-02] MEDS: Potassium Chloride 10mEq/100mL 10 MEQ/100 ML IV.SOLN. 100 MEQ IV BOLUS ×4 (10:13→15:11)
[2024-08-02 10:15] VITALS: BP 155/77; PULSE 78; RESP 16; TEMP 36.4; O2SAT 100
[2024-08-02] MEDS: hydrOXYzine PAM 25 MG Capsule 50 MG PO (10:40)
[2024-08-02] MEDS: Methocarbamol 750 MG Tablet PO (11:16)
--- NOTE | 2024-08-02 11:22 | ADDICTION ---
Met w/pt to discuss d/c planning. Pt was vomiting and too unwell to make decisions. Will return tomorrow for d/c planning.
[2024-08-02 14:00] VITALS: BP 164/83; PULSE 84; RESP 16; TEMP 37.7; O2SAT 100
--- NOTE | 2024-08-02 14:01 | PCM.OP.PRO ---
Procedure Report Date of Procedure: 08/02/24 Assessment & Plan Assessment/Plan (1) Poor venous access: PLAN: Midline insertion in left basilic vein: Patient identity was verified with two patient identifiers. Hands were sanitized. The patient was positioned supine with left arm at 90 degrees. The patient's upper arm vasculature was assessed using ultrasound, and the left basilic vein was externally marked. An external measurement was obtained of 10 cm. Cap, mask, and prep gloves were donned. The underdrape was placed under the patient's arm. The site was prepped with chlorhexidine, and tourniquet was loosely applied. Prep gloves were discarded, and hands were sanitized. The sterile kit was opened with additional supplies dropped in. Sterile gown and gloves were donned, and the patient was draped. The sterile kit was assembled with all needle, introducer, connector, and catheter flushed with sterile normal saline. The marked site of insertion was anesthetized with 1% lidocaine. Patient tolerated well. The left basilic vein was then accessed using ultrasound guidance and guidewire was inserted to safety thiago. The tourniquet was released. The access needle was removed while securing the guidewire in place. The site was again anesthetized with 1% lidocaine, prior to insertion of introducer sheath and dilator. Patient tolerated well. The catheter was trimmed to a length of 10 cm, and again flushed with sterile normal saline. The catheter was then inserted through the introducer sheath, slowly. There was no resistance on insertion. The introducer sheath was retracted and peeled away, incrementally, while keeping the catheter secured. The catheter was fully inserted leaving 0 cm external. Blood return was verified and flushed needless connector was attached. The midline was flushed with sterile normal saline in a pulsatile fashion and clamped. Total sterile flushes used for the insertion was to 10 ml syringes, one from the kit. Finally, the insertion site was cleaned with chlorhexidine, and the catheter was secured using a StatLock. The site was covered with a Tegaderm CHG Dressing. Baseline arm circumference was obtained at the insertion site and measured 31 cm. The charge nurse is aware that the midline is ready for use. REF: [id number] LOT: [id number] Procedures Radiology Radiology Access Procedures: MIDL
--- NOTE | 2024-08-02 14:06 | EKG12_ITS ---
Test Reason : CP Blood Pressure : / mmHG Vent. Rate : 075 BPM Atrial Rate : 075 BPM P-R Int : 112 ms QRS Dur : 096 ms QT Int : 302 ms P-R-T Axes : 021 080 064 degrees QTc Int : 337 ms Normal sinus rhythm Nonspecific T wave abnormality Abnormal ECG Confirmed by KARLA DOMINGO, SURAJ ([id number]), editor city ALISIA VALENCIA ([id number]) on 08/06/2024 6:51:09 AM Referred By: MILES Confirmed By:SURAJ ACOSTA MD
[2024-08-02] MEDS: Potassium Chloride Oral Tablet 20 MEQ PO ×2 (15:12)
--- NOTE | 2024-08-02 15:47 | NURSING ---
Late entry: Pt states he is havign chest pains stat EKG done. See results charge nurse notifies physician no new orders. Pt states after zofran it is better he denies any radiation of pain and points pain is at mid epigastirc area. Began eating Icee with no distress continue monitor.
--- NOTE | 2024-08-02 15:48 | CHAPLAIN ---
Type of Pastoral Visit _x__ Initial Visit ___ Follow-up Visit ___ On-call Visit ___ General Patient Visit ___ Spiritual Assessment ___ Family Conference ___ Bereavement ___ Rapid Response ___ Code Blue ___ Other (describe below) Pastoral Care Referral From _x__ Patient ___ Family ___ Nurse ___ Physician ___ Predictive Maintenance Specialist ___ Surveyor Helper ___ Other (describe below) Sacrament/Intervention _x__ Active listening ___ Anointing ___ Sabianism ___ Bereavement ___ Communion ___ Leah exploration ___ ___ Life review _x__ Prayer ___ Reconciliation ___ Sacrament of Sick _x__ Supportive presence ___ Wedding ___ Other (describe below) Pastoral Comments patient has been seen by this gettering filament machine operator in another hospital previously on several occasions; pt remembers this gettering filament machine operator and gives updates on his life and status; pt states that he wants to quit the drugs and get better; pt admits that he recently lost his job and that I live with my grandmother and she can't do anything for me; pt complains of his chest hurting and he uses the call button for assistance from RN; sat with the patient for several minutes as RN assessed the patient and then RT came to do an EKG; offered listening and time to be present; offered future support as patient desires
--- NOTE | 2024-08-03 07:12 | PCM.DC.SUM ---
Providers Date of Admission: 08/01/24 Date of Discharge: 08/02/24 Primary Care Physician: Sussy Primary Care Phys Reason For Visit: ACUTE OPOID WITHDRAWAL Diagnosis Discharge Diagnosis (1) Poor venous access: Status: Acute Code(s): I87.8 - Other specified disorders of veins Plan Patient is a 28-year-old gentleman with history of opioid dependence presenting with acute opioid withdrawal 1. 1. Acute opioid withdrawal - Patient has been ? 08/02/2024; patient remains on Subutex to regular nursing floor, managed buprenorphine taper along with other adjunctive medications for medical stabilization taper -patient left AMA, attempt made for patient to rescind his decisions proved futile he was instructed to come back to the emergency department if he changes mind 2. Polysubstance dependence ? Including opioid and marijuana counseled on cessation 3. Cyclical vomiting syndrome ? Secondary to chronic use of marijuana patient counseled on cessation plan is to treat symptomatically 4. Acute kidney injury ? Secondary to severe dehydration as a result of persistent nausea vomiting. Patient started on IV fluid repeat BMP ordered for a.m. ? 08/02/2020 creatinine down to 1.0 5. Hypokalemia ? Secondary to GI losses corrected per protocol repeat labs ordered for monitoring ? 08/02/2024; potassium still remains low at 2.8 additional replacement given 6. Hyponatremia Secondary to hypovolemic hyponatremia patient is on IV fluid with subsequent monitoring of electrolyte ?08/02/2024; sodium still remains low at 130 7. Hyperglycemia ? Patient states was recently diagnosed with diabetes ordered hemoglobin A1c for verification 8. DVT prophylaxis ? Low risk to encourage early ambulation Time spent in the patient's overall evaluation,decision-making process, review of diagnostic data, adjustment of management, discussion with other providers, nursing nursing and ancillary staff involved in patient's care documentation, 50 Minutes Medications at Discharge Home Medications dicyclomine 20 mg tablet 40 mg (2 x 20 mg) PO TID PRN cramps #14 tabs 02/11/22 ondansetron 4 mg disintegrating tablet 4 mg PO Q8H PRN nausea and vomiting #10 tabs 02/11/22 promethazine 25 mg tablet 25 mg PO TID PRN nausea and vomiting #10 tabs 02/11/22 ondansetron HCl 4 mg tablet 4 mg PO Q6H PRN nausea and vomiting #15 tabs 10/31/22 Weight / BMI Weight Weight: 83.007 kg Body Mass Index (BMI) 24.8 ABG / Lab / Microbiology Data 08/01/24 09:56 08/02/24 05:24 Laboratory: Laboratory Results - last 24 hr 08/02/24 05:24: Hemoglobin A1c 5.0, Magnesium 2.6 Meaningful Use Info Meaningful Use Meaningful Use Diagnoses (Choose all that apply): None applicable Ischemic Stroke Statin Dosing Therapy Reference: STATIN DOSE THERAPY REFERENCE: * Patients > 75 years receive moderate or high dose statin therapy. * Patients 75 years or YOUNGER should receive HIGH intensity statin dose unless contraindicated. You will be required to document reason for non-treatment if statin daily dose does not meet guidelines. HIGH DOSE STATIN THERAPY DAILY Atorvastatin > than or = to 40 mg Rosuvastatin > than or = to 20 mg Amlodipine + Atorvastatin > than or = to 2.5/40 mg Ezetimibe + Simvastatin 10/80 mg Simvastatin 80mg Discharge Plan Admission Admit Date/Time: 08/01/24 11:24 Attending Provider: Nj Daily Primary Care Provider: Care Physician,Sussy Primary Discharge Orders/Prescriptions Prescriptions: No Action ondansetron 4 mg tablet,disintegrating 4 mg PO Q8H PRN (Reason: nausea and vomiting) Qty: 10 0RF promethazine 25 mg tablet 25 mg PO TID PRN (Reason: nausea and vomiting) Qty: 10 0RF dicyclomine 20 mg tablet 40 mg PO TID PRN (Reason: cramps) Qty: 14 0RF ondansetron HCl 4 mg tablet 4 mg PO Q6H PRN (Reason: nausea and vomiting) Qty: 15 0RF Referrals / Follow Up: Care Physician,Sussy Primary [Primary Care Provider] - Diana Deleon METAL ALLOY SCIENTIST, METAL ALLOY SCIENTIST-C [Non-Staff] - Disposition Disposition (needs filled in before D/C Order can be placed): Against Medical Advice Charges/Coding Visit Charges Inpatient E&M: 96741 Disch Hosp >30min
== END 2024-08-02 18:30 | disposition left against medical advice (07) | DRG 894 ==
LOC: ED 11:28 → PCU 13:25
PROVIDERS: Admitting Provider Internal Medicine; Emergency Provider Emergency Medicine; Visit Provider Internal Medicine
DX: F11.23 Opioid dependence with withdrawal (principal); E87.1 Hypo-osmolality and hyponatremia; N17.9 Acute kidney failure, unspecified; F12.20 Cannabis dependence, uncomplicated; E87.6 Hypokalemia; F17.210 Nicotine dependence, cigarettes, uncomplicated; R11.15 Cyclical vomiting syndrome unrelated to migraine; E86.0 Dehydration; E86.1 Hypovolemia; F17.290 Nicotine dependence, other tobacco product, uncomplicated; R73.9 Hyperglycemia, unspecified; Z53.29 Procedure and treatment not carried out because of patient's decision for other reasons
CPT/HCPCS: 36415; 80053; 80307; 81001; 82077; 83036; 83690; 83735; 85025; 93005; 97802; 99283; J7030; A4216; J2405

== ENCOUNTER 2025-08-14 09:44 | Inpatient (IN) | payer MEDICAID, SELFPAY ==
[2025-08-14] VITALS (18 sets, daily range): BP systolic 94–165; BP diastolic 65–95; PULSE 86–135; RESP 13–22; TEMP 36.2–36.9; O2SAT 95–100; BMI 29.2; BMI 27.5
--- NOTE | 2025-08-14 09:56 | EX.ED.DYSGE1 ---
HPI History of Present Illness Chief Complaint: Shortness of Breath Narrative Narrative: Patient is a 29-year-old male with a past medical history of cyclic vomiting syndrome, opiate abuse fentanyl snorts this he states no IV drug use he states who presents to the emergency department chief complaint of nausea vomiting. He states that he has been vomiting for the last 10 days but notes that the last 2 to 3 days he notes that he has small streaks of blood in his vomit. He notes that he was recently admitted to [facility] for detox from fentanyl and notes that he is approximately 10 days clean.Denies any sick contacts states that he does not have any abdominal pain associated with this. Denies any black or dark tarry stools. [facility] Medical History (Updated 08/14/25 @ 11:[address] Donny Duong, ) Drug abuse Cyclic vomiting syndrome Home Medications ?Medication ?Instructions ?Recorded ?Last Taken ?Type dicyclomine 20 mg tablet 40 mg (2 x 20 mg) PO TID PRN 02/11/22 Unknown Rx cramps #14 tabs ondansetron 4 mg disintegrating 4 mg PO Q8H PRN nausea and 02/11/22 Unknown Rx tablet vomiting #10 tabs promethazine 25 mg tablet 25 mg PO TID PRN nausea and 02/11/22 Unknown Rx vomiting #10 tabs ondansetron HCl 4 mg tablet 4 mg PO Q6H PRN nausea and 10/31/22 Unknown Rx vomiting #15 tabs Allergy/AdvReac Type Severity Reaction Status Date / Time risperidone (From Risperdal) AdvReac TACHYCARDIA Verified 08/14/25 09:47 Surgical History Hx of abdominal surgery Social History household members: family housing: house Smoking Status: Current some day smoker tobacco type: cigarettes substance use type: other details: Cannabis ROS ROS ED ROS Narrative Constitutional: Denies any fevers, chills, headache Cardiovascular: Denies chest pain Respiratory: Denies shortness of breath Abdomen: Complains of nausea vomiting diarrhea as noted above denies abdominal pain Neurological: Complains of generalized weakness denies any numbness or tingling Musculoskeletal: Denies back pain Skin: Denies any rashes or lesions EXAM Physical Exam Narrative Exam Narrative: General: Patient is lying in bed resting comfortably did not appear to be in acute distress Head: Atraumatic, normocephalic Eyes: PERRL bilaterally, EOMI bilaterally, no conjunctival injection noted Neck: Soft, supple, trachea midline Cardiovascular: Regular rate and rhythm Respiratory: Clear to auscultation bilaterally Abdomen: Soft, nondistended, no tenderness to palpation Extremities: +5/5 strength noted in the bilateral upper and lower extremities, radial pulses +2/4 in the bilateral extremities Neurological: Patient following commands and that he was at [facility] the year is 2024 Skin: Warm, dry, intact no rashes or lesions noted Const Vital Signs: 08/14/25 09:45 08/14/25 10:29 Temperature 97.9 F Temperature Source Oral Pulse Rate 99 Respiratory Rate 19 H Respiratory Effort Normal Non-Labored Respiratory Depth Normal Respiratory Pattern Normal Blood Pressure 115/75 Blood Pressure Mean 88 Pulse Ox 98 Oxygen Delivery Method Room Air Room Air MDM MDM MDM Narrative Medical decision making narrative: Patient is a 29-year-old male who presented to the emergency department chief complaint of nausea vomiting diarrhea as well as vomiting blood. On the differential diagnose includes but not limited to Jannet-Pino tear, Boerhaave syndrome, cyclical vomiting, viral gastroenteritis. Once workup is obtained reviewed he will be reevaluated. Patient be given IV fluids and Reglan. At 10:26 AM nursing notified me that the patient vomited about 200 cc of bright red blood. Patient CBC reviewed and showed a mild leukocytosis of 12,000 he chronically has an elevated white count comparing to previous blood draws, he will be stable 13.8, plate count was 589. Patient's coagulation studies are pending type and screen pending. Patient sodium was 137, potassium was 2.5 who is ordered 40 mill equivalents of IV potassium supplementation as well as magnesium level rechecked. Patient anion gap of 17, AST and ALT were 24 and 61 respectively. Patient's lipase was 17. Discussed case with Dr. Farley who states that he will do a EGD. Discussed case with hospitalist Dr. Daily who accept the patient for admission. Patient was notified as well as female bedside they are agreeable to this plan all course concerns answered. Patient has vomited and another 200 to 300 cc of bright red blood in the emergency department as ordered Zofran. Lab Data Labs: Laboratory Results - last 24 hr 08/14/25 10:14 WBC 12.5 H RBC 4.52 L Hgb 13.8 Hct 38.2 L MCV 84.5 MCH 30.5 MCHC 36.1 H RDW Std Deviation 38.2 RDW Coeff of Niki 12.5 Plt Count 589 H MPV 11.4 Immature Gran % (Auto) 0.600 Neut % (Auto) 70.0 Lymph % (Auto) 20.6 Rankin % (Auto) 8.4 Eos % (Auto) 0.2 Baso % (Auto) 0.2 Absolute Neuts (auto) 8.8 H Absolute Lymphs (auto) 2.58 Nucleated RBC % 0 Sodium 137 Potassium 2.5 L* Chloride 94 L Carbon Dioxide 25.6 Anion Gap 17 H BUN 15 Creatinine 0.93 Estim Creat Clear Calc 144.46 Est GFR (MDRD) Non-Af 116 BUN/Creatinine Ratio 16.1 Glucose 147 H Calcium 9.4 Total Bilirubin 0.86 AST 24 ALT 61 H Alkaline Phosphatase 71 Total Protein 7.1 Albumin 4.5 Globulin 2.6 Albumin/Globulin Ratio 1.7 Lipase 17 Radiography Diagnostic Testing: Clinical Impression(s) from Imaging Studies Chest X-Ray 08/14/25 10:30 IMPRESSION: No Acute Findings. Reading Location: [facility] Discharge Plan Dx/Rx/DC Orders Clinical Impression: Jannet-Pino tear, Upper gastrointestinal bleed, Nausea & vomiting, Cyclical vomiting syndrome Disposition Disposition: Acute Care [facility]
[2025-08-14] MEDS: 0.9% Normal Saline (1000mL) 1,000 ML 999 ML IV (10:13)
--- NOTE | 2025-08-14 10:26 | ED.RN ---
pt just threw up in emesis bag 200cc lacy red blood. dr. connor aware
--- NOTE | 2025-08-14 10:30 | RAD_ITS ---
PROCEDURE: CHEST 1 VIEW (PORTABLE) 08/14/2025 REASON FOR EXAM: N/V TECHNIQUE: Frontal view of the chest. COMPARISON: Prior study dated January 06, 2024. FINDINGS: Hardware: None Heart: The heart size is normal. Lungs: The lungs are clear. Bones: The bones are unremarkable. Other: RAD/Chest 1 View (Portable) IMPRESSION: No Acute Findings. Reading Location: [facility]-
--- NOTE | 2025-08-14 10:37 | PCM.HP.STD ---
HPI - General General Date of Admission: 08/14/25 Date of Service: 08/14/25 Chief Complaint: Vomiting blood HPI Narrative ROB CANAS, is a 29 M who presents who presented to the emergency department with intractable nausea and vomiting of blood. The patient's symptoms started 9 days prior to his admission. He ended up being admitted at [facility] for opioid (fentanyl) withdrawal. Was discharged 4 days prior to presenting to the ED. Per patient symptoms initially did improve however had recurrence following his discharge. On the morning of his admission he did experience significant amount of vomiting p.o. blood ended up in the ED. Hemoglobin on admission was 13.8. Patient was typed and screened started on Protonix the steel erector apprentice on-call Dr. Serrano was notified decision made to admit patient for subsequent eval. On further questioning patient denied any fever no chills no abdominal pain no recent use of fentanyl since being discharged. Denies alcohol use. [facility] Medical History (Updated 08/14/25 @ 11:[address] Donny Duong, ) Drug abuse Cyclic vomiting syndrome Home Medications ?Medication ?Instructions ?Recorded ?Last Taken ?Type ondansetron 4 mg disintegrating 4 mg PO Q8H PRN nausea and 02/11/22 Unknown Rx tablet vomiting #10 tabs ondansetron HCl 4 mg tablet 4 mg PO Q6H PRN nausea and 10/31/22 Unknown Rx vomiting #15 tabs pantoprazole 40 mg tablet,delayed 40 mg PO DAILY 08/14/25 Unknown History release potassium bicarbonate-citric acid 1 ea PO DAILY 08/14/25 Unknown History 20 mEq effervescent tablet (Effer-K) Allergy/AdvReac Type Severity Reaction Status Date / Time risperidone (From Risperdal) AdvReac TACHYCARDIA Verified 08/14/25 09:47 Surgical History Hx of abdominal surgery Social History household members: family housing: house Smoking Status: Current some day smoker tobacco type: cigarettes substance use type: other details: Cannabis ROS ROS Narrative GENERAL: denies fever, chills, night sweats, weight loss, anorexia HEENT: denies headache, sinus congestion, or drainage, dysphagia RESPIRATORY: denies cough, sputum production, shortness of breath, CARDIAC: denies chest pain, palpitations, orthopnea, PND GASTROINTESTINAL: Hematemesis GENITOURINARY: denies dysuria, urgency, frequency, heamaturia EXTREMITY: denies swelling MUSCULOSKELETAL: denies current joint pain or tenderness NEUROLOGIC: denies focal numbness, weakness, tingling HEMATOLOGIC: denies easy bruising and/or hemorrhage INTEGUMENT: denies rashes PSYCHIATRIC: denies suicidal or homicidal ideation Vital Signs Vital Signs Vital Signs: 08/14/25 09:45 08/14/25 10:29 Temperature 97.9 F Temperature Source Oral Pulse Rate 99 Respiratory Rate 19 H Respiratory Effort Normal Non-Labored Respiratory Depth Normal Respiratory Pattern Normal Blood Pressure 115/75 Blood Pressure Mean 88 Pulse Ox 98 Oxygen Delivery Method Room Air Room Air Weight Weight: 97.6 kg Body Mass Index (BMI) 29.2 Physical Exam Narrative GENERAL: cooperative HEENT: Atraumatic; normocephalic EYES; Anicteric, Normal Conjunctiva NECK; supple, normal thyroid, RESPIRATORY: Diminished to auscultation CARDIOVASCULAR: Regular S1 S2, GI: soft, normoactive bowel sounds, : No Renal angle tenderness; EXTREMITIES: No edema, no clubbing, MUSCULOSKELETAL: no muscle wasting NEURO: Awake; no lateralizing signs. SKIN: No Rash PSYCH; appears anxious Results Lab / Micro Data 08/14/25 10:14 08/14/25 10:14 Assessment & Plan Assessment/Plan (1) Jannet-Pino tear: (2) Upper gastrointestinal bleed: (3) Acute hypokalemia: PLAN: Plan Patient is a 29-year-old gentleman with history of polysubstance dependence, cyclical vomiting syndrome who presented to the emergency department with intractable nausea and vomiting with hematemesis 1. Upper GI bleed ? Suspected to be secondary to Jannet-Pino tear from patient persistent retching and vomiting. Patient was typed and screened in the ED started on Protonix consult placed to GI admitted to a monitored bed. Subsequently monitoring H&H 2. History of opioid dependence ? With recent admission for [facility] inpatient has not had any use since being discharged 3. History of cyclical vomiting syndrome ? Secondary to chronic marijuana use patient counseled on cessation 5. Hypokalemia ? Secondary to GI losses corrected per protocol repeat labs ordered for monitoring. Also ordered magnesium and phosphate levels 6. DVT prophylaxis ? Low risk to encourage early ambulation Time spent in the patient's overall evaluation,decision-making process, review of diagnostic data, adjustment of management, discussion with other providers, nursing nursing and ancillary staff involved in patient's care documentation, 75 Minutes Charges/Coding Visit Charges Inpatient E&M: 54217 Init Hosp L3
[2025-08-14 10:41] LABS: Hematocrit 38.2 % (40-54); Hemoglobin 13.8 g/dL (13.0-16.5); Immature Granulocytes Count 0.080 X10^3/uL (0.0-0.0); Mean Corp Hgb Conc 36.1 g/dL (32-36); Mean Corpuscular Volume 84.5 fL (80-94); Mean Platelet Vol. 11.4 fl (6.2-12.0); NRBC Flagged by Analyzer 0 % (0-5); Platelet Count 589 K/mm3 (150-450); RBC Distribution Width CV 12.5 % (11.6-14.6); RBC Distribution Width SD 38.2 fl (35.1-43.9); Red Blood Count 4.52 M/mm3 (4.6-6.2); White Blood Count 12.5 K/mm3 (4.4-11.0)
[2025-08-14 10:58] LABS: AST(SGOT) 24 U/L (<=37); Alanine Aminotransfer ALT/SGPT 61 U/L (<=46); Albumin, Serum 4.5 g/dL (3.5-5.0); Alkaline Phosphatase 71 U/L (40-129); Anion Gap 17 (5-15); BUN 15 mg/dL (4-19); BUN/Creat Ratio 16.1 RATIO (10-20); Calcium,Total 9.4 mg/dL (7.6-11.0); Carbon Dioxide 25.6 mmol/L (21.0-32.0); Chloride 94 mmol/L (98-108); Estimated Creatinine Clearance 144.46 ml/min (50-250); Globulin 2.6 g/dL (2.2-4.2); Glucose 147 mg/dL (70-99); Lipase 17 U/L (13-75); Potassium 2.5 mmol/L (3.3-5.1)
[2025-08-14 11:15] LABS: Partial Thromboplast Time 23.5 Seconds (24.1-36.2); Prothrombin Time (Protime)PT. 15.9 SECONDS (11.7-14.9)
[2025-08-14] MEDS: Potassium Chloride 10mEq/100mL 10 MEQ/100 ML IV.SOLN. 100 MEQ IV BOLUS ×8 (11:23→22:49)
[2025-08-14 11:40] LABS: Magnesium 2.0 mg/dL (1.5-2.2)
[2025-08-14] MEDS: Lactated Ringers 1,000 ML 150 ML IV (11:54)
--- NOTE | 2025-08-14 12:08 | NURSING ---
Report called to KRISTAN MACKAY
--- NOTE | 2025-08-14 12:11 | PCM.PRE.AN2 ---
ASA Classification* ASA Classification ASA Classification: 2 and E Assessment & Plan Anesthesia* Anesthesia Assessment Anesthesia Assessment: Discussed sedation and/or anesthesia options, risks, benefits, and alternatives with patient/parents/legal guardian/POA. Questions invited. The patient/parents/legal guardian/POA seems to understand and agrees to proceed with anesthesia plan. Reviewed the physical assessment, medical history, allergy history and patient home medications list prior to surgery/procedure/anesthetic and documented any changes. Performed airway and anesthesia risk assessments. Anesthesia Type Anesthesia Type: MAC History Source History Obtained from:: Patient and Chart Anesthesia Focused Assessment* Temperature: 98.3 F Pulse Rate: 116 Blood Pressure: 120/95 Respiratory Rate: 17 Pulse Ox: 95 Oxygen Delivery Method: Room Air Airway Assessment Mouth opens: >3 cm Mallampati Score: II Teeth Condition: Dentures (Edentulous upper jaw) and Missing Neck Range of motion (ROM): Full ROM Labs Anesthesia Preop lab: CBC WBC, (4.4-11.0) 12.5 K/mm3 H Today, 10:14 RBC, (4.6-6.2) 4.52 M/mm3 L Today, 10:14 Hgb, (13.0-16.5) 13.8 g/dL Today, 10:14 Hct, (40-54) 38.2 % L Today, 10:14 Plt Count, (150-450) 589 K/mm3 H Today, 10:14 CHEMISTRY Potassium, (3.3-5.1) 2.5 mmol/L L* Today, 10:14 Sodium, (133-145) 137 mmol/L Today, 10:14 Magnesium, (1.5-2.2) 2.0 mg/dL Today, 10:14 Phosphorus, (2.5-4.9) 2.9 mg/dL 05/29/21, 13:10 BUN, (4-19) 15 mg/dL Today, 10:14 Creatinine, (0.70-1.20) 0.93 mg/dL Today, 10:14 Glucose, (70-99) 147 mg/dL H Today, 10:14 POC Glucose, (70-110) 148 mg/dL H 05/28/21, 06:54 COAG PT, (11.7-14.9) 15.9 SECONDS H Today, 10:47 Pre-Assessment Diagnosis/Proposed Procedure Planned Operative Procedure(s): EGD Anesthesia History Anesthesia History - legal transcriber: Anesthesia History - legal transcriber Hx Hospitalization No 06/29/20 17:01 Any Problems With Anesthesia Cholinesterase deficiency You/Your Family Experience fever (hyperthermia) with Relationship Recent Exposure to Contagious Disease Does patient have nerve stimulator Patient instructed to have device shut off --Does patient have Pacemaker or ICD? When Was Last Pacemaker Check QUESTION #4 FULL TEXT: You/Your Family Experience fever (hyperthermia) with Anesthesia Last Oral Intake Last Oral intake: Last Oral Intake NPO since Meds taken in AM with sips of water? Meds patient instructed to take am of surgery PONV PONV - legal transcriber: PONV - legal transcriber Female HX of Motion Sickness HX of N/V After Surgery Non-Smoker Duration of Surgery greater than 60 minutes Number of Risk Factors PONV Score Height & Weight Height & Weight: Anesthesia: Height & Weight Height 6 ft 08/14/25 11:39 Weight: 92.1 kg 08/14/25 11:39 Body Mass Index (BMI) 27.5 08/14/25 11:39 Respiratory Assessment Respiratory Assessment - legal transcriber: Respiratory Tract Infection Hx - legal transcriber Hx Respiratory Tract Infection STOP Sleep Apnea STOP Sleep Apnea - legal transcriber: STOP Sleep Apnea - legal transcriber Hx Hypertension No 08/14/25 11:39 Hx Sleep Apnea No 08/14/25 11:39 CPAP BIPAP Do you snore loudly (louder No 08/14/25 11:39 than talking or can be heard Do you often feel tired/ No 08/14/25 11:39 fatigued/ sleepy during daytime? Has anyone observed you stop No 08/14/25 11:39 breathing during sleep? STOP Results Negative 08/14/25 11:39 QUESTION #5 FULL TEXT : Do you snore loudly (louder than talking or can be heard through closed doors)? Tobacco Use History Tobacco Use History - legal transcriber: Tobacco Use History - legal transcriber Tobacco Use Smoking Status Current some day smoker 08/14/25 11:39 Hx Tobacco Use No 08/14/25 11:39 Years Smoking Packs Smoked per Day Smoking Cessation Date was within the last 15 years Hx Smoking Cessation Date Hx Smoking Cessation No 08/14/25 11:39 Counseling Hematologic Medial History Hematologic Hx - legal transcriber: Hematologic Medical Hx - certified phlebotomist Hx of Blood Transfusion No 08/14/25 11:39 Hx of Transfusion in last 3 No 08/14/25 11:39 Months Date of Last Transfusion (if within last 3 months) Ever experience any problems No 08/14/25 11:39 with transfusion(s)? Specify any problems Hx of Preganancy in last 3 N/A 08/14/25 11:39 Months Nurse Filling Out Transfusion PHILLIP 08/14/25 11:39 & Questions: Date: 08/14/25 08/14/25 11:39 Time: 11:46 08/14/25 11:39 Patient unable to answer at this time (ie. confused, unrespo /Reproduction History /Reproductive History - legal transcriber: /Reproductive Hx- legal transcriber Hx Now Gestational Age (in weeks): EDC: Hx Hx Para Hx Section SAB Active Medications Active Medications: Current Medications Generic Name Dose Route Start Last Admin Trade Name Freq PRN Reason Stop Dose Admin Albuterol Sulfate 2.5 mg 08/14/25 11:34 Albuterol 2.5 Mg/3 Ml Vial.Neb. INHALATION Q2H PRN PRN SOB &/OR WHEEZING Guaifenesin 20 ml 08/14/25 11:34 Guaifenesin 10 Ml Udc (200mg/10ml) PO Q4H PRN PRN COUGH Potassium Chloride 10 meq in 100 mls @ 100 mls/hr 08/14/25 11:15 08/14/25 11:23 IV BOLUS 08/14/25 15:14 100 mls/hr Q1H [place] Administration Lactated Ringer's 1,000 mls @ 150 mls/hr 08/14/25 11:34 08/14/25 11:54 IV 150 mls/hr .Q6H40M [place] Administration Pantoprazole Sodium 80 mg/ 100 mls @ 10 mls/hr 08/14/25 11:34 Sodium Chloride CONT INF 08/17/25 11:35 Q10H [place] Sodium Chloride 250 mls @ 15 mls/hr 08/14/25 11:40 IV .[id number] PRN Saline Flush Sodium Chloride 250 mls @ 15 mls/hr 08/14/25 11:40 IV .[id number] PRN Additional IVPB Infusion Ondansetron HCl 4 mg 08/14/25 11:34 Ondansetron 4 Mg/2 Ml Vial IV Q6H [place] Pantoprazole Sodium 40 mg 08/18/25 10:00 Pantoprazole Sodium 40 Mg Tablet PO BID [place] Sodium Chloride 10 - 40 ml 08/14/25 11:40 0.9% Saline Lock 10 Ml Syringe IV UD PRN SALINE FLUSH PFSH Medical History Drug abuse Cyclic vomiting syndrome Home Medications ?Medication ?Instructions ?Recorded ?Last Taken ?Type ondansetron 4 mg disintegrating 4 mg PO Q8H PRN nausea and 02/11/22 Unknown Rx tablet vomiting #10 tabs ondansetron HCl 4 mg tablet 4 mg PO Q6H PRN nausea and 10/31/22 Unknown Rx vomiting #15 tabs pantoprazole 40 mg tablet,delayed 40 mg PO DAILY 08/14/25 Unknown History release potassium bicarbonate-citric acid 1 ea PO DAILY 08/14/25 Unknown History 20 mEq effervescent tablet (Effer-K) Allergy/AdvReac Type Severity Reaction Status Date / Time risperidone (From Risperdal) AdvReac TACHYCARDIA Verified 08/14/25 09:47 Surgical History Hx of abdominal surgery Social History household members: family housing: house Smoking Status: Current some day smoker tobacco type: cigarettes substance use type: other details: Cannabis Review of Systems (Anesthesia) ROS Narrative System reviewed and no additional complaints, except as documented.
--- NOTE | 2025-08-14 12:33 | CON.PCM.GI_ITS ---
HPI Consult Data Date of Consult: 08/14/25 HPI Narrative Reason for Consultation: Hematemesis HPI Narrative: 29-year-old man with a known history of cyclic vomiting syndrome (CVS) presents to the emergency department (ED) with a chief complaint of hemoptysis. He reports a prolonged, severe episode of cyclic vomiting, consistent with his established pattern, that began 24 hours prior to presentation. Approximately one hour ago, he vomited bright red blood and noticed blood-streaked sputum. He denies any prior episodes of hematemesis or hemoptysis. [facility] Medical History Drug abuse Cyclic vomiting syndrome Home Medications ?Medication ?Instructions ?Recorded ?Last Taken ?Type ondansetron 4 mg disintegrating 4 mg PO Q8H PRN nausea and 02/11/22 Unknown Rx tablet vomiting #10 tabs ondansetron HCl 4 mg tablet 4 mg PO Q6H PRN nausea and 10/31/22 Unknown Rx vomiting #15 tabs pantoprazole 40 mg tablet,delayed 40 mg PO DAILY 08/14 Unknown History release potassium bicarbonate-citric acid 1 ea PO DAILY Unknown History 20 mEq effervescent tablet (Effer-K) Allergy/AdvReac Type Severity Reaction Status Date / Time haloperidol (From Haldol) Allergy Other Verified 08/14/25 12:15 risperidone (From Risperdal) AdvReac TACHYCARDIA Verified 08/14/25 12:15 Surgical History Hx of abdominal surgery Social History household members: family housing: house Smoking Status: Current some day smoker tobacco type: cigarettes substance use type: other details: Cannabis ROS Constitutional Constitutional: Denies fatigue, fever(s), poor appetite, weight gain or weight loss Gastrointestinal Gastrointestinal: Denies belching, bloating, change in bowel habits, change in stool character, chewing difficulty, coffee ground emesis, constipation, cramping, diarrhea, dyspepsia, dysphagia, early satiety, excessive flatus, fecal incontinence, heartburn, hematemesis, hematochezia, hemorrhoids, loose stools, melena, nausea, odynophagia, rectal bleeding, tenesmus, vomiting or weight changes Physical Exam Const alert, oriented x3, no apparent distress and healthy appearing General Appearance: cooperative GI normal to inspection, nondistended, normoactive bowel sounds, soft to palpation, non-tender and non-distended Percussion: normal to percussion Rectal Exam: deferred Lab / Micro Data 08/14/25 10:14 08/14/25 10:14 Labs: Laboratory Results - last 24 hr 08/14/25 10:14: WBC 12.5 H, RBC 4.52 L, Hgb 13.8, Hct 38.2 L, MCV 84.5, MCH 30.5, MCHC 36.1 H, RDW Std Deviation 38.2, RDW Coeff of Niki 12.5, Plt Count 589 H, MPV 11.4, Immature Gran % (Auto) 0.600, Neut % (Auto) 70.0, Lymph % (Auto) 20.6, Whitman % (Auto) 8.4, Eos % (Auto) 0.2, Baso % (Auto) 0.2, Absolute Neuts (auto) 8.8 H, Absolute Lymphs (auto) 2.58, Nucleated RBC % 0, Sodium 137, P otassium 2.5 L*, Chloride 94 L, Carbon Dioxide 25.6, Anion Gap 17 H, BUN 15, Creatinine 0.93, Estim Creat Clear Calc 144.46, Est GFR (MDRD) Non-Af 116, BUN/Creatinine Ratio 16.1, Glucose 147 H, Calcium 9.4, Magnesium 2.0, Total Bilirubin 0.86, AST 24, ALT 61 H, Alkaline Phosphatase 71, Total Protein 7.1, Albumin 4.5, Globulin 2.6, Albumin/Globulin Ratio 1.7, Lipase 17 08/14/25 10:47: PT 15.9 H, INR 1.3, APTT 23.5 L, Blood Type A NEGATIVE, Antibody Screen NEGATIVE, Crossmatch See Detail Imaging Radiology Impression Chest X-Ray 08/14/25 10:30 IMPRESSION: No Acute Findings. Reading Location: [facility] Assessment & Plan Assessment/Plan (1) Cyclical vomiting syndrome: (2) Nausea & vomiting: (3) Upper gastrointestinal bleed: PLAN: 29-year-old male with a history of CVS presents with hemoptysis during an exacerbation of his underlying condition. The primary concern is to differentiate between the likely?Jannet-Pino tear, caused by the forceful vomiting, and other more serious, though less likely, causes. Differential Diagnosis: * Jannet-Pino Tear: * Most likely diagnosis given the history of repeated, forceful vomiting in a patient with CVS. * Symptoms typically include vomiting non-bloody contents, followed by hematemesis/hemoptysis. * Bleeding is often self-limiting, but can be severe. * Boerhaave Syndrome (Esophageal Rupture): * A rare but life-threatening complication of forceful vomiting, resulting in a transmural esophageal tear. * Less likely, but must be ruled out. * Chan symptoms include severe chest pain, subcutaneous emphysema, and fever (Mackler's triad). The patient denies these. * Pulmonary Causes of Hemoptysis: * E.g., Bronchitis, pneumonia, lung abscess, pulmonary embolism. * Less likely given the context of forceful vomiting and lack of other respiratory symptoms (cough, fever). * Other Upper GI Sources: * E.g., Gastric or duodenal ulcer. * Possible, but Jannet-Pino tear is a more direct complication of the precipitating event. Plan Emergency Management: * Stabilization: * He is currently stable at this time * Pharmacologic Intervention: * Administer abortive medications. IV ondansetron and a benzodiazepine like lorazepam for sedation and anxiety. * Proton Pump Inhibitor (PPI) to suppress stomach acid and aid in healing of any mucosal tears. * Diagnostic Workup: * Expedite lab work (CBC, metabolic panel, coagulation studies, type & crossmatch). * He will undergo an upper endoscopy Charges/Coding Visit Charges Inpatient E&M: 75845 Init Hosp L3
--- NOTE | 2025-08-14 13:06 | OP.EGD_ITS ---
Patient Name: Joey Arizmendi Procedure Date: 08/14/2025 12:27 PM Date of : 1995 Age: 29 Procedure: Upper GI endoscopy Indications: Hematemesis Providers: Jamari Farley DO Medicines: Monitored Anesthesia Care Patient Profile: This is a 29 year old male. Refer to note in patient chart for documentation of history and physical. Patient has symptoms of acute vomiting. Complications: No immediate complications. Procedure: Pre-Anesthesia Assessment: - Prior to the procedure, a History and Physical was performed, and patient medications and allergies were reviewed. The patient is competent. The risks and benefits of the procedure and the sedation options and risks were discussed with the patient. All questions were answered and informed consent was obtained. Patient identification and proposed procedure were verified by the physician in the pre-procedure area. Mental Status Examination: alert and oriented. Airway Examination: normal oropharyngeal airway and neck mobility. Respiratory Examination: clear to auscultation. CV Examination: normal. Prophylactic Antibiotics: The patient does not require prophylactic antibiotics. Prior Anticoagulants: The patient has taken no anticoagulant or antiplatelet agents except for NSAID medication. ASA Grade Assessment: III - A patient with severe systemic disease. After reviewing the risks and benefits, the patient was deemed in satisfactory condition to undergo the procedure. The anesthesia plan was to use monitored anesthesia care (MAC). Immediately prior to administration of medications, the patient was re-assessed for adequacy to receive sedatives. The heart rate, respiratory rate, oxygen saturations, blood pressure, adequacy of pulmonary ventilation, and response to care were monitored throughout the procedure. The physical status of the patient was re-assessed after the procedure. After obtaining informed consent, the endoscope was passed under direct vision. Throughout the procedure, the patient's blood pressure, pulse, and oxygen saturations were monitored continuously. The Endoscope was introduced through the mouth, and advanced to the third part of the duodenum. Small bowel enteroscopy was deemed necessary. The upper GI endoscopy was accomplished without difficulty. The patient tolerated the procedure well. Scope In: 12:43:56 PM Scope Out: 12:56:35 PM Total Procedure Duration Time 0 hours 12 minutes 39 seconds Findings: A 30 mm bleeding Jannet-Pino tear with stigmata of recent bleeding was found. To repair the defect, the tissue edges were approximated and four hemostatic clips were successfully placed. Closure of the defect was successful. Clip project finance analyst: [employer]. There was no bleeding at the end of the procedure. Severe esophagitis with no bleeding was found in the entire esophagus. Coagulation for destruction of remaining portion of lesion using argon plasma at 0.3 liters/minute and 20 caldera was successful. Coagulation for bleeding prevention using argon plasma at 0.4 liters/minute and 20 caldera was successful. Estimated blood loss was minimal. Hematin (altered blood/mawato-jaxugp-oufx material) was found in the entire examined stomach. No gross lesions were noted in the entire examined duodenum. Impression: - Jannet-Pino tear. Clips were placed. Clip project finance analyst: [employer]. - Severe erosive esophagitis with no bleeding. Treated with argon plasma coagulation (APC). - Hematin (altered blood/hiktyk-nnkyqs-jppe material) in the entire stomach. - No gross lesions in the entire examined duodenum. - No specimens collected. Recommendation: - [facility] patient to [facility] care. - Full liquid diet. - Give Protonix (pantoprazole): initiate therapy with 80 mg IV bolus, then 8 mg/hr IV by continuous infusion today. - Continue present medications. Procedure Code(s): --- Professional --- 39503, Small intestinal endoscopy, enteroscopy beyond second portion of duodenum, not including ileum; with ablation of tumor(s), polyp(s), or other lesion(s) not amenable to removal by hot biopsy forceps, bipolar cautery or snare technique 77070, 59,51, Small intestinal endoscopy, enteroscopy beyond second portion of duodenum, not including ileum; with control of bleeding (eg, injection, bipolar cautery, unipolar cautery, laser, heater probe, stapler, plasma cottonseed meat presser) CPT copyright 2021 [employer]. All rights reserved. The codes documented in this report are preliminary and upon stitcher feeder review may be revised to meet current compliance requirements. Jamari Farley DO 08/14/2025 1:06:15 PM This report has been signed electronically. Number of Addenda: 0 Note Initiated On: 08/14/2025 12:27 PM
--- NOTE | 2025-08-14 13:16 | PCM.POST.ANE ---
Anesthesia: Postop Eval I Current Vital Signs Temperature: 97.1 F Pulse Rate: 128 Blood Pressure: 97/65 Respiratory Rate: 22 Pulse Ox: 99 Oxygen Delivery Method: Room Air Assessment Airway patent: Yes Spontaneous unlabored respirations: Yes Mental status: Asleep nausea: No Vomiting: No Anesthesia Complication: Yes Anesthesia Complication Comment:: tachycardia Fluid Hydration Crystalloid volume administer (ml): 400 Total IV fluid infused: 400 Progress Note Anesthesia document: Postop Eval 1 completed: Yes
[2025-08-14] MEDS: Pantoprazole Sodium 80 MG in 0.9% Normal Saline (50mL Bag) 15 ML 420 MG IV BOLUS (13:42)
[2025-08-14] MEDS: Pantoprazole Sodium 80 MG in 0.9% Normal Saline (100mL Bag) 80 ML 10 MG CONT INF (14:00)
--- NOTE | 2025-08-14 14:28 | PCM.POSTANE2 ---
Anesthesia Postop Eval I Sum Postop Eval Completion status Anesthesia document: Postop Eval 1 completed: Yes Anesthesia Postop Eval I Summary Anesthesia Postop Eval I Summary: Anesthesia Postop Eval I: Assessment Summary Airway patent Yes 08/14/25 13:17 [email or web address] Spontaneous unlabored Yes 08/14/25 13:17 [email or web address] respirations Mental status Asleep 08/14/25 13:17 [email or web address] nausea No 08/14/25 13:17 [email or web address] Vomiting No 08/14/25 13:17 [email or web address] Anesthesia Postop Eval I: Fluid Summary Crystalloid volume administer 400 08/14/25 13:17 [email or web address] (ml) Colloids volume administered ( ml) Blood Product volume administered (ml) Total IV fluid infused 400 08/14/25 13:17 [email or web address] Anesthesia Postop Eval I: Summary Notes Anesthesia Complication Yes 08/14/25 13:17 [email or web address] Anesthesia Complication tachycardia 08/14/25 13:17 [email or web address] Comment: Post-operative progress note Anesthesia: Postop Eval II Evaluation Mental status: Awake and Calm Pain Level: 1 nausea: No Vomiting: No Complications Anesthesia Complication: No
--- NOTE | 2025-08-14 15:40 | CHAPLAIN ---
Type of Pastoral Visit _x__ Initial Visit ___ Follow-up Visit ___ On-call Visit ___ General Patient Visit ___ Spiritual Assessment ___ Family Conference ___ Bereavement ___ Rapid Response ___ Code Blue ___ Other (describe below) Pastoral Care Referral From _x__ Patient ___ Family ___ Nurse ___ Physician ___ Petroleum Transport Driver ___ Twister Tender ___ Other (describe below) Sacrament/Intervention _x__ Active listening ___ Anointing ___ Samaritan ___ Bereavement ___ Communion ___ Leah exploration ___ _x__ Life review _x__ Prayer ___ Reconciliation ___ Sacrament of Sick _x__ Supportive presence ___ Wedding ___ Other (describe below) Pastoral Comments this patient has been seen in previous admissions here and another hospital; pt says that he was happy to see 'his lapidarist' again and asked several questions of lapidarist; pt reports on his health events of the last couple of weeks and getting assistance today for healing; pt welcomes presence and prayer for support
[2025-08-14] MEDS: KCL 40mEq in 0.9% NS 40 MEQ/1,000 ML IV.SOLN 125 MEQ IV (17:17)
[2025-08-14] MEDS: 0.9% Saline Lock 10 ML Syringe IV ×2 (18:14→22:19)
--- NOTE | 2025-08-14 22:40 | PCM.HOSP.N ---
Hospitalist Note Pt asking for more anti-emetics as Zofran only has limited effects. He states that he really is not interested in stopping his marijuana use. Attempted to relate his hyperemesis symptoms to his marijuana use but he was not accepting of this information. I considered prescribing haloperidol for treatment of cannabinoid hyperemesis syndrome, but noted documentation of an allergy to it. Discussed his haloperidol allergy with him and he reports tongue muscle spasming and generalized muscle spasms. He reports his last attempt at using haloperidol was 2wks ago. When questioned about what works the best to control his nausea he had stated Zofran and Phenergan together seemed to work. I offered promethazine RC but he refused. Noted him having some rigors while talking with him, he reports chills and palpitations. I ordered prochlorperazine and metoclopramide PRN. And despite him reporting his abstinence from fentanyl use since his last detox admission, I also ordered a urine drug tox.
[2025-08-15] VITALS (7 sets, daily range): BP systolic 125–170; BP diastolic 65–97; PULSE 92–170; RESP 16–18; TEMP 36.5–37.3; O2SAT 100
[2025-08-15] MEDS: Pantoprazole Sodium 80 MG in 0.9% Normal Saline (100mL Bag) 80 ML 10 MG CONT INF (00:19)
[2025-08-15 00:48] LABS: Barbiturate Urine NEGATIVE (< 200 ng/mL); Benzodiazepine Urine NEGATIVE (< 200 ng/mL); PCP Urine NEGATIVE (< 25 ng/mL); THC Urine PRESUMPTIVE POSITIVE (< 50 ng/mL)
[2025-08-15] MEDS: KCL 40mEq in 0.9% NS 40 MEQ/1,000 ML IV.SOLN 125 MEQ IV (01:45)
--- NOTE | 2025-08-15 02:06 | PCM.HOSP.N ---
Hospitalist Note UDS requested given patient's symptoms suspect for withdrawal from opiates. UDS does have positive fentanyl and as expected cannabis. Given his clinical appearance of opiate withdrawal will initiate opiate withdrawal protocol.
--- NOTE | 2025-08-15 07:33 | PCM.PN.HOSP ---
Reason for Visit Chief Complaint: Vomiting blood Subjective Subjective Patient seen underwent upper endoscopy the day prior results are as below. Objective Data Objective Data Vital Signs: Vital Signs Temp Pulse Resp BP Pulse Ox O2 Del Method 97.7 F L 93 16 167/97 H 100 Room Air 08/15/25 02:54 08/15/25 02:54 08/15/25 02:54 08/15/25 02:54 08/15/25 02:54 08/15/25 02:54 Oxygen Delivery Method Room Air Weight: 92.1 kg Body Mass Index (BMI) 27.5 Intake & Output: Intake and Output for Last 24 Hours 08/13/25 08/14/25 08/15/25 23:59 23:59 23:59 Intake Total 4635 / 4735 1440 / 1440 Output Total 453 / 453 Balance 4182 / 4282 1440 / 1440 Lab / Micro Data 08/14/25 10:14 08/14/25 10:14 Labs: Laboratory Results - last 24 hr 08/14/25 10:14: WBC 12.5 H, RBC 4.52 L, Hgb 13.8, Hct 38.2 L, MCV 84.5, MCH 30.5, MCHC 36.1 H, RDW Std Deviation 38.2, RDW Coeff of Niki 12.5, Plt Count 589 H, MPV 11.4, Immature Gran % (Auto) 0.600, Neut % (Auto) 70.0, Lymph % (Auto) 20.6, [place] % (Auto) 8.4, Eos % (Auto) 0.2, Baso % (Auto) 0.2, Absolute Neuts (auto) 8.8 H, Absolute Lymphs (auto) 2.58, Nucleated RBC % 0, Sodium 137, Potassium 2.5 L*, Chloride 94 L, Carbon Dioxide 25.6, Anion Gap 17 H, BUN 15, Creatinine 0.93, Estim Creat Clear Calc 144.46, Est GFR (MDRD) Non-Af 116, BUN/Creatinine Ratio 16.1, Glucose 147 H, Calcium 9.4, Magnesium 2.0, Total Bilirubin 0.86, AST 24, ALT 61 H, Alkaline Phosphatase 71, Total Protein 7.1, Albumin 4.5, Globulin 2.6, Albumin/Globulin Ratio 1.7, Lipase 17 08/14/25 10:47: PT 15.9 H, INR 1.3, APTT 23.5 L, Blood Type A NEGATIVE, Antibody Screen NEGATIVE, Crossmatch See Detail 08/15/25 00:00: Urine Opiates Screen NEGATIVE, U Buprenorphine Qual NEGATIVE, Ur Oxycodone Screen NEGATIVE, Urine Methadone Screen NEGATIVE, Urine Fentanyl Screen PRESUMPTIVE POSITIVE, Ur Barbiturates Screen NEGATIVE, Ur Phencyclidine Scrn NEGATIVE, Ur Amphetamines Screen NEGATIVE, U Benzodiazepines Scrn NEGATIVE, Urine Cocaine Screen NEGATIVE, U Cannabinoids Screen PRESUMPTIVE POSITIVE Radiography Diagnostic Testing: Radiology Impression Chest X-Ray 08/14/25 10:30 IMPRESSION: No Acute Findings. Reading Location: [place] [id number] Physical Exam Narrative GENERAL: cooperative HEENT: Atraumatic; normocephalic EYES; Anicteric, Normal Conjunctiva NECK; supple, normal thyroid, RESPIRATORY: Diminished to auscultation CARDIOVASCULAR: Regular S1 S2, GI: soft, normoactive bowel sounds, : No Renal angle tenderness; EXTREMITIES: No edema, no clubbing, MUSCULOSKELETAL: no muscle wasting NEURO: Awake; no lateralizing signs. SKIN: No Rash PSYCH; appears anxious Assessment & Plan Assessment/Plan (1) Jannet-Pino tear: (2) Upper gastrointestinal bleed: (3) Acute hypokalemia: PLAN: Plan Patient is a 29-year-old gentleman with history of polysubstance dependence, cyclical vomiting syndrome who presented to the emergency department with intractable nausea and vomiting with hematemesis 1. Upper GI bleed ? Suspected to be secondary to Jannet-Pino tear from patient persistent retching and vomiting. Patient was typed and screened in the ED started on Protonix consult placed to GI admitted to a monitored bed. Subsequently monitoring H&H ? 08/15/2025; patient underwent EGD by Dr. Farley on 08/14/2025 findings as below -Jannet-Pino tear. Clips were placed. -Severe erosive esophagitis with no bleeding. Treated with argon plasma coagulation (APC). - Hematin (altered blood/boadkk-wkppwh-ttgc material) in the entire stomach. 2. History of opioid dependence ? With recent admission for [facility] [place] has not had any use since being discharged 3. History of cyclical vomiting syndrome ? Secondary to chronic marijuana use patient counseled on cessation 5. Hypokalemia ? Secondary to GI losses corrected per protocol repeat labs ordered for monitoring. Also ordered magnesium and phosphate levels 6. DVT prophylaxis ? Low risk to encourage early ambulation Time spent in the patient's overall evaluation,decision-making process, review of diagnostic data, adjustment of management, discussion with other providers, nursing nursing and ancillary staff involved in patient's care documentation, 35 Minutes Charges/Coding Visit Charges Inpatient E&M: 79698 Subs Hosp L2
[2025-08-15 08:39] LABS: Hematocrit 27.1 % (40-54); Hemoglobin 9.7 g/dL (13.0-16.5); Immature Granulocytes Count 0.100 X10^3/uL (0.0-0.0); Mean Corp Hgb Conc 35.8 g/dL (32-36); Mean Corpuscular Volume 86.0 fL (80-94); Mean Platelet Vol. 11.0 fl (6.2-12.0); NRBC Flagged by Analyzer 0 % (0-5); Platelet Count 389 K/mm3 (150-450); RBC Distribution Width CV 12.8 % (11.6-14.6); RBC Distribution Width SD 38.8 fl (35.1-43.9); Red Blood Count 3.15 M/mm3 (4.6-6.2); White Blood Count 11.4 K/mm3 (4.4-11.0)
[2025-08-15 09:40] LABS: AST(SGOT) 16 U/L (<=37); Alanine Aminotransfer ALT/SGPT 38 U/L (<=46); Albumin, Serum 3.8 g/dL (3.5-5.0); Alkaline Phosphatase 54 U/L (40-129); Anion Gap 12 (5-15); BUN 13 mg/dL (4-19); BUN/Creat Ratio 16.9 RATIO (10-20); Bilirubin, Direct 0.34 mg/dL (0.00-0.30); Calcium,Total 8.7 mg/dL (7.6-11.0); Carbon Dioxide 19.7 mmol/L (21.0-32.0); Chloride 106 mmol/L (98-108); Estimated Creatinine Clearance 154.16 ml/min (50-250); Globulin 2.0 g/dL (2.2-4.2); Glucose 112 mg/dL (70-99); Magnesium 2.1 mg/dL (1.5-2.2); Potassium 3.6 mmol/L (3.3-5.1)
--- NOTE | 2025-08-15 10:02 | DS.PCM_ITS ---
Providers Date of Admission: 08/14/25 Date of Discharge: 08/15/25 Primary Care Physician: No Primary Care Phys Consultations 08/14/25 11:34 Consult: Gastroenterology Routine Consulting Provider: [facility] Reason for Consult: GI bleed EMERGENT Consult: Yes MD Notified: Yes Date Notified: 08/14/25 Time Notified: 11:01 Method of Notification: ED Physician Initiated Reason For Visit: GI BLEED Diagnosis Discharge Diagnosis (1) Jannet-Pino tear: Status: Acute Code(s): K22.6 - Gastro-esophageal laceration-hemorrhage syndrome (2) Upper gastrointestinal bleed: Status: Acute Code(s): K92.2 - Gastrointestinal hemorrhage, unspecified (3) Acute hypokalemia: Status: Acute Code(s): E87.6 - Hypokalemia Plan Patient is a 29-year-old gentleman with history of polysubstance dependence, cyclical vomiting syndrome who presented to the emergency department with intractable nausea and vomiting with hematemesis 1. Upper GI bleed ? Suspected to be secondary to Jannet-Pino tear from patient persistent retching and vomiting. Patient was typed and screened in the ED started on Protonix consult placed to GI admitted to a monitored bed. Subsequently monitoring H&H ? 08/15/2025; patient underwent EGD by Dr. Farley on 08/14/2025 findings as below -Jannet-Pino tear. Clips were placed. -Severe erosive esophagitis with no bleeding. Treated with argon plasma coagulation (APC). - Hematin (altered blood/cvuhvt-afuxoi-wecb material) in the entire stomach. 2. History of opioid dependence ? With recent admission for [facility] has not had any use since being discharged 3. History of cyclical vomiting syndrome ? Secondary to chronic marijuana use patient counseled on cessation 5. Hypokalemia ? Secondary to GI losses corrected per protocol repeat labs ordered for monitoring. Also ordered magnesium and phosphate levels 6. DVT prophylaxis ? Low risk to encourage early ambulation Time spent in the patient's overall evaluation,decision-making process, review of diagnostic data, adjustment of management, discussion with other providers, nursing nursing and ancillary staff involved in patient's care documentation, 35 Minutes Medications at Discharge Home Medications amlodipine 10 mg tablet 10 mg PO DAILY 90 days #60 tabs 08/15/25 pantoprazole 40 mg tablet,delayed release 40 mg PO DAILY #60 tabs 08/15/25 potassium chloride 20 mEq tablet,extended release(part/cryst) 20 meq PO BID #60 tabs 08/15/25 Physical Exam Narrative GENERAL: cooperative HEENT: Atraumatic; normocephalic EYES; Anicteric, Normal Conjunctiva NECK; supple, normal thyroid, RESPIRATORY: Diminished to auscultation CARDIOVASCULAR: Regular S1 S2, GI: soft, normoactive bowel sounds, : No Renal angle tenderness; EXTREMITIES: No edema, no clubbing, MUSCULOSKELETAL: no muscle wasting NEURO: Awake; no lateralizing signs. SKIN: No Rash PSYCH; appears anxious Weight / BMI Weight Weight: 92.1 kg Body Mass Index (BMI) 27.5 ABG / Lab / Microbiology Data 08/15/25 08:33 08/15/25 08:33 Laboratory: Laboratory Results - last 24 hr 08/14/25 10:14: WBC 12.5 H, RBC 4.52 L, Hgb 13.8, Hct 38.2 L, MCV 84.5, MCH 30.5, MCHC 36.1 H, RDW Std Deviation 38.2, RDW Coeff of Niki 12.5, Plt Count 589 H, MPV 11.4, Immature Gran % (Auto) 0.600, Neut % (Auto) 70.0, Lymph % (Auto) 20.6, [place] % (Auto) 8.4, Eos % (Auto) 0.2, Baso % (Auto) 0.2, Absolute Neuts (auto) 8.8 H, Absolute Lymphs (auto) 2.58, Nucleated RBC % 0, Sodium 137, P otassium 2.5 L*, Chloride 94 L, Carbon Dioxide 25.6, Anion Gap 17 H, BUN 15, Creatinine 0.93, Estim Creat Clear Calc 144.46, Est GFR (MDRD) Non-Af 116, BUN/Creatinine Ratio 16.1, Glucose 147 H, Calcium 9.4, Magnesium 2.0, Total Bilirubin 0.86, AST 24, ALT 61 H, Alkaline Phosphatase 71, Total Protein 7.1, Albumin 4.5, Globulin 2.6, Albumin/Globulin Ratio 1.7, Lipase 17 08/14/25 10:47: PT 15.9 H, INR 1.3, APTT 23.5 L, Blood Type A NEGATIVE, Antibody Screen NEGATIVE, Crossmatch See Detail 08/15/25 00:00: Urine Opiates Screen NEGATIVE, U Buprenorphine Qual NEGATIVE, Ur Oxycodone Screen NEGATIVE, Urine Methadone Screen NEGATIVE, Urine Fentanyl Screen PRESUMPTIVE POSITIVE, Ur Barbiturates Screen NEGATIVE, Ur Phencyclidine Scrn NEGATIVE, Ur Amphetamines Screen NEGATIVE, U Benzodiazepines Scrn NEGATIVE, Urine Cocaine Screen NEGATIVE, U Cannabinoids Screen PRESUMPTIVE POSITIVE 08/15/25 08:33: WBC 11.4 H, RBC 3.15 L, Hgb 9.7 L, Hct 27.1 L, MCV 86.0, MCH 30.8, MCHC 35.8, RDW Std Deviation 38.8, RDW Coeff of Niki 12.8, Plt Count 389, MPV 11.0, Immature Gran % (Auto) 0.900, Neut % (Auto) 61.6, Lymph % (Auto) 28.7, [place] % (Auto) 8.4, Eos % (Auto) 0.1, Baso % (Auto) 0.3, Absolute Neuts (auto) 7.1, Absolute Lymphs (auto) 3.28, Nucleated RBC % 0, Sodium 137, Potassium 3.6, Chloride 106, Carbon Dioxide 19.7 L, Anion Gap 12, BUN 13, Creatinine 0.79, Estim Creat Clear Calc 154.16, Est GFR (MDRD) Non-Af 125, BUN/Creatinine Ratio 16.9, Glucose 112 H, Calcium 8.7, Phosphorus 2.3 L, Magnesium 2.1, Total Bilirubin 0.79, Direct Bilirubin 0.34 H, AST 16, ALT 38, Alkaline Phosphatase 54, Total Protein 5.7 L, Albumin 3.8, Globulin 2.0 L Radiography Diagnostic Testing: Radiology Impression Chest X-Ray 08/14/25 10:30 IMPRESSION: No Acute Findings. Reading Location: [place] [address] D/C Instructions Discharge Activity: Return to Normal Activity Call your doctor if you observe: Fever of 101 or Higher, Shortness of breath, Fainting spells and Chest pain DC O2, CPAP, BIPAP Needs Home O2 Discharge instructions: No Meaningful Use Info Meaningful Use Meaningful Use Diagnoses (Choose all that apply): None applicable Discharge Plan Admission Admit Date/Time: 08/14/25 10:57 Attending Provider: Nj Daily Primary Care Provider: Care Physician,No Primary Consulting Providers: Maxx Morris; Jamari Farley; Fanny Osorio; Ling Segura; Nikia Keene Discharge Orders/Prescriptions Prescriptions: New amlodipine 10 mg Tablet 10 mg PO DAILY 90 Days Qty: 60 0RF potassium chloride 20 mEq tablet,ER particles/crystals 20 meq PO BID Qty: 60 0RF Continued pantoprazole 40 mg tablet,delayed release (DR/EC) 40 mg PO DAILY Qty: 60 0RF Discontinued ondansetron 4 mg tablet,disintegrating 4 mg PO Q8H PRN (Reason: nausea and vomiting) Qty: 10 0RF ondansetron HCl 4 mg tablet 4 mg PO Q6H PRN (Reason: nausea and vomiting) Qty: 15 0RF Effer-K 20 mEq tablet, effervescent 1 ea PO DAILY Referrals / Follow Up: Jamari Farley DO [Med Staff - Active Staff, Gastroenterology] - Within 2 Weeks Care Physician,No Primary [Primary Care Provider, Medical] - Within 2 Weeks Disposition Disposition (needs filled in before D/C Order can be placed): Home, Self Care Charges/Coding Visit Charges Inpatient E&M: 67231 Disch Hosp >30min
--- NOTE | 2025-08-15 10:26 | CASEMGMT ---
Dx:GI Bleed LACE:1 6-Clicks: 22 Medical record reviewed and patient evaluated for identification of discharge planning needs. Based on this review, at this time criteria are not present to indicate a need for discharge planning. Will remain available to assist with discharge planning needs as identified or requested. Noted that the pt does not have a PCP on file. Pt states that he has a PCP through [facility] in [place] but does not know the name. Pt denies PCP list and states that he plans to follow up @ [facility] as an OP. Pt denies the need for any additional therapy or resources at this time. Denies any DC needs.
--- NOTE | 2025-08-15 10:54 | EKG12_ITS ---
Test Reason : ARRYTH Blood Pressure : */* mmHG Vent. Rate : 151 BPM Atrial Rate : 151 BPM P-R Int : 96 ms QRS Dur : 82 ms QT Int : 336 ms P-R-T Axes : * 71 51 degrees QTcB Int : 532 ms Critical Test Result: High HR Sinus tachycardia with short PA Nonspecific ST abnormality Abnormal ECG When compared with ECG of 02-Aug-2024 14:12, Vent. rate has increased by [address] now depressed in Lateral leads Nonspecific T wave abnormality no longer evident in Anterolateral leads Confirmed by KARLA DOMINGO, SURAJ ([id number]), video effects editor ALISIA VALENCIA ([id number]) on 08/16/2025 2:19:50 PM Referred By: Confirmed By: SURAJ ACOSTA MD
[2025-08-15] MEDS: 0.9% Saline Lock 10 ML Syringe IV ×2 (11:48→14:56)
[2025-08-15] MEDS: Na Biphos/Potassium Phosphate PACKET 1 PACKET PO (12:17)
== END 2025-08-15 17:37 | disposition home or self-care (01) | DRG 242 ==
LOC: ED 11:05 → PCU 11:18
PROVIDERS: Internal Medicine Gastroenterology; Admitting Provider Internal Medicine; Emergency Provider Emergency Medicine; Visit Provider Internal Medicine
PROC: 0DJ08ZZ Inspection of Upper Intestinal Tract, Via Natural or Artificial Opening Endoscopic (ICD-10-PCS; CPT 43235; principal; 2025-08-14 13:40)
DX: K22.6 Gastro-esophageal laceration-hemorrhage syndrome (principal); K22.10 Ulcer of esophagus without bleeding; F11.23 Opioid dependence with withdrawal; E87.6 Hypokalemia; F17.210 Nicotine dependence, cigarettes, uncomplicated; R11.2 Nausea with vomiting, unspecified; F12.90 Cannabis use, unspecified, uncomplicated; R00.0 Tachycardia, unspecified; R03.0 Elevated blood-pressure reading, without diagnosis of hypertension; Z79.899 Other long term (current) drug therapy
CPT/HCPCS: 71045; 80048; 80053; 80076; 80307; 83690; 83735; 84100; 85025; 85610; 85730; 86850; 86900; 86901; 93005; 99284; C1889; A4216; J2405

== ENCOUNTER 2025-09-11 11:04 | Emergency (ER) | payer MEDICAID, SELFPAY ==
[2025-09-11 11:05] VITALS: BP 125/85; PULSE 105; RESP 16; TEMP 36.4; O2SAT 100; BMI 27.8
--- NOTE | 2025-09-11 12:02 | EDS_ITS ---
HPI History of Present Illness Chief Complaint: Substance Abuse Detail of Chief Complaint: Patient states he needs to be drug screen to allow him to participate in ou Informant: patient Onset/Context/Timing Onset: Weeks (Patient states he has not used fentanyl in 4 weeks. He does use marijuana.) Context: - (Not applicable) Timing: Continuous Quality: Drug screen to rule out opiates Location: Not applicable Current Severity: Gone (Patient states he has not used in 4 weeks) Worsened by: Patient has no symptoms of withdrawal Relieved by: Not applicable Associated Symptoms Associated Symptoms: THC use and counseling center is aware Narrative Narrative: Patient is a 30-year-old male. 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 He states he snorted fentanyl. Is not snorted in a week. He does not inject. He denies headache. He denies visual, ocular auditory symptoms. He denies cardiac respiratory symptoms. He denies GI symptoms. He denies withdrawal symptoms. He states he needs to be tested and he will be allowed to attend outpatient treatment Prior similar symptoms: Yes Recent Illness/Hospitalization: No PFSH [facility] [place] Medical History (Updated 09/11/25 @ 13:[address] José Mckenna MD) Substance abuse Anxiety Kidney stones Former smoker Hypertension Drug abuse Cyclic vomiting syndrome Home Medications ?Medication ?Instructions ?Recorded ?Last Taken ?Type amlodipine 10 mg tablet 10 mg PO DAILY 90 days #60 t abs 08/15/25 Unknown Rx metoprolol tartrate 25 mg tablet 25 mg PO BID 90 days #180 tabs 08/15/25 Unknown Rx pantoprazole 40 mg tablet,delayed 40 mg PO DAILY #60 t abs 08/15/25 Unknown Rx release potassium chloride 20 mEq 20 meq PO BID #60 tabs 08/15 Unknown Rx tablet,extended release(part/cryst) potassium, sodium phosphates 280 1 packet PO BID #100 ea 08/15/25 Unknown Rx mg-160 mg-250 mg oral powder packet Allergy/AdvReac Type Severity Reaction Status Date / Time haloperidol (From Haldol) Allergy Other Verified 09/11/25 11:08 risperidone (From Risperdal) AdvReac TACHYCARDIA Verified 09/11/25 11:08 Surgical History History of meniscectomy of left knee Hx of abdominal surgery Social History household members: family housing: house Smoking Status: Current some day smoker tobacco type: cigarettes substance use type: other details: Cannabis ROS ROS ED Constitutional Constitutional ED: Denies chills, fever(s), subjective, sweats or weight loss Eyes Eyes: Denies blurry vision or change in vision ENT ENT ED: Denies ear pain or rhinorrhea Cardiovascular Cardiovascular: Denies chest pain or palpitations Respiratory/Chest Respiratory/Chest: Denies cough, dyspnea or dyspnea on exertion Gastrointestinal Gastrointestinal: Denies abdominal pain, nausea or vomiting Genitourinary Genitourinary ED: Denies dysuria, hematuria or urinary frequency Musculoskeletal Musculoskeletal: Denies arthralgias or myalgias Neurologic Neurologic: Denies paresthesias or weakness Endocrine Endocrinology: Denies cold intolerance or heat intolerance EXAM Physical Exam Const Vital Signs: 09/11/25 11:05 Temperature 97.6 F L Temperature Source Temporal Pulse Rate 105 H Respiratory Rate 16 Blood Pressure 125/85 H Blood Pressure Mean 98 Pulse Ox 100 Oxygen Delivery Method Room Air Positive well nourished and well developed General Appearance ED: well developed and NAD; Negative for pallor HEENT Reports moist mucous membranes HEENT Narrative: HEENT is grossly unremarkable. Eyes EOMs intact bilaterally General Eye ED: Negative for pale conjunctiva or scleral icterus Neck no lymphadenopathy, supple and no JVD Resp normal respiratory effort and clear to auscultation bilaterally Cardio regular rate, regular rhythm, S1 normal heart sound, S2 normal heart sound and no murmurs GI normal to inspection, nondistended, normoactive bowel sounds, non-tender, non- distended and no masses; Negative for hepatosplenomegaly Extremity normal to inspection General Extremety ED: Negative for edema General Extremity: Negative for edema Neuro oriented x3 and CN's II-XII intact bilaterally Sensorium / Orientation: alert Psych mental status grossly normal Skin no rashes or lesions noted, no wounds and skin turgor normal General Skin Exam: Negative for jaundice or pallor MDM MDM MDM Narrative Medical decision making narrative: Will obtain tox screen to determine if patient has opiates or fentanyl. He admits to marijuana use. Also an alcohol level will be obtained. Patient's tox screen reveals presumptive cannabinoids. Otherwise negative. Lab Data Attestation: I reviewed the patient's lab results. Labs: Laboratory Results - last 24 hr 09/11/25 09/11/25 11:55 12:00 Urine Opiates Screen NEGATIVE U Buprenorphine Qual NEGATIVE Ur Oxycodone Screen NEGATIVE Urine Methadone Screen NEGATIVE Urine Fentanyl Screen NEGATIVE Ur Barbiturates Screen NEGATIVE Ur Phencyclidine Scrn NEGATIVE Ur Amphetamines Screen NEGATIVE U Benzodiazepines Scrn NEGATIVE Urine Cocaine Screen NEGATIVE U Cannabinoids Screen PRESUMPTIVE POSITIVE Ethyl Alcohol < 10.1 Discharge Plan Triage Chief Complaint: Substance Abuse ED Provider: José Mckenna Dx/Rx/DC Orders Clinical Impression: Encounter for medical screening examination, Marijuana use, continuous, Tachycardia Instructions: ED Screening Exam Medical Nonurgent Prescriptions: No Action amlodipine 10 mg Tablet 10 mg PO DAILY 90 Days Qty: 60 0RF potassium chloride 20 mEq tablet,ER particles/crystals 20 meq PO BID Qty: 60 0RF pantoprazole 40 mg tablet,delayed release (DR/EC) 40 mg PO DAILY Qty: 60 0RF potassium, sodium phosphates 280-160-250 mg Powder In Packet 1 packet PO BID Qty: 100 0RF metoprolol tartrate 25 mg tablet 25 mg PO BID 90 Days Qty: 180 0RF Primary Care Provider: Care Physician,No Primary Referrals: Care Physician,No Primary [Primary Care Provider, Medical] Activity Restrictions/Additional Instructions: Toxicologic screen was negative for drugs of abuse Print Language: Serbian Disposition Disposition: Home, Self Care
[2025-09-11 12:50] LABS: Barbiturate Urine NEGATIVE (< 200 ng/mL); Benzodiazepine Urine NEGATIVE (< 200 ng/mL); PCP Urine NEGATIVE (< 25 ng/mL); THC Urine PRESUMPTIVE POSITIVE (< 50 ng/mL)
[2025-09-11 12:51] LABS: Alcohol, Blood (Medical)-Serum < 10.1 mg/dL (<=10.0)
[2025-09-11 13:12] VITALS: BP 140/83; PULSE 85; RESP 18; TEMP 37.1; O2SAT 100
== END 2025-09-11 13:16 | disposition home or self-care (01) ==
PROVIDERS: Emergency Provider Emergency Medicine; Visit Provider Emergency Medicine
DX: F12.10 Cannabis abuse, uncomplicated (principal); R00.0 Tachycardia, unspecified; I10 Essential (primary) hypertension; F17.210 Nicotine dependence, cigarettes, uncomplicated; Z79.899 Other long term (current) drug therapy
CPT/HCPCS: 80307; 82077; 99282; A4216